=== PATIENT | male | born 1955 | race Caucasian/White ===

== ENCOUNTER 2016-12-24 06:41 | Day surgery (SDC) | payer OTHER ==
[2016-12-19 12:56] VITALS: BMI 28.0
[~2016-12-24 06:41] MED LIST: LACTATED RINGERS 1,000 ML IV SCH
[2016-12-24 07:08] VITALS: RESP 18; TEMP 98.4
[2016-12-24] MEDS ORDERED: LACTATED RINGERS 1,000 ML IV ONE (07:08)
[2016-12-24] MEDS ORDERED: LIDOCAINE 1% INJ 10MG/ML (20 ML MDV) ONE (07:40)
[2016-12-24] MEDS ORDERED: PROPOFOL 10 MG/ML 20 ML VIAL IV ONE (07:40)
--- NOTE | 2016-12-24 07:46 | P.GSHP ---
History of Present Illness H&P Date: 12/24/16 Chief Complaint: Chronic constipation This a 61-year-old male referred from Dr. Rose. Patient presents today for colonoscopy. He's had issues with constipation. - Constitutional Constitutional: Reports as per HPI Past Medical History Past Medical History: Asthma, Hyperlipidemia, Hypertension Additional Past Medical History / Comment(s): schizophrenia. constipation History of Any Multi-Drug Resistant Organisms: None Reported Past Surgical History: No Surgical Hx Reported Past Anesthesia/Blood Transfusion Reactions: No Reported Reaction Past Psychological History: Schizophrenia Smoking Status: Current every day smoker Past Alcohol Use History: None Reported Additional Past Alcohol Use History / Comment(s): smokes 10 cig/day Past Drug Use History: None Reported - Past Family History Father History Unknown: Yes Mother History Unknown: Yes Medications and Allergies Home Medications Medication Instructions Recorded Confirmed Type LORazepam [Ativan] 1 mg PO QID 05/18/14 12/24/16 History Aspirin [Aspirin EC] 81 mg PO QAM 04/12/16 12/24/16 History Levothyroxine Sodium [Synthroid] 150 mcg PO QAM 04/12/16 12/24/16 History Multivitamins, Thera [Multivitamin] 1 tab PO QAM 04/12/16 12/24/16 History Simvastatin [Zocor] 10 mg PO HS 04/12/16 12/24/16 History fluPHENAZine DECANOATE [Prolixin 50 mg IM TU 04/22/16 12/24/16 History Decanoate] Albuterol Inhaler [Ventolin Hfa 1 - 2 puff INHALATION QID 12/19/16 12/24/16 History Inhaler] Atenolol [Tenormin] 12.5 mg PO DAILY 12/19/16 12/24/16 History [place] Carbonate ER [Lithobid] 300 mg PO DAILY 12/19/16 12/24/16 History QUEtiapine XR [SEROquel XR] 2 tab PO DAILY 12/19/16 12/24/16 History Sennosides [Senna] 2 tab PO BID 12/19/16 12/24/16 History Allergies Allergy/AdvReac Type Severity Reaction Status Date / Time acetaminophen [From Tylenol] Allergy Unknown Verified 12/24/16 07:06 gabapentin [From Neurontin] Allergy Unknown Verified 12/24/16 07:06 Penicillins Allergy Unknown Verified 12/24/16 07:06 clozapine [From Clozaril] AdvReac Unknown Verified 12/24/16 07:06 divalproex sodium AdvReac Unknown Verified 12/24/16 07:06 [From Depakote] Surgical - Exam Vital Signs Temp Pulse Resp BP Pulse Ox 98.4 F 86 18 113/60 97 12/24/16 07:06 12/24/16 07:06 12/24/16 07:06 12/24/16 07:06 12/24/16 07:06 - General well developed, no distress - Eyes PERRL - ENT normal pinna - Neck no masses - Respiratory normal expansion - Cardiovascular Rhythm: regular - Abdomen Abdomen: soft, non tender Assessment and Plan Plan: Chronic constipation. We'll perform colonoscopy.
--- NOTE | 2016-12-24 08:01 | P.OP ---
Date of Procedure: 12/24/16 Preoperative Diagnosis: Constipation Postoperative Diagnosis: Hemorrhoids Normal colon Procedure(s) Performed: Colonoscopy Anesthesia: MAC Surgeon: Buck Neville Pathology: none sent Condition: stable Disposition: PACU Description of Procedure: PROCEDURE: The patient was placed on the endoscopy table in the lateral position. Digital rectal examination was performed which revealed internal hemorrhoids. The prostate was symmetrical without nodules. Flexible colonoscope was then placed in the patient's anus and passed throughout the entire colon. The ileocecal valve was visualized. The cecum, ascending, transverse, descending and sigmoid colon were normal. The rectum was normal as well. There were no masses, polyps or diverticula noted in the entire colon.
[2016-12-24 08:27] VITALS: BP 149/83; PULSE 94
== END 2016-12-24 09:06 | disposition home or self-care (01) ==
LOC: ORWHC2ENDO 06:41
PROVIDERS: ATTEND Surgery
DX: K64.8 Other hemorrhoids (principal); J45.909 Unspecified asthma, uncomplicated; E78.5 Hyperlipidemia, unspecified; I10 Essential (primary) hypertension; F20.9 Schizophrenia, unspecified; Z79.82 Long term (current) use of aspirin; Z79.899 Other long term (current) drug therapy; Z88.6 Allergy status to analgesic agent; Z88.0 Allergy status to penicillin; Z88.8 Allergy status to other drugs, medicaments and biological substances
CPT/HCPCS: 45378; J2001; J2704; 99153

== ENCOUNTER 2020-06-08 17:12 | Inpatient (IN) | payer MEDICARE, MEDICAID ==
--- NOTE | 2020-06-08 18:55 | ED ---
Psych HPI - General Chief Complaint: Psychiatric Symptoms Stated Complaint: petitioned, hallucinations Time Seen by Provider: 06/08/20 17:52 Source: patient, police Mode of arrival: ambulatory - History of Present Illness Initial Comments: 64yo male presenting today for cc of hallucinations, hearing people/things--patient has known history of schizophrenia. Patient brought in by police for psychiatric evaluation. Patient talking to himself and saying he is hearing things that no one else can hear. Denied suicidal or homicidal ideation. Patient gets agitated easily on history taking, therefore little history provided. Patient does not smell of alcohol. Denies use. Patietn does appears paranoid. - Related Data Home Medications Medication Instructions Recorded Confirmed Aspirin [Aspirin EC] 81 mg PO DAILY@79904/12/16 06/09/20 Multivitamins, Thera [Multivitamin 1 tab PO HS@209904/12/16 06/09/20 (formulary)] Simvastatin [Zocor] 10 mg PO HS@209904/12/16 06/09/20 Albuterol Inhaler [Ventolin Hfa 2 puff INHALATION RT-Q6H PRN 06/07/20 06/09/20 Inhaler] Cholecalciferol (Vitamin D3) 125 mcg PO DAILY@79906/07/20 06/09/20 [Vitamin D3] Docusate [Colace] 100 mg PO BID@08,209906/07/20 06/09/20 Fenofibrate Nanocrystallized 145 mg PO DAILY@79906/07/20 06/09/20 [Fenofibrate] Foltrate Tablet 1 tab PO DAILY@79906/07/20 06/09/20 Lactulose 10 gm PO DAILY PRN 06/07/20 06/09/20 Latanoprost/Pf [Latanoprost 0.005% 1 drop BOTH EYES HS@209906/07/20 06/09/20 Eye Drop] Levothyroxine Sodium [Synthroid] 100 mcg PO DAILY@69906/07/20 06/09/20 [place] Carbonate 600 mg PO DAILY@169906/07/20 06/09/20 Loperamide [Imodium] 2 - 4 mg PO QID PRN 06/07/20 06/09/20 Magnesium Hydroxide [Milk of 2,400 mg PO DAILY PRN 06/07/20 06/09/20 Magnesia] Metoprolol Tartrate [Lopressor] 25 mg PO BID@0800,209906/07/20 06/09/20 Oyfcauct-Usnihwetjs-Mpwx Oint 1 applic TOPICAL DIRECTED PRN 06/07/20 06/09/20 [Triple Antibiotic Ointment] Omeprazole [PriLOSEC] 20 mg PO DAILY@0806/07/20 06/09/20 Psyllium Husk (with Sugar) 14 gm PO TID PRN 06/07/20 06/09/20 [Metamucil Powder] QUEtiapine FUMARATE [SEROquel] 300 mg PO HS@209906/07/20 06/09/20 Robafen Dm Syrup 100-10/5ml 15 ml PO Q8H PRN 06/07/20 06/09/20 Robafen Syrup 100/5ml 200 - 400 mg PO Q4H PRN 06/07/20 06/09/20 clonazePAM 0.5 mg PO DAILY@79906/07/20 06/09/20 clonazePAM 1 mg PO HS@209906/07/20 06/09/20 fluPHENAZine HCl [fluPHENAZine HCL] 5 mg PO HS@209906/07/20 06/09/20 Aspirin EC [Ecotrin] 325 - 650 mg PO Q4H PRN 06/08/20 06/09/20 Azithromycin [Zithromax Z-pack] See Taper PO DAILY@1700 06/08/20 06/09/20 Bismuth Subsalicylate 524 mg PO QID PRN 06/08/20 06/09/20 [Pepto-Bismol] Docusate [Colace] 100 mg PO DAILY PRN 06/08/20 06/09/20 Ibuprofen [Motrin Ib] 200 - 400 mg PO Q6H PRN 06/08/20 06/09/20 Ibuprofen [Motrin] 400 mg PO TID PRN 06/08/20 06/09/20 Ibuprofen [Motrin] 800 mg PO Q8H PRN 06/08/20 06/09/20 Pseudoephedrine HCl [Sudogest] 60 mg PO Q4-6H PRN 06/08/20 06/09/20 diphenhydrAMINE [Benadryl] 25 - 50 mg PO Q4-6H PRN 06/08/20 06/09/20 predniSONE 50 mg PO DAILY@1700 06/08/20 06/09/20 Allergies Allergy/AdvReac Type Severity Reaction Status Date / Time acetaminophen [From Tylenol] Allergy Unknown Verified 06/09/20 02:54 gabapentin [From Neurontin] Allergy Unknown Verified 06/09/20 02:54 Penicillins Allergy Unknown Verified 06/09/20 02:54 clozapine [From Clozaril] AdvReac Unknown Verified 06/09/20 02:54 divalproex sodium AdvReac Unknown Verified 06/09/20 02:54 [From Depakote] Review of Systems ROS Statement: Those systems with pertinent positive or pertinent negative responses have been documented in the HPI. ROS Other: All systems not noted in ROS Statement are negative. Past Medical History Past Medical History: Asthma, Hyperlipidemia, Hypertension Additional Past Medical History / Comment(s): schizophrenia. constipation History of Any Multi-Drug Resistant Organisms: None Reported Past Surgical History: No Surgical Hx Reported Past Anesthesia/Blood Transfusion Reactions: No Reported Reaction Past Psychological History: Schizophrenia Smoking Status: Current every day smoker Past Alcohol Use History: None Reported Past Drug Use History: None Reported - Past Family History Father History Unknown: Yes Mother History Unknown: Yes General Exam - General Exam Comments Initial Comments: General: The patient is awake and alert, talking to himself. Eye: +3 mm pupils are equal, round and reactive to light, extra-ocular movements are intact. No nystagmus. There is normal conjunctiva bilaterally. No signs of icterus. Ears, nose, mouth and throat: There are moist mucous membranes and no oral lesions. Neck: The neck is supple, there is no tenderness or JVD. Cardiovascular: There is a regular rate and rhythm. No murmur, rub or gallop is appreciated. Respiratory: Lungs are clear to auscultation, respirations are non-labored, breath sounds are equal. No wheezes, stridor, rales, or rhonchi. Gastrointestinal: Soft, non-distended, non-tender abdomen without masses or organomegaly noted. There is no rebound or guarding present. Musculoskeletal: Normal ROM, no tenderness. Strength 5/5. Sensation intact. Radial pulses equal bilaterally 2+. Neurological: A&O x 3. CN II-XII intact grossly, There are no obvious motor or sensory deficits. Coordination appears grossly intact. Speech is pressured. Skin: Skin is warm and dry and no rashes or lesions are noted. Psychiatric: agitated if talked to Limitations: no limitations Course Vital Signs 06/08/20 06/08/20 06/08/20 17:37 17:55 19:03 Temperature 98.4 F Pulse Rate 77 Respiratory 18 18 18 Rate Blood Pressure 114/70 O2 Sat by Pulse 97 Oximetry Medical Decision Making - Medical Decision Making 64yo male presenting today for cc of hallucinations, patient saying he is hearing voices. Talking to self. Hx of schizophrenia. Patient appears paranoid/scared. Patient denies suicidal/homicidal ideation. Patient not intoxicated appearing. Patient medically cleared, denied complaints. Evaluated by psychiatry who recommended inpatient management. - Lab Data Result diagrams: 06/09/20 07:23 06/09/20 07:23 Lab Results 06/08/20 Range/Units 19:03 Urine Color Light Yellow Urine Appearance Clear (Clear) Urine pH 5.5 (5.0-8.0) Ur Specific [place] 1.006 (1.001-1.035) Urine Protein Negative (Negative) Urine Glucose (UA) Negative (Negative) Urine Ketones Negative (Negative) Urine Blood Negative (Negative) Urine Nitrite Negative (Negative) Urine Bilirubin Negative (Negative) Urine Urobilinogen <2.0 (<2.0) mg/dL Ur Leukocyte Esterase Negative (Negative) Urine Opiates Screen Not Detected (NotDetected) Ur Oxycodone Screen Not Detected (NotDetected) Urine Methadone Screen Not Detected (NotDetected) Ur Propoxyphene Screen Not Detected (NotDetected) Ur Barbiturates Screen Not Detected (NotDetected) U Tricyclic Antidepress Detected H (NotDetected) Ur Phencyclidine Scrn Not Detected (NotDetected) Ur Amphetamines Screen Not Detected (NotDetected) U Methamphetamines Scrn Not Detected (NotDetected) U Benzodiazepines Scrn Not Detected (NotDetected) Urine Cocaine Screen Not Detected (NotDetected) U Marijuana (THC) Screen Not Detected (NotDetected) Disposition Clinical Impression: Hallucinations, Hx of schizophrenia, Agitation Disposition: TRANSFER TO PSYCH HOSP/UNIT Condition: Stable Is patient prescribed a controlled substance at d/c from ED?: No Time of Disposition: 22:00 (06/08/2020) Decision to Admit Reason: Admit from EC Decision Date: 06/08/20 Decision Time: 22:00
[2020-06-08 19:16] LABS: Appearance,Urine Clear (Clear); Bilirubin,Urine Negative (Negative); Blood,Urine Negative (Negative); Color,Urine Light Yellow; Glucose,Urine (UA) Negative (Negative); Ketones,Urine Negative (Negative); Leukocyte Esterase,Urine Negative (Negative); Nitrite,Urine Negative (Negative); PH, Urine 5.5 (5.0-8.0); Protein,Urine Negative (Negative); Specific Gravity,Urine 1.006 (1.001-1.035); Urobilinogen,Urine <2.0 mg/dL (<2.0)
[2020-06-08 19:23] LABS: Amphetamine Screen,Urine Not Detected (NotDetected); Barbiturate Screen,Urine Not Detected (NotDetected); Benzodiazepines Screen,Urine Not Detected (NotDetected); Cocaine Screen,Urine Not Detected (NotDetected); Methadone Screen, Urine Not Detected (NotDetected); Opiate Screen,Urine Not Detected (NotDetected); Oxycodone Screen, Urine Not Detected (NotDetected); Phencyclidine Screen,Urine Not Detected (NotDetected); Tricyclic Antidepressant,Urine Detected (NotDetected); Urn Cannabinoid Scrn Not Detected (NotDetected)
[2020-06-08] MEDS ORDERED: diphenhydrAMINE 50 MG/ML 1 ML VIAL IM STA (23:05)
[2020-06-08] MEDS ORDERED: LORazepam 2 MG/ML INJ IM STA (23:05)
[2020-06-08] MEDS ORDERED: MAG HYDROX/AL HYDROX/SIMETH 30 ML CUP PO PRN (23:20)
[2020-06-08] MEDS ORDERED: MAGNESIUM HYDROXIDE 2,400 MG/10 ML CUP PO PRN (23:20)
[2020-06-09] MEDS: LORazepam 1 MG TAB PO PRN (00:13)
[2020-06-09] MEDS: ZIPRASIDONE 20 MG VIAL IM PRN (00:14)
[2020-06-09] MEDS ORDERED: diphenhydrAMINE 50 MG/ML 1 ML VIAL IM STA (01:57)
[2020-06-09] MEDS ORDERED: HALOPERIDOL LACTATE 5 MG/ML 1 ML VIAL IM STA (01:59)
[2020-06-09] MEDS ORDERED: LORazepam 2 MG/ML INJ IM STA (02:00)
[2020-06-09] MEDS ORDERED: NON FORMULARY DRUG (Cholecalciferol (Vitamin D3) [Vitamin D3] 125 MCG) PO SCH (08:00)
[2020-06-09 08:26] LABS: Basophils % (A) 0 %; Eosinophils # (A) 0.1 k/uL (0-0.7); Eosinophils % (A) 2 %; HCT 46.9 % (39.0-53.0); Lymphocytes # (A) 2.3 k/uL (1.0-4.8); Lymphocytes % (A) 36 %; MCH 30.7 pg (25.0-35.0); MCV 95.9 fL (80.0-100.0); Mean Platelet Volume 10.7; Monocytes # (A) 0.4 k/uL (0-1.0); Monocytes % (A) 6 %; Neutrophils # (A) 3.4 k/uL (1.3-7.7); Neutrophils % (A) 54 %; Platelet Count 113 k/uL (150-450); RBC 4.88 m/uL (4.30-5.90); RDW 12.6 % (11.5-15.5); WBC 6.3 k/uL (3.8-10.6)
[2020-06-09] MEDS: LEVOTHYROXINE 100 MCG TAB PO SCH (08:39)
[2020-06-09] MEDS: PANTOPRAZOLE 40 MG TABLET PO SCH (08:40)
[2020-06-09] MEDS: ASPIRIN 81 MG PO SCH (08:40)
[2020-06-09] MEDS: METOPROLOL TARTRATE 25 MG TAB PO SCH ×2 (08:40→21:23)
[2020-06-09] MEDS: clonazePAM 0.5 MG TAB PO SCH (08:40)
[2020-06-09] MEDS: DOCUSATE 100 MG CAP PO SCH ×2 (08:40→21:23)
[2020-06-09 09:00] LABS: ALT 24 U/L (4-49); AST 32 U/L (17-59); African American GFR (CKD) >90 (>60 ml/min/1.73 sqM); Albumin 3.3 g/dL (3.5-5.0); Alkaline Phosphatase 40 U/L (38-126); Anion Gap 4 mmol/L; Blood Urea Nitrogen 11 mg/dL (9-20); Calcium 9.7 mg/dL (8.4-10.2); Carbon Dioxide 24 mmol/L (22-30); Chloride 110 mmol/L (98-107); Glucose 88 mg/dL (74-99); Non-African American GFR(CKD) 78 (>60 ml/min/1.73 sqM); Potassium 3.9 mmol/L (3.5-5.1); Sodium 138 mmol/L (137-145); Total Bilirubin 0.4 mg/dL (0.2-1.3); Total Protein 5.4 g/dL (6.3-8.2)
[2020-06-09] MEDS: FENOFIBRATE 160 MG TAB PO SCH (09:30)
[2020-06-09] MEDS: FOLTRATE PO SCH (09:31)
--- NOTE | 2020-06-09 12:03 | P.HP ---
Psychiatric H&P - . H&P Date: 06/09/20 History & Physical: IDENTIFYING DATA: He is a 64-year-old single male who has a long history of a schizophrenia. He presented to the psychiatric unit involuntarily with increasing agitation, aggression and appropriate sexual behavior. HISTORY OF PRESENT ILLNESS: I reviewed the medical record, attempted to interview the patient and discussed the case with Dr. Capellan from [facility]. The patient was unable to provide a coherent history. His thinking was disorganized and his speech was incoherent. He expressed multiple fragmentted delusional beliefs. According to information from his [facility] home he has been more aggressive towards other residents and was masturbating in public. Dr. Capellan has been his provider at [facility] provider for the last 10 years. He stated that David is chronically psychotic and during the 10 years David has never had a period of recovery. He has prescribed most typical and atypical antipsychotics including clozapine without significant change in Seth clinical status. Dr. Capellan's primary treatment goal has been to limit his aggressive and inappropriate sexual behavior. PAST PSYCHIATRIC HISTORY: He is had multiple psychiatric admissions including 10 years at [facility]. This is his fourth admission to our psychiatric unit. His last admission was in April 2016 he was discharged with diagnosis of a schizophrenia. His discharge medications included Geodon 40 mg daily, lithium ER 450 mg twice a day, Seroquel XR 200 mg in morning and 500 mg at night. As well as Prolixin Decanoate 50 mg IM every 4 weeks. His last appointment with his psychiatrist [facility] was in March 2020 in the progress notes indicate multiple bizarre delusional statements and paranoia. Their diagnoses is a schizoaffective disorder and his medications included lithium carbonate 300 mg twice a day, Seroquel 300 mg at bedtime, Prolixin 5 mg at bedtime and clonazepam 0.5 mg in the morning and 1 mg at bedtime. PAST MEDICAL HISTORY: He has a history of essential hypertension, hyperlipidemia, hypothyroidism, glaucoma and tobacco use disorder. ALLERGIES: According to the EMR he is ALLERGIC to acetaminophen, gabapentin, penicillins, clozapine and Depakote SUBSTANCE USE HISTORY: The medical record indicates no history of substance use or substance use problems. I could not understand his response to questions. FAMILY PSYCHIATRIC/SUBSTANCE USE HISTORY: Unknown LEGAL HISTORY: He has a public guardian SOCIAL HISTORY: His parents are . He graduated from high school. He is unemployed and receiving Social Security disability. He is a public guardian due to his persistent and severe psychiatric illness. MENTAL STATUS EXAM: He presented as a casually groomed 64-year-old male who was pleasant on approach. He made eye contact and appeared to attend to the interview. He had no distinguishing features or prominent physical abnormalities. He had a distressed facial expression. He was alert and oriented to person. He showed no abnormality of psychomotor activity. He had no abnormal involuntary movements. Her speech was spontaneous with normal rate and rhythm. His affect was anxious. He did not express suicidal ideation or wishes. He denied homicidal ideation. He expressed multiple fragmented delusions and talked about wanting to return to his home (he stated that the building is currently vacant). Other times she talked about living with his parents (both are ). His thinking was grossly disorganized, incoherent and illogical. He did not appear to be responding to internal stimuli. Global impression of intellect is average. He has no awareness or understanding of his illness or need for treatment. STRENGTHS: Relatively good physical health, stable housing, stable income, engagement with community mental health services WEAKNESSES: Chronic and persistently severe mental illness IMPRESSION: He is a 64-year-old single male with long history of a schizophrenia. He is had multiple psychiatric hospitalizations and trial of multiple psychotropic medications with limited benefit on his core psychotic symptoms. He presented to the psychiatric unit involuntarily with increase of agitation, aggression and inappropriate sexual behavior. We should pursue the involuntary hospitalization and treat his psychosis with combination of psychopharmacology and multimodal therapy. PRINCIPLE DIAGNOSIS: Schizophrenia continuous unspecified, COPD, hyperlipidemia, hypertension RECOMMENDATION: Admitted to the psychiatric unit. Safety precautions. Completed basic clinical certificate and submit the supporting documents to [facility] for involuntary hospitalization. Consult medicine for initial physical Center medical history. 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 Continue Seroquel 300 mg at bedtime, lithium 300 mg twice a day and clonazepam 0.5 mg in the morning and 1 mg at at bedtime. Discontinue Prolixin 5 mg daily. Begin trazodone 40 mg daily and titrated according to clinical response and tolerance and pvortioxetine 10mg daily. Encourage participation in therapeutic groups and activities. Evaluate clinical status response to treatment daily basis. Allergies Allergy/AdvReac Type Severity Reaction Status Date / Time acetaminophen [From Tylenol] Allergy Unknown Verified 06/09/20 02:54 gabapentin [From Neurontin] Allergy Unknown Verified 06/09/20 02:54 Penicillins Allergy Unknown Verified 06/09/20 02:54 clozapine [From Clozaril] AdvReac Unknown Verified 06/09/20 02:54 divalproex sodium AdvReac Unknown Verified 06/09/20 02:54 [From Depakote] Vital Signs Temp 0 F L 06/09/20 06:35 Pulse 91 06/09/20 08:42 Resp 18 06/09/20 08:42 BP 130/76 06/09/20 08:42 Pulse Ox 100 06/08/20 23:45 Intake & Output 06/08/20 06/09/20 06/09/20 18:59 06:59 18:59 Weight 90.718 kg 86.778 kg Laboratory Last Values WBC 6.3 k/uL (3.8-10.6) 06/09/20 07:23 RBC 4.88 m/uL (4.30-5.90) 06/09/20 07:23 Hgb 15.0 gm/dL (13.0-17.5) 06/09/20 07:23 Hct 46.9 % (39.0-53.0) 06/09/20 07:23 MCV 95.9 fL (80.0-100.0) 06/09/20 07:23 MCH 30.7 pg (25.0-35.0) 06/09/20 07:23 MCHC 32.0 g/dL (31.0-37.0) 06/09/20 07:23 RDW 12.6 % (11.5-15.5) 06/09/20 07:23 Plt Count 113 k/uL (150-450) L 06/09/20 07:23 Neutrophils % 54 % 06/09/20 07:23 Lymphocytes % 36 % 06/09/20 07:23 Monocytes % 6 % 06/09/20 07:23 Eosinophils % 2 % 06/09/20 07:23 Basophils % 0 % 06/09/20 07:23 Neutrophils # 3.4 k/uL (1.3-7.7) 06/09/20 07:23 Lymphocytes # 2.3 k/uL (1.0-4.8) 06/09/20 07:23 Monocytes # 0.4 k/uL (0-1.0) 06/09/20 07:23 Eosinophils # 0.1 k/uL (0-0.7) 06/09/20 07:23 Basophils # 0.0 k/uL (0-0.2) 06/09/20 07:23 Sodium 138 mmol/L (137-145) 06/09/20 07:23 Potassium 3.9 mmol/L (3.5-5.1) 06/09/20 07:23 Chloride 110 mmol/L (98-107) H 06/09/20 07:23 Carbon Dioxide 24 mmol/L (22-30) 06/09/20 07:23 Anion Gap 4 mmol/L 06/09/20 07:23 BUN 11 mg/dL (9-20) 06/09/20 07:23 Creatinine 1.00 mg/dL (0.66-1.25) 06/09/20 07:23 Est GFR (CKD-EPI)AfAm >90 (>60 ml/min/1.73 sqM) 06/09/20 07:23 Est GFR (CKD-EPI)NonAf 78 (>60 ml/min/1.73 sqM) 06/09/20 07:23 Glucose 88 mg/dL (74-99) 06/09/20 07:23 Calcium 9.7 mg/dL (8.4-10.2) 06/09/20 07:23 Total Bilirubin 0.4 mg/dL (0.2-1.3) 06/09/20 07:23 AST 32 U/L (17-59) 06/09/20 07:23 ALT 24 U/L (4-49) 06/09/20 07:23 Alkaline Phosphatase 40 U/L (38-126) 06/09/20 07:23 Total Protein 5.4 g/dL (6.3-8.2) L 06/09/20 07:23 Albumin 3.3 g/dL (3.5-5.0) L 06/09/20 07:23 Urine Color Light Yellow 06/08/20 19:03 Urine Appearance Clear (Clear) 06/08/20 19:03 Urine pH 5.5 (5.0-8.0) 06/08/20 19:03 Ur Specific [place] 1.006 (1.001-1.035) 06/08/20 19:03 Urine Protein Negative (Negative) 06/08/20 19:03 Urine Glucose (UA) Negative (Negative) 06/08/20 19:03 Urine Ketones Negative (Negative) 06/08/20 19:03 Urine Blood Negative (Negative) 06/08/20 19:03 Urine Nitrite Negative (Negative) 06/08/20 19:03 Urine Bilirubin Negative (Negative) 06/08/20 19:03 Urine Urobilinogen <2.0 mg/dL (<2.0) 06/08/20 19:03 Ur Leukocyte Esterase Negative (Negative) 06/08/20 19:03 Urine Opiates Screen Not Detected (NotDetected) 06/08/20 19:03 Ur Oxycodone Screen Not Detected (NotDetected) 06/08/20 19:03 Urine Methadone Screen Not Detected (NotDetected) 06/08/20 19:03 Ur Propoxyphene Screen Not Detected (NotDetected) 06/08/20 19:03 Ur Barbiturates Screen Not Detected (NotDetected) 06/08/20 19:03 U Tricyclic Antidepress Detected (NotDetected) H 06/08/20 19:03 Ur Phencyclidine Scrn Not Detected (NotDetected) 06/08/20 19:03 Ur Amphetamines Screen Not Detected (NotDetected) 06/08/20 19:03 U Methamphetamines Scrn Not Detected (NotDetected) 06/08/20 19:03 U Benzodiazepines Scrn Not Detected (NotDetected) 06/08/20 19:03 Urine Cocaine Screen Not Detected (NotDetected) 06/08/20 19:03 U Marijuana (THC) Screen Not Detected (NotDetected) 06/08/20 19:03 06/09/20 11:33
--- NOTE | 2020-06-09 19:34 | P.CONS ---
History of Present Illness - Reason for Consult Consult date: 06/09/20 Medical management Requesting physician: Compa Huerta - Chief Complaint Psychosis - History of Present Illness Consultation: This is a 64-year-old patient of visiting physicians Dr. Matson. Chronic stable medical conditions include COPD, hypertension, hyperlipidemia, constipation. Patient has a public guardian. Lives in a fpc. Patient's other psychotic with toxic looking disorganize speech goes from one topic to another topic in quick secession. Difficult to get any specific history. Patient being followed by Dr. Connell from the committee to mental health. Apparently patient has been aggressive to was the other residents at the [facility] home and has been ma sturbating in public. Patient supposedly chronically psychotic never really had a period of recovery. He has been on multiple antipsychotics. Outpatient goal has been to keep his aggressive behavior to the minimal and controlled his inappropriate sexual behavior. He has a diagnoses of schizophrenia and schizoaffective disorder with multiple bizarre decisional statements and paranoia. Review of systems: GEN.: None EYES: None HEENT: None NECK: None RESPIRATORY: None CARDIOVASCULAR: None GASTROINTESTINAL: Constipation GENITOURINARY: None MUSCULOSKELETAL: None LYMPHATICS: None HEMATOLOGICAL: None PSYCHIATRY: As above NEUROLOGICAL: No trouble walking Past medical history to include: Asthma, hypertension, hyperlipidemia, schizophrenia, schizoaffective disorder, constipation Social history: Has a public guardian. Smokes up to half a pack a day. No alcohol intake. Lives at a [facility] home. Physical examination: VITAL SIGNS: 98.4, 77, 18, 114/70, 97% on room air GENERAL: BMI 28.3, sitting edge of the bed anxious appearing. EYES: Pupils equal. Conjunctiva normal. HEENT: External appearance of nose and ears normal, oral cavity grossly normal. NECK: JVD not raised; masses not palpable. HEART: First and second heart sounds are normal; no edema. LUNGS: Respiratory rate normal; decreased breath sounds. ABDOMEN: Soft, nontender, liver spleen not palpable, no masses palpable. PSYCH: Psychotic thoughtsl. NEUROLOGICAL: Cranial nerves grossly intact; no facial asymmetry, power and sensation grossly intact. LYMPHATICS: No lymph nodes palpable in the axilla and neck INVESTIGATIONS, reviewed in the clinical context: White count 6.3 hemoglobin 15 platelets 113 potassium 3.9 creatinine 1.0 UA negative Urine drug screen positive for TCA Assessment: -Hyperlipidemia -Essential hypertension -COPD Current smoker -Chronic decoded dependent cigarette smoker -Schizophrenia as per psychiatry Plan: It is difficult to hold any conversation with the patient. Home medications r esumed. The patient nicotine patch. Should follow-up with his family doctor when discharge. Thank you Dr. Chacko Past Medical History Past Medical History: Asthma, Hyperlipidemia, Hypertension Additional Past Medical History / Comment(s): schizophrenia. constipation History of Any Multi-Drug Resistant Organisms: None Reported Past Surgical History: No Surgical Hx Reported Past Anesthesia/Blood Transfusion Reactions: No Reported Reaction Past Psychological History: Schizophrenia Smoking Status: Current every day smoker Past Alcohol Use History: None Reported Past Drug Use History: None Reported - Past Family History Father History Unknown: Yes Mother History Unknown: Yes Medications and Allergies Home Medications Medication Instructions Recorded Confirmed Type Aspirin [Aspirin EC] 81 mg PO DAILY@79904/12/16 06/09/20 History Multivitamins, Thera [Multivitamin 1 tab PO HS@209904/12/16 06/09/20 History (formulary)] Simvastatin [Zocor] 10 mg PO HS@209904/12/16 06/09/20 History Albuterol Inhaler [Ventolin Hfa 2 puff INHALATION RT-Q6H PRN 06/07/20 06/09/20 History Inhaler] Cholecalciferol (Vitamin D3) 125 mcg PO DAILY@79906/07/20 06/09/20 History [Vitamin D3] Docusate [Colace] 100 mg PO BID@08,209906/07/20 06/09/20 History Fenofibrate Nanocrystallized 145 mg PO DAILY@79906/07/20 06/09/20 History [Fenofibrate] Foltrate Tablet 1 tab PO DAILY@79906/07/20 06/09/20 History Lactulose 10 gm PO DAILY PRN 06/07/20 06/09/20 History Latanoprost/Pf [Latanoprost 0.005% 1 drop BOTH EYES HS@209906/07/20 06/09/20 History Eye Drop] Levothyroxine Sodium [Synthroid] 100 mcg PO DAILY@69906/07/20 06/09/20 History [place] Carbonate 600 mg PO DAILY@169906/07/20 06/09/20 History Loperamide [Imodium] 2 - 4 mg PO QID PRN 06/07/20 06/09/20 History Magnesium Hydroxide [Milk of 2,400 mg PO DAILY PRN 06/07/20 06/09/20 History Magnesia] Metoprolol Tartrate [Lopressor] 25 mg PO BID@0800,209906/07/20 06/09/20 History Wwdqncsr-Dxfnpcrsgn-Bxeh Oint 1 applic TOPICAL DIRECTED PRN 06/07/20 06/09/20 History [Triple Antibiotic Ointment] Omeprazole [PriLOSEC] 20 mg PO DAILY@0806/07/20 06/09/20 History Psyllium Husk (with Sugar) 14 gm PO TID PRN 06/07/20 06/09/20 History [Metamucil Powder] QUEtiapine FUMARATE [SEROquel] 300 mg PO HS@209906/07/20 06/09/20 History Robafen Dm Syrup 100-10/5ml 15 ml PO Q8H PRN 06/07/20 06/09/20 History Robafen Syrup 100/5ml 200 - 400 mg PO Q4H PRN 06/07/20 06/09/20 History clonazePAM 0.5 mg PO DAILY@0806/07/20 06/09/20 History clonazePAM 1 mg PO HS@209906/07/20 06/09/20 History fluPHENAZine HCl [fluPHENAZine HCL] 5 mg PO HS@209906/07/20 06/09/20 History Aspirin EC [Ecotrin] 325 - 650 mg PO Q4H PRN 06/08/20 06/09/20 History Azithromycin [Zithromax Z-pack] See Taper PO DAILY@1700 06/08/20 06/09/20 History Bismuth Subsalicylate 524 mg PO QID PRN 06/08/20 06/09/20 History [Pepto-Bismol] Docusate [Colace] 100 mg PO DAILY PRN 06/08/20 06/09/20 History Ibuprofen [Motrin Ib] 200 - 400 mg PO Q6H PRN 06/08/20 06/09/20 History Ibuprofen [Motrin] 400 mg PO TID PRN 06/08/20 06/09/20 History Ibuprofen [Motrin] 800 mg PO Q8H PRN 06/08/20 06/09/20 History Pseudoephedrine HCl [Sudogest] 60 mg PO Q4-6H PRN 06/08/20 06/09/20 History diphenhydrAMINE [Benadryl] 25 - 50 mg PO Q4-6H PRN 06/08/20 06/09/20 History predniSONE 50 mg PO DAILY@1700 06/08/20 06/09/20 History Allergies Allergy/AdvReac Type Severity Reaction Status Date / Time acetaminophen [From Tylenol] Allergy Unknown Verified 06/09/20 02:54 gabapentin [From Neurontin] Allergy Unknown Verified 06/09/20 02:54 Penicillins Allergy Unknown Verified 06/09/20 02:54 clozapine [From Clozaril] AdvReac Unknown Verified 06/09/20 02:54 divalproex sodium AdvReac Unknown Verified 06/09/20 02:54 [From Depakote] Physical Exam Vitals: Vital Signs Temp Pulse Pulse Pulse Resp BP BP 06/09/20 08:42 91 18 06/09/20 06:35 0 F L 06/08/20 23:45 97.9 F 56 L 16 180/81 06/08/20 19:03 18 06/08/20 17:55 18 06/08/20 17:37 98.4 F 77 18 114/70 BP Pulse Ox 06/09/20 08:42 130/76 06/09/20 06:35 06/08/20 23:45 100 06/08/20 19:03 06/08/20 17:55 06/08/20 17:37 97 Intake and Output 06/08/20 06/09/20 06/09/20 22:59 06:59 14:59 Other: Weight 90.718 kg 86.778 kg Results CBC & Chem 7: 06/09/20 07:23 06/09/20 07:23 Labs: Abnormal Lab Results - Last 24 Hours (Table) 06/08/20 06/09/20 06/09/20 Range/Units 19:03 07:23 07:23 Plt Count 113 L (150-450) k/uL Chloride 110 H (98-107) mmol/L Total Protein 5.4 L (6.3-8.2) g/dL Albumin 3.3 L (3.5-5.0) g/dL U Tricyclic Antidepress Detected H (NotDetected)
[2020-06-09] MEDS: LITHIUM CARBONATE 300 MG CAP PO SCH (21:22)
[2020-06-09] MEDS: MULTIVITAMINS, THERA 1 EACH TAB PO SCH (21:22)
[2020-06-09] MEDS: ATORVASTATIN 10 MG TAB PO SCH (21:22)
[2020-06-09] MEDS: QUEtiapine 100 MG TAB PO SCH (21:23)
[2020-06-09] MEDS: clonazePAM 1 MG TAB PO SCH (21:25)
[2020-06-10] MEDS: LORazepam 1 MG TAB PO PRN (05:18)
[2020-06-10] MEDS: LEVOTHYROXINE 100 MCG TAB PO SCH (06:35)
--- NOTE | 2020-06-10 09:22 | P.PN ---
Progress Note - Text Progress Note Date: 06/10/20 Clinical Problems: Schizophrenia continuous unspecified, COPD, hyperlipidemia, hypertension Interim history: I reviewed the medical record and interviewed the patient. He was irritable and minimally cooperative. He was sitting in the patient lounge. He made unusual statements such as-his father is president. He is present for life. He is sitting in a chair across the room. His mother is sitting over there (pointing across the room). He did not sleep last night. He attended two therapeutic groups yesterday and the therapist notes that he is disheveled. His speech is garbled, pressured and tangential. His thinking is delusional and disorganized. He has been intermittently restless and receiving doses of when necessary Ativan. Mental status exam: He presented as a tall casually groomed 64-year-old male who is minimally cooperative. He made eye contact but did not appear to attend to the interview. He has an irritable facial expression. He is alert and oriented to person and place. He was restless but not agitated or aggressive. His speech was spontaneous and consistent with his mood. His affect was irritable and at times inappropriate. His he did not express suicidal ideation or wishes. He is paranoid, guarded and suspicious. His thinking was disorganized, incoherent and illogical. He described visual hallucinations. Assessment: He is seriously mentally ill and unchanged from admission. He continues to require close supervision as well as use of IM medications for increasing agitation and aggressive behavior Plan: Continue inpatient hospitalization. Probate hearing pending. Continue Klonopin 0.5 mg daily and 1 mg at bedtime, lithium carbonate 300 mg twice a day, and Seroquel 300 mg at bedtime. He is to begin Latuda 40 mg and Trintellix 10 mg this morning. Continue Ativan 1 mg by mouth 3 times a day when necessary for agitation or anxiety and Geodon 20 mg IM twice a day when necessary for agitation acute psychosis.
[2020-06-10] MEDS: ASPIRIN 81 MG PO SCH (10:00)
[2020-06-10] MEDS: DOCUSATE 100 MG CAP PO SCH ×2 (10:00→20:01)
[2020-06-10] MEDS: clonazePAM 0.5 MG TAB PO SCH (10:00)
[2020-06-10] MEDS: PANTOPRAZOLE 40 MG TABLET PO SCH (10:01)
[2020-06-10] MEDS: FENOFIBRATE 160 MG TAB PO SCH (10:01)
[2020-06-10] MEDS: FOLTRATE PO SCH (10:01)
[2020-06-10] MEDS: LURASIDONE 40 MG TAB PO SCH (10:01)
[2020-06-10] MEDS: METOPROLOL TARTRATE 25 MG TAB PO SCH ×2 (10:01→20:01)
[2020-06-10] MEDS: LITHIUM CARBONATE 300 MG CAP PO SCH ×2 (10:01→20:01)
[2020-06-10] MEDS: VORTIOXETINE HYDROBROMIDE 10 MG TABLET PO SCH (10:01)
[2020-06-10] MEDS: ATORVASTATIN 10 MG TAB PO SCH (20:01)
[2020-06-10] MEDS: clonazePAM 1 MG TAB PO SCH (20:01)
[2020-06-10] MEDS: MULTIVITAMINS, THERA 1 EACH TAB PO SCH (20:28)
[2020-06-10] MEDS: QUEtiapine 100 MG TAB PO SCH (20:28)
[2020-06-11] MEDS: ASPIRIN 81 MG PO SCH (08:08)
[2020-06-11] MEDS: DOCUSATE 100 MG CAP PO SCH ×2 (08:08→20:58)
[2020-06-11] MEDS: LEVOTHYROXINE 100 MCG TAB PO SCH (10:14)
[2020-06-11] MEDS: clonazePAM 0.5 MG TAB PO SCH (10:14)
[2020-06-11] MEDS: VORTIOXETINE HYDROBROMIDE 10 MG TABLET PO SCH (10:15)
[2020-06-11] MEDS: FENOFIBRATE 160 MG TAB PO SCH (10:15)
[2020-06-11] MEDS: LITHIUM CARBONATE 300 MG CAP PO SCH ×2 (10:15→20:58)
[2020-06-11] MEDS: PANTOPRAZOLE 40 MG TABLET PO SCH (10:15)
[2020-06-11] MEDS: LURASIDONE 40 MG TAB PO SCH (10:15)
[2020-06-11] MEDS: METOPROLOL TARTRATE 25 MG TAB PO SCH ×2 (10:16→20:58)
[2020-06-11] MEDS: FOLTRATE PO SCH (10:23)
--- NOTE | 2020-06-11 11:20 | P.PN ---
Progress Note - Text Progress Note Date: 06/11/20 Clinical Problems: Schizophrenia continuous unspecified, COPD, hyperlipidemia, hypertension Interim history: I reviewed the medical record and interviewed the patient. His speech was so disorganized that I could not understand him. I couldn't tell whether he was expressing a delusional thought or belief. He slept 2 hours last night. He attended no therapeutic groups or activities yesterday. He has been intermittently restless and receiving doses of when necessary Ativan. Mental status exam: He presented as a tall casually groomed 64-year-old male who is minimally cooperative. He made eye contact but did not appear to attend to the interview. He has an irritable facial expression. He is alert and oriented to person and place. He was restless but not agitated or aggressive. His speech is garbled, pressured and tangential. His thinking is delusional and disorganized. His affect was blunted. His he did not express suicidal ideation or wishes. He is paranoid, guarded and suspicious. His thinking was disorganized, incoherent and illogical. He described visual hallucinations. Assessment: He is seriously mentally ill and unchanged from admission. He continues to require close supervision as well as use of IM medications for increasing agitation and aggressive behavior Plan: Continue inpatient hospitalization. Probate hearing pending. Continue Klonopin 0.5 mg daily and 1 mg at bedtime, lithium carbonate 300 mg twice a day, Latuda 40 mg, Trintellix 10 mg and Seroquel 300 mg at bedtime. Continue Ativan 1 mg by mouth 3 times a day when necessary for agitation or anxiety and Geodon 20 mg IM twice a day when necessary for agitation acute psychosis.
[2020-06-11] MEDS: clonazePAM 1 MG TAB PO SCH (20:57)
[2020-06-11] MEDS: MULTIVITAMINS, THERA 1 EACH TAB PO SCH (20:57)
[2020-06-11] MEDS: QUEtiapine 100 MG TAB PO SCH (20:58)
[2020-06-11] MEDS: ATORVASTATIN 10 MG TAB PO SCH (20:58)
[2020-06-12] MEDS: LEVOTHYROXINE 100 MCG TAB PO SCH (07:14)
[2020-06-12] MEDS: clonazePAM 0.5 MG TAB PO SCH (08:13)
[2020-06-12] MEDS: METOPROLOL TARTRATE 25 MG TAB PO SCH ×2 (08:14→21:18)
[2020-06-12] MEDS: LURASIDONE 40 MG TAB PO SCH (08:14)
[2020-06-12] MEDS: LITHIUM CARBONATE 300 MG CAP PO SCH ×2 (08:14→21:18)
[2020-06-12] MEDS: VORTIOXETINE HYDROBROMIDE 10 MG TABLET PO SCH (08:14)
[2020-06-12] MEDS: FENOFIBRATE 160 MG TAB PO SCH (08:14)
[2020-06-12] MEDS: FOLTRATE PO SCH (08:14)
[2020-06-12] MEDS: PANTOPRAZOLE 40 MG TABLET PO SCH (08:14)
[2020-06-12] MEDS: DOCUSATE 100 MG CAP PO SCH ×2 (08:14→21:18)
[2020-06-12] MEDS: ASPIRIN 81 MG PO SCH (08:14)
--- NOTE | 2020-06-12 14:41 | P.PN ---
Progress Note - Text Progress Note Date: 06/12/20 I reviewed medical records ,I did interview patient and we discussed his treatment plan during team meeting TODAY VITALS:pulse:91,R:14,BP:120/77 Interval history: The patient is found in his room and he agreed to follow me to the office initially he was intrusive but easy to redirect,he stated that his name is "GIOVANI ROMERO" ,talked about identity thieft ,was starring and seems responding to internal stimuli ,very disorganized ,bizarre ,dishevelled ,agitated and asking to be discharged . According to outpatient psychiatrist and team staffs patient has chronic auditory hallucinations but not command in nature.Patient has been seen at [facility] ,his provider Nadya's who stated that the primary treatment goal has been to limit his aggressive and inappropriate sexual behavior. Patient slept just 2 hours yesterday,was wandering in [place] and starring at doors He did not attend activity group today Mental status exam: He presented as a tall 64-year-old male who is minimally cooperative. He made eye contact but did not appear to attend to the interview. He has an irritable facial expression. He is alert and oriented to person and place. He was restless but not agitated or aggressive. His speech was non spontaneous ,loose of association and disorganized. His affect was irritable and at times inappropriate. His he did not express suicidal ideation or wishes. He is paranoid, guarded and suspicious. His thinking was disorganized, incoherent and illogical. ASSESSMENT:Schizophrenia ,undifferentiated versus schizoaffective disorder Plan: Continue inpatient hospitalization. Probate hearing pending. Continue Klonopin 0.5 mg daily and 1 mg at bedtime, lithium carbonate 300 mg twice a day, and Seroquel 300 mg at bedtime. Increase Latuda to 80 mg , ,I will discontinue Trintellix ,check [place] level . Continue Ativan 1 mg by mouth 3 times a day when necessary for agitation or anxiety and Geodon 20 mg IM twice a day when necessary for agitation acute psychosis. Recent SW note (((Email sent to public guardian to inform them of pt's admission and to f/u on dc plans. Per Kendra at public guardian's office, pt will return back to [facility]. Deferral meeting held w/ environmental attorney Ernie Castorena and pt. Pt refused to sign deferral. Full hearing scheduled for 06/21/20 at 11 am. Will continue to f/u as appropriate))))
[2020-06-12] MEDS: MULTIVITAMINS, THERA 1 EACH TAB PO SCH (21:18)
[2020-06-12] MEDS: ATORVASTATIN 10 MG TAB PO SCH (21:18)
[2020-06-12] MEDS: QUEtiapine 100 MG TAB PO SCH (21:18)
[2020-06-12] MEDS: clonazePAM 1 MG TAB PO SCH (21:20)
[2020-06-13] MEDS: clonazePAM 0.5 MG TAB PO SCH (09:10)
[2020-06-13] MEDS: ASPIRIN 81 MG PO SCH (09:10)
[2020-06-13] MEDS: LEVOTHYROXINE 100 MCG TAB PO SCH (09:11)
[2020-06-13] MEDS: FENOFIBRATE 160 MG TAB PO SCH (09:12)
[2020-06-13] MEDS: DOCUSATE 100 MG CAP PO SCH ×2 (09:12→23:14)
[2020-06-13] MEDS: PANTOPRAZOLE 40 MG TABLET PO SCH (09:12)
[2020-06-13] MEDS: METOPROLOL TARTRATE 25 MG TAB PO SCH ×2 (09:12→23:14)
[2020-06-13] MEDS: FOLTRATE PO SCH (09:12)
[2020-06-13] MEDS: LURASIDONE 80 MG TAB PO SCH (09:13)
[2020-06-13] MEDS: LITHIUM CARBONATE 300 MG CAP PO SCH ×2 (09:13→21:38)
--- NOTE | 2020-06-13 13:28 | P.PN ---
Progress Note - Text Progress Note Date: 06/13/20 I reviewed medical records ,I did interview patient and we discussed his treatment plan during team meeting TODAY VITALS:pulse:67,R:16,BP:132/78 Slept 5 hours he did attend one AT group yesterday Interval history: The patient is found in his room and he agreed to follow me to the office ,he was wearing same cloth ,lot of stain on his shirt,was starring and seems responding to internal stimuli ,very disorganized ,bizarre ,dishevelled , delusional thinking ,stated that he met episcopalian arellano at [facility] ,he reports hearing and seeing "UZBEK GOD".. Patient did get agitated and left the office when I told him that he can not be discharged and has hearing on 06/21 Mental status exam: He presented as a tall 64-year-old male who is minimally cooperative. He made eye contact but did not appear to attend to the interview. He has an irritable facial expression. He is alert and oriented to person and place. He was restless and agitated His speech was non spontaneous ,loose of association and disorganized. His affect was irritable and at times inappropriate. He did not express suicidal or homicidal ideation or wishes. He is paranoid, guarded and suspicious. His thinking was disorganized, incoherent and illogical. ASSESSMENT:Schizophrenia ,undifferentiated versus schizoaffective disorder Plan: Continue inpatient hospitalization. Probate hearing on 06/21 ,I filled PC Continue Klonopin 0.5 mg daily and 1 mg at bedtime, lithium carbonate 300 mg tw ice a day, Seroquel 300 mg at bedtime. Continue Latuda to 80 mg , ,[place] level is pending. Continue Ativan 1 mg by mouth 3 times a day when necessary for agitation or anxiety and Geodon 20 mg IM twice a day when necessary for agitation acute psychosis.
[2020-06-13] MEDS: LORazepam 1 MG TAB PO PRN (20:37)
[2020-06-13] MEDS ORDERED: LORazepam 1 MG TAB PO STA (21:33)
[2020-06-13] MEDS: QUEtiapine 100 MG TAB PO SCH (21:38)
[2020-06-13] MEDS: MULTIVITAMINS, THERA 1 EACH TAB PO SCH (21:38)
[2020-06-13] MEDS: ATORVASTATIN 10 MG TAB PO SCH (21:39)
[2020-06-13] MEDS: clonazePAM 1 MG TAB PO SCH (21:41)
[2020-06-14] MEDS: ZIPRASIDONE 20 MG VIAL IM PRN (02:54)
[2020-06-14] MEDS: LEVOTHYROXINE 100 MCG TAB PO SCH (08:46)
[2020-06-14] MEDS: METOPROLOL TARTRATE 25 MG TAB PO SCH ×2 (08:46→21:32)
[2020-06-14] MEDS: FENOFIBRATE 160 MG TAB PO SCH (08:46)
[2020-06-14] MEDS: DOCUSATE 100 MG CAP PO SCH ×2 (08:46→21:32)
[2020-06-14] MEDS: ASPIRIN 81 MG PO SCH (08:46)
[2020-06-14] MEDS: LITHIUM CARBONATE 300 MG CAP PO SCH ×2 (08:47→21:32)
[2020-06-14] MEDS: PANTOPRAZOLE 40 MG TABLET PO SCH (08:47)
[2020-06-14] MEDS: FOLTRATE PO SCH (08:47)
[2020-06-14] MEDS: LURASIDONE 80 MG TAB PO SCH (08:47)
[2020-06-14] MEDS: clonazePAM 0.5 MG TAB PO SCH (08:48)
--- NOTE | 2020-06-14 10:03 | P.PN ---
Progress Note - Text Progress Note Date: 06/14/20 I reviewed medical records ,I did interview patient and we discussed his treatment plan during team meeting TODAY VITALS:Temp:97.7,Pulse:86,BP:118/70 Patient was agitated last night ,did require PRN IM Geodon Per nursing note((PRN Geodon 20mg IM given at 02:54 into left gluteal muscle. Security called for assistance. Pt. increasingly psychotic and demonstrating agitation with uncooperative behavior. Pt. waiting by unit entrance door and making statements that he is leaving tonight. Pt. was redirected with limits set at approximately 01:00 and explained by this RN he can not stand near the doorway that closely as it is blocking the entrance way. Patient walked away cooperatively but with angry mannerisms and called this RN a "stripper." He went to his room and rested at that time. At approximately 02:45, patient was observed standing near unit doorway again very closely. When appro ached and redirected by this RN, he refused to step away from the doorway and said "I am not David." Pt. was told that security would have to be called, he stated "Fine call them I don't care. Call the police so I can go." Security called for medication assistance. When they arrived, he did walk to his room but walked towards this RN in a posturing fashion with an angry stare. Security assisted patient to his room where he cooperatively lay on his bed. Will monitor for medication effectiveness. Initialized on 06/14/20 03:02 ))) Interval history: The patient is found in his room laying in bed ,I did approach him for interview ,he was angry saying "I am not David ,I am not talking to anyone"then was demanding to be discharged,very paranoia,suspicious ,refused to answer questions and covered his face with beds he Mental status exam: He presented as a tall 64-year-old male who is uncooperative , He made eye contact but did not appear to attend to the interview. He is paranoid, guarded and suspicious. He is irritable and agitated His thinking was disorganized, incoherent and illogical.He refused to answer questions demanding to be discharged ,no insight and impaired judgment ASSESSMENT:Schizophrenia ,undifferentiated versus schizoaffective disorder Plan: Continue inpatient hospitalization. Probate hearing pending. Continue Klonopin 0.5 mg daily and 1 mg at bedtime, lithium carbonate 300 mg twice a colt ncrease Seroquel 50 mg TID and 300 mg HS continue Latuda to 80 mg , ,,check [place] level . Continue Ativan 1 mg by mouth 3 times a day when necessary for agitation or anxiety and Geodon 20 mg IM twice a day when necessary for agitation acute psychosis
[2020-06-14] MEDS: ATORVASTATIN 10 MG TAB PO SCH (21:32)
[2020-06-14] MEDS: clonazePAM 1 MG TAB PO SCH (21:32)
[2020-06-14] MEDS: QUEtiapine 50 MG TAB PO SCH (21:33)
[2020-06-14] MEDS: QUEtiapine 100 MG TAB PO SCH (21:33)
[2020-06-14] MEDS: MULTIVITAMINS, THERA 1 EACH TAB PO SCH (21:33)
[2020-06-15] MEDS: LEVOTHYROXINE 100 MCG TAB PO SCH (06:19)
[2020-06-15] MEDS: LURASIDONE 80 MG TAB PO SCH (09:36)
[2020-06-15] MEDS: METOPROLOL TARTRATE 25 MG TAB PO SCH ×2 (09:36→21:07)
[2020-06-15] MEDS: clonazePAM 0.5 MG TAB PO SCH (09:36)
[2020-06-15] MEDS: QUEtiapine 50 MG TAB PO SCH ×2 (09:36→21:07)
[2020-06-15] MEDS: LITHIUM CARBONATE 300 MG CAP PO SCH ×3 (09:36→21:50)
[2020-06-15] MEDS: PANTOPRAZOLE 40 MG TABLET PO SCH (09:36)
[2020-06-15] MEDS: FENOFIBRATE 160 MG TAB PO SCH (09:36)
[2020-06-15] MEDS: DOCUSATE 100 MG CAP PO SCH ×2 (09:36→21:07)
[2020-06-15] MEDS: ASPIRIN 81 MG PO SCH (09:37)
[2020-06-15] MEDS: FOLTRATE PO SCH (09:40)
[2020-06-15 10:08] VITALS: BMI 27.9
--- NOTE | 2020-06-15 11:55 | P.PN ---
Progress Note - Text Progress Note Date: 06/15/20 I reviewed medical records ,I did interview patient and we discussed his treatment plan during team meeting TODAY VITALS:Temp:98.2,Pulse:74,R:16,BP:154/74 LITHIUM LEVEL:0.7 Patient was agitated last night ,did require PRN IM Geodon Interval history: The patient was standing in [place] and agreed to follow me for interview,he talked about cloud security architect who brought his dog to unit ,he stated that he want a dog but"I have to pay a lot", then he started talking about his father and [place] ,religiously preoccupied but easy to redirect ,he is still paranoia and suspicious,bizarre and disorganized thinking Mental status exam: He presented as a tall 64-year-old male who is uncooperative , He made eye contact but did not appear to attend to the interview. He is paranoid, guarded and suspicious. He is less irritable even was smiling when talking about dog. His thinking was disorganized, incoherent and illogical.He denies any suicidal or homicidal ideation,he seems mumbling to himself at time ,no insight and impaired judgment ASSESSMENT:Schizophrenia ,undifferentiated versus schizoaffective disorder Plan: Continue inpatient hospitalization. Probate hearing June 21 Continue Klonopin 0.5 mg daily and 1 mg at bedtime, increase [place] to 300 mg TID ,continue Seroquel 50 mg BID and 300 mg HS continue Latuda to 80 mg , , Continue Ativan 1 mg by mouth 3 times a day when necessary for agitation or anxiety and Geodon 20 mg IM twice a day when necessary for agitation or acute psychosis
[2020-06-15] MEDS: clonazePAM 1 MG TAB PO SCH (21:07)
[2020-06-15] MEDS: QUEtiapine 100 MG TAB PO SCH (21:07)
[2020-06-15] MEDS: MULTIVITAMINS, THERA 1 EACH TAB PO SCH (21:07)
[2020-06-15] MEDS: ATORVASTATIN 10 MG TAB PO SCH (21:07)
[2020-06-16] MEDS: LEVOTHYROXINE 100 MCG TAB PO SCH (07:10)
[2020-06-16] MEDS: FOLTRATE PO SCH (08:40)
[2020-06-16] MEDS: ASPIRIN 81 MG PO SCH (10:25)
[2020-06-16] MEDS: PANTOPRAZOLE 40 MG TABLET PO SCH (10:25)
[2020-06-16] MEDS: clonazePAM 0.5 MG TAB PO SCH (10:25)
[2020-06-16] MEDS: QUEtiapine 50 MG TAB PO SCH ×2 (10:25→21:51)
[2020-06-16] MEDS: LITHIUM CARBONATE 300 MG CAP PO SCH ×3 (10:25→21:51)
[2020-06-16] MEDS: LURASIDONE 80 MG TAB PO SCH (10:25)
[2020-06-16] MEDS: DOCUSATE 100 MG CAP PO SCH ×2 (10:25→21:51)
[2020-06-16] MEDS: METOPROLOL TARTRATE 25 MG TAB PO SCH ×2 (10:26→21:51)
[2020-06-16] MEDS: FENOFIBRATE 160 MG TAB PO SCH (10:26)
--- NOTE | 2020-06-16 12:12 | P.PN ---
Progress Note - Text Progress Note Date: 06/16/20 I reviewed medical records ,I did interview patient and we discussed his treatment plan during team meeting Today vitals:Temp:98.3,Pulse:73,R:16,BP:113/59 Slept 6 hours ,did not require any prn for last 24 hours Interval history: The patient was laying in in bed ,refused to follow me to the office but was able to participate in interview,he stated that "I am a ghost and you can not see me ",he is still paranoia and suspicious,bizarre and disorganized thinking, starring look ,he stated that he has been going to afternoon groups as he reports AM sedation Mental status exam: He presented as a tall 64-year-old male who is guarded and evasive He made eye contact but did not appear to attend to the interview. He is paranoid, and suspicious. He is less irritable even was smiling at time without specific reason His thinking was disorganized, incoherent and illogical.He denies any suicidal or homicidal ideation,he seems mumbling to himself at time ,no insight and impaired judgment ASSESSMENT:Schizophrenia ,undifferentiated versus schizoaffective disorder Plan: Continue inpatient hospitalization. Probate hearing June 21 Continue Klonopin 0.5 mg daily and 1 mg at bedtime,continue [place] to 300 mg TID ,will order lithium level on 06/20,continue Seroquel 50 mg BID and 300 mg HS continue Latuda to 80 mg , , Continue Ativan 1 mg by mouth 3 times a day when necessary for agitation or anxiety and Geodon 20 mg IM twice a day when necessary for agitation or acute psychosis
[2020-06-16] MEDS: MULTIVITAMINS, THERA 1 EACH TAB PO SCH (21:51)
[2020-06-16] MEDS: QUEtiapine 100 MG TAB PO SCH (21:51)
[2020-06-16] MEDS: ATORVASTATIN 10 MG TAB PO SCH (21:52)
[2020-06-16] MEDS: clonazePAM 1 MG TAB PO SCH (21:52)
[2020-06-17] MEDS: LEVOTHYROXINE 100 MCG TAB PO SCH (06:24)
[2020-06-17] MEDS: PANTOPRAZOLE 40 MG TABLET PO SCH (07:51)
[2020-06-17] MEDS: ASPIRIN 81 MG PO SCH (07:51)
[2020-06-17] MEDS: DOCUSATE 100 MG CAP PO SCH ×2 (07:51→21:43)
[2020-06-17] MEDS: QUEtiapine 50 MG TAB PO SCH ×2 (07:51→21:46)
[2020-06-17] MEDS: clonazePAM 0.5 MG TAB PO SCH (07:51)
[2020-06-17] MEDS: METOPROLOL TARTRATE 25 MG TAB PO SCH ×2 (07:51→21:41)
[2020-06-17] MEDS: LITHIUM CARBONATE 300 MG CAP PO SCH ×3 (07:51→21:41)
[2020-06-17] MEDS: LURASIDONE 80 MG TAB PO SCH (07:51)
[2020-06-17] MEDS: FENOFIBRATE 160 MG TAB PO SCH (07:51)
[2020-06-17] MEDS: FOLTRATE PO SCH (08:13)
--- NOTE | 2020-06-17 09:39 | P.PN ---
Progress Note - Text Progress Note Date: 06/17/20 Interval history: Patient was seen wandering the hallways and standing bizarrely near the nurse's desk and was directable and agreeable to speak with securities underwriter. Patient was loud and disorganized in his thought content. Patient spoke about being discharged today at 6:30 PM. He states that his family is in the hospital and wants him to be discharged. Patient states that he needs to go to [place] and listed several other places in the country he needs to go. He states that "I haven't slept a wink since of been here". He claims that he is frustrated with things on the unit. He denies going to any groups. At this time patient denies any suicidal or homicidal ideations intent or plan. Denies any Auditory or visual hallucinations. Patient denies any side effects from the medications and has been compliant with meds. Mental status exam: General Appearance: Patient appears to be stated age is alert, directable, and demanding. Behavior: No agitated behavior. Patient is directable and demanding. Patient is bizarre and intimidating at times. Speech: Patient's speech is fluent and nonpressured. Loud at times. Mood/Affect: Mood is "fine", affect is congruent and constricted. Suicidality/Homicidality: Patient denies having any suicidal or homicidal ideation intent or plan. Perceptions: Patient denies any auditory or visual hallucinations. Though content/process: Patient is delusional and bizarre. Illogical. Coin Memory and concentration: AOX3, grossly intact for the purposes of this session Judgment and insight: Poor Assessment/Plan: Continue with current diagnosis. Patient continues to meet criteria for inpatient psychiatric admission for symptom stabilization and safety.Patient will be maintained on current psychotropic medication regimen, except for increasing Seroquel to 400 mg daily at bedtime to help with insomnia and psychosis. Monitor for medication compliance and for any psychotropic medication side effects. Will continue to monitor ongoing response to treatment. Encouraged participation in milieu.
[2020-06-17] MEDS: clonazePAM 1 MG TAB PO SCH (21:42)
[2020-06-17] MEDS: ATORVASTATIN 10 MG TAB PO SCH (21:42)
[2020-06-17] MEDS: MULTIVITAMINS, THERA 1 EACH TAB PO SCH (21:43)
[2020-06-17] MEDS: QUEtiapine 400 MG TAB PO SCH (21:46)
[2020-06-18] MEDS: LEVOTHYROXINE 100 MCG TAB PO SCH (06:33)
[2020-06-18] MEDS: FENOFIBRATE 160 MG TAB PO SCH (07:57)
[2020-06-18] MEDS: LURASIDONE 80 MG TAB PO SCH (07:57)
[2020-06-18] MEDS: ASPIRIN 81 MG PO SCH (07:57)
[2020-06-18] MEDS: METOPROLOL TARTRATE 25 MG TAB PO SCH ×2 (07:57→20:05)
[2020-06-18] MEDS: QUEtiapine 50 MG TAB PO SCH ×2 (07:57→20:05)
[2020-06-18] MEDS: clonazePAM 0.5 MG TAB PO SCH (07:58)
[2020-06-18] MEDS: DOCUSATE 100 MG CAP PO SCH ×2 (07:58→20:05)
[2020-06-18] MEDS: LITHIUM CARBONATE 300 MG CAP PO SCH ×3 (07:58→20:05)
[2020-06-18] MEDS: PANTOPRAZOLE 40 MG TABLET PO SCH (07:58)
[2020-06-18] MEDS: FOLTRATE PO SCH (07:59)
--- NOTE | 2020-06-18 10:58 | P.PN ---
Progress Note - Text Progress Note Date: 06/18/20 Interval history: Patient was seen sitting in the lounge watching television this morning and was directable and agreeable to speak with commercial lines underwriter. Patient appeared to be disinterested in the conversation with the commercial lines underwriter and had poor eye contact. Patient states that he is watching the news. He continues to be disorganized in his thought content however this appears to be improving mildly. He claims that he has been taking his medications however was noted to refuse his Seroquel last night. He states that he slept well last night and denied any overnight complaints. Patient appears to be rambling less today and was more goal oriented. He claims that he is feeling sleepy this morning and will go to bed early today. He denies going to any groups. At this time patient denies any suicidal or homicidal ideations intent or plan. Denies any Auditory or visual hallucinations. Patient denies any side effects from the medications and has been compliant with meds. Mental status exam: General Appearance: Patient appears to be stated age is alert, directable, and demanding. Appears to be distracted at times Behavior: No agitated behavior. Patient is directable. Patient is bizarre Speech: Patient's speech is fluent and nonpressured. Loud at times. Mood/Affect: Mood is "ok", affect is congruent and constricted. Suicidality/Homicidality: Patient denies having any suicidal or homicidal ideation intent or plan. Perceptions: Patient denies any auditory or visual hallucinations. Though content/process: Patient is bizarre. Illogical. [place], more goal oriented today Memory and concentration: AOX3, grossly intact for the purposes of this session Judgment and insight: Poor Assessment/Plan: Continue with current diagnosis. Patient continues to meet criteria for inpatient psychiatric admission for symptom stabilization and safety.Patient will be maintained on current psychotropic medication regimen. Monitor for medication compliance and for any psychotropic medication side effects. Will continue to monitor ongoing response to treatment. Encouraged participation in milieu.
[2020-06-18] MEDS: QUEtiapine 400 MG TAB PO SCH (20:05)
[2020-06-18] MEDS: ATORVASTATIN 10 MG TAB PO SCH (20:05)
[2020-06-18] MEDS: MULTIVITAMINS, THERA 1 EACH TAB PO SCH (20:05)
[2020-06-18] MEDS: clonazePAM 1 MG TAB PO SCH (21:23)
[2020-06-19] MEDS: LEVOTHYROXINE 100 MCG TAB PO SCH (06:05)
[2020-06-19] MEDS: ASPIRIN 81 MG PO SCH ×2 (09:26→09:44)
[2020-06-19] MEDS: METOPROLOL TARTRATE 25 MG TAB PO SCH ×3 (09:27→22:25)
[2020-06-19] MEDS: FOLTRATE PO SCH (09:27)
[2020-06-19] MEDS: clonazePAM 0.5 MG TAB PO SCH ×2 (09:27→09:44)
[2020-06-19] MEDS: FENOFIBRATE 160 MG TAB PO SCH ×2 (09:27→09:44)
[2020-06-19] MEDS: DOCUSATE 100 MG CAP PO SCH ×3 (09:27→22:25)
[2020-06-19] MEDS: QUEtiapine 50 MG TAB PO SCH ×2 (09:28→09:45)
[2020-06-19] MEDS: PANTOPRAZOLE 40 MG TABLET PO SCH ×2 (09:28→09:44)
[2020-06-19] MEDS: LURASIDONE 80 MG TAB PO SCH ×2 (09:28→09:45)
[2020-06-19] MEDS: LITHIUM CARBONATE 300 MG CAP PO SCH ×3 (09:28→22:25)
--- NOTE | 2020-06-19 10:34 | P.PN ---
Progress Note - Text Progress Note Date: 06/19/20 I reviewed medical records ,I did interview patient and we discussed his treatment plan during team meeting Today vitals:Temp:97.4,pulse:72,BP:96/58 Slept 4 hours ,patient refused morning medications Interval history: The patient was laying in in bed ,refused to follow me to the office but was able to participate in interview, he was demanding to be discharged ,he stated that he has to travel to [place] ,he stated that he does not want morning medications as does made him tired ,,he is still paranoia and suspicious,bizarre and disorganized thinking, starring look ,patient refused night meds on 06/17,non consistent with medications . Mental status exam: He presented as a tall 64-year-old male who is guarded and evasive He made eye contact but did not appear to attend to the interview. He is paranoid, and suspicious. He is irritable ,demanding to be discharged His thinking was disorganized, incoherent and illogical.He denies any suicidal or homicidal ideation,he seems mumbling to himself at time ,no insight and impaired judgment ASSESSMENT:Schizophrenia ,undifferentiated versus schizoaffective disorder Plan: Continue inpatient hospitalization. Probate hearing June 21 Continue Klonopin 0.5 mg daily and 1 mg at bedtime,continue [place] to 300 mg TID ,will order lithium level on 06/20, Seroquel was increased to 400 mg on weekend ,discontinue AM Seroquel continue Latuda to 80 mg , , monitor his compliance with oral medications Continue Ativan 1 mg by mouth 3 times a day when necessary for agitation or anxiety and Geodon 20 mg IM twice a day when necessary for agitation or acute psychosis
[2020-06-19] MEDS: ATORVASTATIN 10 MG TAB PO SCH (22:25)
[2020-06-19] MEDS: clonazePAM 1 MG TAB PO SCH (22:25)
[2020-06-19] MEDS: MULTIVITAMINS, THERA 1 EACH TAB PO SCH (22:26)
[2020-06-19] MEDS: QUEtiapine 400 MG TAB PO SCH (22:26)
[2020-06-20] MEDS: LEVOTHYROXINE 100 MCG TAB PO SCH (06:37)
[2020-06-20] MEDS: LITHIUM CARBONATE 300 MG CAP PO SCH ×3 (08:56→20:26)
[2020-06-20] MEDS: DOCUSATE 100 MG CAP PO SCH ×2 (08:56→20:22)
[2020-06-20] MEDS: clonazePAM 0.5 MG TAB PO SCH (08:56)
[2020-06-20] MEDS: ASPIRIN 81 MG PO SCH (08:56)
[2020-06-20] MEDS: LURASIDONE 80 MG TAB PO SCH (08:57)
[2020-06-20] MEDS: FOLTRATE PO SCH (08:57)
[2020-06-20] MEDS: METOPROLOL TARTRATE 25 MG TAB PO SCH ×2 (08:57→20:22)
[2020-06-20] MEDS: FENOFIBRATE 160 MG TAB PO SCH (08:57)
[2020-06-20] MEDS: PANTOPRAZOLE 40 MG TABLET PO SCH (08:57)
--- NOTE | 2020-06-20 10:12 | P.PN ---
Progress Note - Text Progress Note Date: 06/20/20 I reviewed medical records ,I did interview patient and we discussed his treatment plan during team meeting Today vitals:Temp:97.4,pulse:74,R:16,BP:132/78 Slept 3.5 hours ,patient refused morning medications No peer interaction ,no participation in groups Interval history: The patient was laying in in bed ,refused to follow me to the office but was able to participate in interview, he was demanding to be discharged ,he stated that he has to travel to [place] to work with [employer] ,he stated that he does not want to take any medication because "I am not David I am Kenia Thompson ",,he is still paranoia and suspicious,bizarre and disorganized thinking, starring look ,,delusional ,non consistent with medications . Mental status exam: He presented as a tall 64-year-old male who is guarded and evasive He made eye contact but did not appear to attend to the interview. He is paranoid, and suspicious. He is irritable ,demanding to be discharged His thinking was disorganized, incoherent and illogical.He denies any suicidal or homicidal ideation,he seems mumbling to himself at time ,no insight and impaired judgment ASSESSMENT:Schizophrenia ,undifferentiated versus schizoaffective disorder Plan: Continue inpatient hospitalization. Probate hearing June 21 ,will cons ider Prolixin Decanoate after court , d/c Maxx ,increase Seroquel to 600 mg HS, , monitor his compliance with oral medications Continue Ativan 1 mg by mouth 3 times a day when necessary for agitation or anxiety and Geodon 20 mg IM twice a day when necessary for agitation or acute psychosis
[2020-06-20] MEDS: ATORVASTATIN 10 MG TAB PO SCH (20:21)
[2020-06-20] MEDS: QUEtiapine 200 MG TAB PO SCH (20:22)
[2020-06-20] MEDS: MULTIVITAMINS, THERA 1 EACH TAB PO SCH (20:22)
[2020-06-20] MEDS: clonazePAM 1 MG TAB PO SCH (20:23)
[2020-06-21] MEDS: LEVOTHYROXINE 100 MCG TAB PO SCH (07:00)
[2020-06-21] MEDS: ASPIRIN 81 MG PO SCH (09:58)
[2020-06-21] MEDS: LITHIUM CARBONATE 300 MG CAP PO SCH (09:59)
[2020-06-21] MEDS: DOCUSATE 100 MG CAP PO SCH ×2 (09:59→21:57)
[2020-06-21] MEDS: FOLTRATE PO SCH (09:59)
[2020-06-21] MEDS: METOPROLOL TARTRATE 25 MG TAB PO SCH ×2 (09:59→21:56)
[2020-06-21] MEDS: FENOFIBRATE 160 MG TAB PO SCH (09:59)
[2020-06-21] MEDS: PANTOPRAZOLE 40 MG TABLET PO SCH (09:59)
[2020-06-21] MEDS: clonazePAM 0.5 MG TAB PO SCH (10:01)
--- NOTE | 2020-06-21 13:03 | P.PN ---
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 He is paranoid, and suspicious. He is irritable ,demanding to be discharged His thinking was disorganized, incoherent and illogical.He denies any suicidal or homicidal ideation,he seems mumbling to himself at time ,no insight and impaired judgment ASSESSMENT:Schizophrenia ,undifferentiated versus schizoaffective disorder Plan: Continue inpatient hospitalization. Probate hearing June 21 at 1:30 PM ,will consider Prolixin Decanoate after court , d/c AM medications and change all meds for bed time ,[place] 900 mg HS and Seroquel 600 mg HS , , monitor his compliance with oral medications Continue Ativan 1 mg by mouth 3 times a day when necessary for agitation or anxiety and Geodon 20 mg IM twice a day when necessary for agitation or acute psychosi
[2020-06-21] MEDS: ATORVASTATIN 10 MG TAB PO SCH (21:55)
[2020-06-21] MEDS: clonazePAM 1 MG TAB PO SCH (21:56)
[2020-06-21] MEDS: QUEtiapine 200 MG TAB PO SCH (21:56)
[2020-06-21] MEDS: MULTIVITAMINS, THERA 1 EACH TAB PO SCH (21:57)
[2020-06-21] MEDS: LITHIUM CARBONATE ER 450 MG TABLET.ER PO SCH (21:57)
[2020-06-22] MEDS: LEVOTHYROXINE 100 MCG TAB PO SCH (06:44)
--- NOTE | 2020-06-22 09:44 | P.PN ---
Progress Note - Text Progress Note Date: 06/22/20 I reviewed medical records ,I did interview patient and we discussed his treatment plan during team meeting Probate court was 06/21 ,patient got upset in the middle of hearing and left hearing ,Whiteprinting Machine Operator ordered combination of inpatient and outpatient ,court [place] ordered[place]ill 12/2020 TODAY VITALS:temp:97.9,Pulse:83,Pulse:16,BP:105/67 Slept 7 hours last night ,he refused to take [place] last night ,took Seroquel and Klonopin He refused dinner No peer interaction ,no participation in groups Interval history: The patient was in lounge and agreed to follow me to the office ,he was loud ,angry about court outcome ,saying "I have warning signal in my ear ,I am not [employer] fan " .very disorganized ,bizarre delusion ,wearing same cloths ,stained on his white shirt,starring fixated look Mental status exam: He presented as a tall 64-year-old male who is guarded and evasive He made eye contact but did not appear to attend to the interview. He is paranoid, and suspicious,delusional bizarre thinking. He is irritable ,demanding to be discharged His thinking was disorganized, incoherent and illogical.He denies any suicidal or homicidal ideation,he seems mumbling to himself at time ,no insight and impaired judgment ASSESSMENT:Schizophrenia ,undifferentiated versus schizoaffective disorder Plan: Continue inpatient hospitalization. Start Prolixin 5 mg HS ,and Prolixin Decanoate 25 mgIM ,[place] 900 mg HS and Seroquel 600 mg HS , , monitor his compliance with oral medications Continue Ativan 1 mg by mouth 3 times a day when necessary for agitation or anxiety and Geodon 20 mg IM twice a day when necessary for agitation or acute psychosi
[2020-06-22] MEDS ORDERED: fluPHENAZine DECANOATE 25 MG/ML 5ML MDV IM ONE (09:46)
[2020-06-22] MEDS: METOPROLOL TARTRATE 25 MG TAB PO SCH ×2 (10:16→21:42)
[2020-06-22] MEDS: FOLTRATE PO SCH (10:16)
[2020-06-22] MEDS: DOCUSATE 100 MG CAP PO SCH ×2 (10:16→21:44)
[2020-06-22] MEDS: PANTOPRAZOLE 40 MG TABLET PO SCH (10:16)
[2020-06-22] MEDS: ASPIRIN 81 MG PO SCH (10:16)
[2020-06-22] MEDS: FENOFIBRATE 160 MG TAB PO SCH (10:17)
[2020-06-22] MEDS: clonazePAM 1 MG TAB PO SCH (21:42)
[2020-06-22] MEDS: QUEtiapine 200 MG TAB PO SCH (21:42)
[2020-06-22] MEDS: LITHIUM CARBONATE ER 450 MG TABLET.ER PO SCH (21:42)
[2020-06-22] MEDS: ATORVASTATIN 10 MG TAB PO SCH (21:42)
[2020-06-22] MEDS: MULTIVITAMINS, THERA 1 EACH TAB PO SCH (21:44)
[2020-06-23] MEDS: LEVOTHYROXINE 100 MCG TAB PO SCH (05:25)
[2020-06-23] MEDS: ASPIRIN 81 MG PO SCH (09:09)
[2020-06-23] MEDS: FENOFIBRATE 160 MG TAB PO SCH (09:10)
[2020-06-23] MEDS: DOCUSATE 100 MG CAP PO SCH ×2 (09:10→20:37)
[2020-06-23] MEDS: PANTOPRAZOLE 40 MG TABLET PO SCH (09:10)
[2020-06-23] MEDS: METOPROLOL TARTRATE 25 MG TAB PO SCH ×2 (09:10→20:37)
[2020-06-23] MEDS: FOLTRATE PO SCH (09:11)
--- NOTE | 2020-06-23 10:04 | P.PN ---
Progress Note - Text Progress Note Date: 06/23/20 I reviewed medical records ,I did interview patient and we discussed his treatment plan during team meeting TODAY VITALS:temp:98.1,pulse:113,R:14,BP:103/67 Slept 5 hours ,no behavior issue ,did participate in couple of groups He ate his dinner and half of his breakfast. He took all his medications last night Interval history: The patient was in lounge and agreed to follow me to the office ,he was more cooperative ,not agitated as yesterday , reports that he had constipation but "Prune juice helped today" ,delusional thinking that his cousin is working at [employer] .very disorganized ,bizarre delusion ,wearing same cloths ,stained on his white shirt,starring fixated look Mental status exam: He presented as a tall 64-year-old male who is less guarded He made eye contact but did not appear to attend to the interview. He is paranoid, and suspicious,delusional bizarre thinking. He is calm and easy to redirect His thinking was disorganized, incoherent and illogical.He denies any suicidal or homicidal ideation, insight is improving as yesterday he was compliant with oral medications ASSESSMENT:Schizophrenia ,undifferentiated versus schizoaffective disorder Plan: Continue inpatient hospitalization. Continue Prolixin 5 mg HS ,[place] 900 mg HS and Seroquel 600 mg HS , , monitor his compliance with oral medications Continue Ativan 1 mg by mouth 3 times a day when necessary for agitation or anxiety and Geodon 20 mg IM twice a day when necessary for agit ation or acute psychosi Encourage participation in groups
[2020-06-23] MEDS: QUEtiapine 200 MG TAB PO SCH (20:37)
[2020-06-23] MEDS: clonazePAM 1 MG TAB PO SCH (20:37)
[2020-06-23] MEDS: MULTIVITAMINS, THERA 1 EACH TAB PO SCH (20:37)
[2020-06-23] MEDS: ATORVASTATIN 10 MG TAB PO SCH (20:38)
[2020-06-23] MEDS: LITHIUM CARBONATE ER 450 MG TABLET.ER PO SCH (20:38)
[2020-06-24] MEDS: LEVOTHYROXINE 100 MCG TAB PO SCH (06:26)
[2020-06-24] MEDS: ASPIRIN 81 MG PO SCH (08:57)
[2020-06-24] MEDS: FENOFIBRATE 160 MG TAB PO SCH (08:58)
[2020-06-24] MEDS: PANTOPRAZOLE 40 MG TABLET PO SCH (08:58)
[2020-06-24] MEDS: METOPROLOL TARTRATE 25 MG TAB PO SCH ×2 (08:58→21:34)
[2020-06-24] MEDS: FOLTRATE PO SCH (09:04)
[2020-06-24] MEDS: DOCUSATE 100 MG CAP PO SCH ×2 (09:04→21:34)
--- NOTE | 2020-06-24 16:07 | PN ---
PROGRESS NOTE DATE OF SERVICE: 06/24/2020 CHIEF COMPLAINT: The patient was admitted on an involuntary basis for increasing agitation, aggression and inappropriate behaviors in his AFC. INTERVAL HISTORY: The patient has been doing fair. He continues to be quite withdrawn in his manner. He had a quiet evening last night. He did attend groups. In one group there was notation that he had difficulty participating in group discussion as his statements were tangential to things being discussed. He reports that he slept well last night. Today he has been up. He wanders about the unit. He does not seem to interact much with others. He seems to make odd and disconnected statements mostly apparently to himself. When I talked to him he was not able to give much information about his daily activities or function. He was aware that he received Prolixin Decanoate on though he could not say much more about that. He was not able to tell me what medications that he is on. He had no complaints regarding his medications. MENTAL STATUS: Patient sat with some restlessness. He gave fair eye contact. He responded to questions though much of what he said was tangential or fragmented. His affect was somewhat intense, though constricted. His mood reserved. It was difficult to assess how distressed he might feel. He appears to continue to have thought disorder with response to internal stimuli. It was difficult to assess for thoughts of harm. He was oriented to his current situation. ASSESSMENT: I will continue the current diagnosis and treatment plan. I will continue psychotropic medications the same. I had a brief discussion with the patient regarding his medications including his long-acting injectable. It was not clear if the patient was able followup much of the conversations, so I did keep things limited. I strongly encouraged the patient that if he was having any side effects or problems with the medicines to let nursing know so we could continue to monitor. We will focus on stabilization and discharge planning. MMODL / IJN: [id number] /
[2020-06-24] MEDS: ATORVASTATIN 10 MG TAB PO SCH (21:34)
[2020-06-24] MEDS: LITHIUM CARBONATE ER 450 MG TABLET.ER PO SCH (21:34)
[2020-06-24] MEDS: MULTIVITAMINS, THERA 1 EACH TAB PO SCH (21:34)
[2020-06-24] MEDS: clonazePAM 1 MG TAB PO SCH (21:34)
[2020-06-24] MEDS: QUEtiapine 200 MG TAB PO SCH (21:34)
[2020-06-25] MEDS: LEVOTHYROXINE 100 MCG TAB PO SCH (06:17)
[2020-06-25] MEDS: DOCUSATE 100 MG CAP PO SCH ×2 (09:19→21:03)
[2020-06-25] MEDS: FENOFIBRATE 160 MG TAB PO SCH (09:19)
[2020-06-25] MEDS: ASPIRIN 81 MG PO SCH (09:19)
[2020-06-25] MEDS: METOPROLOL TARTRATE 25 MG TAB PO SCH ×2 (09:19→20:57)
[2020-06-25] MEDS: PANTOPRAZOLE 40 MG TABLET PO SCH (09:19)
[2020-06-25] MEDS: FOLTRATE PO SCH (09:20)
--- NOTE | 2020-06-25 12:56 | PN ---
PROGRESS NOTE DATE OF SERVICE: 06/25/2020. CHIEF COMPLAINT: The patient was admitted on an involuntary basis for increasing agitation, aggression and inappropriate behaviors in his AFC. INTERVAL HISTORY: The patient has been doing fair. He had a quiet evening last night. He has been attending groups. It is documented in groups that the mostly he is quiet. His thinking tends to be concrete. He does not show much emotional response one way or another. He slept well last night. Today he has been up. He comes out some in the day area. Mostly he keeps to himself today. His main focus is on what is the planning for discharge and where he will be residing. He otherwise did not have any specific complaints. He has a good appetite. He seems to be a little clearer in his thinking and more focused. He tolerates his psychotropic medications. MENTAL STATUS: Patient gave fair eye contact. Psychomotor activity was restless. He answered questions with brief responses. He did not say a lot. His affect was blunted. His mood reserved. It was difficult to assess if he was distressed. It was difficult to assess for thought disorder. He voiced no thoughts of harm. ASSESSMENT: I will continue the current diagnosis and treatment plan. The patient appears to be making some progress overall. He tolerates his psychotropic medications. I will order a lithium level for the morning. His level has been around 0.6 and appears to be stable. I discussed with the patient the issues relating to discharge planning and placement. I talked to him that the Social Work would be reviewing things in the morning and also coordinating with [facility]. We will focus on stabilization and discharge planning. ANGELINE / JUSTINN: [id number] /
[2020-06-25] MEDS: ATORVASTATIN 10 MG TAB PO SCH (20:57)
[2020-06-25] MEDS: MULTIVITAMINS, THERA 1 EACH TAB PO SCH (20:57)
[2020-06-25] MEDS: LITHIUM CARBONATE ER 450 MG TABLET.ER PO SCH (20:57)
[2020-06-25] MEDS: QUEtiapine 200 MG TAB PO SCH (20:57)
[2020-06-25] MEDS: clonazePAM 1 MG TAB PO SCH (20:57)
[2020-06-26 05:47] VITALS: RESP 16; TEMP 98.3
[2020-06-26] MEDS: LEVOTHYROXINE 100 MCG TAB PO SCH (06:43)
[2020-06-26] MEDS: METOPROLOL TARTRATE 25 MG TAB PO SCH (08:29)
[2020-06-26] MEDS: DOCUSATE 100 MG CAP PO SCH (08:29)
[2020-06-26] MEDS: ASPIRIN 81 MG PO SCH (08:29)
[2020-06-26] MEDS: FENOFIBRATE 160 MG TAB PO SCH (08:29)
[2020-06-26] MEDS: FOLTRATE PO SCH (08:29)
[2020-06-26] MEDS: PANTOPRAZOLE 40 MG TABLET PO SCH (08:29)
[2020-06-26 08:31] VITALS: BP 140/78; PULSE 89
--- NOTE | 2020-06-26 16:01 | DS ---
DISCHARGE SUMMARY DATE OF ADMISSION: 06/08/2020 DATE OF DISCHARGE: 06/26/2020. CLINICAL IMPLEMENTATION SPECIALIST: Dr. Gordon for medical consult and followup. HISTORY OF PRESENT ILLNESS: The patient was initially admitted under Dr. Compa Huerta's care, and he was under his care till June 12, when I started covering this patient, as Dr. Huerta was on vacation. The patient is a 64-year-old single male with a history of schizophrenia. He was admitted to the psychiatric unit on an involuntary basis for increased agitation, aggression and inappropriate sexual behavior. According to the [facility] notes, the patient has been chronically psychotic for the last 10 years and has never had any period of recovery. For complete history and physical examination, please refer to Dr. Huerta's history and physical. HOSPITAL COURSE: The patient was admitted on an involuntary basis and Dr. Huerta did start him on Latuda 40 mg. He did continue the lithium 300 twice a day, Klonopin 0.5 in the morning and 1 mg at bedtime. In addition, he did add Trintellix 10 mg in the morning. The patient was very disorganized, severely psychotic, angry, with very minimal cooperation in the beginning. He refused to sign a deferral meeting and he insisted on going to Probate Court that was scheduled on June 21. Even during the court hearing, the patient was getting very agitated and angry, especially when I told the clerical and office support workers that the patient had been refusing to take his oral medication, including his heart medication, since June 16. The patient was not participating in any group. He was walking in the [place]ussell back and forth, mumbling to himself, so I did discontinue Trintellix and Latuda and gradually titrated the Seroquel to 600 mg at bedtime. As the patient was always refusing morning medication, I did discontinue Klonopin in the morning and change it to just 1 mg at bedtime. We did check the lithium level; it was 0.6, so the lithium was increased to 900 mg at bedtime. On June 26, his blood lithium level was 1.0. The patient was able to tolerate medication without having any side effect. After the court, I did add Prolixin 5 mg at bedtime, and he was given an injection of Prolixin 25 mg IM on June 22. For the last [address], the patient was compliant with his medication. He was participating in activity group. He did need a lot of supervision in the group, but it seems that he was very easy to redirect and not aggressive as before and not agitated. It seemed that he did reach his basic function level. He was still having issues, thinking that he had a different identity, and he thought that he was Theodore Thompson, but for the last 4 or 5 days we did not see any behavior issue or aggressive behavior or inappropriate approach to any other patient. MENTAL STATUS EXAMINATION AT THE TIME OF DISCHARGE: The patient is casually dressed. He is wearing the same clothes as the first day of admission. Poor grooming, disheveled. His voice is very loud. Cooperative. Very concrete in his thinking. He denied having any hallucinations, but definitely he has chronic delusional thinking. He denied having any suicidal or homicidal ideation. He denied any side effects from medication. His memory is grossly intact. Insight and judgment are limited. DISCHARGE DIAGNOSIS: Schizophrenia, paranoid type, versus schizoaffective disorder. DISCHARGE MEDICATIONS: 1. Lipitor 10 mg daily. 2. Synthroid 100 mcg daily. 3. Metoprolol or Lopressor 25 mg twice a day. 4. Pantoprazole 40 mg daily. 5. Seroquel 600 mg at bedtime. 6. [place] 900 mg at bedtime. Blood lithium level is 0.01. 7. Prolixin 5 mg at bedtime. 8. Prolixin Decanoate 25 mg IM every 2 weeks. His next injection is due July 06. 9. Klonopin 1 mg at bedtime. The patient was discharged to the [facility] and he will follow up at [facility]. Prognosis is guarded due to his chronic illness and his lack of insight. MMODL / IJN: [id number] / MTDDiana
[2020-07-06] MEDS ORDERED: fluPHENAZine DECANOATE 25 MG/ML 5ML MDV IM SCH (12:00)
== END 2020-06-26 13:35 | disposition home or self-care (01) | DRG 885 ==
LOC: EC 17:12 → 3MHU 23:03
PROVIDERS: ADMIT Psychiatry & Neurology Psychiatry; ATTEND Psychiatry & Neurology Psychiatry
DX: F20.0 Paranoid schizophrenia (principal); F25.9 Schizoaffective disorder, unspecified; J44.9 Chronic obstructive pulmonary disease, unspecified; I10 Essential (primary) hypertension; E78.5 Hyperlipidemia, unspecified; E03.9 Hypothyroidism, unspecified; H40.9 Unspecified glaucoma; G47.00 Insomnia, unspecified; K59.00 Constipation, unspecified; F17.210 Nicotine dependence, cigarettes, uncomplicated; Z79.82 Long term (current) use of aspirin; Z79.890 Hormone replacement therapy; Z79.899 Other long term (current) drug therapy; Z56.0 Unemployment, unspecified; Z88.6 Allergy status to analgesic agent; Z88.0 Allergy status to penicillin; Z88.8 Allergy status to other drugs, medicaments and biological substances
CPT/HCPCS: 36415; 71045; 80053; 80178; 80306; 81003; 82075; 85025; 96361; 96372; 96374; 99283; 99285

== ENCOUNTER 2021-04-12 14:26 | Inpatient (IN) | payer MEDICARE, OTHER ==
--- NOTE | 2021-04-12 15:32 | ED ---
Extremity Problem HPI - General Chief complaint: Extremity Problem,Nontraumatic Stated complaint: Lft leg blood clot Time Seen by Provider: 04/12/21 15:08 Source: patient Mode of arrival: ambulatory Limitations: no limitations - History of Present Illness Initial comments: Is a 65-year-old male with a history of schizophrenia, hyperlipidemia, hypothyroid who resides at a adult foster care facility who presents emergency department for a DVT. The patient states he's been having left lower extremity swelling for the last month and a half since getting his covert vaccine. He reportedly had a Doppler study done today as an outpatient that was positive for DVT however the report was not sent with the patient. He was told to come to the emergency department for treatment. The patient denies any pain in the extremity. No chest pain or shortness of breath. He really denies any other complaints however is a poor historian secondary to his schizophrenia. The patient reportedly does not have a history of PE or DVT. No recent trauma, surgeries, prolonged immobilization. No history of cancers. No other complaints. - Related Data Home Medications Medication Instructions Recorded Confirmed Aspirin [Aspirin EC] 81 mg PO DAILY@79904/12/16 04/12/21 Simvastatin [Zocor] 10 mg PO HS@209904/12/16 04/12/21 Albuterol Inhaler [Ventolin Hfa 2 puff INHALATION RT-Q6H PRN 06/07/20 04/12/21 Inhaler] Cholecalciferol (Vitamin D3) 125 mcg PO DAILY@79906/07/20 04/12/21 [Vitamin D3 (5000 Iu)] Docusate [Colace] 100 mg PO BID@799,209906/07/20 04/12/21 Fenofibrate Nanocrystallized 145 mg PO DAILY@79906/07/20 04/12/21 [Fenofibrate] Latanoprost/Pf [Latanoprost 0.005% 1 drop BOTH EYES HS@209906/07/20 04/12/21 Eye Drop] Levothyroxine Sodium [Synthroid] 100 mcg PO DAILY@69906/07/20 04/12/21 Metoprolol Tartrate [Lopressor] 25 mg PO BID@0800,209906/07/20 04/12/21 Inpqdufb-Ftezjevgtu-Acto Oint 1 applic TOPICAL DIRECTED PRN 06/07/20 04/12/21 [Triple Antibiotic Ointment] Omeprazole [PriLOSEC] 20 mg PO DAILY@79906/07/20 04/12/21 Psyllium Husk (with Sugar) 14 gm PO TID PRN 06/07/20 04/12/21 [Metamucil Powder] Bismuth Subsalicylate 524 mg PO QID PRN 06/08/20 04/12/21 [Pepto-Bismol] Ibuprofen [Motrin Ib] 200 - 400 mg PO Q6H PRN 06/08/20 04/12/21 Aspirin EC [Ecotrin] 325 mg PO DAILY PRN 04/12/21 04/12/21 Celecoxib [CeleBREX] 200 mg PO BID PRN 04/12/21 04/12/21 Certavite 1 tab PO HS@209904/12/21 04/12/21 Cyanocobalamin [Vitamin B-12] 500 mcg PO DAILY@79904/12/21 04/12/21 Dicyclomine [Bentyl] 20 mg PO Q8H PRN 04/12/21 04/12/21 Docusate [Colace] 100 mg PO DAILY PRN 04/12/21 04/12/21 Folic Acid 1 mg PO DAILY@79904/12/21 04/12/21 Furosemide [Lasix] 20 mg PO BID@799,199904/12/21 04/12/21 Ibuprofen [Motrin] 400 mg PO TID PRN 04/12/21 04/12/21 Linaclotide [Linzess] 145 mcg PO DAILY@69904/12/21 04/12/21 [place] Carbonate [[place] 300 mg PO HS@199904/12/21 04/12/21 Carbonate ER] Loperamide [Imodium] 2 mg PO DIRECTED PRN 04/12/21 04/12/21 Magnesium Hydroxide [Milk of 2,400 mg PO DAILY PRN 04/12/21 04/12/21 Magnesia] Potassium Chloride [Klor-Con 20] 20 meq PO DAILY@79904/12/21 04/12/21 Pseudoephedrine HCl [Sudogest] 60 mg PO DAILY PRN 04/12/21 04/12/21 QUEtiapine FUMARATE [SEROquel] 600 mg PO HS@209904/12/21 04/12/21 Stomach Relief 1 dose PO DIRECTED PRN 04/12/21 04/12/21 clonazePAM 1.5 mg PO HS@209904/12/21 04/12/21 diphenhydrAMINE [Benadryl] 25 mg PO DAILY PRN 04/12/21 04/12/21 fluPHENAZine decanoate [Prolixin 50 mg IM Q7D 04/12/21 04/12/21 Decanoate] guaiFENesin SYRUP 100MG/5ML 1 dose PO DIRECTED PRN 04/12/21 04/12/21 [Robitussin] Allergies Allergy/AdvReac Type Severity Reaction Status Date / Time acetaminophen [From Tylenol] Allergy Unknown Verified 04/12/21 16:22 gabapentin [From Neurontin] Allergy Unknown Verified 04/12/21 16:22 Penicillins Allergy Unknown Verified 04/12/21 16:22 clozapine [From Clozaril] AdvReac Unknown Verified 04/12/21 16:22 divalproex sodium AdvReac Unknown Verified 04/12/21 16:22 [From Depakote] Review of Systems ROS Statement: Those systems with pertinent positive or pertinent negative responses have been documented in the HPI. ROS Other: All systems not noted in ROS Statement are negative. Past Medical History Past Medical History: Asthma, Hyperlipidemia, Hypertension Additional Past Medical History / Comment(s): schizophrenia. constipation History of Any Multi-Drug Resistant Organisms: None Reported Past Surgical History: No Surgical Hx Reported Past Anesthesia/Blood Transfusion Reactions: No Reported Reaction Past Psychological History: Schizophrenia Smoking Status: Current every day smoker Past Alcohol Use History: None Reported Past Drug Use History: None Reported - Past Family History Father History Unknown: Yes Mother History Unknown: Yes General Exam - General Exam Comments Initial Comments: Constitutional: Awake alert Appears comfortable Head: Normocephalic atraumatic Eyes: no conjunctival injection No scleral icterus EOMI Neck: No JVD Supple Heart: Regular rate rhythm normal S1-S2 no murmurs Lungs: Clear to auscultation bilaterally No wheezing No rales Abdomen: Soft nondistended nontender Extremities: Is edema on the left lower extremity from the ankle up to the knee, no tenderness to palpation DP pulses intact Radial pulses intact Neuro: A&Ox3 No focal neurologic deficits Psych: Patient has confused speech which is reportedly baseline Limitations: no limitations Course Vital Signs 04/12/21 14:39 Temperature 98.1 F Pulse Rate 79 Respiratory 19 Rate Blood Pressure 125/71 O2 Sat by Pulse 95 Oximetry Medical Decision Making - Medical Decision Making Is a 65-year-old male who presents emergency department for left lower extremity swelling. The patient was found have an outpatient Doppler that was positive for DVT. The patient did not report the ER so was repeated. The DVT was found to be proximal in the common femoral vein extending down to the popliteal. Due to the proximity of the clot the patient will be kept in the hospital. The patient denies any chest pain or shortness of breath so CT angiography was performed. I spoke with Dr. Quinones who recommended IV heparin drip and CT of the abdomen and pelvis to evaluate for proximity of the clot extending into the abdomen. He also requested Dr. Pate on consult. - Lab Data Result diagrams: 04/12/21 15:41 04/12/21 15:41 Lab Results 04/12/21 04/12/21 04/12/21 Range/Units 15:41 15:41 15:41 WBC 3.8 (3.8-10.6) k/uL RBC 5.40 (4.30-5.90) m/uL Hgb 16.1 (13.0-17.5) gm/dL Hct 50.2 (39.0-53.0) % MCV 93.1 (80.0-100.0) fL MCH 29.8 (25.0-35.0) pg MCHC 32.0 (31.0-37.0) g/dL RDW 13.8 (11.5-15.5) % Plt Count 155 (150-450) k/uL MPV 8.8 Neutrophils % 44 % Lymphocytes % 38 % Monocytes % 10 % Eosinophils % 4 % Basophils % 1 % Neutrophils # 1.7 (1.3-7.7) k/uL Lymphocytes # 1.4 (1.0-4.8) k/uL Monocytes # 0.4 (0-1.0) k/uL Eosinophils # 0.2 (0-0.7) k/uL Basophils # 0.0 (0-0.2) k/uL PT 10.7 (9.0-12.0) sec INR 1.0 (<1.2) APTT 22.3 (22.0-30.0) sec Sodium 140 (137-145) mmol/L Potassium 4.9 (3.5-5.1) mmol/L Chloride 103 (98-107) mmol/L Carbon Dioxide 30 (22-30) mmol/L Anion Gap 7 mmol/L BUN 20 (9-20) mg/dL Creatinine 1.39 H (0.66-1.25) mg/dL Est GFR (CKD-EPI)AfAm 60 (>60 ml/min/1.73 sqM) Est GFR (CKD-EPI)NonAf 52 (>60 ml/min/1.73 sqM) Glucose 93 (74-99) mg/dL Calcium 10.8 H (8.4-10.2) mg/dL Total Bilirubin 0.4 (0.2-1.3) mg/dL AST 39 (17-59) U/L ALT 32 (4-49) U/L Alkaline Phosphatase 43 (38-126) U/L Total Protein 7.6 (6.3-8.2) g/dL Albumin 5.0 (3.5-5.0) g/dL Disposition Clinical Impression: DVT (deep venous thrombosis) Disposition: ADMITTED IP TO THIS [facility] Condition: Stable Referrals: Conrad Matson MD [Primary Care Provider] - 1-2 days
[2021-04-12 15:53] LABS: Basophils % (A) 1 %; Eosinophils # (A) 0.2 k/uL (0-0.7); Eosinophils % (A) 4 %; HCT 50.2 % (39.0-53.0); HGB 16.1 gm/dL (13.0-17.5); Lymphocytes # (A) 1.4 k/uL (1.0-4.8); Lymphocytes % (A) 38 %; MCH 29.8 pg (25.0-35.0); MCV 93.1 fL (80.0-100.0); Mean Platelet Volume 8.8; Monocytes # (A) 0.4 k/uL (0-1.0); Monocytes % (A) 10 %; Neutrophils # (A) 1.7 k/uL (1.3-7.7); Neutrophils % (A) 44 %; Platelet Count 155 k/uL (150-450); RDW 13.8 % (11.5-15.5); WBC 3.8 k/uL (3.8-10.6)
[2021-04-12 16:04] LABS: Calcium 10.8 mg/dL (8.4-10.2); Potassium 4.9 mmol/L (3.5-5.1); Total Bilirubin 0.4 mg/dL (0.2-1.3); Total Protein 7.6 g/dL (6.3-8.2)
[2021-04-12 16:09] LABS: Partial Thromboplastin Time 22.3 sec (22.0-30.0); Prothrombin Time 10.7 sec (9.0-12.0)
--- NOTE | 2021-04-12 17:54 | US ---
EXAMINATION TYPE: US venous doppler duplex LE LT DATE OF EXAM: 04/12/2021 5:45 PM COMPARISON: NONE CLINICAL HISTORY: LE swelling. Lower extremity swelling. No hx of DVT. Patient takes aspirin. SIDE PERFORMED: Left TECHNIQUE: The lower extremity deep venous system is examined utilizing real time linear array sonog yvonne with graded compression, doppler sonography and color-flow sonography. VESSELS IMAGED: Common Femoral Vein Deep Femoral Vein Greater Saphenous Vein * Femoral Vein Popliteal Vein Small Saphenous Vein * Proximal Calf Veins (* superficial vessels) Left Leg: Internal echoes seen within the CFV extending down through the prox calf veins. Compressio ns not performed due to internal echoes seen. IMPRESSION: Findings compatible with deep venous thrombosis involving the common femoral vein, super ficial femoral vein, portions of the central deep femoral vein extending peripherally into the poplit eal vein
[2021-04-12] MEDS ORDERED: ENOXAPARIN 100 MG/ML SYRINGE SQ STA (18:19)
[2021-04-12] MEDS ORDERED: HEPARIN SODIUM 1,000 UN/ML (10ML VL) IV ONE (18:25)
[2021-04-12] MEDS ORDERED: HEPARIN SODIUM 1,000 UN/ML (10ML VL) IV PRN (18:25)
[2021-04-12] MEDS ORDERED: NALOXONE 0.4 MG/ML 1 ML VIAL IV PRN (18:27)
[2021-04-12] MEDS ORDERED: HEPARIN SOD,PORK IN 0.45% NACL 25,000 UNIT in 0.45% NACL 1 250ML.BAG IV SCH (18:30)
--- NOTE | 2021-04-12 20:21 | CT ---
EXAMINATION TYPE: CT abdomen pelvis w con DATE OF EXAM: 04/12/2021 COMPARISON: HISTORY: Eval for pelvic DVT. CT DLP: 1683 mGycm Automated exposure control for dose reduction was used. TECHNIQUE: Helical acquisition of images from the lung bases through the pelvis have been completed. CONTRAST: Performed without Oral Contrast and with IV Contrast, patient injected with 80 mL of Isovue 300. FINDINGS: LUNG BASES: No significant abnormality is appreciated. AORTA: No significant abnormality is appreciated. LIVER/GB: Gallstones are present. Liver shows low attenuation which could be due to underlying hepati c steatosis, liver is enlarged. PANCREAS: No significant abnormality is seen. SPLEEN: No significant abnormality is seen. ADRENALS: No significant abnormality is seen. KIDNEYS: Right kidney is malrotated. REPRODUCTIVE ORGANS: Prostate is enlarged. BOWEL: There is some thickening of the small bowel loops. FREE AIR: No Free Air visible. ASCITES: None visible. PELVIC ADENOPATHY: None visualized. RETROPERITONEAL ADENOPATHY: No Retroperitoneal Adenopathy visible. URINARY BLADDER: No significant abnormality is seen. OSSEOUS STRUCTURES: Degenerative disc changes, facet arthropathy noted in the lower lumbar spine. IMPRESSION: HEPATIC STEATOSIS. CHOLELITHIASIS. HEPATOMEGALY. EXAM IS LIMITED FOR EVALUATION OF DEEP VENOUS THROMB OSIS.
[2021-04-12] MEDS ORDERED: clonazePAM 0.5 MG TAB PO SCH (21:00)
[2021-04-12] MEDS ORDERED: NEOMYCIN-BACITRACIN-POLY OINT 14 GM TUBE TOPICAL PRN (22:16)
[2021-04-12] MEDS ORDERED: PSYLLIUM HUSK 100% 6 GM PACKET PO PRN (22:16)
[2021-04-12] MEDS ORDERED: LITHIUM CARBONATE 300 MG CAP PO SCH (22:16)
[2021-04-12] MEDS ORDERED: DICYCLOMINE 20 MG TAB PO PRN (22:16)
[2021-04-12] MEDS ORDERED: FLUPHENAZINE DECANOATE 25 MG/ML IM SCH (22:30)
--- NOTE | 2021-04-12 22:31 | P.HPIM ---
History of Present Illness H&P Date: 04/12/21 Chief Complaint: Swelling of the left leg History of presenting complaint: This is a 65-year-old patient of visiting physicians Dr. Matson. Chronic stable medical conditions include COPD, hypertension, hyperlipidemia, constipation. Patient has a public guardian. Lives [facility]. Difficult to get any specific history. Patient being followed by Dr. Capellan from the committee to mental health. He has a diagnoses of schizophrenia and schizoaffective disorder with multiple bizarre decisional statements and paranoia. Patient is accompanied by one of the caregivers at the [facility]. Patient has noticed swelling in the left lower extremity for about 2 weeks. Denies any pain. Patient at baseline has some shortness of breath occasionally wheezing. Appetite is fair. Sometimes constipated. Doppler ultrasound did confirm a DVT. Admitted for the same Review of systems: GEN.: Tired EYES: None HEENT: None NECK: None RESPIRATORY: Some wheezing and shortness of breath CARDIOVASCULAR: None GASTROINTESTINAL: Constipation GENITOURINARY: None MUSCULOSKELETAL: None LYMPHATICS: None HEMATOLOGICAL: None PSYCHIATRY: As above NEUROLOGICAL: None Past medical history to include: Asthma, hypertension, hyperlipidemia, schizophrenia, schizoaffective disorder, constipation Social history: Has a public guardian. Smokes up to half a pack a day. No alcohol intake. Lives at a progressive [facility] home. Physical examination: VITAL SIGNS: 0352 GENERAL: BMI 28.3, sitting edge of the bed anxious appearing. EYES: Pupils equal. Conjunctiva normal. HEENT: External appearance of nose and ears normal, oral cavity grossly normal. NECK: JVD not raised; masses not palpable. HEART: First and second heart sounds are normal; no edema. LUNGS: Respiratory rate increased; decreased breath sounds, some wheezing. ABDOMEN: Soft, nontender, liver spleen not palpable, no masses palpable. PSYCH: Racing thoughts. NEUROLOGICAL: Cranial nerves grossly intact; no facial asymmetry, power and sensation grossly intact. EXTREMITY: Left leg swelling compared to the right LYMPHATICS: No lymph nodes palpable in the axilla and neck INVESTIGATIONS, reviewed in the clinical context: WBC 3.8 hemoglobin 16.1 platelets 155 potassium 4.9 creatinine 1.39 Coronavirus [PCF] not detected Doppler ultrasound: DVT involving the common femoral vein superficial femoral vein portions of the central deep femoral vein extending pedophilia into the popliteal vein Computed tomography scan of the abdomen and pelvis: Hepatic steatosis. Cholelithiasis. Exam limited for evaluation of DVT Assessment and plan: -Acute DVT in the left leg, with 2 weeks duration Started IV heparin. Computed tomography scan of the abdomen was inconclusive for more proximal DVT. Vascular surgery consulted. -IV heparin monitoring Follow PTT -Hyperlipidemia Continue Zocor -Essential hypertension Continue with Lopressor -COPD, exacerbation and a current smoker DuoNeb, and inhaled steroids -Chronic nicotine dependent cigarette smoker Nicotine patch -Schizophrenia Continue antipsychotics -Chronic constipation Continue with Metamucil -Patient has a public guardian Care was discussed with the caregiver at the bedside. IV heparin. Vascular surgery consulted. Computed tomography scan did not able to determine any proximal extension. May need a repeat computed tomography scan in 24 hours. Given the complexity and severity of patient's condition expect the patient to be in the hospital at least for 2 overnights Past Medical History Past Medical History: Asthma, Hyperlipidemia, Hypertension Additional Past Medical History / Comment(s): schizophrenia. constipation History of Any Multi-Drug Resistant Organisms: None Reported Past Surgical History: No Surgical Hx Reported Past Anesthesia/Blood Transfusion Reactions: No Reported Reaction Past Psychological History: Schizophrenia Smoking Status: Current every day smoker Past Alcohol Use History: None Reported Past Drug Use History: None Reported - Past Family History Father History Unknown: Yes Mother History Unknown: Yes Medications and Allergies Home Medications Medication Instructions Recorded Confirmed Type Aspirin [Aspirin EC] 81 mg PO DAILY@79904/12/16 04/12/21 History Simvastatin [Zocor] 10 mg PO HS@209904/12/16 04/12/21 History Albuterol Inhaler [Ventolin Hfa 2 puff INHALATION RT-Q6H PRN 06/07/20 04/12/21 History Inhaler] Cholecalciferol (Vitamin D3) 125 mcg PO DAILY@79906/07/20 04/12/21 History [Vitamin D3 (5000 Iu)] Docusate [Colace] 100 mg PO BID@799,209906/07/20 04/12/21 History Fenofibrate Nanocrystallized 145 mg PO DAILY@79906/07/20 04/12/21 History [Fenofibrate] Latanoprost/Pf [Latanoprost 0.005% 1 drop BOTH EYES HS@209906/07/20 04/12/21 History Eye Drop] Levothyroxine Sodium [Synthroid] 100 mcg PO DAILY@06/07/20 04/12/21 History Metoprolol Tartrate [Lopressor] 25 mg PO BID@0800,209906/07/20 04/12/21 History Hrlusrxv-Kobxdygkxe-Pdhx Oint 1 applic TOPICAL DIRECTED PRN 06/07/20 04/12/21 History [Triple Antibiotic Ointment] Omeprazole [PriLOSEC] 20 mg PO DAILY@0806/07/20 04/12/21 History Psyllium Husk (with Sugar) 14 gm PO TID PRN 06/07/20 04/12/21 History [Metamucil Powder] Bismuth Subsalicylate 524 mg PO QID PRN 06/08/20 04/12/21 History [Pepto-Bismol] Ibuprofen [Motrin Ib] 200 - 400 mg PO Q6H PRN 06/08/20 04/12/21 History Aspirin EC [Ecotrin] 325 mg PO DAILY PRN 04/12/21 04/12/21 History Celecoxib [CeleBREX] 200 mg PO BID PRN 04/12/21 04/12/21 History Certavite 1 tab PO HS@209904/12/21 04/12/21 History Cyanocobalamin [Vitamin B-12] 500 mcg PO DAILY@79904/12/21 04/12/21 History Dicyclomine [Bentyl] 20 mg PO Q8H PRN 04/12/21 04/12/21 History Docusate [Colace] 100 mg PO DAILY PRN 04/12/21 04/12/21 History Folic Acid 1 mg PO DAILY@79904/12/21 04/12/21 History Furosemide [Lasix] 20 mg PO BID@799,199904/12/21 04/12/21 History Ibuprofen [Motrin] 400 mg PO TID PRN 04/12/21 04/12/21 History Linaclotide [Linzess] 145 mcg PO DAILY@69904/12/21 04/12/21 History [place] Carbonate [[place] 300 mg PO HS@199904/12/21 04/12/21 History Carbonate ER] Loperamide [Imodium] 2 mg PO DIRECTED PRN 04/12/21 04/12/21 History Magnesium Hydroxide [Milk of 2,400 mg PO DAILY PRN 04/12/21 04/12/21 History Magnesia] Potassium Chloride [Klor-Con 20] 20 meq PO DAILY@0800 04/12/21 04/12/21 History Pseudoephedrine HCl [Sudogest] 60 mg PO DAILY PRN 04/12/21 04/12/21 History QUEtiapine FUMARATE [SEROquel] 600 mg PO HS@209904/12/21 04/12/21 History Stomach Relief 1 dose PO DIRECTED PRN 04/12/21 04/12/21 History clonazePAM 1.5 mg PO HS@209904/12/21 04/12/21 History diphenhydrAMINE [Benadryl] 25 mg PO DAILY PRN 04/12/21 04/12/21 History fluPHENAZine decanoate [Prolixin 50 mg IM Q7D 04/12/21 04/12/21 History Decanoate] guaiFENesin SYRUP 100MG/5ML 1 dose PO DIRECTED PRN 04/12/21 04/12/21 History [Robitussin] Allergies Allergy/AdvReac Type Severity Reaction Status Date / Time acetaminophen [From Tylenol] Allergy Unknown Verified 04/12/21 16:22 gabapentin [From Neurontin] Allergy Unknown Verified 04/12/21 16:22 Penicillins Allergy Unknown Verified 04/12/21 16:22 clozapine [From Clozaril] AdvReac Unknown Verified 04/12/21 16:22 divalproex sodium AdvReac Unknown Verified 04/12/21 16:22 [From Depakote] Physical Exam Vitals: Vital Signs Temp Pulse Resp BP Pulse Ox 04/12/21 19:45 97.9 F 90 16 170/73 97 04/12/21 14:39 98.1 F 79 19 125/71 95 Intake and Output 04/12/21 04/12/21 04/12/21 06:59 14:59 22:59 Other: Weight 101.151 kg Results CBC & Chem 7: 04/12/21 15:41 04/12/21 15:41 Labs: Abnormal Lab Results - Last 24 Hours (Table) 04/12/21 Range/Units 15:41 Creatinine 1.39 H (0.66-1.25) mg/dL Calcium 10.8 H (8.4-10.2) mg/dL
[2021-04-13] MEDS: METOPROLOL TARTRATE 25 MG TAB PO SCH ×2 (01:39→08:00)
[2021-04-13] MEDS ORDERED: LEVOTHYROXINE 100 MCG TAB PO SCH (06:30)
[2021-04-13] MEDS ORDERED: NON FORMULARY DRUG (Linaclotide [Linzess] 145 MCG Capsule) PO SCH (07:00)
[2021-04-13] MEDS: IPRATROPIUM-ALBUTEROL 3 ML NEB INHALATION SCH ×2 (07:10→11:31)
[2021-04-13] MEDS ORDERED: PANTOPRAZOLE 40 MG TABLET PO SCH (07:30)
[2021-04-13] MEDS ORDERED: FENOFIBRATE 160 MG TAB PO SCH (08:00)
[2021-04-13] MEDS ORDERED: ASPIRIN 81 MG PO SCH (08:00)
[2021-04-13] MEDS ORDERED: CHOLECALCIFEROL 25 MCG (1000 IU) TABLET PO SCH (08:00)
[2021-04-13] MEDS ORDERED: FOLIC ACID 1 MG TAB PO SCH (08:00)
[2021-04-13] MEDS ORDERED: CYANOCOBALAMIN 500 MCG TAB PO SCH (08:00)
[2021-04-13] MEDS ORDERED: BUDESONIDE 1 MG/2 ML NEBU INHALATION SCH (08:00)
[2021-04-13 08:10] VITALS: RESP 18
[2021-04-13 10:28] LABS: Basophils % (A) 0.5 %; Eosinophils % (A) 3.8 %; HGB 14.5 g/dL (13.0-17.0); Lymphocytes # (A) 1.22 X 10*3/uL (0.90-5.00); Lymphocytes % (A) 30.8 %; MCH 30.9 pg (27.0-32.0); MCHC 32.2 g/dL (32.0-37.0); MCV 95.9 fL (80.0-97.0); Mean Platelet Volume 11.9 fL (9.5-12.2); Monocytes % (A) 13.9 %; Neutrophils # (A) 2.01 X 10*3/uL (1.80-7.70); Neutrophils % (A) 50.7 %; Platelet Count 159 X 10*3/uL (140-440); RBC 4.69 X 10*6/uL (4.40-5.60); RDW 13.6 % (11.5-14.5); WBC 3.96 X 10*3/uL (4.50-10.00)
[2021-04-13 10:29] LABS: Basophils # (A) 0.02 X 10*3/uL (0.00-0.10); Eosinophils # (A) 0.15 X 10*3/uL (0.04-0.35); Monocytes # (A) 0.55 X 10*3/uL (0.20-1.00)
--- NOTE | 2021-04-13 11:55 | P.GSCN ---
History of Present Illness History of present illness: 65-year-old gentleman patient came to the emergency room with history of swelling of the left leg 2 weeks duration. Patient has history of COPD, hypertension, patient came to visit his psychiatrist and got swelling and got admitted to the hospital. No history of trauma patient has some shortness of breath. Patient had a venous ultrasound shows DVT of the left lower extremity. Patient is CT of the abdomen which was negative for DVT in the pelvic vein patient has been on heparin Medical history history of hypertension COPD chronic constipation Neck examination neck is supple no bruit appreciated Chest clear first and second sound normal Abdomen soft nontender Vascular examination femoral dorsal pedis pulses are palpable patient has some swelling of the left lower extremity there is no vascular compromise Impression is DVT of the left leg plan is patient heparin follow with you Past Medical History Past Medical History: Asthma, Hyperlipidemia, Hypertension Additional Past Medical History / Comment(s): schizophrenia. constipation History of Any Multi-Drug Resistant Organisms: None Reported Past Surgical History: No Surgical Hx Reported Past Anesthesia/Blood Transfusion Reactions: No Reported Reaction Past Psychological History: Schizophrenia Smoking Status: Current every day smoker Past Alcohol Use History: None Reported Past Drug Use History: None Reported - Past Family History Father History Unknown: Yes Mother History Unknown: Yes Medications and Allergies Home Medications Medication Instructions Recorded Confirmed Type Aspirin [Aspirin EC] 81 mg PO DAILY@79904/12/16 04/12/21 History Simvastatin [Zocor] 10 mg PO HS@209904/12/16 04/12/21 History Albuterol Inhaler [Ventolin Hfa 2 puff INHALATION RT-Q6H PRN 06/07/20 04/12/21 History Inhaler] Cholecalciferol (Vitamin D3) 125 mcg PO DAILY@79906/07/20 04/12/21 History [Vitamin D3 (5000 Iu)] Docusate [Colace] 100 mg PO BID@799,209906/07/20 04/12/21 History Fenofibrate Nanocrystallized 145 mg PO DAILY@79906/07/20 04/12/21 History [Fenofibrate] Latanoprost/Pf [Latanoprost 0.005% 1 drop BOTH EYES HS@209906/07/20 04/12/21 History Eye Drop] Levothyroxine Sodium [Synthroid] 100 mcg PO DAILY@69906/07/20 04/12/21 History Metoprolol Tartrate [Lopressor] 25 mg PO BID@0800,209906/07/20 04/12/21 History Ndgiaftw-Bgyomwfqob-Bidh Oint 1 applic TOPICAL DIRECTED PRN 06/07/20 04/12/21 History [Triple Antibiotic Ointment] Omeprazole [PriLOSEC] 20 mg PO DAILY@0800 06/07/20 04/12/21 History Psyllium Husk (with Sugar) 14 gm PO TID PRN 06/07/20 04/12/21 History [Metamucil Powder] Bismuth Subsalicylate 524 mg PO QID PRN 06/08/20 04/12/21 History [Pepto-Bismol] Ibuprofen [Motrin Ib] 200 - 400 mg PO Q6H PRN 06/08/20 04/12/21 History Aspirin EC [Ecotrin] 325 mg PO DAILY PRN 04/12/21 04/12/21 History Celecoxib [CeleBREX] 200 mg PO BID PRN 04/12/21 04/12/21 History Certavite 1 tab PO HS@209904/12/21 04/12/21 History Cyanocobalamin [Vitamin B-12] 500 mcg PO DAILY@79904/12/21 04/12/21 History Dicyclomine [Bentyl] 20 mg PO Q8H PRN 04/12/21 04/12/21 History Docusate [Colace] 100 mg PO DAILY PRN 04/12/21 04/12/21 History Folic Acid 1 mg PO DAILY@79904/12/21 04/12/21 History Furosemide [Lasix] 20 mg PO BID@0800,199904/12/21 04/12/21 History Ibuprofen [Motrin] 400 mg PO TID PRN 04/12/21 04/12/21 History Linaclotide [Linzess] 145 mcg PO DAILY@69904/12/21 04/12/21 History [place] Carbonate [[place] 300 mg PO HS@199904/12/21 04/12/21 History Carbonate ER] Loperamide [Imodium] 2 mg PO DIRECTED PRN 04/12/21 04/12/21 History Magnesium Hydroxide [Milk of 2,400 mg PO DAILY PRN 04/12/21 04/12/21 History Magnesia] Potassium Chloride [Klor-Con 20] 20 meq PO DAILY@0800 04/12/21 04/12/21 History Pseudoephedrine HCl [Sudogest] 60 mg PO DAILY PRN 04/12/21 04/12/21 History QUEtiapine FUMARATE [SEROquel] 600 mg PO HS@209904/12/21 04/12/21 History Stomach Relief 1 dose PO DIRECTED PRN 04/12/21 04/12/21 History clonazePAM 1.5 mg PO HS@209904/12/21 04/12/21 History diphenhydrAMINE [Benadryl] 25 mg PO DAILY PRN 04/12/21 04/12/21 History fluPHENAZine decanoate [Prolixin 50 mg IM Q7D 04/12/21 04/12/21 History Decanoate] guaiFENesin SYRUP 100MG/5ML 1 dose PO DIRECTED PRN 04/12/21 04/12/21 History [Robitussin] Allergies Allergy/AdvReac Type Severity Reaction Status Date / Time acetaminophen [From Tylenol] Allergy Unknown Verified 04/12/21 16:22 gabapentin [From Neurontin] Allergy Unknown Verified 04/12/21 16:22 Penicillins Allergy Unknown Verified 04/12/21 16:22 clozapine [From Clozaril] AdvReac Unknown Verified 04/12/21 16:22 divalproex sodium AdvReac Unknown Verified 04/12/21 16:22 [From Depakote] Surgical - Exam Vital Signs Temp Pulse Resp BP Pulse Ox 98.1 F 79 19 125/71 95 04/12/21 14:39 04/12/21 14:39 04/12/21 14:39 04/12/21 14:39 04/12/21 14:39 Results - Labs 04/13/21 05:49 04/12/21 15:41 Abnormal Lab Results - Last 24 Hours (Table) 04/12/21 04/13/21 04/13/21 Range/Units 15:41 00:38 05:49 WBC 3.96 L (4.50-10.00) X 10*3/uL APTT 78.1 H (22.0-30.0) sec Creatinine 1.39 H (0.66-1.25) mg/dL Calcium 10.8 H (8.4-10.2) mg/dL Diabetes panel 04/12/21 Range/Units 15:41 Sodium 140 (137-145) mmol/L Potassium 4.9 (3.5-5.1) mmol/L Chloride 103 (98-107) mmol/L Carbon Dioxide 30 (22-30) mmol/L BUN 20 (9-20) mg/dL Creatinine 1.39 H (0.66-1.25) mg/dL Glucose 93 (74-99) mg/dL Calcium 10.8 H (8.4-10.2) mg/dL AST 39 (17-59) U/L ALT 32 (4-49) U/L Alkaline Phosphatase 43 (38-126) U/L Total Protein 7.6 (6.3-8.2) g/dL Albumin 5.0 (3.5-5.0) g/dL Calcium panel 04/12/21 Range/Units 15:41 Calcium 10.8 H (8.4-10.2) mg/dL Albumin 5.0 (3.5-5.0) g/dL Pituitary panel 04/12/21 Range/Units 15:41 Sodium 140 (137-145) mmol/L Potassium 4.9 (3.5-5.1) mmol/L Chloride 103 (98-107) mmol/L Carbon Dioxide 30 (22-30) mmol/L BUN 20 (9-20) mg/dL Creatinine 1.39 H (0.66-1.25) mg/dL Glucose 93 (74-99) mg/dL Calcium 10.8 H (8.4-10.2) mg/dL Adrenal panel 04/12/21 Range/Units 15:41 Sodium 140 (137-145) mmol/L Potassium 4.9 (3.5-5.1) mmol/L Chloride 103 (98-107) mmol/L Carbon Dioxide 30 (22-30) mmol/L BUN 20 (9-20) mg/dL Creatinine 1.39 H (0.66-1.25) mg/dL Glucose 93 (74-99) mg/dL Calcium 10.8 H (8.4-10.2) mg/dL Total Bilirubin 0.4 (0.2-1.3) mg/dL AST 39 (17-59) U/L ALT 32 (4-49) U/L Alkaline Phosphatase 43 (38-126) U/L Total Protein 7.6 (6.3-8.2) g/dL Albumin 5.0 (3.5-5.0) g/dL
[2021-04-13] MEDS ORDERED: ENOXAPARIN 100 MG/ML SYRINGE SQ STA (12:43)
[2021-04-13 14:18] VITALS: BP 147/83; PULSE 64; TEMP 98.5
--- NOTE | 2021-04-13 18:25 | P.DS ---
Providers Date of admission: 04/12/21 18:29 Expected date of discharge: 04/13/21 Attending physician: Coleman Gordon Consults: 04/12/21 18:27 Consult Physician Routine Consulting Provider: Lebron Pate Consult Reason/Comments: DVT Do you want consulting provider notified?: Yes Primary care physician: Conrad Matson MD Hospital Course: Chief Complaint: Swelling of the left leg History of presenting complaint: This is a 65-year-old patient of visiting physicians Dr. Matson. Chronic stable medical conditions include COPD, hypertension, hyperlipidemia, constipation. Patient has a public guardian. Lives [facility] Difficult to get any specific history. Patient being followed by Dr. Capellan from the committee to mental health. He has a diagnoses of schizophrenia and schizoaffective disorder with multiple bizarre decisional statements and paranoia. Patient is accompanied by one of the caregivers at the [facility]. Patient has noticed swelling in the left lower extremity for about 2 weeks. Denies any pain. Patient at baseline has some shortness of breath occasionally wheezing. Appetite is fair. Sometimes constipated. Doppler ultrasound did confirm a DVT. Admitted for the same Computed tomography scan of the abdomen pelvis was done. Reviewed by Dr. Gates from vascular. Not any further intervention. Patient was started on IV heparin. Also treated for COPD exacerbation. Today: No new symptoms. Breathing better. Caregiver at the bedside. LOGAN stockings were ordered. Discharge planning was discussed including the use of eliquis. Patient follow-up with Dr. Gates. Discussion and discharge planning more than 35 minutes Consultation: Dr. Gates from vascular Past medical history to include: Asthma, hypertension, hyperlipidemia, schizophrenia, schizoaffective disorder, constipation Social history: Has a public guardian. Smokes up to half a pack a day. No alcohol intake. [facility]. Physical examination: VITAL SIGNS: 98.8, 71, 18, 141/80, 94% room air GENERAL: Sitting at the edge of bed, comfortable EYES: Pupils equal. Conjunctiva normal. NECK: JVD not raised; masses not palpable. HEART: First and second heart sounds are normal; no edema. LUNGS: Respiratory rate increased; decreased breath sounds, ABDOMEN: Soft, nontender, liver spleen not palpable, no masses palpable. PSYCH: Answering questions. A bit anxious EXTREMITY: Left leg swelling compared to the right INVESTIGATIONS, reviewed in the clinical context: April 13: Platelets 159 WBC 3.8 hemoglobin 16.1 platelets 155 potassium 4.9 creatinine 1.39 Coronavirus [PCF] not detected Doppler ultrasound: DVT involving the common femoral vein superficial femoral vein portions of the central deep femoral vein extending pedophilia into the popliteal vein Computed tomography scan of the abdomen and pelvis: Hepatic steatosis. Cholelithiasis. Exam limited for evaluation of DVT Assessment and plan: -Acute DVT in the left leg, with 2 weeks duration Started IV heparin. Computed tomography scan of the abdomen did not show any obvious pelvic extension. Patient seen by Dr. Gates from vascular. Changed over to eliquis... -IV heparin monitoring Follow PTT -Hyperlipidemia Continue Zocor -Essential hypertension Continue with Lopressor -COPD, exacerbation and a current smoker DuoNeb, and inhaled steroids -Chronic nicotine dependent cigarette smoker Nicotine patch -Schizophrenia Continue antipsychotics -Chronic constipation Continue with Metamucil -Patient has a public guardian Disposition: [facility] Smoke cessation counseling: This was done with the patient and caregiver. Nicotine patch is being given. More than 3 minutes was spent for this Patient Condition at Discharge: Stable Plan - Discharge Summary New Discharge Prescriptions: New Apixaban [Eliquis Starter Pack (for VTE)] 0 mg PO DIRECTED 30 Days #1 pack Continue Simvastatin [Zocor] 10 mg PO HS@2100 Omeprazole [PriLOSEC] 20 mg PO DAILY@0800 Metoprolol Tartrate [Lopressor] 25 mg PO BID@0800,2100 Levothyroxine Sodium [Synthroid] 100 mcg PO DAILY@0700 Latanoprost/Pf [Latanoprost 0.005% Eye Drop] 1 drop BOTH EYES HS@2100 Fenofibrate Nanocrystallized [Fenofibrate] 145 mg PO DAILY@0800 Docusate [Colace] 100 mg PO BID@0800,2100 Cholecalciferol (Vitamin D3) [Vitamin D3 (5000 Iu)] 125 mcg PO DAILY@0800 Fbmvwdpp-Vjcuahlkxa-Gfft Oint [Triple Antibiotic Ointment] 1 applic TOPICAL DIRECTED PRN PRN Reason: Minor Abrasions/Cuts/[place] Psyllium Husk (with Sugar) [Metamucil Powder] 14 gm PO TID PRN PRN Reason: Constipation Albuterol Inhaler [Ventolin Hfa Inhaler] 2 puff INHALATION RT-Q6H PRN PRN Reason: Shortness Of Breath Bismuth Subsalicylate [Pepto-Bismol] 524 mg PO QID PRN PRN Reason: Diarrhea Certavite 1 tab PO HS@2100 Stomach Relief 1 dose PO DIRECTED PRN PRN Reason: Loose Stool clonazePAM 1.5 mg PO HS@2100 Dicyclomine [Bentyl] 20 mg PO Q8H PRN PRN Reason: Pain diphenhydrAMINE [Benadryl] 25 mg PO DAILY PRN PRN Reason: Allergy Symptoms guaiFENesin SYRUP 100MG/5ML [Robitussin] 1 dose PO DIRECTED PRN PRN Reason: Cold Symptoms Linaclotide [Linzess] 145 mcg PO DAILY@0700 Pseudoephedrine HCl [Sudogest] 60 mg PO DAILY PRN PRN Reason: Cold Symptoms QUEtiapine FUMARATE [SEROquel] 600 mg PO HS@2100 Cyanocobalamin [Vitamin B-12] 500 mcg PO DAILY@0800 fluPHENAZine decanoate [Prolixin Decanoate] 50 mg IM Q7D Folic Acid 1 mg PO DAILY@0800 [place] Carbonate [[place] Carbonate ER] 300 mg PO HS@1999 Loperamide [Imodium] 2 mg PO DIRECTED PRN PRN Reason: Loose Stool Magnesium Hydroxide [Milk of Magnesia] 2,400 mg PO DAILY PRN PRN Reason: Constipation Discontinued Ibuprofen [Motrin Ib] 200 - 400 mg PO Q6H PRN PRN Reason: Fever/Pain/Headache Celecoxib [CeleBREX] 200 mg PO BID PRN PRN Reason: Pain Docusate [Colace] 100 mg PO DAILY PRN PRN Reason: Constipation Furosemide [Lasix] 20 mg PO BID@0800,1999 Ibuprofen [Motrin] 400 mg PO TID PRN PRN Reason: Pain Aspirin EC [Ecotrin] 325 mg PO DAILY PRN PRN Reason: Pain Or Fever > 100.5 Potassium Chloride [Klor-Con 20] 20 meq PO DAILY@0800 No Action Aspirin [Aspirin EC] 81 mg PO DAILY@0800 Discharge Medication List Aspirin [Aspirin EC] 81 mg PO DAILY@0800 04/12/16 [History] Simvastatin [Zocor] 10 mg PO HS@2100 04/12/16 [History] Albuterol Inhaler [Ventolin Hfa Inhaler] 2 puff INHALATION RT-Q6H PRN 06/07/20 [History] Cholecalciferol (Vitamin D3) [Vitamin D3 (5000 Iu)] 125 mcg PO DAILY@79906/07/20 [History] Docusate [Colace] 100 mg PO BID@799,209906/07/20 [History] Fenofibrate Nanocrystallized [Fenofibrate] 145 mg PO DAILY@79906/07/20 [History] Latanoprost/Pf [Latanoprost 0.005% Eye Drop] 1 drop BOTH EYES HS@209906/07/20 [History] Levothyroxine Sodium [Synthroid] 100 mcg PO DAILY@69906/07/20 [History] Metoprolol Tartrate [Lopressor] 25 mg PO BID@799,209906/07/20 [History] Ycpyiawr-Codtskwqzq-Eako Oint [Triple Antibiotic Ointment] 1 applic TOPICAL DIRECTED PRN 06/07/20 [History] Omeprazole [PriLOSEC] 20 mg PO DAILY@79906/07/20 [History] Psyllium Husk (with Sugar) [Metamucil Powder] 14 gm PO TID PRN 06/07/20 [History] Bismuth Subsalicylate [Pepto-Bismol] 524 mg PO QID PRN 06/08/20 [History] Certavite 1 tab PO HS@209904/12/21 [History] Cyanocobalamin [Vitamin B-12] 500 mcg PO DAILY@79904/12/21 [History] Dicyclomine [Bentyl] 20 mg PO Q8H PRN 04/12/21 [History] Folic Acid 1 mg PO DAILY@79904/12/21 [History] Linaclotide [Linzess] 145 mcg PO DAILY@69904/12/21 [History] [place] Carbonate [[place] Carbonate ER] 300 mg PO HS@199904/12/21 [History] Loperamide [Imodium] 2 mg PO DIRECTED PRN 04/12/21 [History] Magnesium Hydroxide [Milk of Magnesia] 2,400 mg PO DAILY PRN 04/12/21 [History] Pseudoephedrine HCl [Sudogest] 60 mg PO DAILY PRN 04/12/21 [History] QUEtiapine FUMARATE [SEROquel] 600 mg PO HS@209904/12/21 [History] Stomach Relief 1 dose PO DIRECTED PRN 04/12/21 [History] clonazePAM 1.5 mg PO HS@209904/12/21 [History] diphenhydrAMINE [Benadryl] 25 mg PO DAILY PRN 04/12/21 [History] fluPHENAZine decanoate [Prolixin Decanoate] 50 mg IM Q7D 04/12/21 [History] guaiFENesin SYRUP 100MG/5ML [Robitussin] 1 dose PO DIRECTED PRN 04/12/21 [History] Apixaban [Eliquis Starter Pack (for VTE)] 0 mg PO DIRECTED 30 Days #1 pack 04/13/21 [Rx] Follow up Appointment(s)/Referral(s): Conrad Matson MD [Primary Care Provider] - 1-2 days Lebron Pate MD [STAFF PHYSICIAN] - 4 Weeks Activity/Diet/Wound Care/Special Instructions: Eliquis at [facility] and copay is $4. above knee LOGAN stockings Discharge Disposition: HOME SELF-CARE
[2021-04-13] MEDS ORDERED: ATORVASTATIN 10 MG TAB PO SCH (21:00)
[2021-04-13] MEDS ORDERED: LATANOPROST 0.005% OPHTH DROPS 2.5 ML BTL BOTH EYES SCH (21:00)
[2021-04-13] MEDS ORDERED: MULTIVITAMINS, THERA 1 EACH TAB PO SCH (21:00)
[2021-04-13] MEDS ORDERED: QUEtiapine 200 MG TAB PO SCH (21:00)
== END 2021-04-13 14:10 | disposition home or self-care (01) | DRG 300 ==
LOC: EC 14:26 → 4SSUR 18:29 → 1SOBS 20:33 → 4SSUR 20:51
PROVIDERS: ADMIT Hospitalist; ATTEND Hospitalist
DX: I82.412 Acute embolism and thrombosis of left femoral vein (principal); J44.1 Chronic obstructive pulmonary disease with (acute) exacerbation; I82.432 Acute embolism and thrombosis of left popliteal vein; F25.9 Schizoaffective disorder, unspecified; F17.210 Nicotine dependence, cigarettes, uncomplicated; I10 Essential (primary) hypertension; E03.9 Hypothyroidism, unspecified; E78.5 Hyperlipidemia, unspecified; K59.09 Other constipation; Z79.1 Long term (current) use of non-steroidal anti-inflammatories (NSAID); Z79.82 Long term (current) use of aspirin; Z79.890 Hormone replacement therapy; Z79.899 Other long term (current) drug therapy; Z88.6 Allergy status to analgesic agent; Z88.0 Allergy status to penicillin; Z88.8 Allergy status to other drugs, medicaments and biological substances; Z20.822 Contact with and (suspected) exposure to COVID-19
CPT/HCPCS: 36415; 74177; 80053; 85025; 85610; 85730; 87635; 94640; 99285

== ENCOUNTER 2021-07-12 13:27 | Inpatient (IN) | payer MEDICARE, MEDICAID ==
--- NOTE | 2021-07-12 14:58 | ED ---
General Adult HPI - General Chief complaint: Psychiatric Symptoms Stated complaint: High blood pressure Time Seen by Provider: 07/12/21 14:28 Source: patient Mode of arrival: ambulatory Limitations: no limitations - History of Present Illness Initial comments: Dictation was produced using [facility] dictation software. please excuse any grammatical, word or spelling errors. Chief Complaint: 66-year-old male sent in from visiting physicians for concerns of PE and suicidal ideation History of Present Illness: This 58-year-old male presents to the emergency department for concerns of pulmonary embolism and suicidal ideation. Patient has a history of schizophrenia. He has spotty compliance with his medications. He has history of DVT. He is prescribed eliquis but does not take it every day. He takes whenever he feels like he wants to. Patient has been making suicidal expressions. Patient is uncooperative with expressing to me what he is currently feeling. Denies any leg pain. The ROS documented in this emergency department record has been reviewed and confirmed by me. Those systems with pertinent positive or negative responses have been documented in the HPI. All other systems are other negative and/or noncontributory. PHYSICAL EXAM: General Impression: Alert and oriented x3, not in acute distress HEENT: Normocephalic atraumatic, extra-ocular movements intact, pupils equal and reactive to light bilaterally, mucous membranes moist. Cardiovascular: Heart regular rate and rhythm Chest: Able to complete full sentences, no retractions, no tachypnea Abdomen: abdomen soft, non-tender, non-distended, no organomegaly Musculoskeletal: Pulses present and equal in all extremities, no peripheral edema Motor: no focal deficits noted Neurological: CN II-XII grossly intact, no focal motor or sensory deficits noted Skin: Intact with no visualized rashes Psych: Flat affect ED course: 66-year-old male presents to the emergency department for concerns of PE and psychiatric evaluation or suicidal statements. Vital signs upon arrival shows 92% on room air, rest of vital signs within acceptable limits. Patient's well-appearing at bedside. He has no physical exam findings to suggest DVT. Laboratory evaluation obtained CBC, coag panel is unremarkable. Metabolic panel is negative. Serum alcohol is negative. D-dimer is negative. Chest x-ray is nonacute. Patient reevaluated at bedside at 4 PM found to be stable medical condition. Patient medically cleared for EPS evaluation. Patient's chart was reviewed a later date. He was admitted to inpatient psychiatry. - Related Data Home Medications Medication Instructions Recorded Confirmed Albuterol Inhaler [Ventolin Hfa 2 puff INHALATION RT-Q6H PRN 06/07/20 07/12/21 Inhaler] Cholecalciferol (Vitamin D3) 125 mcg PO DAILY@79906/07/20 07/12/21 [Vitamin D3 (5000 Iu)] Fenofibrate Nanocrystallized 145 mg PO DAILY@79906/07/20 07/12/21 [Fenofibrate] Latanoprost/Pf [Latanoprost 0.005% 1 drop BOTH EYES HS@209906/07/20 07/12/21 Eye Drop] Qistqruy-Ejipikzsfm-Prnr Oint 1 applic TOPICAL DIRECTED PRN 06/07/20 07/12/21 [Triple Antibiotic Ointment] Omeprazole [PriLOSEC] 20 mg PO DAILY@79906/07/20 07/12/21 Psyllium Husk (with Sugar) 1 dose PO DIRECTED PRN 06/07/20 07/12/21 [Metamucil Powder] Certavite 1 tab PO HS@209904/12/21 07/12/21 Cyanocobalamin [Vitamin B-12] 500 mcg PO DAILY@79904/12/21 07/12/21 Dicyclomine [Bentyl] 20 mg PO Q8H PRN 04/12/21 07/12/21 Folic Acid 1 mg PO DAILY@79904/12/21 07/12/21 Linaclotide [Linzess] 145 mcg PO DAILY@69904/12/21 07/12/21 Magnesium Hydroxide [Milk of 2,400 mg PO DAILY PRN 04/12/21 07/12/21 Magnesia] Stomach Relief 1 dose PO DIRECTED PRN 04/12/21 07/12/21 Apixaban [Eliquis] 5 mg PO BID@0800,209907/12/21 07/12/21 Celecoxib [CeleBREX] 200 mg PO BID PRN 07/12/21 07/12/21 Docusate [Colace] 100 mg PO BID@0800,209907/12/21 07/12/21 Ibuprofen [Motrin Ib] 200 mg PO DIRECTED PRN 07/12/21 07/12/21 Ibuprofen [Motrin] 400 mg PO Q8HR PRN 07/12/21 07/12/21 Shen-Tin Liq 1 dose PO DIRECTED PRN 07/12/21 07/12/21 Previous Rx's Medication Instructions Recorded Furosemide [Lasix] 40 mg PO DAILY 30 Days tab 07/24/21 Levothyroxine Sodium [Synthroid] 75 mcg PO DAILY@0630 30 Days tab 07/24/21 Melatonin 5 mg PO HS 30 Days tablet 07/24/21 Metoprolol Tartrate [Lopressor] 50 mg PO BID@0800,2100 30 Days tab 07/24/21 Sertraline [Zoloft] 50 mg PO DAILY 30 Days tab 07/24/21 Simvastatin [Zocor] 10 mg PO HS@2100 30 Days tab 07/24/21 fluPHENAZine decanoate [Prolixin 50 mg IM Q7D #1 ml 07/24/21 Decanoate] lamoTRIgine [LaMICtal] 100 mg PO HS 30 Days tab 07/24/21 Allergies Allergy/AdvReac Type Severity Reaction Status Date / Time acetaminophen [From Tylenol] Allergy Unknown Verified 07/12/21 14:53 gabapentin [From Neurontin] Allergy Unknown Verified 07/12/21 14:53 Penicillins Allergy Unknown Verified 07/12/21 14:53 clozapine [From Clozaril] AdvReac Unknown Verified 07/12/21 14:53 divalproex sodium AdvReac Unknown Verified 07/12/21 14:53 [From Depakote] Review of Systems ROS Statement: Those systems with pertinent positive or pertinent negative responses have been documented in the HPI. ROS Other: All systems not noted in ROS Statement are negative. Past Medical History Past Medical History: Asthma, Hyperlipidemia, Hypertension Additional Past Medical History / Comment(s): schizophrenia. constipation History of Any Multi-Drug Resistant Organisms: None Reported Past Surgical History: No Surgical Hx Reported Past Anesthesia/Blood Transfusion Reactions: No Reported Reaction Past Psychological History: Schizophrenia Smoking Status: Current every day smoker Past Alcohol Use History: None Reported Past Drug Use History: None Reported - Past Family History Father History Unknown: Yes Mother History Unknown: Yes General Exam Limitations: no limitations Course Vital Signs 07/12/21 07/12/21 07/12/21 14:02 15:39 22:40 Temperature 98.6 F 98.9 F Pulse Rate 96 74 92 Respiratory 17 16 18 Rate Blood Pressure 147/81 139/84 159/88 O2 Sat by Pulse 93 L 96 95 Oximetry Medical Decision Making - Lab Data Result diagrams: 07/13/21 07:21 07/13/21 07:21 Lab Results 07/12/21 07/12/21 07/12/21 Range/Units 14:58 14:58 14:58 WBC 4.5 (3.8-10.6) k/uL RBC 5.13 (4.30-5.90) m/uL Hgb 16.6 (13.0-17.5) gm/dL Hct 48.1 (39.0-53.0) % MCV 93.8 (80.0-100.0) fL MCH 32.5 (25.0-35.0) pg MCHC 34.6 (31.0-37.0) g/dL RDW 12.7 (11.5-15.5) % Plt Count 181 (150-450) k/uL MPV 9.0 Neutrophils % 56 % Lymphocytes % 33 % Monocytes % 7 % Eosinophils % 1 % Basophils % 0 % Neutrophils # 2.5 (1.3-7.7) k/uL Lymphocytes # 1.5 (1.0-4.8) k/uL Monocytes # 0.3 (0-1.0) k/uL Eosinophils # 0.0 (0-0.7) k/uL Basophils # 0.0 (0-0.2) k/uL PT 10.8 (9.0-12.0) sec INR 1.0 (<1.2) APTT 23.0 (22.0-30.0) sec D-Dimer <0.17 (<0.60) mg/L FEU Sodium 138 (137-145) mmol/L Potassium 4.4 (3.5-5.1) mmol/L Chloride 107 (98-107) mmol/L Carbon Dioxide 23 (22-30) mmol/L Anion Gap 8 mmol/L BUN 15 (9-20) mg/dL Creatinine 1.15 (0.66-1.25) mg/dL Est GFR (CKD-EPI)AfAm 76 (>60 ml/min/1.73 sqM) Est GFR (CKD-EPI)NonAf 66 (>60 ml/min/1.73 sqM) Glucose 116 H (74-99) mg/dL Calcium 11.2 H (8.4-10.2) mg/dL Magnesium 2.1 (1.6-2.3) mg/dL Total Bilirubin 0.9 (0.2-1.3) mg/dL AST 30 (17-59) U/L ALT 22 (4-49) U/L Alkaline Phosphatase 54 (38-126) U/L Total Protein 7.3 (6.3-8.2) g/dL Albumin 4.7 (3.5-5.0) g/dL Urine Opiates Screen (NotDetected) Ur Oxycodone Screen (NotDetected) Urine Methadone Screen (NotDetected) Ur Propoxyphene Screen (NotDetected) Ur Barbiturates Screen (NotDetected) U Tricyclic Antidepress (NotDetected) Ur Phencyclidine Scrn (NotDetected) Ur Amphetamines Screen (NotDetected) U Methamphetamines Scrn (NotDetected) U Benzodiazepines Scrn (NotDetected) Urine Cocaine Screen (NotDetected) U Marijuana (THC) Screen (NotDetected) Serum Alcohol <10 mg/dL Coronavirus (PCR) (Not Detectd) 07/12/21 07/12/21 Range/Units 14:58 22:06 WBC (3.8-10.6) k/uL RBC (4.30-5.90) m/uL Hgb (13.0-17.5) gm/dL Hct (39.0-53.0) % MCV (80.0-100.0) fL MCH (25.0-35.0) pg MCHC (31.0-37.0) g/dL RDW (11.5-15.5) % Plt Count (150-450) k/uL MPV Neutrophils % % Lymphocytes % % Monocytes % % Eosinophils % % Basophils % % Neutrophils # (1.3-7.7) k/uL Lymphocytes # (1.0-4.8) k/uL Monocytes # (0-1.0) k/uL Eosinophils # (0-0.7) k/uL Basophils # (0-0.2) k/uL PT (9.0-12.0) sec INR (<1.2) APTT (22.0-30.0) sec D-Dimer (<0.60) mg/L FEU Sodium (137-145) mmol/L Potassium (3.5-5.1) mmol/L Chloride (98-107) mmol/L Carbon Dioxide (22-30) mmol/L Anion Gap mmol/L BUN (9-20) mg/dL Creatinine (0.66-1.25) mg/dL Est GFR (CKD-EPI)AfAm (>60 ml/min/1.73 sqM) Est GFR (CKD-EPI)NonAf (>60 ml/min/1.73 sqM) Glucose (74-99) mg/dL Calcium (8.4-10.2) mg/dL Magnesium (1.6-2.3) mg/dL Total Bilirubin (0.2-1.3) mg/dL AST (17-59) U/L ALT (4-49) U/L Alkaline Phosphatase (38-126) U/L Total Protein (6.3-8.2) g/dL Albumin (3.5-5.0) g/dL Urine Opiates Screen Not Detected (NotDetected) Ur Oxycodone Screen Not Detected (NotDetected) Urine Methadone Screen Not Detected (NotDetected) Ur Propoxyphene Screen Not Detected (NotDetected) Ur Barbiturates Screen Not Detected (NotDetected) U Tricyclic Antidepress Not Detected (NotDetected) Ur Phencyclidine Scrn Not Detected (NotDetected) Ur Amphetamines Screen Not Detected (NotDetected) U Methamphetamines Scrn Not Detected (NotDetected) U Benzodiazepines Scrn Not Detected (NotDetected) Urine Cocaine Screen Not Detected (NotDetected) U Marijuana (THC) Screen Not Detected (NotDetected) Serum Alcohol mg/dL Coronavirus (PCR) Not Detected (Not Detectd) Disposition Clinical Impression: Psychosis Disposition: ADMITTED IP TO THIS HOSP Condition: Fair
[2021-07-12 15:17] LABS: Basophils % (A) 0 %; Eosinophils % (A) 1 %; HCT 48.1 % (39.0-53.0); HGB 16.6 gm/dL (13.0-17.5); Lymphocytes # (A) 1.5 k/uL (1.0-4.8); Lymphocytes % (A) 33 %; MCH 32.5 pg (25.0-35.0); MCHC 34.6 g/dL (31.0-37.0); MCV 93.8 fL (80.0-100.0); Monocytes # (A) 0.3 k/uL (0-1.0); Monocytes % (A) 7 %; Neutrophils # (A) 2.5 k/uL (1.3-7.7); Neutrophils % (A) 56 %; Platelet Count 181 k/uL (150-450); RBC 5.13 m/uL (4.30-5.90); RDW 12.7 % (11.5-15.5); WBC 4.5 k/uL (3.8-10.6)
[2021-07-12 15:29] LABS: ALT 22 U/L (4-49); AST 30 U/L (17-59); African American GFR (CKD) 76 (>60 ml/min/1.73 sqM); Albumin 4.7 g/dL (3.5-5.0); Alcohol <10 mg/dL; Alkaline Phosphatase 54 U/L (38-126); Anion Gap 8 mmol/L; Blood Urea Nitrogen 15 mg/dL (9-20); Calcium 11.2 mg/dL (8.4-10.2); Carbon Dioxide 23 mmol/L (22-30); Chloride 107 mmol/L (98-107); Glucose 116 mg/dL (74-99); Magnesium 2.1 mg/dL (1.6-2.3); Non-African American GFR(CKD) 66 (>60 ml/min/1.73 sqM); Potassium 4.4 mmol/L (3.5-5.1); Sodium 138 mmol/L (137-145); Total Bilirubin 0.9 mg/dL (0.2-1.3); Total Protein 7.3 g/dL (6.3-8.2)
[2021-07-12 15:30] LABS: Prothrombin Time 10.8 sec (9.0-12.0)
--- NOTE | 2021-07-12 15:38 | XR ---
EXAMINATION TYPE: XR chest 1V portable DATE OF EXAM: 07/12/2021 COMPARISON: Chest x-ray 06/07/2020 HISTORY: Dyspnea, difficulty breathing TECHNIQUE: frontal view of the chest is obtained on 2 images. FINDINGS: There is no focal air space opacity, pleural effusion, or pneumothorax seen. The cardiac silhouette size is within normal limits. Dominant lung volumes may be indicative of underlying COPD. There are overlying artifacts. Patient is rotated. The osseous structures are intact. IMPRESSION: No acute process.
[2021-07-12 18:08] LABS: Amphetamine Screen,Urine Not Detected (NotDetected); Barbiturate Screen,Urine Not Detected (NotDetected); Benzodiazepines Screen,Urine Not Detected (NotDetected); Cocaine Screen,Urine Not Detected (NotDetected); Methadone Screen, Urine Not Detected (NotDetected); Opiate Screen,Urine Not Detected (NotDetected); Oxycodone Screen, Urine Not Detected (NotDetected); Phencyclidine Screen,Urine Not Detected (NotDetected); Tricyclic Antidepressant,Urine Not Detected (NotDetected); Urn Cannabinoid Scrn Not Detected (NotDetected)
[2021-07-12] MEDS ORDERED: MAG HYDROX/AL HYDROX/SIMETH 30 ML CUP PO PRN (22:18)
[2021-07-12] MEDS ORDERED: ACETAMINOPHEN TAB 325 MG TAB PO PRN (22:18)
[2021-07-12] MEDS ORDERED: MAGNESIUM HYDROXIDE 2,400 MG/10 ML CUP PO PRN (22:18)
[2021-07-12] MEDS ORDERED: LORazepam 2 MG/ML INJ IM PRN (22:25)
[2021-07-12] MEDS ORDERED: HALOPERIDOL LACTATE 5 MG/ML 1 ML VIAL IM PRN (22:26)
[2021-07-12] MEDS ORDERED: PALIPERIDONE 3 MG TAB.ER.24 PO STA (22:34)
[2021-07-13] MEDS: NICOTINE 14MG/24HR PATCH TRANSDERM SCH (07:58)
[2021-07-13 08:12] LABS: Albumin 4.2 g/dL (3.5-5.0); Basophils % (A) 0 %; Calcium 10.9 mg/dL (8.4-10.2); Eosinophils # (A) 0.1 k/uL (0-0.7); Eosinophils % (A) 1 %; HGB 15.6 gm/dL (13.0-17.5); Lymphocytes # (A) 1.3 k/uL (1.0-4.8); Lymphocytes % (A) 33 %; MCHC 33.9 g/dL (31.0-37.0); MCV 94.4 fL (80.0-100.0); Mean Platelet Volume 9.2; Monocytes # (A) 0.3 k/uL (0-1.0); Monocytes % (A) 8 %; Neutrophils # (A) 2.2 k/uL (1.3-7.7); Neutrophils % (A) 54 %; Platelet Count 176 k/uL (150-450); Potassium 4.4 mmol/L (3.5-5.1); RBC 4.87 m/uL (4.30-5.90); RDW 12.8 % (11.5-15.5); Total Bilirubin 0.8 mg/dL (0.2-1.3); Total Protein 6.6 g/dL (6.3-8.2)
[2021-07-13] MEDS ORDERED: PALIPERIDONE 3 MG TAB.ER.24 PO SCH (09:00)
[2021-07-13] MEDS ORDERED: NEOMYCIN-BACITRACIN-POLY OINT 14 GM TUBE TOPICAL PRN (11:03)
[2021-07-13] MEDS ORDERED: IBUPROFEN 200 MG TAB PO PRN (11:03)
[2021-07-13] MEDS ORDERED: IBUPROFEN 400 MG TAB PO PRN (11:03)
[2021-07-13] MEDS ORDERED: DICYCLOMINE 20 MG TAB PO PRN (11:03)
[2021-07-13] MEDS ORDERED: ALBUTEROL INHALER 60 PUFF/8 GM INHALER (MHU) INHALATION PRN (11:03)
[2021-07-13] MEDS: METOPROLOL TARTRATE 50 MG TAB PO SCH ×2 (11:25→21:04)
--- NOTE | 2021-07-13 11:40 | P.HP ---
Psychiatric H&P - . H&P Date: 07/13/21 History & Physical: Allergies Allergy/AdvReac Type Severity Reaction Status Date / Time acetaminophen [From Tylenol] Allergy Unknown Verified 07/12/21 14:53 gabapentin [From Neurontin] Allergy Unknown Verified 07/12/21 14:53 Penicillins Allergy Unknown Verified 07/12/21 14:53 clozapine [From Clozaril] AdvReac Unknown Verified 07/12/21 14:53 divalproex sodium AdvReac Unknown Verified 07/12/21 14:53 [From Depakote] Vital Signs Temp 99.2 F 07/13/21 00:06 Pulse 102 H 07/13/21 11:20 Resp 18 07/13/21 00:06 BP 153/74 07/13/21 11:20 Pulse Ox 94 L 07/13/21 00:06 Intake & Output 07/12/21 07/13/21 07/13/21 18:59 06:59 18:59 Weight 92.079 kg 88.8 kg Laboratory Last Values WBC 4.0 k/uL (3.8-10.6) 07/13/21 07:21 RBC 4.87 m/uL (4.30-5.90) 07/13/21 07:21 Hgb 15.6 gm/dL (13.0-17.5) 07/13/21 07:21 Hct 46.0 % (39.0-53.0) 07/13/21 07:21 MCV 94.4 fL (80.0-100.0) 07/13/21 07:21 MCH 32.0 pg (25.0-35.0) 07/13/21 07:21 MCHC 33.9 g/dL (31.0-37.0) 07/13/21 07:21 RDW 12.8 % (11.5-15.5) 07/13/21 07:21 Plt Count 176 k/uL (150-450) 07/13/21 07:21 MPV 9.2 07/13/21 07:21 Neutrophils % 54 % 07/13/21 07:21 Lymphocytes % 33 % 07/13/21 07:21 Monocytes % 8 % 07/13/21 07:21 Eosinophils % 1 % 07/13/21 07:21 Basophils % 0 % 09/03/21 07:21 Neutrophils # 2.2 k/uL (1.3-7.7) 07/13/21 07:21 Lymphocytes # 1.3 k/uL (1.0-4.8) 07/13/21 07:21 Monocytes # 0.3 k/uL (0-1.0) 07/13/21 07:21 Eosinophils # 0.1 k/uL (0-0.7) 07/13/21 07:21 Basophils # 0.0 k/uL (0-0.2) 07/13/21 07:21 PT 10.8 sec (9.0-12.0) 07/12/21 14:58 INR 1.0 (<1.2) 07/12/21 14:58 APTT 23.0 sec (22.0-30.0) 07/12/21 14:58 D-Dimer <0.17 mg/L FEU (<0.60) 07/12/21 14:58 Sodium 137 mmol/L (137-145) 07/13/21 07:21 Potassium 4.4 mmol/L (3.5-5.1) 07/13/21 07:21 Chloride 105 mmol/L (98-107) 07/13/21 07:21 Carbon Dioxide 26 mmol/L (22-30) 07/13/21 07:21 Anion Gap 6 mmol/L 07/13/21 07:21 BUN 14 mg/dL (9-20) 07/13/21 07:21 Creatinine 1.23 mg/dL (0.66-1.25) 07/13/21 07:21 Est GFR (CKD-EPI)AfAm 70 (>60 ml/min/1.73 sqM) 07/13/21 07:21 Est GFR (CKD-EPI)NonAf 60 (>60 ml/min/1.73 sqM) 07/13/21 07:21 Glucose 106 mg/dL (74-99) H 07/13/21 07:21 Calcium 10.9 mg/dL (8.4-10.2) H 07/13/21 07:21 Magnesium 2.1 mg/dL (1.6-2.3) 07/12/21 14:58 Total Bilirubin 0.8 mg/dL (0.2-1.3) 07/13/21 07:21 AST 28 U/L (17-59) 07/13/21 07:21 ALT 21 U/L (4-49) 07/13/21 07:21 Alkaline Phosphatase 48 U/L (38-126) 07/13/21 07:21 Total Protein 6.6 g/dL (6.3-8.2) 07/13/21 07:21 Albumin 4.2 g/dL (3.5-5.0) 07/13/21 07: TSH 0.024 mIU/L (0.465-4.680) L 07/13/21 07:21 Urine Opiates Screen Not Detected (NotDetected) 07/12/21 14:58 Ur Oxycodone Screen Not Detected (NotDetected) 07/12/21 14:58 Urine Methadone Screen Not Detected (NotDetected) 07/12/21 14:58 Ur Propoxyphene Screen Not Detected (NotDetected) 07/12/21 14:58 Ur Barbiturates Screen Not Detected (NotDetected) 07/12/21 14:58 U Tricyclic Antidepress Not Detected (NotDetected) 07/12/21 14:58 Ur Phencyclidine Scrn Not Detected (NotDetected) 07/12/21 14:58 Ur Amphetamines Screen Not Detected (NotDetected) 07/12/21 14:58 U Methamphetamines Scrn Not Detected (NotDetected) 07/12/21 14:58 U Benzodiazepines Scrn Not Detected (NotDetected) 07/12/21 14:58 Urine Cocaine Screen Not Detected (NotDetected) 07/12/21 14:58 U Marijuana (THC) Screen Not Detected (NotDetected) 07/12/21 14:58 Serum Alcohol <10 mg/dL 07/12/21 14:58 Coronavirus (PCR) Not Detected (Not Detectd) 07/12/21 22:06 07/13/21 11:40 IDENTIFYING DATA: Patient is a single, unemployed, 66-year-old male who has a legal public guardian, and is a resident of of an [facility] home, who presented to the emergency department with change and disposition and suicidal thoughts. HPI: Patient presented to the hospital on 07/12/21, brought into the emergency department by prison staff. The patient initially presented as confused and believed that he was coming to the hospital for chest x-ray. However, the patient was brought in because of increased suicidal thoughts and generalized dysphoria. Aspirin APS report, the patient endorsed that he wants to by not taking any of his medications. He has been refusing his medical medications as well as his psychotropic medications while at the prison. Currently, the patient is a very poor historian due to his significant history of major neurocognitive disorder. He is currently not alert and oriented to place or recent events. The patient is alert and oriented to person and year but not to date. When interviewed, the patient does endorse suicidal ideation but makes no mention of any plan or intention at this time. The patient appears to be primarily concerned with his inability to pass stool. The patient states that he feels like "everything is backed up my stomach." He is currently not reporting any homicidal ideation, intention, and/or plan. He makes no mention of any overt auditory or visual hallucinations. He is denying any significant paranoia or other delusions. Despite his current presentation, the patient noted otherwise with his outpatient psychiatric provider. As per medication review from [facility] on 07/09/21, the patient endorsed bizarre delusions and auditory hallucinations. He described to his outpatient provider that his father lives downstairs and talks to him. He also reported that his father would tell him what to do and when he should go out. The patient also reported that people the television often speak to him telling him that he is at fault. The patient's home medication regimen was changed during that appointment on 07/09/21 with the discontinuation of his lithium. His Seroquel was continued at 600 mg at bedtime and Klonopin 2 mg at bedtime. He has also been receiving Prolixin Decanoate 50 mg IM every week the next dose due on 07/17/21. Also as per review of the patient's outpatient note, they also note that the patient's [facility] staff has been noting significant mood changes and David. They report that he has been loudly and talking to himself, agitated, and very demanding of staff. He is also been noted to be masturbating in the community. .PAST PSYCHIATRIC HISTORY: Much of the psychiatric history at to be obtained through review of the patient's chart. The patient has previous diagnoses of major neurocognitive disorder and schizoaffective disorder. The patient has had multiple inpatient psychiatric admissions including 2 prior inpatient admissions on this unit, one in 2019 and the other in 2016. As per chart review, the patient has also reported 10 years of a state hospitalization at [place]. Previous psychiatric medication regimens include lithium, Seroquel, Klonopin, Prolixin, clozapine, Depakote, and Geodon] he is currently open with [facility]. Unable to determine past suicide history. PMH: Past Medical History: Asthma, Hyperlipidemia, Hypertension Additional Past Medical History / Comment(s): schizophrenia. constipation History of Any Multi-Drug Resistant Organisms: None Reported Past Surgical History: No Surgical Hx Reported Past Anesthesia/Blood Transfusion Reactions: No Reported Reaction Past Psychological History: Schizophrenia Smoking Status: Current every day smoker Past Alcohol Use History: None Reported Past Drug Use History: None Reported ALLERGIES: Acetaminophen, gabapentin, penicillin, clozapine, Depakote CHEMICAL DEPENDENCY HISTORY: The patient smokes 10 cigarettes a day. He otherwise denies any significant substance abuse. Reports no alcohol, cannabis, or illicit drug use. FAMILY PSYCHIATRIC/SUBSTANCE USE HISTORY: Unable to obtain SOCIAL HISTORY: The patient's parents are . He graduated high school. He is unemployed and receives Social Security disability income. He has a public guardian due to his persistent and severe psychiatric illness. He is currently a resident at an [facility] home. MENTAL STATUS EXAM: General Appearance: Patient appears to be stated age is alert, directable, and attempts to cooperate. Patient appears to have good hygiene and grooming. Behavior: Patient is seated without any agitated behavior. Psychomotor activity is elevated. Eye contact is appropriate. Speech: Patient's speech is spontaneous, monotone, and viscous. Mood/Affect: Patient reports their mood is depressed, affect is flat. Suicidality/Homicidality: Patient denies having any homicidal ideation intent or plan. Patient endorses suicidal ideation but no plan is mentioned. Perceptions: Patient denies any visual hallucinations and denies any auditory hallucinations Though content/process: There is no evidence of any delusional thought content and thought process is linear and goal-directed. Memory and concentration: Patient is alert and oriented to person and year only. Concentration appears to be grossly intact. Judgment and insight: Very poor STRENGTHS/WEAKNESSES: Strength is that the patient has stable housing and a source of income. Weakness includes the patient's severe and persistent mental illness. INTELLECT: Below average to average IMPRESSIONS: Schizoaffective disorder, depressed type (as per [facility]) vs Schizophrenia Major neurocognitive disorder Nicotine dependence PLAN: -Patient is admitted under voluntary status to [facility] for stabilization of psychiatric symptoms and safety. Patient signed adult voluntary form and medication consent and is placed in patient's chart. -Medications : Will start patient on Zoloft 25 mg daily for depression/anxiety Melatonin 5 mg daily at bedtime for insomnia Continue the patient's Prolixin Decanoate 50 mg IM every week May consider addition of a second antipsychotic to control psychotic symptoms. -Ativan and Haldol PRN for agitation/aggression -Patient was informed of the risks, benefits and side effects of the medication and patient verbally consented to taking the medications. Patient signed med consent form and was placed in chart. -Internal Medicine consult to perform medical evaluation and physical. -NRT - nicotine patch -SW on board for discharge planning. Encourage patient to participate in groups to work on coping skills. 07/13/21 11:40
[2021-07-13 16:55] LABS: Hemoglobin A1C 5.2 % (4.0-6.0)
--- NOTE | 2021-07-13 17:44 | P.CONS ---
History of Present Illness - Reason for Consult Consult date: 07/13/21 Medical management Requesting physician: Doyle Edge - Chief Complaint Suicidal - History of Present Illness History of presenting complaint: This is a 66-year-old patient of visiting physicians Dr. Matson. Chronic stable medical conditions include COPD, hypertension, hyperlipidemia, constipation. Patient has a public guardian. [facility] Difficult to get any specific history. being followed by Dr. Capellan from the [facility]. diagnoses of schizophrenia and schizoaffective disorder with multiple bizarre decisional statements and paranoia. Patient on April of this year was diagnosed with DVT of the left lower extremity. Patient now presents with suicidal ideations. Has continued to smoke. Apparently has been inconsistent taking his eliquis. Does not complain of any new leg swelling. No shortness of bed. Now has intermittent cough. Appetite is good. No fever no chills. Has been admitted to psychiatry unit. Review of systems: GEN.: Tired EYES: None HEENT: None NECK: None RESPIRATORY: Cough. Occasional wheezing CARDIOVASCULAR: None GASTROINTESTINAL: None GENITOURINARY: None MUSCULOSKELETAL: None LYMPHATICS: None HEMATOLOGICAL: None PSYCHIATRY: As above NEUROLOGICAL: None Past medical history to include: Asthma, hypertension, hyperlipidemia, schizophrenia, schizoaffective disorder, constipation. Left leg DVT in April 2021 Social history: Has a public guardian. Smokes up to half a pack a day. No alcohol intake. Lives [facility] a [facility] home. Previously used street drugs Physical examination: VITAL SIGNS: 99.2, 94, 18, 140/80, 94% room air GENERAL: BMI 28.1, laying in bed, awake, anxious EYES: Pupils equal. Conjunctiva normal. HEENT: External appearance of nose and ears normal, oral cavity grossly normal. NECK: JVD not raised; masses not palpable. HEART: First and second heart sounds are normal; no edema. LUNGS: Respiratory rate increased; decreased breath sounds, ABDOMEN: Soft, nontender, liver spleen not palpable, no masses palpable. PSYCH: Able to answer questions. Anxious. NEUROLOGICAL: Cranial nerves grossly intact; no facial asymmetry, power and sensation grossly intact. EXTREMITY: Left leg swelling compared to the right LYMPHATICS: No lymph nodes palpable in the axilla and neck INVESTIGATIONS, reviewed in the clinical context: White count 4 hemoglobin 15.6 platelets 176 potassium 4.4 creatinine 1.23. TSH 0.024 Urine drug screen negative Coronavirus [PCR]: Not detected Chest x-ray: No obvious infiltrate Assessment and plan: -Chronic DVT in the left leg, diagnosed in April 2021 no new left lower extremity symptoms or pulmonary symptoms. Continue e liquis... -Hyperlipidemia Continue Zocor -Essential hypertension Continue with Lopressor -COPD, in a current smoker DuoNeb, and inhaled steroids -Hypothyroid Patient's TSH is rather low. Cut back the dose to 75 g -Chronic nicotine dependent cigarette smoker Nicotine patch -Schizophrenia Follow with psychiatry -Chronic constipation Continue with Metamucil -Patient has a public guardian Resume all medications. Nicotine patch. Continue eliquis. Cut back Synthroid to [address] Edge Past Medical History Past Medical History: Asthma, Hyperlipidemia, Hypertension Additional Past Medical History / Comment(s): schizophrenia. constipation History of Any Multi-Drug Resistant Organisms: None Reported Past Surgical History: No Surgical Hx Reported Past Anesthesia/Blood Transfusion Reactions: No Reported Reaction Past Psychological History: Schizophrenia Smoking Status: Never smoker Past Alcohol Use History: None Reported Additional Past Alcohol Use History / Comment(s): smokes 10 cig/day Past Drug Use History: None Reported - Past Family History Father History Unknown: Yes Mother History Unknown: Yes Medications and Allergies Home Medications Medication Instructions Recorded Confirmed Type Simvastatin [Zocor] 10 mg PO HS@209904/12/16 07/12/21 History Albuterol Inhaler [Ventolin Hfa 2 puff INHALATION RT-Q6H PRN 06/07/20 07/12/21 History Inhaler] Cholecalciferol (Vitamin D3) 125 mcg PO DAILY@79906/07/20 07/12/21 History [Vitamin D3 (5000 Iu)] Docusate [Colace] 100 mg PO DIRECTED PRN 06/07/20 07/12/21 History Fenofibrate Nanocrystallized 145 mg PO DAILY@79906/07/20 07/12/21 History [Fenofibrate] Latanoprost/Pf [Latanoprost 0.005% 1 drop BOTH EYES HS@209906/07/20 07/12/21 History Eye Drop] Levothyroxine Sodium [Synthroid] 100 mcg PO DAILY@69906/07/20 07/12/21 History Upqvmkqk-Ztszhglpyn-Aupw Oint 1 applic TOPICAL DIRECTED PRN 06/07/20 07/12/21 History [Triple Antibiotic Ointment] Omeprazole [PriLOSEC] 20 mg PO DAILY@0806/07/20 07/12/21 History Psyllium Husk (with Sugar) 1 dose PO DIRECTED PRN 06/07/20 07/12/21 History [Metamucil Powder] Certavite 1 tab PO HS@209904/12/21 07/12/21 History Cyanocobalamin [Vitamin B-12] 500 mcg PO DAILY@79904/12/21 07/12/21 History Dicyclomine [Bentyl] 20 mg PO Q8H PRN 04/12/21 07/12/21 History Folic Acid 1 mg PO DAILY@79904/12/21 07/12/21 History Linaclotide [Linzess] 145 mcg PO DAILY@69904/12/21 07/12/21 History Loperamide [Imodium] 2 mg PO DIRECTED PRN 04/12/21 07/12/21 History Magnesium Hydroxide [Milk of 2,400 mg PO DAILY PRN 04/12/21 07/12/21 History Magnesia] Pseudoephedrine HCl [Sudogest] 60 mg PO DAILY PRN 04/12/21 07/12/21 History QUEtiapine FUMARATE [SEROquel] 600 mg PO HS@209904/12/21 07/12/21 History Stomach Relief 1 dose PO DIRECTED PRN 04/12/21 07/12/21 History diphenhydrAMINE [Benadryl] 25 mg PO DAILY PRN 04/12/21 07/12/21 History fluPHENAZine decanoate [Prolixin 50 mg IM Q7D 04/12/21 07/12/21 History Decanoate] guaiFENesin SYRUP 100MG/5ML 1 dose PO DIRECTED PRN 04/12/21 07/12/21 History [Robitussin] Apixaban [Eliquis] 5 mg PO BID@0800,209907/12/21 07/12/21 History Celecoxib [CeleBREX] 200 mg PO BID PRN 07/12/21 07/12/21 History Docusate [Colace] 100 mg PO BID@0800,209907/12/21 07/12/21 History Furosemide [Lasix] 40 mg PO BID@0800,209907/12/21 07/12/21 History Ibuprofen [Motrin Ib] 200 mg PO DIRECTED PRN 07/12/21 07/12/21 History Ibuprofen [Motrin] 400 mg PO Q8HR PRN 07/12/21 07/12/21 History Shen-Tin Liq 1 dose PO DIRECTED PRN 07/12/21 07/12/21 History Metoprolol Tartrate [Lopressor] 50 mg PO BID@0800,209907/12/21 07/12/21 History Potassium Chloride [Klor-Con 20] 20 meq PO DAILY@0800 07/12/21 07/12/21 History clonazePAM [KlonoPIN] 1 mg PO HS@209907/12/21 07/12/21 History Allergies Allergy/AdvReac Type Severity Reaction Status Date / Time acetaminophen [From Tylenol] Allergy Unknown Verified 07/12/21 14:53 gabapentin [From Neurontin] Allergy Unknown Verified 07/12/21 14:53 Penicillins Allergy Unknown Verified 07/12/21 14:53 clozapine [From Clozaril] AdvReac Unknown Verified 07/12/21 14:53 divalproex sodium AdvReac Unknown Verified 07/12/21 14:53 [From Depakote] Physical Exam Vitals: Vital Signs Temp Pulse Pulse Resp BP BP Pulse Ox 07/13/21 00:06 99.2 F 94 18 148/80 94 L 07/12/21 22:40 98.9 F 92 18 159/88 95 07/12/21 15:39 74 16 139/84 96 07/12/21 14:02 98.6 F 96 17 147/81 93 L Intake and Output 07/12/21 07/13/21 07/13/21 22:59 06:59 14:59 Other: Weight 88.8 kg Results CBC & Chem 7: 07/13/21 07:21 07/13/21 07:21 Labs: Abnormal Lab Results - Last 24 Hours (Table) 07/12/21 07/13/21 Range/Units 14:58 07:21 Glucose 116 H 106 H (74-99) mg/dL Calcium 11.2 H 10.9 H (8.4-10.2) mg/dL TSH 0.024 L (0.465-4.680) mIU/L
[2021-07-13] MEDS: LATANOPROST 0.005% OPHTH DROPS 2.5 ML BTL BOTH EYES SCH (21:05)
[2021-07-13] MEDS: ATORVASTATIN 10 MG TAB PO SCH (21:05)
[2021-07-13] MEDS: MELATONIN 5 MG TABLET PO SCH (21:05)
[2021-07-13] MEDS: APIXABAN 5 MG TAB PO SCH (21:05)
[2021-07-13] MEDS: FUROSEMIDE 40 MG TAB PO SCH (21:05)
[2021-07-13] MEDS: DOCUSATE 100 MG CAP PO SCH (21:05)
[2021-07-14] MEDS: LORazepam 1 MG TAB PO PRN ×2 (01:38→13:17)
[2021-07-14] MEDS: haloperidoL 5 MG TAB PO PRN (04:02)
[2021-07-14] MEDS: LEVOTHYROXINE 75 MCG TAB PO SCH (06:07)
[2021-07-14] MEDS: NON FORMULARY DRUG (Linaclotide [Linzess] 145 MCG Capsule) PO SCH (08:12)
[2021-07-14] MEDS: PANTOPRAZOLE 40 MG TABLET PO SCH (08:17)
[2021-07-14] MEDS: FOLIC ACID 1 MG TAB PO SCH (08:17)
[2021-07-14] MEDS: METOPROLOL TARTRATE 50 MG TAB PO SCH ×2 (08:17→21:11)
[2021-07-14] MEDS: CHOLECALCIFEROL 25 MCG (1000 IU) TABLET PO SCH (08:17)
[2021-07-14] MEDS: APIXABAN 5 MG TAB PO SCH ×2 (08:17→21:10)
[2021-07-14] MEDS: DOCUSATE 100 MG CAP PO SCH ×2 (08:17→21:10)
[2021-07-14] MEDS: SERTRALINE 25 MG TAB PO SCH (08:17)
[2021-07-14] MEDS: FENOFIBRATE 160 MG TAB PO SCH (08:17)
[2021-07-14] MEDS: FUROSEMIDE 40 MG TAB PO SCH ×2 (08:17→21:11)
[2021-07-14] MEDS: CYANOCOBALAMIN 500 MCG TAB PO SCH (08:18)
[2021-07-14] MEDS: NICOTINE 14MG/24HR PATCH TRANSDERM SCH (08:18)
--- NOTE | 2021-07-14 12:12 | P.PN ---
Progress Note - Text Progress Note Date: 07/14/21 Clinical Problems: Schizoaffective disorder bipolar type, rule out schizophrenia, major neurocognitive disorder unspecified, tobacco use Interim history: I reviewed the medical record and attempted to interview the patient. He would not get out of bed for the interview. He is irritable and uncooperative. His speech was garbled and difficult to understand but he did not appear to be expressing any particular concern. He received 1 mg of Ativan and 5 mg of Haldol early this morning for agitation. He's been compliant with prescribed medication although his next Prolixin Decanoate injection is not to until tonight. He attended one therapeutic groups yesterday and the therapist that he was disheveled and concrete. Mental status exam: He presented as disheveled appearing elderly male who is laying in bed. He did not make eye contact and would not go to bed for the interview. He no prominent physical abnormalities. Angry facial expression. He showed psychomotor retardation but no abnormal involuntary movements. His speech was spontaneous and difficult to understand. His affect was irritable. He did not express clear suicidal ideation, wishes or homicidal ideation. He did not express ideas reference or paranoid ideation during this interview. His thinking was concrete and disorganized and he showed poverty of content. He did not appear to responding to internal stimuli. Assessment: He continues to be irritable and agitated to where he requires when necessary medications. However, he is he has shown no behavioral dyscontrol necessary during IM medications, seclusion or restraint. Plan: He didn't inpatient treatment. Since precautions. Continue Zoloft 25 mg daily and Prolixin Decanoate 50 mg IM weekly. Continue Haldol and/or Ativan when necessary for agitation, aggressive acute psychosis. Continue medications for treatment of his multiple alcohol problems as recommended by the jewelry consultant. Encourage participation in therapeutic groups and C's. Evaluate clinical status response to treatment daily basis.
[2021-07-14 16:29] LABS: Chol/HDL Ratio 3.84
[2021-07-14] MEDS: ATORVASTATIN 10 MG TAB PO SCH (21:10)
[2021-07-14] MEDS: MELATONIN 5 MG TABLET PO SCH (21:11)
[2021-07-14] MEDS: LATANOPROST 0.005% OPHTH DROPS 2.5 ML BTL BOTH EYES SCH (21:12)
[2021-07-15] MEDS: NON FORMULARY DRUG (Linaclotide [Linzess] 145 MCG Capsule) PO SCH (08:07)
[2021-07-15] MEDS: LEVOTHYROXINE 75 MCG TAB PO SCH (08:35)
[2021-07-15] MEDS: CYANOCOBALAMIN 500 MCG TAB PO SCH (08:35)
[2021-07-15] MEDS: PANTOPRAZOLE 40 MG TABLET PO SCH (08:35)
[2021-07-15] MEDS: FOLIC ACID 1 MG TAB PO SCH (08:35)
[2021-07-15] MEDS: DOCUSATE 100 MG CAP PO SCH ×2 (08:35→21:10)
[2021-07-15] MEDS: APIXABAN 5 MG TAB PO SCH ×2 (08:35→21:10)
[2021-07-15] MEDS: SERTRALINE 25 MG TAB PO SCH (08:36)
[2021-07-15] MEDS: CHOLECALCIFEROL 25 MCG (1000 IU) TABLET PO SCH (08:36)
[2021-07-15] MEDS: FUROSEMIDE 40 MG TAB PO SCH (08:36)
[2021-07-15] MEDS: METOPROLOL TARTRATE 50 MG TAB PO SCH ×2 (08:36→21:10)
[2021-07-15] MEDS: FENOFIBRATE 160 MG TAB PO SCH (08:36)
[2021-07-15] MEDS: NICOTINE 14MG/24HR PATCH TRANSDERM SCH (08:36)
--- NOTE | 2021-07-15 12:15 | P.PN ---
Progress Note - Text Progress Note Date: 07/15/21 Clinical Problems: Schizoaffective disorder bipolar type, rule out schizophrenia, major neurocognitive disorder unspecified, tobacco use Interim history: I reviewed the medical record and attempted to interview the patient. He would not get out of bed for the interview. He complained of "hearing voices" he also expressed feelings of hopelessness and helplessness. At one point during the exam he asked for morphine. I was unable to understand his explanation of this request. He spends his time in bed, and for meals. He does not socialize with staff or peers. He did not attend therapeutic groups yesterday. He slept 7 hours. Mental status exam: He presented as disheveled appearing elderly male who is laying in bed. He made intermittent eye contact and appeared to attend to the exam. He no prominent physical abnormalities. He had a flat facial expression. He showed psychomotor retardation but no abnormal involuntary movements. His speech was not spontaneous and difficult to understand. His affect was flat. He did not express suicidal ideation, wishes or homicidal ideation. He did not express ideas reference or paranoid ideation during this interview. His thinking was concrete and disorganized. He showed prominent poverty of content. He complained of "voices" did not appear to responding to internal stimuli. Assessment: He is less irritable and angry but his prominent negative symptoms. Plan: Continue inpatient treatment. Safety precautions. Continue Zoloft 25 mg daily and Prolixin Decanoate 50 mg IM weekly. Continue Haldol and/or Ativan when necessary for agitation, aggressive acute psychosis. Continue medications for treatment of his multiple medical problems - chronic DVT, hyperlipidemia, essential hypertension, COPD, hypothyroid, and chronic constipation. Encourage participation in therapeutic groups and activities. Evaluate clinical status response to treatment daily basis.
[2021-07-15] MEDS: ATORVASTATIN 10 MG TAB PO SCH (21:10)
[2021-07-15] MEDS: MELATONIN 5 MG TABLET PO SCH (21:10)
[2021-07-15] MEDS: LATANOPROST 0.005% OPHTH DROPS 2.5 ML BTL BOTH EYES SCH (21:11)
[2021-07-16] MEDS: LEVOTHYROXINE 75 MCG TAB PO SCH (05:40)
[2021-07-16] MEDS: SERTRALINE 25 MG TAB PO SCH (08:44)
[2021-07-16] MEDS: CYANOCOBALAMIN 500 MCG TAB PO SCH (08:44)
[2021-07-16] MEDS: APIXABAN 5 MG TAB PO SCH ×2 (08:44→20:06)
[2021-07-16] MEDS: FENOFIBRATE 160 MG TAB PO SCH (08:44)
[2021-07-16] MEDS: CHOLECALCIFEROL 25 MCG (1000 IU) TABLET PO SCH (08:44)
[2021-07-16] MEDS: DOCUSATE 100 MG CAP PO SCH ×2 (08:45→20:06)
[2021-07-16] MEDS: METOPROLOL TARTRATE 50 MG TAB PO SCH ×2 (08:45→20:06)
[2021-07-16] MEDS: NON FORMULARY DRUG (Linaclotide [Linzess] 145 MCG Capsule) PO SCH (08:45)
[2021-07-16] MEDS: FOLIC ACID 1 MG TAB PO SCH (08:45)
[2021-07-16] MEDS: PANTOPRAZOLE 40 MG TABLET PO SCH (08:45)
[2021-07-16] MEDS: NICOTINE 14MG/24HR PATCH TRANSDERM SCH (08:45)
[2021-07-16] MEDS: FUROSEMIDE 40 MG TAB PO SCH (08:45)
--- NOTE | 2021-07-16 11:17 | P.PN ---
Progress Note - Text Progress Note Date: 07/16/21 Interval History: Patient was seen resting in bed and was directable and agreeable to speak with play writer in his room. The patient used to report that he feels "terrible." He denies any suicidal ideation but states this provider that he needs to " because I'm experiencing hearing and seeing things." The patient does endorse that he has been expressing auditory and visual hallucinations. He continues to endorse feelings of hopelessness and helplessness. Currently, the patient is expressing that he has been having a very difficult time sleeping. Furthermore, the patient endorses constipation. When asked when was his last bowel movement, the patient stated that it was this morning. When asked if the bowel movement was painful, the patient denies this. Patient is denying any homicidal ideation, intention, and/or plan. He has been compliant with his medications and is not endorsing any significant side effects at this time. Mental Status Exam: General Appearance: Patient appears to be stated age is alert, directable, and cooperative. Behavior: Patient is calmly seated without any agitated behavior. Psychomotor slowing is evident. Eye contact is appropriate. Speech: Patient's speech is fluent and nonpressured. Monotone, and nonspontaneous, but with improved rate. Mood/Affect: Mood is depressed. Affect is dysphoric. Flat. Suicidality/Homicidality: Patient denies any homicidal ideation. He does report that he "needs to " but denies any suicidal ideation. Perceptions: Patient endorses both auditory and visual hallucinations. Though content/process: There is no evidence of any delusional thought content and thought process is linear and goal-directed. Memory and concentration: AOX3, grossly intact for the purposes of this session Judgment and insight: Poor Vital Signs Temp 98.6 F 07/16/21 05:49 Pulse 94 07/16/21 08:48 Resp 18 07/16/21 05:49 BP 154/78 07/16/21 08:48 Pulse Ox 98 07/16/21 05:49 Assessment Schizoaffective disorder, depressed type (as per [facility]) vs Schizophrenia Major neurocognitive disorder Nicotine dependence Plan: -Patient continues to meet criteria for inpatient psychiatric admission for symptom stabilization and safety. Patient has signed adult voluntary form and medication consent and was placed in patient's chart. -Medications: Continue the patient's Prolixin Decanoate 50 mg IM every weekly. Next dose due on 07/19/2021. Increase Zoloft to 50 mg by mouth daily for depression/anxiety Consider augmentation with Depakote or lithium. -When necessary Ativan and Haldol for agitation/aggression. -NRT - nicotine patch -SW on board for discharge planning. Encouraged the patient to participate in milieu.
[2021-07-16] MEDS: LATANOPROST 0.005% OPHTH DROPS 2.5 ML BTL BOTH EYES SCH (20:05)
[2021-07-16] MEDS: ATORVASTATIN 10 MG TAB PO SCH (20:06)
[2021-07-16] MEDS: MELATONIN 5 MG TABLET PO SCH (20:06)
[2021-07-17] MEDS: LORazepam 1 MG TAB PO PRN (00:46)
[2021-07-17] MEDS: haloperidoL 5 MG TAB PO PRN (00:46)
[2021-07-17] MEDS: LEVOTHYROXINE 75 MCG TAB PO SCH (06:58)
[2021-07-17] MEDS ORDERED: fluPHENAZine DECANOATE 25 MG/ML 5ML MDV IM ONE (09:00)
[2021-07-17] MEDS: CHOLECALCIFEROL 25 MCG (1000 IU) TABLET PO SCH (09:47)
[2021-07-17] MEDS: NON FORMULARY DRUG (Linaclotide [Linzess] 145 MCG Capsule) PO SCH (09:47)
[2021-07-17] MEDS: FOLIC ACID 1 MG TAB PO SCH (09:48)
[2021-07-17] MEDS: CYANOCOBALAMIN 500 MCG TAB PO SCH (09:48)
[2021-07-17] MEDS: PANTOPRAZOLE 40 MG TABLET PO SCH (09:48)
[2021-07-17] MEDS: FENOFIBRATE 160 MG TAB PO SCH (09:48)
[2021-07-17] MEDS: FUROSEMIDE 40 MG TAB PO SCH (09:48)
[2021-07-17] MEDS: DOCUSATE 100 MG CAP PO SCH ×2 (09:48→21:32)
[2021-07-17] MEDS: METOPROLOL TARTRATE 50 MG TAB PO SCH ×2 (09:48→21:31)
[2021-07-17] MEDS: SERTRALINE 50 MG TAB PO SCH (09:48)
[2021-07-17] MEDS: APIXABAN 5 MG TAB PO SCH ×2 (09:49→21:32)
[2021-07-17] MEDS: NICOTINE 14MG/24HR PATCH TRANSDERM SCH (09:50)
--- NOTE | 2021-07-17 11:07 | P.PN ---
Progress Note - Text Progress Note Date: 07/17/21 Interval History: Patient was seen resting in bed and was directable and agreeable to speak with ad copy writer in his room. The patient continues to report that he feels "terrible." He expresses that his psychotic symptoms are severe and causing him distress. He continues to report that they contribute to him wanting to kill himself. He states that he sees "ghosts all over my room." He describes them as looking like "humans but not there." He states they disappeared as the interview continued. He also endorses paranoia today. He bizarrely states "The GABE put me to sleep last night." When asked to explain, the patient states the GABE came into his room and gave him something to sleep. He was noted by staff to require a PRN medication for insomnia and anxiety. The patient continues to endorse suicidal ideation. He denies any homicidal ideation, intention, and/or plan. He is scheduled to receive Prolixin Decanoate this morning. He reports no side effects of his medication. He states he has "constipation" and states his last bowel movement was "4 days ago" despite him reporting a bowel movement yesterday. Mental Status Exam: General Appearance: Patient appears to be stated age is alert, directable, and cooperative. Behavior: Patient is calmly seated without any agitated behavior. Psychomotor slowing is evident. Eye contact is poor. Speech: Patient's speech is fluent and nonpressured. Monotone, and nonspontaneous. Mood/Affect: Mood is depressed. Affect is dysphoric. Flat. Suicidality/Homicidality: Patient denies any homicidal ideation. He does report suicidal idaetion. Perceptions: Patient endorses both auditory and visual hallucinations. Though content/process: Bizarre delusional thoughts are evident. Thought process is linear but illogical. Memory and concentration: AOX3, grossly intact for the purposes of this session Judgment and insight: Poor Vital Signs Temp 97.0 F L 07/17/21 06:14 Pulse 88 07/17/21 06:14 Resp 18 07/16/21 05:49 BP 138/69 07/17/21 06:14 Pulse Ox 98 07/16/21 05:49 Assessment Schizoaffective disorder, depressed type (as per [facility]) vs Schizophrenia Major neurocognitive disorder Nicotine dependence Plan: -Patient continues to meet criteria for inpatient psychiatric admission for symptom stabilization and safety. Patient has signed adult voluntary form and medication consent and was placed in patient's chart. -Medications: Continue the patient's Prolixin Decanoate 50 mg IM every weekly. Next dose due on 07/19/2021. Continue Zoloft 50 mg by mouth daily for depression/anxiety Will augment patient's treatment with lamictal 25 mg at bedtime. -When necessary Ativan and Haldol for agitation/aggression. -NRT - nicotine patch -SW on board for discharge planning. Encouraged the patient to participate in milieu.
[2021-07-17] MEDS ORDERED: lamoTRIgine 25 MG TAB PO SCH (21:00)
[2021-07-17] MEDS: MELATONIN 5 MG TABLET PO SCH (21:31)
[2021-07-17] MEDS: ATORVASTATIN 10 MG TAB PO SCH (21:31)
[2021-07-17] MEDS: LATANOPROST 0.005% OPHTH DROPS 2.5 ML BTL BOTH EYES SCH (21:33)
[2021-07-18] MEDS: LEVOTHYROXINE 75 MCG TAB PO SCH (06:30)
[2021-07-18] MEDS: NON FORMULARY DRUG (Linaclotide [Linzess] 145 MCG Capsule) PO SCH (07:53)
[2021-07-18] MEDS: APIXABAN 5 MG TAB PO SCH ×2 (07:54→21:42)
[2021-07-18] MEDS: METOPROLOL TARTRATE 50 MG TAB PO SCH ×2 (07:54→21:42)
[2021-07-18] MEDS: PANTOPRAZOLE 40 MG TABLET PO SCH (07:54)
[2021-07-18] MEDS: NICOTINE 14MG/24HR PATCH TRANSDERM SCH (07:54)
[2021-07-18] MEDS: FOLIC ACID 1 MG TAB PO SCH (07:54)
[2021-07-18] MEDS: SERTRALINE 50 MG TAB PO SCH (07:54)
[2021-07-18] MEDS: FUROSEMIDE 40 MG TAB PO SCH (07:54)
[2021-07-18] MEDS: DOCUSATE 100 MG CAP PO SCH ×2 (07:54→21:43)
[2021-07-18] MEDS: FENOFIBRATE 160 MG TAB PO SCH (07:54)
[2021-07-18] MEDS: CHOLECALCIFEROL 25 MCG (1000 IU) TABLET PO SCH (07:54)
[2021-07-18] MEDS: CYANOCOBALAMIN 500 MCG TAB PO SCH (07:54)
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
[2021-07-18] MEDS: ATORVASTATIN 10 MG TAB PO SCH (21:42)
[2021-07-18] MEDS: lamoTRIgine 25 MG TAB PO SCH (21:42)
[2021-07-18] MEDS: LATANOPROST 0.005% OPHTH DROPS 2.5 ML BTL BOTH EYES SCH (21:43)
[2021-07-18] MEDS: MELATONIN 5 MG TABLET PO SCH (21:43)
[2021-07-19] MEDS: LEVOTHYROXINE 75 MCG TAB PO SCH (06:20)
[2021-07-19] MEDS: NON FORMULARY DRUG (Linaclotide [Linzess] 145 MCG Capsule) PO SCH (08:09)
[2021-07-19] MEDS: CHOLECALCIFEROL 25 MCG (1000 IU) TABLET PO SCH (08:09)
[2021-07-19] MEDS: CYANOCOBALAMIN 500 MCG TAB PO SCH (08:10)
[2021-07-19] MEDS: FOLIC ACID 1 MG TAB PO SCH (08:10)
[2021-07-19] MEDS: METOPROLOL TARTRATE 50 MG TAB PO SCH ×2 (08:10→21:49)
[2021-07-19] MEDS: PANTOPRAZOLE 40 MG TABLET PO SCH (08:10)
[2021-07-19] MEDS: FUROSEMIDE 40 MG TAB PO SCH (08:10)
[2021-07-19] MEDS: SERTRALINE 50 MG TAB PO SCH (08:10)
[2021-07-19] MEDS: DOCUSATE 100 MG CAP PO SCH ×2 (08:10→21:50)
[2021-07-19] MEDS: APIXABAN 5 MG TAB PO SCH ×2 (08:10→21:49)
[2021-07-19] MEDS: FENOFIBRATE 160 MG TAB PO SCH (08:10)
[2021-07-19] MEDS: LORazepam 1 MG TAB PO PRN (08:11)
[2021-07-19] MEDS ORDERED: fluPHENAZine DECANOATE 25 MG/ML 5ML MDV IM ONE (09:00)
--- NOTE | 2021-07-19 11:33 | P.PN ---
Progress Note - Text Progress Note Date: 07/19/21 Interval History: Patient was seen resting in bed and was directable and agreeable to speak with check writer salesperson in his room. The patient maintains that he needs to be killed. He states he needs to be given the "suicide pill." He reports he needs to be killed because "I have no way home. I don't have a car." He was informed this is no reason to kill anyone. He states he needs to because he is hearing voices and seeing things. He reports he sees ghosts. In regards to voices, he reports they "tell me things and to do things." He does not elaborate further often jumping to another topic. He continues to report constipation. He has been noted by staff to be irritable. Mental Status Exam: General Appearance: Patient appears to be stated age is alert, directable, and cooperative. Behavior: Patient is calmly lying in bed without any agitated behavior. Psychomotor slowing is evident. Eye contact is fair. Speech: Patient's speech is fluent and nonpressured. Monotone, and nonspontaneous. Mood/Affect: Mood is "You guys need to kill me" Affect is dysphoric. Flat. Suicidality/Homicidality: Patient denies any homicidal ideation. He does report suicidal ideation. Perceptions: Patient endorses both auditory and visual hallucinations. Though content/process: Bizarre delusional thoughts are evident. Flight of ideas and loose associations. Memory and concentration: AOX3, grossly intact for the purposes of this session Judgment and insight: Poor Vital Signs Temp 97.0 F L 07/17/21 06:14 Pulse 84 07/19/21 08:14 Resp 16 07/18/21 21:40 BP 132/77 07/19/21 08:14 Pulse Ox 95 07/18/21 21:40 Assessment Schizoaffective disorder, depressed type (as per [facility]) vs Schizophrenia Major neurocognitive disorder Nicotine dependence Plan: -Patient continues to meet criteria for inpatient psychiatric admission for symptom stabilization and safety. Patient has signed adult voluntary form and medication consent and was placed in patient's chart. -Labs ordered: B12, folate, Vit D to check for deficiencies that may contribute to patient's mood. -Medications: Continue the patient's Prolixin Decanoate 50 mg IM every weekly. Last dose given on 07/17/2021. Next dose due on 07/24/2021. Continue Zoloft 50 mg by mouth daily for depression/anxiety. Consider increase to address possible anxiety and depression. Increase lamictal to 50 mg at bedtime for augmentation of his antipsychotic. We will gradually titrate this medication over the weekend. -When necessary Ativan and Haldol for agitation/aggression. -NRT - nicotine patch -SW on board for discharge planning. Encouraged the patient to participate in milieu.
[2021-07-19] MEDS: ATORVASTATIN 10 MG TAB PO SCH (21:50)
[2021-07-19] MEDS: lamoTRIgine 25 MG TAB PO SCH (21:50)
[2021-07-19] MEDS: MELATONIN 5 MG TABLET PO SCH (21:50)
[2021-07-19] MEDS: LATANOPROST 0.005% OPHTH DROPS 2.5 ML BTL BOTH EYES SCH (21:55)
[2021-07-20 04:39] LABS: Folate, Serum >24.0 ng/mL
[2021-07-20] MEDS: LEVOTHYROXINE 75 MCG TAB PO SCH (06:11)
[2021-07-20] MEDS: NON FORMULARY DRUG (Linaclotide [Linzess] 145 MCG Capsule) PO SCH (08:56)
[2021-07-20] MEDS: SERTRALINE 50 MG TAB PO SCH (09:24)
[2021-07-20] MEDS: CHOLECALCIFEROL 25 MCG (1000 IU) TABLET PO SCH (09:24)
[2021-07-20] MEDS: PANTOPRAZOLE 40 MG TABLET PO SCH (09:25)
[2021-07-20] MEDS: APIXABAN 5 MG TAB PO SCH ×2 (09:25→20:27)
[2021-07-20] MEDS: FUROSEMIDE 40 MG TAB PO SCH (09:25)
[2021-07-20] MEDS: FENOFIBRATE 160 MG TAB PO SCH (09:25)
[2021-07-20] MEDS: FOLIC ACID 1 MG TAB PO SCH (09:25)
[2021-07-20] MEDS: DOCUSATE 100 MG CAP PO SCH ×2 (09:25→20:26)
[2021-07-20] MEDS: METOPROLOL TARTRATE 50 MG TAB PO SCH ×2 (09:25→20:26)
[2021-07-20] MEDS: CYANOCOBALAMIN 500 MCG TAB PO SCH (09:25)
[2021-07-20] MEDS: LORazepam 1 MG TAB PO PRN (09:26)
--- NOTE | 2021-07-20 12:39 | PN ---
PROGRESS NOTE DATE OF SERVICE: 07/20/2021. CHIEF COMPLAINT: The patient was confused. He had increased suicide thoughts and was depressed. INTERVAL HISTORY: The patient continues to have difficulties in his mood and outlook as noted by Dr. Edge yesterday. He was talking about believing he should because of difficulties he has in his life. He continued to show a considerable amount of disorganized thinking. Staff noted that he did attend two groups yesterday, which was a positive for him. He has been cooperative with care. He slept fairly well last night. Today he has been up. Mostly he has been in his room in the morning time. He does not come out much or interact with others. He had no specific complaints or concerns when I talked to him today. He did make a few comments, though what he said was rather vague and it was hard to comprehend what he was trying to communicate. He appears to tolerate his psychotropic medications. MENTAL STATUS: Patient initially was in his room and then he came down the russell a little later. He gave fair eye contact at best. Psychomotor activity was slowed. Speech was monotone. He did not answer many questions directly. He would make some vague comments. His affect was blunted. He had a quiet reserved manner. He did not appear to be significantly distressed. He did not voice any thoughts of harm. It was difficult to assess for a question of thought disorder. On cognitive exam, he did not make an effort to answer formal cognitive questions. He asked what day of the week it was. ASSESSMENT: I will continue the current diagnosis and treatment plan. I will continue psychotropic medications the same. It does appear that a primary medication for the patient is Prolixin Decanoate. He receives 50 mg weekly, with his last dose on 07/17/2021. [facility] is coordinating in regard to follow-up care. We will focus on stabilization and discharge planning. MMODL / IJN: [id number] / MTDD
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
[2021-07-20] MEDS: MELATONIN 5 MG TABLET PO SCH (20:26)
[2021-07-20] MEDS: LATANOPROST 0.005% OPHTH DROPS 2.5 ML BTL BOTH EYES SCH (20:27)
[2021-07-20] MEDS: ATORVASTATIN 10 MG TAB PO SCH (20:27)
[2021-07-20] MEDS: lamoTRIgine 25 MG TAB PO SCH (20:27)
[2021-07-21] MEDS: LORazepam 1 MG TAB PO PRN (01:54)
[2021-07-21] MEDS: LEVOTHYROXINE 75 MCG TAB PO SCH (06:23)
[2021-07-21] MEDS: NON FORMULARY DRUG (Linaclotide [Linzess] 145 MCG Capsule) PO SCH (07:42)
[2021-07-21] MEDS: FENOFIBRATE 160 MG TAB PO SCH (09:33)
[2021-07-21] MEDS: FUROSEMIDE 40 MG TAB PO SCH (09:33)
[2021-07-21] MEDS: SERTRALINE 50 MG TAB PO SCH (09:34)
[2021-07-21] MEDS: APIXABAN 5 MG TAB PO SCH ×2 (09:34→20:44)
[2021-07-21] MEDS: PANTOPRAZOLE 40 MG TABLET PO SCH (09:34)
[2021-07-21] MEDS: METOPROLOL TARTRATE 50 MG TAB PO SCH ×2 (09:34→20:45)
[2021-07-21] MEDS: FOLIC ACID 1 MG TAB PO SCH (09:36)
[2021-07-21] MEDS: CYANOCOBALAMIN 500 MCG TAB PO SCH (09:36)
[2021-07-21] MEDS: DOCUSATE 100 MG CAP PO SCH ×2 (09:36→20:44)
[2021-07-21] MEDS: CHOLECALCIFEROL 25 MCG (1000 IU) TABLET PO SCH (09:36)
--- NOTE | 2021-07-21 19:43 | PN ---
PROGRESS NOTE DATE OF SERVICE: 07/21/2021. CHIEF COMPLAINT: The patient was confused. He had increased suicide thoughts and was depressed. INTERVAL HISTORY: Patient has been doing fair. He has continued in his usual manner. He spends a fair amount of time in his room. He will come out and wander some in the day area. He does not pay too much attention to self-care, though does seem to be doing a little bit better in that regard. He was seen today by Dr. Gordon for medical followup, which is appreciated. The patient is not reporting any problems or concerns today. He continues to have some disorganization of thoughts. His communication is limited. He denies problems with his psychotropic medications. MENTAL STATUS: Patient gave fairly good eye contact. At times he had a staring gaze. He responded to questions with brief responses, though much of the time what he said was not easily deciphered. He tended to make disjointed comments. He had a blunted affect. His mood was reserved. He did not appear to be significantly distressed. He continues to show some indications of thought disorder. There were no thoughts of harm. He was oriented to his circumstances and surroundings. ASSESSMENT: I will continue the current diagnosis and treatment plan. I will continue psychotropic medications the same. We will continue to focus on stabilization and discharge planning. MMODL / IJN: [id number] /
[2021-07-21] MEDS: LATANOPROST 0.005% OPHTH DROPS 2.5 ML BTL BOTH EYES SCH (20:44)
[2021-07-21] MEDS: ATORVASTATIN 10 MG TAB PO SCH (20:44)
[2021-07-21] MEDS: lamoTRIgine 25 MG TAB PO SCH (20:45)
[2021-07-21] MEDS: MELATONIN 5 MG TABLET PO SCH (21:33)
[2021-07-22] MEDS: LEVOTHYROXINE 75 MCG TAB PO SCH (06:23)
[2021-07-22] MEDS: FUROSEMIDE 40 MG TAB PO SCH (08:46)
[2021-07-22] MEDS: METOPROLOL TARTRATE 50 MG TAB PO SCH ×2 (08:46→20:53)
[2021-07-22] MEDS: APIXABAN 5 MG TAB PO SCH ×2 (08:46→20:52)
[2021-07-22] MEDS: SERTRALINE 50 MG TAB PO SCH (08:46)
[2021-07-22] MEDS: FENOFIBRATE 160 MG TAB PO SCH (08:46)
[2021-07-22] MEDS: NON FORMULARY DRUG (Linaclotide [Linzess] 145 MCG Capsule) PO SCH (08:50)
[2021-07-22] MEDS: DOCUSATE 100 MG CAP PO SCH ×2 (08:50→20:55)
[2021-07-22] MEDS: FOLIC ACID 1 MG TAB PO SCH (08:50)
[2021-07-22] MEDS: CHOLECALCIFEROL 25 MCG (1000 IU) TABLET PO SCH (08:50)
[2021-07-22] MEDS: CYANOCOBALAMIN 500 MCG TAB PO SCH (08:50)
[2021-07-22] MEDS: PANTOPRAZOLE 40 MG TABLET PO SCH (08:50)
--- NOTE | 2021-07-22 12:19 | PN ---
PROGRESS NOTE DATE OF SERVICE: 07/22/2021. CHIEF COMPLAINT: The patient was confused. He had increased suicide thoughts and was depressed. INTERVAL HISTORY: Patient has been doing fair. Overall he seems to be a little bit better. He had a quiet day yesterday. He has been spending more time out on the unit, which has been a positive for him. He will wander about. He seems generally comfortable in the milieu, though he does not really interact too much with others. He does seem to pay some attention to things going on around him. He did not attend groups yesterday. He reports that he slept fairly well last night. Today he has been up and doing about the same. He has been out on the unit. It is noted that he did seem to pay a little more attention to self-care. When I talked to him, he was able to respond to some humor with smile. Also, he later on made a few offhand comments that were in a humorous vein. In addition, when I was in my office and made a comment using his name, he was walking by in the russell and stopped and stated, "My name is David Flores," indicating he was paying attention to his environment. He is somewhat constricted in his affect. His mood is reserved though not clearly down or depressed. He is showing improvement in his mood. He did not show outward indications of thought disorder. There was no note of thoughts of harm. He was oriented to his circumstances and surroundings. ASSESSMENT: I will continue the current diagnosis and treatment plan and will continue psychotropic medications the same. Patient does appear to be showing some progress overall in his general function. He tolerates his psychotropics well. We will coordinate with outpatient resources and focus on stabilization and discharge planning. MMODL / IJN: [id number] /
[2021-07-22] MEDS: MELATONIN 5 MG TABLET PO SCH (20:53)
[2021-07-22] MEDS: lamoTRIgine 25 MG TAB PO SCH (20:53)
[2021-07-22] MEDS: ATORVASTATIN 10 MG TAB PO SCH (20:53)
[2021-07-22] MEDS: LATANOPROST 0.005% OPHTH DROPS 2.5 ML BTL BOTH EYES SCH (20:55)
[2021-07-22] MEDS ORDERED: lamoTRIgine 100 MG TAB PO SCH (21:00)
[2021-07-23] MEDS: LEVOTHYROXINE 75 MCG TAB PO SCH (05:54)
[2021-07-23] MEDS: APIXABAN 5 MG TAB PO SCH ×2 (08:55→20:21)
[2021-07-23] MEDS: FENOFIBRATE 160 MG TAB PO SCH (08:55)
[2021-07-23] MEDS: METOPROLOL TARTRATE 50 MG TAB PO SCH ×2 (08:55→20:22)
[2021-07-23] MEDS: DOCUSATE 100 MG CAP PO SCH ×2 (08:55→20:22)
[2021-07-23] MEDS: FUROSEMIDE 40 MG TAB PO SCH (08:55)
[2021-07-23] MEDS: SERTRALINE 50 MG TAB PO SCH (08:55)
[2021-07-23] MEDS: NON FORMULARY DRUG (Linaclotide [Linzess] 145 MCG Capsule) PO SCH (08:55)
[2021-07-23] MEDS: PANTOPRAZOLE 40 MG TABLET PO SCH (08:55)
[2021-07-23] MEDS: CHOLECALCIFEROL 25 MCG (1000 IU) TABLET PO SCH (08:58)
[2021-07-23] MEDS: CYANOCOBALAMIN 500 MCG TAB PO SCH (08:59)
[2021-07-23] MEDS: FOLIC ACID 1 MG TAB PO SCH (08:59)
--- NOTE | 2021-07-23 10:23 | P.PN ---
Progress Note - Text Progress Note Date: 07/23/21 Interval History: Patient was seen resting in bed and was directable and agreeable to speak with typewriter tester in his room. The patient reports that he is not feeling good. Despite this, the patient is not endorsing suicidal ideation, intention, and/or plan today. He is not reporting any homicidal ideation, intention, and/or plan. He continues to endorse auditory hallucinations but refuses to elaborate on the content of what is said to him. He is denying any visual hallucinations at this time. He reports that he has been having difficulty with sleep. He states that he only sleeps for 5 minutes at night. Initially his appetite. The patient becomes irritable as more questions are asked and his symptoms are further explored. Patient then terminated the interview. Mental Status Exam: General Appearance: Patient appears to be stated age is alert, directable, and cooperative. Behavior: Patient is calmly lying in bed without any agitated behavior. Psychomotor activity is improving. Eye contact is fair. Speech: Patient's speech is fluent and nonpressured. Monotone, and an slightly more spontaneous. Mood/Affect: Mood is "not good." Affect is flat. Suicidality/Homicidality: The patient is not endorsing any suicidal or homicidal ideation, intention, and/or plan. Perceptions: Patient denies any visual hallucinations but continues to endorse auditory hallucinations. Though content/process: No bizarre delusional thoughts are expressed at this time. Thought process appears to be linear. Memory and concentration: AOX3, grossly intact for the purposes of this session Judgment and insight: Poor Vital Signs Temp 97.3 F L 07/23/21 06:04 Pulse 104 H 07/23/21 08:59 Resp 14 07/23/21 06:04 BP 144/86 07/23/21 08:59 Pulse Ox 94 L 07/20/21 09:22 Assessment Schizoaffective disorder, depressed type (as per [facility]) vs Schizophrenia Major neurocognitive disorder Nicotine dependence Plan: -Patient continues to meet criteria for inpatient psychiatric admission for symptom stabilization and safety. Patient has signed adult voluntary form and medication consent and was placed in patient's chart. -Medications: Continue the patient's Prolixin Decanoate 50 mg IM every weekly. Last dose given on 07/17/2021. Next dose due on 07/24/2021. Continue Zoloft 50 mg by mouth daily for depression/anxiety. Consider increase to address possible anxiety and depression. Increase lamictal to 100 mg at bedtime for augmentation of his antipsychotic. -When necessary Ativan and Haldol for agitation/aggression. -NRT - nicotine patch -SW on board for discharge planning. Encouraged the patient to participate in milieu.
--- NOTE | 2021-07-23 14:13 | P.PN ---
Progress Note - Text Progress Note Date: 07/23/21 - Chief Complaint Suicidal History of presenting complaint: This is a 66-year-old patient of visiting physicians Dr. Matson. Chronic stable medical conditions include COPD, hypertension, hyperlipidemia, constipation. Patient has a public guardian. [facility]. Difficult to get any specific history. being followed by Dr. Capellan from the [facility]. diagnoses of schizophrenia and schizoaffective disorder with multiple bizarre decisional statements and paranoia. Patient on April of this year was diagnosed with DVT of the left lower extremity. Patient now presents with suicidal ideations. Has continued to smoke. Apparently has been inconsistent taking his eliquis. Does not complain of any new leg swelling. No shortness of bed. Now has intermittent cough. Appetite is good. No fever no chills. Has been admitted to psychiatry unit. July 20: Patient doesn't speak much. Has been withdrawn. Did not eat his breakfast today. Ate some lunch. When I asked him how much she ate he felt a bit irritated. " He wants to take the elevator and go to the basement". Denies any pain. Breathing stable. July 21: Still somewhat withdrawn. With communicating hour. Did walk to the lunchroom and had his lunch. Some frustration about being here. Sleeping better. Review of systems: Was done for constitutional, cardiovascular, GI, pulmonary. relevant finding as above Active Medications Al Hydroxide/Mg Hydroxide (Mag Hydrox/Al Hydrox/Simeth 30 Ml Cup) 30 ml PO Q4HR PRN PRN Reason: GI Upset Albuterol Sulfate (Albuterol Inhaler 60 Puff/8 Gm Inhaler (Mhu)) 2 puff INHALATION RT-Q6H PRN PRN Reason: Shortness Of Breath Apixaban (Apixaban 5 Mg Tab) 5 mg PO BID@0800,2100 [facility]; Protocol Last Admin: 07/23/21 08:55 Dose: 5 mg Documented by: Atorvastatin Calcium (Atorvastatin 10 Mg Tab) 10 mg PO HS@2100 [facility] Last Admin: 07/22/21 20:53 Dose: 10 mg Documented by: Cholecalciferol (Cholecalciferol 25 Mcg (1000 Iu) Tablet) 125 mcg PO DAILY@0800 [facility] Last Admin: 07/23/21 08:58 Dose: Not Given Documented by: Cyanocobalamin (Cyanocobalamin 500 Mcg Tab) 500 mcg PO DAILY@0800 [facility] Last Admin: 07/23/21 08:59 Dose: Not Given Documented by: Dicyclomine HCl (Dicyclomine 20 Mg Tab) 20 mg PO Q8H PRN PRN Reason: Pain Docusate Sodium (Docusate 100 Mg Cap) 100 mg PO BID@0800,2100 [facility] Last Admin: 07/23/21 08:55 Dose: 100 mg Documented by: Fenofibrate (Fenofibrate 160 Mg Tab) 160 mg PO DAILY@0800 [facility] Last Admin: 07/23/21 08:55 Dose: 160 mg Documented by: Folic Acid (Folic Acid 1 Mg Tab) 1 mg PO DAILY@0800 [facility] Last Admin: 07/23/21 08:59 Dose: Not Given Documented by: Furosemide (Furosemide 40 Mg Tab) 40 mg PO DAILY [facility] Last Admin: 07/23/21 08:55 Dose: 40 mg Documented by: Haloperidol (Haloperidol 5 Mg Tab) 5 mg PO QID PRN PRN Reason: Agitation or Acute Psychosis Last Admin: 07/17/21 00:46 Dose: 5 mg Documented by: Haloperidol Lactate (Haloperidol Lactate 5 Mg/Ml 1 Ml Vial) 5 mg IM Q6HR PRN PRN Reason: Agitation or Acute Psychosis Ibuprofen (Ibuprofen 400 Mg Tab) 400 mg PO Q8HR PRN PRN Reason: Pain Ibuprofen (Ibuprofen 200 Mg Tab) 200 mg PO DAILY PRN PRN Reason: headache, pain, fever over 101 Lamotrigine (Lamotrigine 100 Mg Tab) 100 mg PO HS [facility] Latanoprost (Latanoprost 0.005% Ophth Drops 2.5 Ml Btl) 1 drops BOTH EYES HS@2100 [facility] Last Admin: 07/22/21 20:55 Dose: 1 drops Documented by: Levothyroxine Sodium (Levothyroxine 75 Mcg Tab) 75 mcg PO DAILY@0630 [facility] Last Admin: 07/23/21 05:54 Dose: 75 mcg Documented by: Lorazepam (Lorazepam 1 Mg Tab) 1 mg PO TID PRN PRN Reason: Anxiety, Agitation Last Admin: 07/21/21 01:54 Dose: 1 mg Documented by: Lorazepam (Lorazepam 2 Mg/Ml Inj) 1 mg IM Q6HR PRN PRN Reason: Agitation or Acute Anxiety Magnesium Hydroxide (Magnesium Hydroxide 2,400 Mg/10 Ml Cup) 2,400 mg PO DAILY PRN PRN Reason: Constipation Last Admin: 07/14/21 16:58 Dose: 2,400 mg Documented by: Melatonin (Melatonin 5 Mg Tablet) 5 mg PO HS [facility] Last Admin: 07/22/21 20:53 Dose: 5 mg Documented by: Metoprolol Tartrate (Metoprolol Tartrate 50 Mg Tab) 50 mg PO BID@0800,2100 [facility] Last Admin: 07/23/21 08:55 Dose: 50 mg Documented by: Neomycin/Polymyxin/Bacitracin (Jwbbkykp-Nyyhcruxuf-Gnmb Oint 14 Gm Tube) 1 applic TOPICAL DIRECTED PRN; Protocol PRN Reason: Minor Abrasions/Cuts/Villalba Non-Formulary Medication (Linaclotide [Linzess]) 145 mcg PO DAILY@0700 [facility] Last Admin: 07/23/21 08:55 Dose: Not Given Documented by: Pantoprazole Sodium (Pantoprazole 40 Mg Tablet) 40 mg PO DAILY@0800 [facility] Last Admin: 07/23/21 08:55 Dose: 40 mg Documented by: Sertraline HCl (Sertraline 50 Mg Tab) 50 mg PO DAILY [facility] Last Admin: 07/23/21 08:55 Dose: 50 mg Documented by: Past medical history to include: Asthma, hypertension, hyperlipidemia, schizophrenia, schizoaffective disorder, constipation. Left leg DVT in April 2021 Social history: Has a public guardian. Smokes up to half a pack a day. No alcohol intake. Lives at a [facility] home. Previously used street drugs Physical examination: VITAL SIGNS: 87.3, 92, 14, 107/65, GENERAL: Sitting on the edge of the bed, anxious EYES: Pupils equal. Conjunctiva normal. NECK: JVD not raised; masses not palpable. HEART: First and second heart sounds are normal; no edema. LUNGS: Respiratory rate increased; decreased breath sounds, ABDOMEN: Soft, nontender, liver spleen not palpable, no masses palpable. PSYCH: Able to answer questions. Anxious. EXTREMITY: Left leg swelling compared to the right INVESTIGATIONS, reviewed in the clinical context: White count 4 hemoglobin 15.6 platelets 176 potassium 4.4 creatinine 1.23. TSH 0.024 Urine drug screen negative Coronavirus [PCR]: Not detected Chest x-ray: No obvious infiltrate Assessment and plan: -Chronic DVT in the left leg, diagnosed in April 2021 no new left lower extremity symptoms or pulmonary symptoms. Continue eliquis... -Hyperlipidemia Continue Zocor -Essential hypertension Continue with Lopressor -COPD, in a current smoker DuoNeb, and inhaled steroids -Hypothyroid Patient's TSH is rather low. Cut back the dose to 75 g -Chronic nicotine dependent cigarette smoker Nicotine patch -Schizophrenia Follow with psychiatry -Chronic constipation Continue with Metamucil -Patient has a public guardian Continue current medications. Discussed with patient. Thank you Dr. Edge
[2021-07-23] MEDS: ATORVASTATIN 10 MG TAB PO SCH (20:22)
[2021-07-23] MEDS: LATANOPROST 0.005% OPHTH DROPS 2.5 ML BTL BOTH EYES SCH (20:22)
[2021-07-23] MEDS: MELATONIN 5 MG TABLET PO SCH (20:23)
[2021-07-23 20:25] VITALS: RESP 18
[2021-07-23] MEDS ORDERED: lamoTRIgine 100 MG TAB PO SCH (21:00)
[2021-07-24] MEDS: LORazepam 1 MG TAB PO PRN (03:09)
[2021-07-24 03:13] VITALS: BP 125/65; PULSE 89; TEMP 98.7
[2021-07-24] MEDS: LEVOTHYROXINE 75 MCG TAB PO SCH (06:34)
[2021-07-24] MEDS: NON FORMULARY DRUG (Linaclotide [Linzess] 145 MCG Capsule) PO SCH (07:28)
[2021-07-24] MEDS: PANTOPRAZOLE 40 MG TABLET PO SCH (08:14)
[2021-07-24] MEDS: METOPROLOL TARTRATE 50 MG TAB PO SCH (08:14)
[2021-07-24] MEDS: SERTRALINE 50 MG TAB PO SCH (08:14)
[2021-07-24] MEDS: FUROSEMIDE 40 MG TAB PO SCH (08:14)
[2021-07-24] MEDS: APIXABAN 5 MG TAB PO SCH (08:15)
[2021-07-24] MEDS: DOCUSATE 100 MG CAP PO SCH (08:16)
[2021-07-24] MEDS: CYANOCOBALAMIN 500 MCG TAB PO SCH (08:16)
[2021-07-24] MEDS: CHOLECALCIFEROL 25 MCG (1000 IU) TABLET PO SCH (08:16)
[2021-07-24] MEDS: FOLIC ACID 1 MG TAB PO SCH (08:17)
[2021-07-24] MEDS: FENOFIBRATE 160 MG TAB PO SCH (08:17)
[2021-07-24] MEDS ORDERED: fluPHENAZine DECANOATE 25 MG/ML 5ML MDV IM ONE (10:00)
--- NOTE | 2021-07-24 11:28 | P.DS ---
Providers Date of admission: 07/12/21 22:07 Expected date of discharge: 07/24/21 Attending physician: Doyle Edge MD Consults: 07/12/21 22:18 Consult Physician Routine Consulting Provider: Coleman Gordon Consult Reason/Comments: H and P Do you want consulting provider notified?: Yes, Notify in am Primary care physician: Conrad Matson MD - Discharge Diagnosis(es) (1) Schizoaffective disorder, depressive type Current Visit: Yes Status: Acute Priority: High (2) Major neurocognitive disorder Current Visit: Yes Status: Chronic Priority: Medium (3) Nicotine dependence Current Visit: Yes Status: Chronic Priority: Medium Hospital Course: Admission HPI: Patient is a single, unemployed, 66-year-old male who has a legal public guardian, and is a resident of of an [facility], who presented to the emergency department with change and disposition and suicidal thoughts. Patient presented to the hospital on 07/12/21, brought into the emergency department by skilled nursing staff. The patient initially presented as confused and believed that he was coming to the hospital for chest x-ray. However, the patient was brought in because of increased suicidal thoughts and generalized dysphoria. Aspirin APS report, the patient endorsed that he wants to by not taking any of his medications. He has been refusing his medical medications as well as his psychotropic medications while at the skilled nursing. Currently, the patient is a very poor historian due to his significant history of major neurocognitive disorder. He is currently not alert and oriented to place or recent events. The patient is alert and oriented to person and year but not to date. When interviewed, the patient does endorse suicidal ideation but makes no mention of any plan or intention at this time. The patient appears to be primarily concerned with his inability to pass stool. The patient states that he feels like "everything is backed up my stomach." He is currently not reporting any homicidal ideation, intention, and/or plan. He makes no mention of any overt auditory or visual hallucinations. He is denying any significant paranoia or other delusions. Despite his current presentation, the patient noted otherwise with his outpatient psychiatric provider. As per medication review from [facility] on 07/09/21, the patient endorsed bizarre delusions and auditory hallucinations. He described to his outpatient provider that his father lives downstairs and talks to him. He also reported that his father would tell him what to do and when he should go out. The patient also reported that people the television often speak to him telling him that he is at fault. The patient's home medication regimen was changed during that appointment on 07/09/21 with the discontinuation of his lithium. His Seroquel was continued at 600 mg at bedtime and Klonopin 2 mg at bedtime. He has also been receiving Prolixin Decanoate 50 mg IM every week the next dose due on 07/17/21. Also as per review of the patient's outpatient note, they also note that the patient's AF staff has been noting significant mood changes and David. They report that he has been loudly and talking to himself, agitated, and very demanding of staff. He is also been noted to be masturbating in the community. Much of the psychiatric history at to be obtained through review of the patient's chart. The patient has previous diagnoses of major neurocognitive disorder and schizoaffective disorder. The patient has had multiple inpatient psychiatric admissions including 2 prior inpatient admissions on this unit, one in 2019 and the other in 2015. As per chart review, the patient has also reported 10 years of a state hospitalization at [place]. Previous psychiatric medication regimens include lithium, Seroquel, Klonopin, Prolixin, clozapine, Depakote, and Geodon] he is currently open with [facility]. Unable to determine past suicide history. Hospital course: Upon admission to the unit patient was initially irritable, difficult to approach, and endorsing significant psychotic symptoms as well as intense suicidal thoughts. Although he was not agreeable to commence treatment and refused participating in the psychiatric interview, the patient was adherent on his prescribed medications. The patient was started on Zoloft for depression and anxiety and melatonin for insomnia. His Prolixin Decanoate 50 mg IM was continued. The patient continued to display significant psychotic and bizarre symptoms throughout the hospitalization. Lamictal was added to augment his antipsychotic medication. Seroquel was previously used but there is concern for the use of this many antipsychotic medications in the elderly and that the Seroquel is providing little to no benefit in the first place. Eventually Lamictal was gradually titrated to final dose of 100 mg at bedtime. Over the course of hospitalization, the patient did display gradual improvement in regards to his mood. He became more cooperative and polite and began addressing his hygiene and grooming. Furthermore, the patient no longer endorsed any suicidal thoughts over the last 48 hours. On the day of discharge, the patient is not endorsing any suicidal or homicidal ideation, intention, and/or plan. He is not reporting any visual hallucinations but continues to report that he has auditory hallucinations. He does not elaborate on the content of the auditory hallucinations but he states that the voice is that of a mercado he used to enjoy. The patient continues endorse multiple somatic symptoms, and particular the patient is stating that he has acute macular degeneration but made no indication that his vision has been poor. He denies any eye pain. The patient was counseled on adherent with his medications. He was also counseled on avoiding all substances including alcohol and marijuana. Prior to discharge, family meeting will be arranged with social work and questions and ensure safety. Mental Status Exam: General Appearance: Patient appears to be stated age is alert, pleasant, and cooperative. Patient is in no acute distress and has fair hygiene and grooming Behavior: Patient is calmly seated without any agitated behavior. Eye contact is appropriate. Psychomotor activity is normal. Speech: Patient's speech is fluent and nonpressured. Mood/Affect: Patient reports their mood is "I have acute macular degeneration. I'm okay." Affect is blunted at baseline. Suicidality/Homicidality: Patient denies having any suicidal or homicidal ideation intent or plan. Perceptions: Patient endorses auditory hallucinations and denies any visual hallucinations. Though content/process: There is no evidence of any delusional thought content and thought process is linear and goal-directed. Memory and concentration: AOX3, grossly intact for the purposes of this session. Can spell "WORLD" backwards correctly. Judgment and insight: Improved with guarded prognosis Vital Signs Temp 98.7 F 07/24/21 03:11 Pulse 89 07/24/21 03:11 Resp 18 07/24/21 03:11 BP 125/65 07/24/21 03:11 Pulse Ox 94 L 07/20/21 09:22 Impression: Schizoaffective disorder, depressed type (as per [facility]) vs Schizophrenia Major neurocognitive disorder Nicotine dependence Plan: -Continue with discharge today as patient has improved and stabilized psychiatrically and is not currently an imminent threat to himself and/or others. Patient will remain at chronically elevated risk for harm to self and/or others due to the severity of his mental illness. -Continue medications: Zoloft 50 mg by mouth daily for depression/anxiety Lamictal 100 mg by mouth at bedtime to augment his antipsychotic Prolixin decanoate 50 mg IM every 7 days for psychosis The patient's Synthroid was decreased to 75 mcg during this hospitalization. -Patient was counseled on the need for medication compliance and appropriate follow-up at mental health and also primary care for medical issues. Patient verbalized understanding and agreed. -Social work to arrange for and conduct family meeting to ensure safety upon discharge and answer any questions/concerns. Social work also to arrange for patients follow up appointments with [facility] for psychiatric care along with follow up with primary care provider. -Patient counseled on abstaining from recreational drugs and marijuana and alcohol. Was informed/educated on the adverse effects on their physical and mental health. Patient verbally agreed and understood. -Patient was instructed to return to the hospital or seek immediate medical care if their psychiatric or medical symptoms do worsen or reoccur. -Psychoeducation and supportive therapy provided to patient. Risks and benefits of pharmacological treatment versus the risks and benefits of nontreatment weight and discussed. Informed consent discussion held. Common side effects of psychotropics discussed such as, but not limited to headache, GI disturbance, sexual dysfunction, movement disorders, sedation, and orthostatic hypotension. Life threatening and blackbox warnings of prescribed medications also discussed. Potential risks of operating a vehicle or heavy machinery discussed with patient at length. Advised on importance of compliance and a reliable and r esponsible manner. Patient advised to review FDA consumer labeling of all medications prior to taking. Patient verbalized understanding of potential risks, and agrees with current treatment plan. Patient advised to medically contact physician/emergency personnel if any acute changes in condition occur. Allergies Allergy/AdvReac Type Severity Reaction Status Date / Time acetaminophen [From Tylenol] Allergy Unknown Verified 07/12/21 14:53 gabapentin [From Neurontin] Allergy Unknown Verified 07/12/21 14:53 Penicillins Allergy Unknown Verified 07/12/21 14:53 clozapine [From Clozaril] AdvReac Unknown Verified 07/12/21 14:53 divalproex sodium AdvReac Unknown Verified 07/12/21 14:53 [From Depakote] Laboratory Results WBC 4.0 k/uL (3.8-10.6) 07/13/21 07:21 RBC 4.87 m/uL (4.30-5.90) 07/13/21 07:21 Hgb 15.6 gm/dL (13.0-17.5) 07/13/21 07:21 Hct 46.0 % (39.0-53.0) 07/13/21 07:21 MCV 94.4 fL (80.0-100.0) 07/13/21 07:21 MCH 32.0 pg (25.0-35.0) 07/13/21 07:21 MCHC 33.9 g/dL (31.0-37.0) 07/13/21 07:21 RDW 12.8 % (11.5-15.5) 07/13/21 07:21 Plt Count 176 k/uL (150-450) 07/13/21 07:21 MPV 9.2 07/13/21 07:21 Neutrophils % 54 % 07/13/21 07:21 Lymphocytes % 33 % 07/13/21 07:21 Monocytes % 8 % 07/13/21 07:21 Eosinophils % 1 % 07/13/21 07: Basophils % 0 % 07/13/21 07:21 Neutrophils # 2.2 k/uL (1.3-7.7) 07/13/21 07:21 Lymphocytes # 1.3 k/uL (1.0-4.8) 07/13/21 07:21 Monocytes # 0.3 k/uL (0-1.0) 07/13/21 07:21 Eosinophils # 0.1 k/uL (0-0.7) 07/13/21 07:21 Basophils # 0.0 k/uL (0-0.2) 07/13/21 07:21 PT 10.8 sec (9.0-12.0) 07/12/21 14:58 INR 1.0 (<1.2) 07/12/21 14:58 APTT 23.0 sec (22.0-30.0) 07/12/21 14:58 D-Dimer <0.17 mg/L FEU (<0.60) 07/12/21 14:58 Sodium 137 mmol/L (137-145) 09/03/21 07:21 Potassium 4.4 mmol/L (3.5-5.1) 07/13/21 07:21 Chloride 105 mmol/L (98-107) 07/13/21 07:21 Carbon Dioxide 26 mmol/L (22-30) 07/13/21 07:21 Anion Gap 6 mmol/L 07/13/21 07:21 BUN 14 mg/dL (9-20) 07/13/21 07:21 Creatinine 1.23 mg/dL (0.66-1.25) 07/13/21 07:21 Est GFR (CKD-EPI)AfAm 70 (>60 ml/min/1.73 sqM) 07/13/21 07:21 Est GFR (CKD-EPI)NonAf 60 (>60 ml/min/1.73 sqM) 07/13/21 07:21 Glucose 106 mg/dL (74-99) H 07/13/21 07:[address] Glu mg/dL 103 07/13/21 07:21 Hemoglobin A1c 5.2 % (4.0-6.0) 07/13/21 07:21 Calcium 10.9 mg/dL (8.4-10.2) H 07/13/21 07:21 Magnesium 2.1 mg/dL (1.6-2.3) 07/12/21 14:58 Total Bilirubin 0.8 mg/dL (0.2-1.3) 07/13/21 07:21 AST 28 U/L (17-59) 07/13/21 07:21 ALT 21 U/L (4-49) 07/13/21 07:21 Alkaline Phosphatase 48 U/L (38-126) 07/13/21 07:21 Total Protein 6.6 g/dL (6.3-8.2) 07/13/21 07:21 Albumin 4.2 g/dL (3.5-5.0) 07/13/21 07:21 Triglycerides 105.0 mg/dL (0.0-149.0) 07/13/21 07:21 Cholesterol 192 mg/dL (0-200) 07/13/21 07:21 LDL Cholesterol, Calc 121.0 mg/dL (0.0-131.0) 07/13/21 07:21 VLDL Cholesterol, Calc 21.00 mg/dL (5.00-40.00) 07/13/21 07: HDL Cholesterol 50.0 mg/dL (40.0-60.0) 07/13/21 07: Cholesterol/HDL Ratio 3.84 07/13/21 07:21 Vitamin B12 1857.0 pg/mL (200.0-944.0) H 07/19/21 12:20 Vitamin D 25-Hydroxy 54.0 ng/mL (30.0-100.0) 07/19/21 12:20 Folate >24.0 ng/mL 07/19/21 12:20 TSH 0.024 mIU/L (0.465-4.680) L 07/13/21 07:21 Urine Opiates Screen Not Detected (NotDetected) 07/12/21 14:58 Ur Oxycodone Screen Not Detected (NotDetected) 07/12/21 14:58 Urine Methadone Screen Not Detected (NotDetected) 07/12/21 14:58 Ur Propoxyphene Screen Not Detected (NotDetected) 07/12/21 14:58 Ur Barbiturates Screen Not Detected (NotDetected) 07/12/21 14:58 U Tricyclic Antidepress Not Detected (NotDetected) 07/12/21 14:58 Ur Phencyclidine Scrn Not Detected (NotDetected) 07/12/21 14:58 Ur Amphetamines Screen Not Detected (NotDetected) 07/12/21 14:58 U Methamphetamines Scrn Not Detected (NotDetected) 07/12/21 14:58 U Benzodiazepines Scrn Not Detected (NotDetected) 07/12/21 14:58 Urine Cocaine Screen Not Detected (NotDetected) 07/12/21 14:58 U Marijuana (THC) Screen Not Detected (NotDetected) 07/12/21 14:58 Serum Alcohol <10 mg/dL 07/12/21 14:58 Coronavirus (PCR) Not Detected (Not Detectd) 07/12/21 22:06 Plan - Discharge Summary Discharge Rx Participant: No New Discharge Prescriptions: New Melatonin 5 mg PO HS 30 Days tablet Levothyroxine Sodium [Synthroid] 75 mcg PO DAILY@0630 30 Days tab Sertraline [Zoloft] 50 mg PO DAILY 30 Days tab lamoTRIgine [LaMICtal] 100 mg PO HS 30 Days tab Furosemide [Lasix] 40 mg PO DAILY 30 Days tab Continue Omeprazole [PriLOSEC] 20 mg PO DAILY@0800 Latanoprost/Pf [Latanoprost 0.005% Eye Drop] 1 drop BOTH EYES HS@2100 Fenofibrate Nanocrystallized [Fenofibrate] 145 mg PO DAILY@0800 Cholecalciferol (Vitamin D3) [Vitamin D3 (5000 Iu)] 125 mcg PO DAILY@0800 Ntvcmcat-Oqhpgogocv-Witv Oint [Triple Antibiotic Ointment] 1 applic TOPICAL DIRECTED PRN PRN Reason: Minor Abrasions/Cuts/[place] Psyllium Husk (with Sugar) [Metamucil Powder] 1 dose PO DIRECTED PRN PRN Reason: Constipation Albuterol Inhaler [Ventolin Hfa Inhaler] 2 puff INHALATION RT-Q6H PRN PRN Reason: Shortness Of Breath Certavite 1 tab PO HS@2100 Stomach Relief 1 dose PO DIRECTED PRN PRN Reason: Loose Stool Dicyclomine [Bentyl] 20 mg PO Q8H PRN PRN Reason: Pain Linaclotide [Linzess] 145 mcg PO DAILY@0700 Apixaban [Eliquis] 5 mg PO BID@0800,2100 Celecoxib [CeleBREX] 200 mg PO BID PRN PRN Reason: Pain Docusate [Colace] 100 mg PO BID@0800,2100 fluPHENAZine decanoate [Prolixin Decanoate] 50 mg IM Q7D #1 ml Simvastatin [Zocor] 10 mg PO HS@2100 30 Days tab Cyanocobalamin [Vitamin B-12] 500 mcg PO DAILY@0800 Folic Acid 1 mg PO DAILY@0800 Magnesium Hydroxide [Milk of Magnesia] 2,400 mg PO DAILY PRN PRN Reason: Constipation Shen-Tin Liq 1 dose PO DIRECTED PRN PRN Reason: Diarrhea Ibuprofen [Motrin Ib] 200 mg PO DIRECTED PRN PRN Reason: headache, pain, fever over 101 Ibuprofen [Motrin] 400 mg PO Q8HR PRN PRN Reason: Pain Metoprolol Tartrate [Lopressor] 50 mg PO BID@0800,2100 30 Days tab Discontinued Levothyroxine Sodium [Synthroid] 100 mcg PO DAILY@0700 Docusate [Colace] 100 mg PO DIRECTED PRN PRN Reason: Constipation diphenhydrAMINE [Benadryl] 25 mg PO DAILY PRN PRN Reason: Allergy Symptoms guaiFENesin SYRUP 100MG/5ML [Robitussin] 1 dose PO DIRECTED PRN PRN Reason: Cold Symptoms Pseudoephedrine HCl [Sudogest] 60 mg PO DAILY PRN PRN Reason: Cold Symptoms QUEtiapine FUMARATE [SEROquel] 600 mg PO HS@2100 clonazePAM [KlonoPIN] 1 mg PO HS@2100 Furosemide [Lasix] 40 mg PO BID@0800,2099 Potassium Chloride [Klor-Con 20] 20 meq PO DAILY@0800 Loperamide [Imodium] 2 mg PO DIRECTED PRN PRN Reason: Loose Stool Discharge Medication List Albuterol Inhaler [Ventolin Hfa Inhaler] 2 puff INHALATION RT-Q6H PRN 06/07/20 [History] Cholecalciferol (Vitamin D3) [Vitamin D3 (5000 Iu)] 125 mcg PO DAILY@79906/07/20 [History] Fenofibrate Nanocrystallized [Fenofibrate] 145 mg PO DAILY@79906/07/20 [History] Latanoprost/Pf [Latanoprost 0.005% Eye Drop] 1 drop BOTH EYES HS@209906/07/20 [History] Snnimmdh-Edhnrsjhbm-Pdga Oint [Triple Antibiotic Ointment] 1 applic TOPICAL DIRECTED PRN 06/07/20 [History] Omeprazole [PriLOSEC] 20 mg PO DAILY@79906/07/20 [History] Psyllium Husk (with Sugar) [Metamucil Powder] 1 dose PO DIRECTED PRN 06/07/20 [History] Certavite 1 tab PO HS@209904/12/21 [History] Cyanocobalamin [Vitamin B-12] 500 mcg PO DAILY@79904/12/21 [History] Dicyclomine [Bentyl] 20 mg PO Q8H PRN 04/12/21 [History] Folic Acid 1 mg PO DAILY@79904/12/21 [History] Linaclotide [Linzess] 145 mcg PO DAILY@69904/12/21 [History] Magnesium Hydroxide [Milk of Magnesia] 2,400 mg PO DAILY PRN 04/12/21 [History] Stomach Relief 1 dose PO DIRECTED PRN 04/12/21 [History] Apixaban [Eliquis] 5 mg PO BID@0800,209907/12/21 [History] Celecoxib [CeleBREX] 200 mg PO BID PRN 07/12/21 [History] Docusate [Colace] 100 mg PO BID@0800,2100 07/12/21 [History] Ibuprofen [Motrin Ib] 200 mg PO DIRECTED PRN 07/12/21 [History] Ibuprofen [Motrin] 400 mg PO Q8HR PRN 07/12/21 [History] Shen-Tin Liq 1 dose PO DIRECTED PRN 07/12/21 [History] Furosemide [Lasix] 40 mg PO DAILY 30 Days tab 07/24/21 [Rx] Levothyroxine Sodium [Synthroid] 75 mcg PO DAILY@30 30 Days tab 07/24/21 [Rx] Melatonin 5 mg PO HS 30 Days tablet 07/24/21 [Rx] Metoprolol Tartrate [Lopressor] 50 mg PO BID@0800,2099 30 Days tab 07/24/21 [Rx] Sertraline [Zoloft] 50 mg PO DAILY 30 Days tab 07/24/21 [Rx] Simvastatin [Zocor] 10 mg PO HS@2099 30 Days tab 07/24/21 [Rx] fluPHENAZine decanoate [Prolixin Decanoate] 50 mg IM Q7D #1 ml 07/24/21 [Rx] lamoTRIgine [LaMICtal] 100 mg PO HS 30 Days tab 07/24/21 [Rx] Follow up Appointment(s)/Referral(s): [facility] [Outside] - 07/24/21 2:00 pm (07-24-21 @ 2:00 with uJliet Alvarez at skilled nursing 08-01-21 @ 8:[address] Capellan at [facility] office) oCnrad Matson MD [Primary Care Provider] - 1-2 days Patient Instructions/Handouts: Schizoaffective Disorder (DC) Activity/Diet/Wound Care/Special Instructions: Activity and diet as tolerated. Avoid the use of street drugs and alcohol. Take all medications as prescribed. When you are in need of refills on your medications please contact your medical provider and/or outpatient psychiatrist to have this done. Please go to scheduled outpatient appointment for aftercare treatment. If symptoms return or become worse, call the crisis line at and/or go to the nearest emergency room for evaluation. Discharge Disposition: HOME SELF-CARE
[2021-07-24 12:12] VITALS: BMI 28.0
== END 2021-07-24 13:45 | disposition home or self-care (01) | DRG 885 ==
LOC: EC 13:27 → 3MHU 22:07
PROVIDERS: ADMIT Psychiatry & Neurology Psychiatry; ATTEND Psychiatry & Neurology Psychiatry
DX: F25.1 Schizoaffective disorder, depressive type (principal); R45.851 Suicidal ideations; I82.502 Chronic embolism and thrombosis of unspecified deep veins of left lower extremity; F03.90 Unspecified dementia, unspecified severity, without behavioral disturbance, psychotic disturbance, mood disturbance, and anxiety; J44.9 Chronic obstructive pulmonary disease, unspecified; Z20.822 Contact with and (suspected) exposure to COVID-19; Y90.0 Blood alcohol level of less than 20 mg/100 ml; I10 Essential (primary) hypertension; E78.5 Hyperlipidemia, unspecified; K59.09 Other constipation; F41.9 Anxiety disorder, unspecified; G47.00 Insomnia, unspecified; E03.9 Hypothyroidism, unspecified; H35.30 Unspecified macular degeneration; F10.11 Alcohol abuse, in remission; F17.210 Nicotine dependence, cigarettes, uncomplicated; Z79.01 Long term (current) use of anticoagulants; Z79.1 Long term (current) use of non-steroidal anti-inflammatories (NSAID); Z79.890 Hormone replacement therapy; Z79.899 Other long term (current) drug therapy; Z56.0 Unemployment, unspecified; Z71.6 Tobacco abuse counseling; Z71.41 Alcohol abuse counseling and surveillance of alcoholic; Z71.51 Drug abuse counseling and surveillance of drug abuser; Z88.6 Allergy status to analgesic agent; Z88.0 Allergy status to penicillin; Z88.8 Allergy status to other drugs, medicaments and biological substances
CPT/HCPCS: 36415; 71045; 80053; 80061; 80306; 80320; 82075; 82306; 82607; 82746; 83036; 83735; 84443; 85025; 85379; 85610; 85730; 87635; 93005; 99285

== ENCOUNTER 2021-11-03 14:25 | Emergency (ER) | payer MEDICARE, MEDICAID ==
[2021-11-03 14:42] VITALS: RESP 18; TEMP 98.1
--- NOTE | 2021-11-03 14:55 | ED ---
General Adult HPI - General Source: patient, EMS Mode of arrival: EMS Limitations: altered mental status <Tana Aden - Last Filed: 11/03/21 16:27> <Angelo Kwon - Last Filed: 11/03/21 19:35> - General Chief complaint: Psychiatric Symptoms Stated complaint: Suicidal idealation Time Seen by Provider: 11/03/21 14:45 - History of Present Illness Initial comments: 66 year-old male patient presents to the emergency department for evaluation of hopelessness. States he feels like he wants to . States that he needs to be "anesthetized". He wants someone to kill him. Asking for morphine. When asked why he wants to he does not give a clear answer. States that he is "getting too much publicity on the television". He states he has been admitted to the mental health unit in the past. He denies alcohol, drugs, or tobacco. Patient denies any recent rash, fever, chills, cough, shortness of breath, chest pain, abdominal pain, nausea, vomiting, diarrhea, constipation, back pain, numbness, tingling, dizziness, weakness, hematuria, dysuria, urinary urgency, urinary frequency, headache, visual changes, or any other complaints. (Tana Aden) - Related Data Home Medications Medication Instructions Recorded Confirmed Albuterol Inhaler [Ventolin Hfa 2 puff INHALATION RT-Q6H PRN 06/07/20 11/03/21 Inhaler] Cholecalciferol (Vitamin D3) 125 mcg PO DAILY@79906/07/20 11/03/21 [Vitamin D3 (5000 Iu)] Fenofibrate Nanocrystallized 145 mg PO DAILY@79906/07/20 11/03/21 [Fenofibrate] Latanoprost/Pf [Latanoprost 0.005% 1 drop BOTH EYES HS@2100 06/07/20 11/03/21 Eye Drop] Vwpllivx-Brmvuigatd-Jnjp Oint 1 applic TOPICAL DIRECTED PRN 06/07/20 11/03/21 [Triple Antibiotic Ointment] Omeprazole [PriLOSEC] 20 mg PO DAILY@79906/07/20 11/03/21 Psyllium Husk (with Sugar) 1 dose PO DIRECTED PRN 06/07/20 11/03/21 [Metamucil Powder] Certavite 1 tab PO HS@209904/12/21 11/03/21 Cyanocobalamin [Vitamin B-12] 500 mcg PO DAILY@0804/12/21 11/03/21 Dicyclomine [Bentyl] 20 mg PO Q8H PRN 04/12/21 11/03/21 Folic Acid 1 mg PO DAILY@0804/12/21 11/03/21 Linaclotide [Linzess] 145 mcg PO DAILY@69904/12/21 11/03/21 Magnesium Hydroxide [Milk of 2,400 mg PO DAILY PRN 04/12/21 11/03/21 Magnesia] Stomach Relief 1 dose PO DIRECTED PRN 04/12/21 11/03/21 Apixaban [Eliquis] 5 mg PO BID@0800,209907/12/21 11/03/21 Celecoxib [CeleBREX] 200 mg PO BID PRN 07/12/21 11/03/21 Docusate [Colace] 100 mg PO BID@08,209907/12/21 11/03/21 Ibuprofen [Motrin Ib] 200 mg PO DIRECTED PRN 07/12/21 11/03/21 Ibuprofen [Motrin] 400 mg PO TID PRN 07/12/21 11/03/21 Shen-Tin Liq 1 dose PO DIRECTED PRN 07/12/21 11/03/21 Clotrimazole/Betamethasone Dip 1 applic TOPICAL BID 11/03/21 11/03/21 [Lotrisone Cream] Docusate [Colace] 100 mg PO DAILY PRN 11/03/21 11/03/21 Furosemide [Lasix] 40 mg PO DAILY@0811/03/21 11/03/21 LORazepam [Ativan] 1 mg PO QID 11/03/21 11/03/21 Lactose-Reduced Food [Boost] 1 can PO DAILY 11/03/21 11/03/21 Levothyroxine Sodium [Synthroid] 75 mcg PO DAILY@0711/03/21 11/03/21 Melatonin 5 mg PO HS@209911/03/21 11/03/21 OLANZapine [ZyPREXA] 10 mg PO HS@209911/03/21 11/03/21 Vit C/E/Zn/Coppr/Lutein/Zeaxan 1 cap PO BID@0800,2100 11/03/21 11/03/21 [Preservision Areds 2 Softgel] lamoTRIgine [LaMICtal] 100 mg PO HS@2100 11/03/21 11/03/21 Previous Rx's Medication Instructions Recorded Metoprolol Tartrate [Lopressor] 50 mg PO BID@0800,2100 30 Days tab 07/24/21 Simvastatin [Zocor] 10 mg PO HS@2100 30 Days tab 07/24/21 fluPHENAZine decanoate [Prolixin 50 mg IM Q7D #1 ml 07/24/21 Decanoate] Allergies Allergy/AdvReac Type Severity Reaction Status Date / Time acetaminophen [From Tylenol] Allergy Unknown Verified 11/03/21 17:44 gabapentin [From Neurontin] Allergy Unknown Verified 11/03/21 17:44 Penicillins Allergy Unknown Verified 11/03/21 17:44 clozapine [From Clozaril] AdvReac Unknown Verified 11/03/21 17:44 divalproex sodium AdvReac Unknown Verified 11/03/21 17:44 [From Depakote] Review of Systems ROS Other: All systems not noted in ROS Statement are negative. <Tana Aden - Last Filed: 11/03/21 16:27> ROS Other: All systems not noted in ROS Statement are negative. <Angelo Kwon - Last Filed: 11/03/21 19:35> ROS Statement: Those systems with pertinent positive or pertinent negative responses have been documented in the HPI. Past Medical History Past Medical History: Asthma, Hyperlipidemia, Hypertension Additional Past Medical History / Comment(s): schizophrenia. constipation History of Any Multi-Drug Resistant Organisms: None Reported Past Surgical History: No Surgical Hx Reported Past Anesthesia/Blood Transfusion Reactions: No Reported Reaction Past Psychological History: Schizophrenia Smoking Status: Current every day smoker Past Alcohol Use History: None Reported Past Drug Use History: None Reported - Past Family History Father History Unknown: Yes Mother History Unknown: Yes <Tana Aden - Last Filed: 11/03/21 16:27> General Exam Limitations: altered mental status General appearance: alert, in no apparent distress, other (This is a well- developed, well-nourished adult male in no acute distress.) Eye exam: Present: normal appearance, PERRL, EOMI. Absent: scleral icterus, conjunctival injection, periorbital swelling ENT exam: Present: normal exam, normal oropharynx, mucous membranes moist Respiratory exam: Present: normal lung sounds bilaterally. Absent: respiratory distress, wheezes, rales, rhonchi, stridor Cardiovascular Exam: Present: regular rate, normal rhythm, normal heart sounds. Absent: systolic murmur, diastolic murmur, rubs, gallop, clicks GI/Abdominal exam: Present: soft, normal bowel sounds. Absent: distended, tenderness, guarding, rebound, rigid Neurological exam: Present: alert, oriented X3, CN II-XII intact Psychiatric exam: Present: normal affect, normal mood Skin exam: Present: warm, dry, intact, normal color. Absent: rash <Tana Aden - Last Filed: 11/03/21 16:27> Course <Angelo Kwon - Last Filed: 11/03/21 19:35> Vital Signs 11/03/21 11/03/21 14:25 17:28 Temperature 98.1 F Pulse Rate 85 82 Respiratory 18 18 Rate Blood Pressure 174/79 160/80 O2 Sat by Pulse 98 98 Oximetry - Reevaluation(s) Reevaluation #1: 11/03/21 19:33 Patient was endorsed me at our shift change pending psychiatric evaluation. The patient is depressed is wanting to he does demonstrate evidence of some psychotic behavior clinically he does demonstrate some dehydration. The patient does require formal psychiatric evaluation however there is no psychiatric beds available at this time. I did discuss the case with Dr. Guaman who is agreed to accept the patient on his medical service with psychiatric evaluation and hydration. (Angelo Kwon) Medical Decision Making <Tana Aden - Last Filed: 11/03/21 16:27> - Lab Data Result diagrams: 11/03/21 17:28 11/03/21 17:28 <Angelo Kwon - Last Filed: 11/03/21 19:35> - Medical Decision Making 66-year-old male patient presented to the emergency department today for suicidal ideation. Physical examination is unremarkable. Labs are pending. Case is hand over to my attending Dr. Kwon at 1630. (Tana Aden) - Lab Data Lab Results 11/03/21 11/03/21 11/03/21 Range/Units 17:13 17:28 17:28 WBC 4.8 (3.8-10.6) k/uL RBC 5.70 (4.30-5.90) m/uL Hgb 17.7 H (13.0-17.5) gm/dL Hct 54.0 H (39.0-53.0) % MCV 94.7 (80.0-100.0) fL MCH 31.1 (25.0-35.0) pg MCHC 32.8 (31.0-37.0) g/dL RDW 12.5 (11.5-15.5) % Plt Count 158 (150-450) k/uL MPV 10.4 Neutrophils % 56 % Lymphocytes % 33 % Monocytes % 6 % Eosinophils % 1 % Basophils % 1 % Neutrophils # 2.7 (1.3-7.7) k/uL Lymphocytes # 1.6 (1.0-4.8) k/uL Monocytes # 0.3 (0-1.0) k/uL Eosinophils # 0.1 (0-0.7) k/uL Basophils # 0.0 (0-0.2) k/uL Sodium (137-145) mmol/L Potassium (3.5-5.1) mmol/L Chloride (98-107) mmol/L Carbon Dioxide (22-30) mmol/L Anion Gap mmol/L BUN (9-20) mg/dL Creatinine (0.66-1.25) mg/dL Est GFR (CKD-EPI)AfAm (>60 ml/min/1.73 sqM) Est GFR (CKD-EPI)NonAf (>60 ml/min/1.73 sqM) Glucose (74-99) mg/dL Calcium (8.4-10.2) mg/dL Total Bilirubin (0.2-1.3) mg/dL AST (17-59) U/L ALT (4-49) U/L Alkaline Phosphatase (38-126) U/L Total Protein (6.3-8.2) g/dL Albumin (3.5-5.0) g/dL Urine Color Light Yellow Urine Appearance Clear (Clear) Urine pH 7.0 (5.0-8.0) Ur Specific [place] 1.007 (1.001-1.035) Urine Protein Negative (Negative) Urine Glucose (UA) Negative (Negative) Urine Ketones Negative (Negative) Urine Blood Negative (Negative) Urine Nitrite Negative (Negative) Urine Bilirubin Negative (Negative) Urine Urobilinogen <2.0 (<2.0) mg/dL Ur Leukocyte Esterase Negative (Negative) Urine Opiates Screen Not Detected (NotDetected) Ur Oxycodone Screen Not Detected (NotDetected) Urine Methadone Screen Not Detected (NotDetected) Ur Propoxyphene Screen Not Detected (NotDetected) Ur Barbiturates Screen Not Detected (NotDetected) U Tricyclic Antidepress Not Detected (NotDetected) Ur Phencyclidine Scrn Not Detected (NotDetected) Ur Amphetamines Screen Not Detected (NotDetected) U Methamphetamines Scrn Not Detected (NotDetected) U Benzodiazepines Scrn Detected H (NotDetected) Urine Cocaine Screen Not Detected (NotDetected) U Marijuana (THC) Screen Not Detected (NotDetected) Coronavirus (PCR) Not Detected (Not Detectd) 11/03/21 Range/Units 17:28 WBC (3.8-10.6) k/uL RBC (4.30-5.90) m/uL Hgb (13.0-17.5) gm/dL Hct (39.0-53.0) % MCV (80.0-100.0) fL MCH (25.0-35.0) pg MCHC (31.0-37.0) g/dL RDW (11.5-15.5) % Plt Count (150-450) k/uL MPV Neutrophils % % Lymphocytes % % Monocytes % % Eosinophils % % Basophils % % Neutrophils # (1.3-7.7) k/uL Lymphocytes # (1.0-4.8) k/uL Monocytes # (0-1.0) k/uL Eosinophils # (0-0.7) k/uL Basophils # (0-0.2) k/uL Sodium 145 (137-145) mmol/L Potassium 4.3 (3.5-5.1) mmol/L Chloride 106 (98-107) mmol/L Carbon Dioxide 25 (22-30) mmol/L Anion Gap 14 mmol/L BUN 15 (9-20) mg/dL Creatinine 1.26 H (0.66-1.25) mg/dL Est GFR (CKD-EPI)AfAm 67 (>60 ml/min/1.73 sqM) Est GFR (CKD-EPI)NonAf 58 (>60 ml/min/1.73 sqM) Glucose 94 (74-99) mg/dL Calcium 11.7 H (8.4-10.2) mg/dL Total Bilirubin 0.6 (0.2-1.3) mg/dL AST 32 (17-59) U/L ALT 20 (4-49) U/L Alkaline Phosphatase 61 (38-126) U/L Total Protein 8.6 H (6.3-8.2) g/dL Albumin 5.3 H (3.5-5.0) g/dL Urine Color Urine Appearance (Clear) Urine pH (5.0-8.0) Ur Specific [place] (1.001-1.035) Urine Protein (Negative) Urine Glucose (UA) (Negative) Urine Ketones (Negative) Urine Blood (Negative) Urine Nitrite (Negative) Urine Bilirubin (Negative) Urine Urobilinogen (<2.0) mg/dL Ur Leukocyte Esterase (Negative) Urine Opiates Screen (NotDetected) Ur Oxycodone Screen (NotDetected) Urine Methadone Screen (NotDetected) Ur Propoxyphene Screen (NotDetected) Ur Barbiturates Screen (NotDetected) U Tricyclic Antidepress (NotDetected) Ur Phencyclidine Scrn (NotDetected) Ur Amphetamines Screen (NotDetected) U Methamphetamines Scrn (NotDetected) U Benzodiazepines Scrn (NotDetected) Urine Cocaine Screen (NotDetected) U Marijuana (THC) Screen (NotDetected) Coronavirus (PCR) (Not Detectd) Disposition <Tana Aden - Last Filed: 11/03/21 16:27> <Angelo Kwon - Last Filed: 11/03/21 19:35> Clinical Impression: Schizoaffective disorder, depressive type, Acute psychosis, Dehydration Disposition: ADMITTED IP TO THIS [facility] Condition: Fair Referrals: None,Stated [Primary Care Provider] - 1-2 days
[2021-11-03 17:30] VITALS: BP 160/80; PULSE 82
[2021-11-03 17:41] LABS: Appearance,Urine Clear (Clear); Bilirubin,Urine Negative (Negative); Blood,Urine Negative (Negative); Color,Urine Light Yellow; Glucose,Urine (UA) Negative (Negative); Ketones,Urine Negative (Negative); Leukocyte Esterase,Urine Negative (Negative); Nitrite,Urine Negative (Negative); Protein,Urine Negative (Negative); Specific Gravity,Urine 1.007 (1.001-1.035); Urobilinogen,Urine <2.0 mg/dL (<2.0)
[2021-11-03 17:46] LABS: Amphetamine Screen,Urine Not Detected (NotDetected); Barbiturate Screen,Urine Not Detected (NotDetected); Benzodiazepines Screen,Urine Detected (NotDetected); Cocaine Screen,Urine Not Detected (NotDetected); Methadone Screen, Urine Not Detected (NotDetected); Opiate Screen,Urine Not Detected (NotDetected); Oxycodone Screen, Urine Not Detected (NotDetected); Phencyclidine Screen,Urine Not Detected (NotDetected); Tricyclic Antidepressant,Urine Not Detected (NotDetected); Urn Cannabinoid Scrn Not Detected (NotDetected)
[2021-11-03 17:57] LABS: Basophils % (A) 1 %; Eosinophils # (A) 0.1 k/uL (0-0.7); Eosinophils % (A) 1 %; HGB 17.7 gm/dL (13.0-17.5); Lymphocytes # (A) 1.6 k/uL (1.0-4.8); Lymphocytes % (A) 33 %; MCH 31.1 pg (25.0-35.0); MCHC 32.8 g/dL (31.0-37.0); MCV 94.7 fL (80.0-100.0); Mean Platelet Volume 10.4; Monocytes # (A) 0.3 k/uL (0-1.0); Monocytes % (A) 6 %; Neutrophils # (A) 2.7 k/uL (1.3-7.7); Neutrophils % (A) 56 %; Platelet Count 158 k/uL (150-450); RDW 12.5 % (11.5-15.5); WBC 4.8 k/uL (3.8-10.6)
[2021-11-03 18:16] LABS: Albumin 5.3 g/dL (3.5-5.0); Calcium 11.7 mg/dL (8.4-10.2); Potassium 4.3 mmol/L (3.5-5.1); Total Bilirubin 0.6 mg/dL (0.2-1.3); Total Protein 8.6 g/dL (6.3-8.2)
--- NOTE | 2021-11-03 18:31 | XR ---
EXAMINATION TYPE: XR chest 2V DATE OF EXAM: 11/03/2021 COMPARISON: July 12, 2021 HISTORY: Altered mental status TECHNIQUE: 2 views FINDINGS: There is no heart failure nor confluent pneumonic infiltrate. Heart size is normal. There i s slight elevated right diaphragm. There are no hilar masses. Bony thorax is intact. IMPRESSION: Slight chronic elevation of the right diaphragm. No acute lung disease. No change.
[2021-11-03] MEDS ORDERED: NALOXONE 0.4 MG/ML 1 ML VIAL IV PRN (19:36)
[2021-11-03] MEDS ORDERED: PSYLLIUM HUSK 575 GM PO PRN (19:38)
[2021-11-03] MEDS ORDERED: DOCUSATE 100 MG CAP PO PRN (19:38)
[2021-11-03] MEDS ORDERED: [UNRECOGNIZED DRUG - OTHER] PO PRN (19:38)
[2021-11-03] MEDS ORDERED: IBUPROFEN 400 MG TAB PO PRN (19:38)
[2021-11-03] MEDS ORDERED: ALBUTEROL HFA INHALER INHALATION PRN (19:38)
[2021-11-03] MEDS ORDERED: fluPHENAZine DECANOATE 25 MG/ML 5ML MDV IM SCH (19:45)
[2021-11-03] MEDS ORDERED: SODIUM CHLORIDE 0.9% 1,000 ML IV SCH (19:45)
[2021-11-03] MEDS ORDERED: PALIPERIDONE 3 MG TAB.ER.24 PO STA (20:11)
--- NOTE | 2021-11-03 20:16 | ED ---
Medical Decision Making - Medical Decision Making The patient's guardian does not want the patient admitted to the hospital at this time he is clinically stable for discharge with outpatient oral fluids Imvega 3 mg twice a day for 1 week after phone consultation with Dr. Jarvis. Patient will not be admitted Dr. Guaman was notified - Lab Data Result diagrams: 11/03/21 17:28 11/03/21 17:28 Lab Results 11/03/21 11/03/21 11/03/21 Range/Units 17:13 17:28 17:28 WBC 4.8 (3.8-10.6) k/uL RBC 5.70 (4.30-5.90) m/uL Hgb 17.7 H (13.0-17.5) gm/dL Hct 54.0 H (39.0-53.0) % MCV 94.7 (80.0-100.0) fL MCH 31.1 (25.0-35.0) pg MCHC 32.8 (31.0-37.0) g/dL RDW 12.5 (11.5-15.5) % Plt Count 158 (150-450) k/uL MPV 10.4 Neutrophils % 56 % Lymphocytes % 33 % Monocytes % 6 % Eosinophils % 1 % Basophils % 1 % Neutrophils # 2.7 (1.3-7.7) k/uL Lymphocytes # 1.6 (1.0-4.8) k/uL Monocytes # 0.3 (0-1.0) k/uL Eosinophils # 0.1 (0-0.7) k/uL Basophils # 0.0 (0-0.2) k/uL Sodium (137-145) mmol/L Potassium (3.5-5.1) mmol/L Chloride (98-107) mmol/L Carbon Dioxide (22-30) mmol/L Anion Gap mmol/L BUN (9-20) mg/dL Creatinine (0.66-1.25) mg/dL Est GFR (CKD-EPI)AfAm (>60 ml/min/1.73 sqM) Est GFR (CKD-EPI)NonAf (>60 ml/min/1.73 sqM) Glucose (74-99) mg/dL Calcium (8.4-10.2) mg/dL Total Bilirubin (0.2-1.3) mg/dL AST (17-59) U/L ALT (4-49) U/L Alkaline Phosphatase (38-126) U/L Total Protein (6.3-8.2) g/dL Albumin (3.5-5.0) g/dL Urine Color Light Yellow Urine Appearance Clear (Clear) Urine pH 7.0 (5.0-8.0) Ur Specific [place] 1.007 (1.001-1.035) Urine Protein Negative (Negative) Urine Glucose (UA) Negative (Negative) Urine Ketones Negative (Negative) Urine Blood Negative (Negative) Urine Nitrite Negative (Negative) Urine Bilirubin Negative (Negative) Urine Urobilinogen <2.0 (<2.0) mg/dL Ur Leukocyte Esterase Negative (Negative) Urine Opiates Screen Not Detected (NotDetected) Ur Oxycodone Screen Not Detected (NotDetected) Urine Methadone Screen Not Detected (NotDetected) Ur Propoxyphene Screen Not Detected (NotDetected) Ur Barbiturates Screen Not Detected (NotDetected) U Tricyclic Antidepress Not Detected (NotDetected) Ur Phencyclidine Scrn Not Detected (NotDetected) Ur Amphetamines Screen Not Detected (NotDetected) U Methamphetamines Scrn Not Detected (NotDetected) U Benzodiazepines Scrn Detected H (NotDetected) Urine Cocaine Screen Not Detected (NotDetected) U Marijuana (THC) Screen Not Detected (NotDetected) Coronavirus (PCR) Not Detected (Not Detectd) 11/03/21 Range/Units 17:28 WBC (3.8-10.6) k/uL RBC (4.30-5.90) m/uL Hgb (13.0-17.5) gm/dL Hct (39.0-53.0) % MCV (80.0-100.0) fL MCH (25.0-35.0) pg MCHC (31.0-37.0) g/dL RDW (11.5-15.5) % Plt Count (150-450) k/uL MPV Neutrophils % % Lymphocytes % % Monocytes % % Eosinophils % % Basophils % % Neutrophils # (1.3-7.7) k/uL Lymphocytes # (1.0-4.8) k/uL Monocytes # (0-1.0) k/uL Eosinophils # (0-0.7) k/uL Basophils # (0-0.2) k/uL Sodium 145 (137-145) mmol/L Potassium 4.3 (3.5-5.1) mmol/L Chloride 106 (98-107) mmol/L Carbon Dioxide 25 (22-30) mmol/L Anion Gap 14 mmol/L BUN 15 (9-20) mg/dL Creatinine 1.26 H (0.66-1.25) mg/dL Est GFR (CKD-EPI)AfAm 67 (>60 ml/min/1.73 sqM) Est GFR (CKD-EPI)NonAf 58 (>60 ml/min/1.73 sqM) Glucose 94 (74-99) mg/dL Calcium 11.7 H (8.4-10.2) mg/dL Total Bilirubin 0.6 (0.2-1.3) mg/dL AST 32 (17-59) U/L ALT 20 (4-49) U/L Alkaline Phosphatase 61 (38-126) U/L Total Protein 8.6 H (6.3-8.2) g/dL Albumin 5.3 H (3.5-5.0) g/dL Urine Color Urine Appearance (Clear) Urine pH (5.0-8.0) Ur Specific [place] (1.001-1.035) Urine Protein (Negative) Urine Glucose (UA) (Negative) Urine Ketones (Negative) Urine Blood (Negative) Urine Nitrite (Negative) Urine Bilirubin (Negative) Urine Urobilinogen (<2.0) mg/dL Ur Leukocyte Esterase (Negative) Urine Opiates Screen (NotDetected) Ur Oxycodone Screen (NotDetected) Urine Methadone Screen (NotDetected) Ur Propoxyphene Screen (NotDetected) Ur Barbiturates Screen (NotDetected) U Tricyclic Antidepress (NotDetected) Ur Phencyclidine Scrn (NotDetected) Ur Amphetamines Screen (NotDetected) U Methamphetamines Scrn (NotDetected) U Benzodiazepines Scrn (NotDetected) Urine Cocaine Screen (NotDetected) U Marijuana (THC) Screen (NotDetected) Coronavirus (PCR) (Not Detectd) Disposition Clinical Impression: Schizoaffective disorder, depressive type, Dehydration Disposition: HOME SELF-CARE Condition: Stable Is patient prescribed a controlled substance at d/c from ED?: No
[2021-11-03] MEDS ORDERED: NON FORMULARY DRUG (Latanoprost/Pf [Latanoprost 0.005% Eye Drop] 7.5 ML Drops) BOTH EYES SCH (21:00)
[2021-11-03] MEDS ORDERED: APIXABAN 5 MG TAB PO SCH (21:00)
[2021-11-03] MEDS ORDERED: METOPROLOL TARTRATE 50 MG TAB PO SCH (21:00)
[2021-11-03] MEDS ORDERED: OLANZapine 10 MG TAB PO SCH (21:00)
[2021-11-03] MEDS ORDERED: MELATONIN 5 MG TABLET PO SCH (21:00)
[2021-11-03] MEDS ORDERED: NON FORMULARY DRUG (Simvastatin 10 MG Tab) PO SCH (21:00)
[2021-11-03] MEDS ORDERED: lamoTRIgine 100 MG TAB PO SCH (21:00)
[2021-11-03] MEDS ORDERED: LORazepam 1 MG TAB PO SCH (22:00)
[2021-11-04] MEDS ORDERED: LEVOTHYROXINE 75 MCG TAB PO SCH (07:00)
[2021-11-04] MEDS ORDERED: NON FORMULARY DRUG (Linaclotide [Linzess] 145 MCG Capsule) PO SCH (07:00)
[2021-11-04] MEDS ORDERED: NON FORMULARY DRUG (Cholecalciferol (Vitamin D3) [Vitamin D3 (5000 Iu)] 125 MCG Capsule) PO SCH (08:00)
[2021-11-04] MEDS ORDERED: CYANOCOBALAMIN 500 MCG TAB PO SCH (08:00)
[2021-11-04] MEDS ORDERED: FUROSEMIDE 40 MG TAB PO SCH (08:00)
[2021-11-04] MEDS ORDERED: NON FORMULARY DRUG (Omeprazole 20 MG Capsule.Dr) PO SCH (08:00)
[2021-11-04] MEDS ORDERED: FOLIC ACID 1 MG TAB PO SCH (08:00)
[2021-11-04] MEDS ORDERED: NON FORMULARY DRUG (Fenofibrate Nanocrystallized [Fenofibrate] 145 MG Tablet) PO SCH (08:00)
[2021-11-04] MEDS ORDERED: NON FORMULARY DRUG (Lactose-Reduced Food [Boost] 237 ML Ml) PO SCH (09:00)
[2021-11-04] MEDS ORDERED: MAGNESIUM HYDROXIDE 2,400 MG/10 ML CUP PO PRN (09:00)
== END 2021-11-03 21:00 | disposition home or self-care (01) ==
LOC: EC 14:25 → UNDOADMOB 19:36 → 6NMEDSUR 19:36 → EC 21:00
DX: F25.1 Schizoaffective disorder, depressive type (principal); F23 Brief psychotic disorder; E86.0 Dehydration; R45.851 Suicidal ideations; J45.909 Unspecified asthma, uncomplicated; I10 Essential (primary) hypertension; F17.200 Nicotine dependence, unspecified, uncomplicated; E78.5 Hyperlipidemia, unspecified; Z79.899 Other long term (current) drug therapy; Z20.822 Contact with and (suspected) exposure to COVID-19; Z88.6 Allergy status to analgesic agent; Z88.8 Allergy status to other drugs, medicaments and biological substances; Z88.0 Allergy status to penicillin
CPT/HCPCS: 36415; 71046; 80053; 80306; 81003; 82075; 85025; 87635; 99285

== ENCOUNTER → 2022-01-15 | Outpatient (CLI) | payer MEDICARE, OTHER ==
--- NOTE | 2022-01-15 16:25 | US ---
EXAMINATION TYPE: US kidneys/renal and bladder DATE OF EXAM: 01/15/2022 COMPARISON: Correlation CT 04/12/2021 CLINICAL HISTORY: 66-year-old male E83.52 HYPERCALCEMIA. TECHNIQUE: Multiple sonographic images of the kidneys and bladder are obtained. FINDINGS: EXAM MEASUREMENTS: Right Kidney: 11.4 x 5.9 x 4.9 cm Left Kidney: 12.1 x 5.1 x 5.9 cm Right Kidney: Malrotated with an extrarenal pelvis as seen on CT. No hydronephrosis. Left Kidney: No hydronephrosis or masses seen. Bladder: Appears anechoic. Bilateral Jets seen: Yes IMPRESSION: 1. 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 2. No hydronephrosis on either side.
== END | disposition home or self-care (01) ==
LOC: RADUSWWP 14:57
PROVIDERS: ATTEND Internal Medicine Nephrology
DX: E83.52 Hypercalcemia (principal)
CPT/HCPCS: 76770

== ENCOUNTER 2022-09-24 22:22 | Emergency (ER) | payer MEDICARE, OTHER ==
[2022-09-24 22:36] VITALS: RESP 18; TEMP 98.1
--- NOTE | 2022-09-24 23:03 | ED ---
Fall HPI - General Chief Complaint: Fall Stated Complaint: Fall Time Seen by Provider: 09/24/22 22:26 Source: EMS, RN notes reviewed, old records reviewed Mode of arrival: EMS Limitations: no limitations - History of Present Illness Initial Comments: This is a 67-year-old male to the emergency department for evaluation she presents today after fall history obtained by EMS and patient's prior charting. Patient has no trying to deliver this time patient is confused at baseline. 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 Fall Witnessed: yes, by living facility staff Place Fall Occurred: prison[facility] Loss of Consciousness: none Prolonged Down Time?: no Symptoms Prior to Fall: none Location: head Severity: mild Severity scale (1-10): 4 Context: tripped/slipped Associated Symptoms: denies - Related Data Home Medications Medication Instructions Recorded Confirmed Albuterol Inhaler [Ventolin Hfa 2 puff INHALATION RT-Q6H PRN 06/07/20 12/02/21 Inhaler] Cholecalciferol (Vitamin D3) 125 mcg PO DAILY@79906/07/20 12/02/21 [Vitamin D3 (5000 Iu)] Fenofibrate Nanocrystallized 145 mg PO DAILY@79906/07/20 12/02/21 [Fenofibrate] Latanoprost/Pf [Latanoprost 0.005% 1 drop BOTH EYES HS@209906/07/20 12/02/21 Eye Drop] Feboetmh-Vvdmjwkslm-Ozwh Oint 1 applic TOPICAL DIRECTED PRN 06/07/20 12/02/21 [Triple Antibiotic Ointment] Omeprazole [PriLOSEC] 20 mg PO DAILY@79906/07/20 12/02/21 Psyllium Husk (with Sugar) 1 dose PO DIRECTED PRN 06/07/20 12/02/21 [Metamucil Powder] Certavite 1 tab PO HS@209904/12/21 12/02/21 Cyanocobalamin [Vitamin B-12] 500 mcg PO DAILY@79904/12/21 12/02/21 Dicyclomine [Bentyl] 20 mg PO Q8H PRN 04/12/21 12/02/21 Folic Acid 1 mg PO DAILY@0800 04/12/21 12/02/21 Linaclotide [Linzess] 145 mcg PO DAILY@0700 04/12/21 12/02/21 Magnesium Hydroxide [Milk of 2,400 mg PO DAILY PRN 04/12/21 12/02/21 Magnesia] Stomach Relief 1 dose PO DIRECTED PRN 04/12/21 12/02/21 Apixaban [Eliquis] 5 mg PO BID@0800,209907/12/21 12/02/21 Celecoxib [CeleBREX] 200 mg PO BID PRN 07/12/21 12/02/21 Docusate [Colace] 100 mg PO DAILY PRN 07/12/21 12/02/21 Ibuprofen [Motrin Ib] 200 mg PO DIRECTED PRN 07/12/21 12/02/21 Ibuprofen [Motrin] 400 mg PO TID PRN 07/12/21 12/02/21 Shen-Tin Liq 1 dose PO DIRECTED PRN 07/12/21 12/02/21 Clotrimazole/Betamethasone Dip 1 applic TOPICAL BID@0800,209911/03/21 12/02/21 [Lotrisone Cream] Docusate [Colace] 100 mg PO BID@0800,209911/03/21 12/02/21 Furosemide [Lasix] 40 mg PO Q48H 11/03/21 12/02/21 Lactose-Reduced Food [Boost] 1 can PO DAILY 11/03/21 12/02/21 Vit C/E/Zn/Coppr/Lutein/Zeaxan 1 cap PO BID@0800,209911/03/21 12/02/21 [Preservision Areds 2 Softgel] Ascorbic Acid [Vitamin C] 1,000 mg PO DAILY@0812/02/21 12/02/21 Zinc Sulfate [Orazinc] 220 mg PO DAILY@0812/02/21 12/02/21 Previous Rx's Medication Instructions Recorded Metoprolol Tartrate [Lopressor] 50 mg PO BID@0800,2100 30 Days tab 07/24/21 Simvastatin [Zocor] 10 mg PO HS@2099 30 Days tab 07/24/21 Levothyroxine Sodium [Synthroid] 75 mcg PO DAILY@0700 30 Days tab 12/06/21 Melatonin 10 mg PO HS@2100 30 Days tablet 12/06/21 OLANZapine [ZyPREXA] 5 mg PO HS 30 Days tab 12/06/21 fluPHENAZine decanoate [Prolixin 50 mg IM Q7D #1 ml 12/06/21 Decanoate] lamoTRIgine [LaMICtal] 100 mg PO HS 30 Days tab 12/06/21 Allergies Allergy/AdvReac Type Severity Reaction Status Date / Time acetaminophen [From Tylenol] Allergy Unknown Verified 12/02/21 19:39 gabapentin [From Neurontin] Allergy Unknown Verified 12/02/21 19:39 Penicillins Allergy Unknown Verified 12/02/21 19:39 clozapine [From Clozaril] AdvReac Unknown Verified 12/02/21 19:39 divalproex sodium AdvReac Unknown Verified 12/02/21 19:39 [From Depakote] Review of Systems ROS Statement: Those systems with pertinent positive or pertinent negative responses have been documented in the HPI. ROS Other: All systems not noted in ROS Statement are negative. Past Medical History Past Medical History: Asthma, Hyperlipidemia, Hypertension Additional Past Medical History / Comment(s): schizophrenia. constipation History of Any Multi-Drug Resistant Organisms: None Reported Past Surgical History: No Surgical Hx Reported Past Anesthesia/Blood Transfusion Reactions: No Reported Reaction Past Psychological History: Schizophrenia Smoking Status: Current every day smoker Past Alcohol Use History: None Reported Past Drug Use History: None Reported - Past Family History Father History Unknown: Yes Mother History Unknown: Yes General Exam Limitations: altered mental status General appearance: alert, in no apparent distress Head exam: Present: atraumatic, normocephalic, normal inspection Eye exam: Present: normal appearance, PERRL, EOMI. Absent: scleral icterus, conjunctival injection, periorbital swelling ENT exam: Present: normal exam, mucous membranes moist Neck exam: Present: normal inspection. Absent: tenderness, meningismus, lymphadenopathy Respiratory exam: Present: normal lung sounds bilaterally. Absent: respiratory distress, wheezes, rales, rhonchi, stridor Cardiovascular Exam: Present: regular rate, normal rhythm, normal heart sounds. Absent: systolic murmur, diastolic murmur, rubs, gallop, clicks GI/Abdominal exam: Present: soft, normal bowel sounds. Absent: distended, tenderness, guarding, rebound, rigid Extremities exam: Present: normal inspection, full ROM, normal capillary refill. Absent: tenderness, pedal edema, joint swelling, calf tenderness Back exam: Present: normal inspection Neurological exam: Present: alert, oriented X3, CN II-XII intact Psychiatric exam: Present: normal affect, normal mood Skin exam: Present: warm, dry, intact, normal color. Absent: rash Course Vital Signs 09/24/22 09/25/22 22:24 00:01 Temperature 98.1 F 98.1 F Pulse Rate 92 88 Respiratory 18 18 Rate Blood Pressure 156/89 148/90 O2 Sat by Pulse 98 98 Oximetry - Reevaluation(s) Reevaluation #1: 09/24/22 Medical record is reviewed Patient informed of results and questions have been answered Patient is no significant acute complaints Medical Decision Making - Medical Decision Making 67 male DF status post fall trip and fall no acute injuries noted. Patient is imaging done here in the ER which is negative and be discharged home - Radiology Data Radiology results: report reviewed (CT brain C-spine chest and pelvis x-ray are negative for traumatic injury), image reviewed Disposition Clinical Impression: Fall Disposition: HOME SELF-CARE Condition: Fair Instructions (If sedation given, give patient instructions): Fall Prevention for Older Adults (ED) Is patient prescribed a controlled substance at d/c from ED?: No Referrals: Conrad Matson MD [Primary Care Provider] - 1-2 days Time of Disposition: 23:50
--- NOTE | 2022-09-24 23:24 | XR ---
EXAMINATION TYPE: XR pelvis AP view DATE OF EXAM: 09/24/2022 COMPARISON: NONE HISTORY: Fall. Pain TECHNIQUE: Single view FINDINGS: Pelvic ring is intact. The proximal femurs and hip joints are intact. Sacroiliac joints are intact. IMPRESSION: Negative pelvis x-ray exam. No fracture.
--- NOTE | 2022-09-24 23:28 | XR ---
EXAMINATION TYPE: XR chest 1V portable DATE OF EXAM: 09/24/2022 COMPARISON: 11/03/2021 HISTORY: Fall. Pain TECHNIQUE: Single view of FINDINGS: There is some linear density in the lower lung bourgeois consistent with subsegmental atelecta sis. There is mild elevation of the right diaphragm. Heart size is normal. No heart failure. Bony tho rax is intact. IMPRESSION: There is some atelectasis at the lung bases which is mostly new compared to old exam. Nor mal heart.
--- NOTE | 2022-09-24 23:32 | CT ---
EXAMINATION TYPE: CT brain paula wo con DATE OF EXAM: 09/24/2022 COMPARISON: None HISTORY: Fall Pain CT DLP: 1475 mGycm Automated exposure control for dose reduction was used. Images obtained of the brain and cervical spine with no contrast. There is cerebral cortical atrophy. There is no mass effect or midline shift. No sign of intracranial hemorrhage. The calvarium is intact. Skull base is intact. There is normal aeration of the mastoid s inuses. The cervical vertebra have normal alignment. There is anterior spurring in the mid and lower cervical spine. No significant disc space narrowing. No compression fracture. Facet joints are intact. IMPRESSION: Hypertrophic mild degenerative disc changes in the cervical spine. No fracture seen. Cerebral atrophy. No acute intracranial abnormality.
[2022-09-25 00:03] VITALS: BP 148/90; PULSE 88
== END 2022-09-25 00:08 | disposition home or self-care (01) ==
LOC: EC 22:22
DX: S09.90XA Unspecified injury of head, initial encounter (principal); J45.909 Unspecified asthma, uncomplicated; E78.5 Hyperlipidemia, unspecified; I10 Essential (primary) hypertension; F17.200 Nicotine dependence, unspecified, uncomplicated; Z79.51 Long term (current) use of inhaled steroids; Z79.84 Long term (current) use of oral hypoglycemic drugs; Z88.6 Allergy status to analgesic agent; Z88.9 Allergy status to unspecified drugs, medicaments and biological substances; Z88.0 Allergy status to penicillin; Z88.8 Allergy status to other drugs, medicaments and biological substances; Z79.899 Other long term (current) drug therapy; W01.0XXA Fall on same level from slipping, tripping and stumbling without subsequent striking against object, initial encounter; Y92.129 Unspecified place in nursing home as the place of occurrence of the external cause
CPT/HCPCS: 70450; 71045; 72125; 72170; 99285

== ENCOUNTER 2022-10-19 03:00 | Emergency (ER) | payer MEDICARE, OTHER ==
[2022-10-19 03:24] VITALS: RESP 15; TEMP 98.2
[2022-10-19] MEDS ORDERED: IPRATROPIUM-ALBUTEROL 3 ML NEB INHALATION STA (03:40)
[2022-10-19 04:49] LABS: Basophils % (A) 0 %; Eosinophils # (A) 0.1 k/uL (0-0.7); Eosinophils % (A) 1 %; HCT 38.6 % (39.0-53.0); HGB 13.4 gm/dL (13.0-17.5); Lymphocytes # (A) 1.6 k/uL (1.0-4.8); Lymphocytes % (A) 31 %; MCH 31.2 pg (25.0-35.0); MCHC 34.7 g/dL (31.0-37.0); MCV 89.9 fL (80.0-100.0); Mean Platelet Volume 10.1; Monocytes # (A) 0.4 k/uL (0-1.0); Monocytes % (A) 8 %; Neutrophils # (A) 2.9 k/uL (1.3-7.7); Neutrophils % (A) 56 %; Platelet Count 154 k/uL (150-450); RDW 12.9 % (11.5-15.5); WBC 5.1 k/uL (3.8-10.6)
[2022-10-19] MEDS ORDERED: LORazepam 2 MG/ML INJ IV STA (04:49)
[2022-10-19 05:00] LABS: Albumin 4.2 g/dL (3.5-5.0); Calcium 10.2 mg/dL (8.4-10.2); Potassium 3.9 mmol/L (3.5-5.1); Total Bilirubin 0.7 mg/dL (0.2-1.3); Total Protein 6.6 g/dL (6.3-8.2)
--- NOTE | 2022-10-19 05:01 | XR ---
EXAMINATION TYPE: XR chest 2V DATE OF EXAM: 10/19/2022 COMPARISON: 09/24/2022 HISTORY: Short of breath TECHNIQUE: Single view FINDINGS: There is no heart failure nor confluent pneumonic infiltrate. Costophrenic angles are clear . There are no hilar masses. Bony thorax is intact. IMPRESSION: No active cardiopulmonary disease. No change.
[2022-10-19 05:06] LABS: INR 1.1 (<1.2); Prothrombin Time 11.1 sec (9.0-12.0)
--- NOTE | 2022-10-19 05:44 | ED ---
SOB HPI - General Chief Complaint: Shortness of Breath Stated Complaint: took wrong medication Time Seen by Provider: 10/19/22 03:30 Source: EMS Mode of arrival: EMS Limitations: no limitations - History of Present Illness Initial Comments: 67-year-old male presents with a history of schizophrenia, COPD, hypertension, hyperlipidemia presents to the emergency room from an [facility] home. He has only been residing in the facility for a couple of days. He woke up in the middle night was complaining that he couldn't breathe. He does have a history of COPD and has an inhaler. Group facility could not provide much history on the patient because of his recent transfer to their facility. Patient arrives and repetitively states "I can't breathe". He is speaking in full sentences with normal vital signs and no signs of increased work of breathing. - Related Data Home Medications Medication Instructions Recorded Confirmed Cholecalciferol (Vitamin D3) 125 mcg PO DAILY@0800 06/07/20 10/30/22 [Vitamin D3 (5000 Iu)] Fenofibrate Nanocrystallized 145 mg PO DAILY@0800 06/07/20 10/30/22 [Fenofibrate] Latanoprost/Pf [Latanoprost 0.005% 1 drop BOTH EYES HS@209906/07/20 10/30/22 Eye Drop] Omeprazole [PriLOSEC] 20 mg PO DAILY@0800 06/07/20 10/30/22 Certavite 1 tab PO HS@209904/12/21 10/30/22 Cyanocobalamin [Vitamin B-12] 500 mcg PO DAILY@0800 04/12/21 10/30/22 Dicyclomine [Bentyl] 20 mg PO Q8H PRN 04/12/21 10/30/22 Apixaban [Eliquis] 5 mg PO BID@0800,209907/12/21 10/30/22 Furosemide [Lasix] 40 mg PO Q48H 11/03/21 10/30/22 Lactose-Reduced Food [Boost] 1 can PO DAILY@0800 11/03/21 10/30/22 Vit C/E/Zn/Coppr/Lutein/Zeaxan 1 cap PO BID@0800,2100 11/03/21 10/30/22 [Preservision Areds 2 Softgel] LORazepam [Ativan] 1 mg PO BID@1700,209910/30/22 10/30/22 Lactose-Reduced Food [Boost] 1 can PO DAILY PRN 10/30/22 10/30/22 Levofloxacin [Levaquin] 500 mg PO DAILY@1700 10/30/22 10/30/22 Megestrol Acetate 40 mg PO DAILY@0800 10/30/22 10/30/22 Melatonin 10 mg PO HS@209910/30/22 10/30/22 Metoprolol Tartrate [Lopressor] 25 mg PO BID@0800,209910/30/22 10/30/22 Mupirocin 2% Oint [Bactroban 2% 1 applic TOPICAL BID@0800,209910/30/22 10/30/22 Oint] OLANZapine [ZyPREXA] 10 mg PO HS@209910/30/22 10/30/22 OLANZapine [ZyPREXA] 20 mg PO HS@2100 10/30/22 10/30/22 Potassium Chloride ER [K-Dur 20] 20 meq PO DAILY@0800 10/30/22 10/30/22 Simvastatin [Zocor] 20 mg PO HS@2100 10/30/22 10/30/22 lamoTRIgine [LaMICtal] 200 mg PO HS@209910/30/22 10/30/22 Previous Rx's Medication Instructions Recorded fluPHENAZine decanoate [Prolixin 50 mg IM Q7D #1 ml 12/06/21 Decanoate] Allergies Allergy/AdvReac Type Severity Reaction Status Date / Time acetaminophen [From Tylenol] Allergy Unknown Verified 10/19/22 03:21 gabapentin [From Neurontin] Allergy Unknown Verified 10/19/22 03:21 Penicillins Allergy Unknown Verified 10/19/22 03:21 clozapine [From Clozaril] AdvReac Unknown Verified 10/19/22 03:21 divalproex sodium AdvReac Unknown Verified 10/19/22 03:21 [From Depakote] Review of Systems ROS Statement: Those systems with pertinent positive or pertinent negative responses have been documented in the HPI. ROS Other: All systems not noted in ROS Statement are negative. Past Medical History Past Medical History: Asthma, Hyperlipidemia, Hypertension Additional Past Medical History / Comment(s): schizophrenia. constipation History of Any Multi-Drug Resistant Organisms: None Reported Past Surgical History: No Surgical Hx Reported Past Anesthesia/Blood Transfusion Reactions: No Reported Reaction Past Psychological History: Schizophrenia Smoking Status: Current every day smoker Past Alcohol Use History: None Reported Past Drug Use History: None Reported - Past Family History Father History Unknown: Yes Mother History Unknown: Yes General Exam Limitations: altered mental status General appearance: alert, in no apparent distress, anxious Eye exam: Present: normal appearance, PERRL, EOMI. Absent: scleral icterus, conjunctival injection, periorbital swelling ENT exam: Present: normal exam, mucous membranes moist Respiratory exam: Present: normal lung sounds bilaterally. Absent: respiratory distress, wheezes, rales, rhonchi, stridor Cardiovascular Exam: Present: regular rate, normal rhythm, normal heart sounds. Absent: systolic murmur, diastolic murmur, rubs, gallop, clicks Neurological exam: Present: alert Psychiatric exam: Present: anxious Skin exam: Present: warm, dry, intact, normal color. Absent: rash Course Vital Signs 10/19/22 10/19/22 10/19/22 03:21 04:25 04:36 Temperature 98.2 F Pulse Rate 88 88 88 Respiratory 15 Rate Blood Pressure 147/64 O2 Sat by Pulse 100 Oximetry 10/19/22 06:29 Temperature Pulse Rate 74 Respiratory 15 Rate Blood Pressure 139/68 O2 Sat by Pulse 100 Oximetry Medical Decision Making - Medical Decision Making Upon arrival patient is placed into room 23. A thorough history and physical exam was performed. IV access was established laboratory says her conducted. Troponin negative. BNP 53. Chest x-ray demonstrates no acute process. Patient is observed for several hours. He has no work of breathing. Patient stable for discharge back to his facility at this time. Instructed to see his doctor in 2- 4 days or return for any new or worsening symptoms - Lab Data Result diagrams: 10/19/22 04:40 10/19/22 04:40 Lab Results 10/19/22 10/19/22 10/19/22 Range/Units 04:40 04:40 04:40 WBC 5.1 (3.8-10.6) k/uL RBC 4.30 (4.30-5.90) m/uL Hgb 13.4 (13.0-17.5) gm/dL Hct 38.6 L (39.0-53.0) % MCV 89.9 (80.0-100.0) fL MCH 31.2 (25.0-35.0) pg MCHC 34.7 (31.0-37.0) g/dL RDW 12.9 (11.5-15.5) % Plt Count 154 (150-450) k/uL MPV 10.1 Neutrophils % 56 % Lymphocytes % 31 % Monocytes % 8 % Eosinophils % 1 % Basophils % 0 % Neutrophils # 2.9 (1.3-7.7) k/uL Lymphocytes # 1.6 (1.0-4.8) k/uL Monocytes # 0.4 (0-1.0) k/uL Eosinophils # 0.1 (0-0.7) k/uL Basophils # 0.0 (0-0.2) k/uL PT 11.1 (9.0-12.0) sec INR 1.1 (<1.2) APTT 17.0 L (22.0-30.0) sec Sodium 139 (137-145) mmol/L Potassium 3.9 (3.5-5.1) mmol/L Chloride 109 H (98-107) mmol/L Carbon Dioxide 21 L (22-30) mmol/L Anion Gap 9 mmol/L BUN 20 (9-20) mg/dL Creatinine 1.11 (0.66-1.25) mg/dL Est GFR (CKD-EPI)AfAm 78 (>60 ml/min/1.73 sqM) Est GFR (CKD-EPI)NonAf 68 (>60 ml/min/1.73 sqM) Glucose 106 H (74-99) mg/dL Calcium 10.2 (8.4-10.2) mg/dL Total Bilirubin 0.7 (0.2-1.3) mg/dL AST 33 (17-59) U/L ALT 24 (4-49) U/L Alkaline Phosphatase 43 (38-126) U/L Troponin I (0.000-0.034) ng/mL NT-Pro-B Natriuret Pep pg/mL Total Protein 6.6 (6.3-8.2) g/dL Albumin 4.2 (3.5-5.0) g/dL 10/19/22 10/19/22 Range/Units 04:40 04:40 WBC (3.8-10.6) k/uL RBC (4.30-5.90) m/uL Hgb (13.0-17.5) gm/dL Hct (39.0-53.0) % MCV (80.0-100.0) fL MCH (25.0-35.0) pg MCHC (31.0-37.0) g/dL RDW (11.5-15.5) % Plt Count (150-450) k/uL MPV Neutrophils % % Lymphocytes % % Monocytes % % Eosinophils % % Basophils % % Neutrophils # (1.3-7.7) k/uL Lymphocytes # (1.0-4.8) k/uL Monocytes # (0-1.0) k/uL Eosinophils # (0-0.7) k/uL Basophils # (0-0.2) k/uL PT (9.0-12.0) sec INR (<1.2) APTT (22.0-30.0) sec Sodium (137-145) mmol/L Potassium (3.5-5.1) mmol/L Chloride (98-107) mmol/L Carbon Dioxide (22-30) mmol/L Anion Gap mmol/L BUN (9-20) mg/dL Creatinine (0.66-1.25) mg/dL Est GFR (CKD-EPI)AfAm (>60 ml/min/1.73 sqM) Est GFR (CKD-EPI)NonAf (>60 ml/min/1.73 sqM) Glucose (74-99) mg/dL Calcium (8.4-10.2) mg/dL Total Bilirubin (0.2-1.3) mg/dL AST (17-59) U/L ALT (4-49) U/L Alkaline Phosphatase (38-126) U/L Troponin I <0.012 (0.000-0.034) ng/mL NT-Pro-B Natriuret Pep 53 pg/mL Total Protein (6.3-8.2) g/dL Albumin (3.5-5.0) g/dL Disposition Clinical Impression: Major neurocognitive disorder, Acute respiratory insufficiency Disposition: HOME SELF-CARE Condition: Stable Instructions (If sedation given, give patient instructions): Normal Exam (ED) Additional Instructions: Your workup was completely negative Is patient prescribed a controlled substance at d/c from ED?: No Referrals: Conrad Matson MD [Primary Care Provider] - 1-2 days Time of Disposition: 05:44
[2022-10-19 06:30] VITALS: BP 139/68; PULSE 74
== END 2022-10-19 06:30 | disposition home or self-care (01) ==
LOC: EC 03:00
DX: F03.90 Unspecified dementia, unspecified severity, without behavioral disturbance, psychotic disturbance, mood disturbance, and anxiety (principal); R06.89 Other abnormalities of breathing; I10 Essential (primary) hypertension; J44.9 Chronic obstructive pulmonary disease, unspecified; E78.5 Hyperlipidemia, unspecified; F17.200 Nicotine dependence, unspecified, uncomplicated; Z88.0 Allergy status to penicillin; Z88.6 Allergy status to analgesic agent; Z88.8 Allergy status to other drugs, medicaments and biological substances; Z79.01 Long term (current) use of anticoagulants; Z79.899 Other long term (current) drug therapy
CPT/HCPCS: 36415; 94640; 83880; 80053; 84484; 85025; 85610; 85730; 71046; 99285; 96374; J2060

== ENCOUNTER 2022-10-30 14:19 | Observation (INO) | payer MEDICARE, OTHER ==
--- NOTE | 2022-10-30 14:42 | ED ---
General Adult HPI - General Chief complaint: Arrhythmia/Palpitations Stated complaint: Tachycardic Time Seen by Provider: 10/30/22 14:28 Source: patient, EMS, RN notes reviewed Mode of arrival: EMS Limitations: no limitations - History of Present Illness Initial comments: Patient is a pleasant 67-year-old male presenting to the emergency department from [facility] secondary to concerns for tachycardia. Patient has reported history of atrial fibrillation and heart rate was 160. EMS had heart rate of 110. Patient states he is having some difficulty with breathing. Patient is overall a poor historian. Patient is on Dilacor secondary to history of atrial fibrillation - Related Data Home Medications Medication Instructions Recorded Confirmed Cholecalciferol (Vitamin D3) 125 mcg PO DAILY@0800 06/07/20 10/30/22 [Vitamin D3 (5000 Iu)] Fenofibrate Nanocrystallized 145 mg PO DAILY@0800 06/07/20 10/30/22 [Fenofibrate] Latanoprost/Pf [Latanoprost 0.005% 1 drop BOTH EYES HS@209906/07/20 10/30/22 Eye Drop] Omeprazole [PriLOSEC] 20 mg PO DAILY@0800 06/07/20 10/30/22 Certavite 1 tab PO HS@209904/12/21 10/30/22 Cyanocobalamin [Vitamin B-12] 500 mcg PO DAILY@0800 04/12/21 10/30/22 Dicyclomine [Bentyl] 20 mg PO Q8H PRN 04/12/21 10/30/22 Apixaban [Eliquis] 5 mg PO BID@0800,209907/12/21 10/30/22 Furosemide [Lasix] 40 mg PO Q48H 11/03/21 10/30/22 Lactose-Reduced Food [Boost] 1 can PO DAILY@0800 11/03/21 10/30/22 Vit C/E/Zn/Coppr/Lutein/Zeaxan 1 cap PO BID@0800,209911/03/21 10/30/22 [Preservision Areds 2 Softgel] LORazepam [Ativan] 1 mg PO BID@1700,209910/30/22 10/30/22 Lactose-Reduced Food [Boost] 1 can PO DAILY PRN 10/30/22 10/30/22 Levofloxacin [Levaquin] 500 mg PO DAILY@1700 10/30/22 10/30/22 Megestrol Acetate 40 mg PO DAILY@0800 10/30/22 10/30/22 Melatonin 10 mg PO HS@2100 10/30/22 10/30/22 Metoprolol Tartrate [Lopressor] 25 mg PO BID@0800,2100 10/30/22 10/30/22 Mupirocin 2% Oint [Bactroban 2% 1 applic TOPICAL BID@0800,209910/30/22 10/30/22 Oint] OLANZapine [ZyPREXA] 10 mg PO HS@2100 10/30/22 10/30/22 OLANZapine [ZyPREXA] 20 mg PO HS@2100 10/30/22 10/30/22 Potassium Chloride ER [K-Dur 20] 20 meq PO DAILY@0800 10/30/22 10/30/22 Simvastatin [Zocor] 20 mg PO HS@2100 10/30/22 10/30/22 lamoTRIgine [LaMICtal] 200 mg PO HS@209910/30/22 10/30/22 Previous Rx's Medication Instructions Recorded fluPHENAZine decanoate [Prolixin 50 mg IM Q7D #1 ml 12/06/21 Decanoate] Allergies Allergy/AdvReac Type Severity Reaction Status Date / Time acetaminophen [From Tylenol] Allergy Unknown Verified 10/19/22 03:21 gabapentin [From Neurontin] Allergy Unknown Verified 10/19/22 03:21 Penicillins Allergy Unknown Verified 10/19/22 03:21 clozapine [From Clozaril] AdvReac Unknown Verified 10/19/22 03:21 divalproex sodium AdvReac Unknown Verified 10/19/22 03:21 [From Depakote] Review of Systems ROS Statement: Those systems with pertinent positive or pertinent negative responses have been documented in the HPI. ROS Other: All systems not noted in ROS Statement are negative. Constitutional: Denies: fever Eyes: Denies: eye pain ENT: Denies: ear pain Respiratory: Reports: dyspnea. Denies: cough Cardiovascular: Denies: chest pain Endocrine: Denies: fatigue Gastrointestinal: Denies: abdominal pain Genitourinary: Denies: dysuria Musculoskeletal: Denies: back pain Skin: Denies: rash Neurological: Denies: weakness Past Medical History Past Medical History: Asthma, Hyperlipidemia, Hypertension Additional Past Medical History / Comment(s): schizophrenia. constipation History of Any Multi-Drug Resistant Organisms: None Reported Past Surgical History: No Surgical Hx Reported Past Anesthesia/Blood Transfusion Reactions: No Reported Reaction Past Psychological History: Schizophrenia Smoking Status: Current every day smoker Past Alcohol Use History: None Reported Past Drug Use History: None Reported - Past Family History Father History Unknown: Yes Mother History Unknown: Yes General Exam Limitations: no limitations General appearance: alert, in no apparent distress Head exam: Present: normocephalic Eye exam: Present: normal appearance Neck exam: Present: normal inspection Respiratory exam: Present: normal lung sounds bilaterally Cardiovascular Exam: Present: regular rate, normal rhythm, systolic murmur GI/Abdominal exam: Present: soft. Absent: tenderness Extremities exam: Present: normal inspection. Absent: pedal edema, calf tenderness Neurological exam: Present: alert Psychiatric exam: Present: flat affect Skin exam: Present: normal color Course Vital Signs 10/30/22 10/30/22 14:27 14:32 Temperature 97.4 F L Pulse Rate 103 H 101 H Respiratory 16 16 Rate Blood Pressure 119/74 O2 Sat by Pulse 99 97 Oximetry EKG Findings - EKG Results: EKG: interpreted by ERMD (Left axis. Right bundle branch block. No acute ST change.), sinus rhythm Medical Decision Making - Medical Decision Making Patient reevaluated and states he is feeling better. No completed dyspnea at this time. Case was discussed with Dr. Patterson, who will admit For Dr. Gordon, who admits for Dr. Canales. Patient has borderline troponin and this will need to be rechecked. - Lab Data Result diagrams: 10/30/22 15:29 10/30/22 15:29 Lab Results 10/30/22 10/30/22 10/30/22 Range/Units 15:29 15:29 15:29 WBC 6.4 (3.8-10.6) k/uL RBC 4.42 (4.30-5.90) m/uL Hgb 13.5 (13.0-17.5) gm/dL Hct 40.5 (39.0-53.0) % MCV 91.7 (80.0-100.0) fL MCH 30.5 (25.0-35.0) pg MCHC 33.2 (31.0-37.0) g/dL RDW 12.9 (11.5-15.5) % Plt Count 169 (150-450) k/uL MPV 9.0 Neutrophils % 76 % Lymphocytes % 15 % Monocytes % 6 % Eosinophils % 1 % Basophils % 0 % Neutrophils # 4.9 (1.3-7.7) k/uL Lymphocytes # 0.9 L (1.0-4.8) k/uL Monocytes # 0.4 (0-1.0) k/uL Eosinophils # 0.0 (0-0.7) k/uL Basophils # 0.0 (0-0.2) k/uL PT 12.4 H (9.0-12.0) sec INR 1.2 H (<1.2) APTT 25.5 (22.0-30.0) sec Sodium 141 (137-145) mmol/L Potassium 4.2 (3.5-5.1) mmol/L Chloride 109 H (98-107) mmol/L Carbon Dioxide 22 (22-30) mmol/L Anion Gap 10 mmol/L BUN 23 H (9-20) mg/dL Creatinine 1.50 H (0.66-1.25) mg/dL Est GFR (CKD-EPI)AfAm 54 (>60 ml/min/1.73 sqM) Est GFR (CKD-EPI)NonAf 47 (>60 ml/min/1.73 sqM) Glucose 92 (74-99) mg/dL Calcium 10.3 H (8.4-10.2) mg/dL Magnesium 2.2 (1.6-2.3) mg/dL Total Bilirubin 0.6 (0.2-1.3) mg/dL AST 388 H (17-59) U/L ALT 118 H (4-49) U/L Alkaline Phosphatase 53 (38-126) U/L Troponin I (0.000-0.034) ng/mL NT-Pro-B Natriuret Pep pg/mL Total Protein 6.6 (6.3-8.2) g/dL Albumin 4.1 (3.5-5.0) g/dL TSH 0.609 (0.465-4.680) mIU/L Free T4 1.58 (0.78-2.19) ng/dL Free T3 pg/mL 3.0 (2.8-5.3) pg/ml Influenza Type A (PCR) (Not Detectd) Influenza Type B (PCR) (Not Detectd) RSV (PCR) (Not Detectd) SARS-CoV-2 (PCR) (Not Detectd) 10/30/22 10/30/22 10/30/22 Range/Units 15:29 15:29 15:29 WBC (3.8-10.6) k/uL RBC (4.30-5.90) m/uL Hgb (13.0-17.5) gm/dL Hct (39.0-53.0) % MCV (80.0-100.0) fL MCH (25.0-35.0) pg MCHC (31.0-37.0) g/dL RDW (11.5-15.5) % Plt Count (150-450) k/uL MPV Neutrophils % % Lymphocytes % % Monocytes % % Eosinophils % % Basophils % % Neutrophils # (1.3-7.7) k/uL Lymphocytes # (1.0-4.8) k/uL Monocytes # (0-1.0) k/uL Eosinophils # (0-0.7) k/uL Basophils # (0-0.2) k/uL PT (9.0-12.0) sec INR (<1.2) APTT (22.0-30.0) sec Sodium (137-145) mmol/L Potassium (3.5-5.1) mmol/L Chloride (98-107) mmol/L Carbon Dioxide (22-30) mmol/L Anion Gap mmol/L BUN (9-20) mg/dL Creatinine (0.66-1.25) mg/dL Est GFR (CKD-EPI)AfAm (>60 ml/min/1.73 sqM) Est GFR (CKD-EPI)NonAf (>60 ml/min/1.73 sqM) Glucose (74-99) mg/dL Calcium (8.4-10.2) mg/dL Magnesium (1.6-2.3) mg/dL Total Bilirubin (0.2-1.3) mg/dL AST (17-59) U/L ALT (4-49) U/L Alkaline Phosphatase (38-126) U/L Troponin I 0.050 H* (0.000-0.034) ng/mL NT-Pro-B Natriuret Pep 416 pg/mL Total Protein (6.3-8.2) g/dL Albumin (3.5-5.0) g/dL TSH (0.465-4.680) mIU/L Free T4 (0.78-2.19) ng/dL Free T3 pg/mL (2.8-5.3) pg/ml Influenza Type A (PCR) Not Detected (Not Detectd) Influenza Type B (PCR) Not Detected (Not Detectd) RSV (PCR) Not Detected (Not Detectd) SARS-CoV-2 (PCR) Not Detected (Not Detectd) - Radiology Data Interpreted by me: Chest x-ray reveals no acute process. Disposition Clinical Impression: Dyspnea Disposition: ADMITTED IP TO THIS HOSP Is patient prescribed a controlled substance at d/c from ED?: No Referrals: Conrad Matson MD [Primary Care Provider] - 1-2 days Time of Disposition: 17:17
[2022-10-30 15:39] LABS: Basophils % (A) 0 %; Eosinophils % (A) 1 %; HCT 40.5 % (39.0-53.0); HGB 13.5 gm/dL (13.0-17.5); Lymphocytes # (A) 0.9 k/uL (1.0-4.8); Lymphocytes % (A) 15 %; MCH 30.5 pg (25.0-35.0); MCHC 33.2 g/dL (31.0-37.0); MCV 91.7 fL (80.0-100.0); Monocytes # (A) 0.4 k/uL (0-1.0); Monocytes % (A) 6 %; Neutrophils # (A) 4.9 k/uL (1.3-7.7); Neutrophils % (A) 76 %; Platelet Count 169 k/uL (150-450); RBC 4.42 m/uL (4.30-5.90); RDW 12.9 % (11.5-15.5); WBC 6.4 k/uL (3.8-10.6)
[2022-10-30 15:52] LABS: Albumin 4.1 g/dL (3.5-5.0); Calcium 10.3 mg/dL (8.4-10.2); Magnesium 2.2 mg/dL (1.6-2.3); Potassium 4.2 mmol/L (3.5-5.1); Total Bilirubin 0.6 mg/dL (0.2-1.3); Total Protein 6.6 g/dL (6.3-8.2)
[2022-10-30 16:09] LABS: T4, Free (Free Thyroxine) 1.58 ng/dL (0.78-2.19)
--- NOTE | 2022-10-30 16:19 | XR ---
EXAMINATION TYPE: XR chest 2V DATE OF EXAM: 10/30/2022 COMPARISON: 10/19/2022 HISTORY: Shortness of breath TECHNIQUE: Frontal and lateral views of the chest are obtained. FINDINGS: Scattered senescent parenchymal changes noted. Hyperinflation compatible with COPD. No evidence for infiltrate. No evidence for atelectasis. Heart size is stable. Mediastinal structures are stable and grossly unremarkable. No evidence for hilar prominence. Degenerative changes dorsal spine. IMPRESSION: 1. No evidence for acute pulmonary disease.
[2022-10-30 16:49] LABS: INR 1.2 (<1.2); Partial Thromboplastin Time 25.5 sec (22.0-30.0); Prothrombin Time 12.4 sec (9.0-12.0)
[2022-10-30] MEDS ORDERED: NALOXONE 0.4 MG/ML 1 ML VIAL IV PRN (17:17)
[2022-10-30] MEDS: SODIUM CHLORIDE 0.9% 1,000 ML IV SCH (17:26)
--- NOTE | 2022-10-30 18:53 | P.HPIM ---
History of Present Illness H&P Date: 10/30/22 Patient is a 67-year-old male who resides in a care home with a past medical history of mental delays with neurocognitive disorder, schizoaffective disorder, hypertension, hyperlipidemia, paroxysmal atrial fibrillation on anticoagulation with Eliquis, IBS with chronic constipation, GERD presents to the ED from [facility] for concerns of tachycardia with HR in the 150-160s. EMS had HR of 110. Patient is a very poor historian and states he wants to go home. Patient is unwilling to answer any further questions. In the ED, his heart rate was in the low 100s. Vital signs were otherwise stable. CBC was unremarkable. INR was 1.2. CMP shows chloride of 109, BUN 23, Cr of 1.50, Ca 10.3, AST of 388, ALT 118. Troponin was 0.50, EKG showing sinus tachycardia with heart rate of 100. BNP was 416. TSH and FT4 was within normal limits. Influenza, RSV and COVID 19 negative. Chest x-ray was negative. Patient is admitted for atrial fibrillation with RVR, troponin elevation with cardiology consultation. Unable to obtain review of systems. General: non toxic, no distress, appears at stated age Derm: warm, dry Head: atraumatic, normocephalic, symmetric Eyes: EOMI, no lid lag, anicteric sclera Cardiovascular: Patient refusing Lungs: no accessory muscle use Abdominal: Patient refusing Ext: no gross muscle atrophy, no edema, no contractures Neuro: Patient refusing Psych: Flat affect #Atrial fibrillation with RVR #Troponin elevation #Transaminitis #Acute kidney injury Chronic conditions: Schizoaffective disorder, hypertension, dyslipidemia, GERD Patient presents with atrial fibrillation with RVR with reported heart rate in the 160s. In the ED, he is maintained his heart rate in the low 100s. He'll be restarted on metoprolol. Eliquis will be restarted for anticoagulation. He'll be placed on telemetry monitoring. History troponin elevation is likely related to demand ischemia. Troponin will be trended and ACS will be ruled out. Echocardiogram will be ordered. Cardiology will be consulted for further management of this patient. His transaminitis is of unknown significance. We will obtain liver ultrasound. Patient will be hydrated with normal saline at 75 mL per hour. CMP will be repeated tomorrow morning. Restart Lamictal, Ativan and Zyprexa for history of schizoaffective disorder. Restart metoprolol for history of hypertension, monitor vitals, adjust medication if necessary. Restart Lipitor for history of dyslipidemia. Restart Protonix for history of GERD. Patient is on Eliquis for DVT prophylaxis. Patient will be FULL CODE. Past Medical History Past Medical History: Asthma, Hyperlipidemia, Hypertension Additional Past Medical History / Comment(s): schizophrenia. constipation History of Any Multi-Drug Resistant Organisms: None Reported Past Surgical History: No Surgical Hx Reported Past Anesthesia/Blood Transfusion Reactions: No Reported Reaction Past Psychological History: Schizophrenia Smoking Status: Current every day smoker Past Alcohol Use History: None Reported Past Drug Use History: None Reported - Past Family History Father History Unknown: Yes Mother History Unknown: Yes Medications and Allergies Home Medications Medication Instructions Recorded Confirmed Type Cholecalciferol (Vitamin D3) 125 mcg PO DAILY@0800 06/07/20 10/30/22 History [Vitamin D3 (5000 Iu)] Fenofibrate Nanocrystallized 145 mg PO DAILY@79906/07/20 10/30/22 History [Fenofibrate] Latanoprost/Pf [Latanoprost 0.005% 1 drop BOTH EYES HS@209906/07/20 10/30/22 History Eye Drop] Omeprazole [PriLOSEC] 20 mg PO DAILY@79906/07/20 10/30/22 History Certavite 1 tab PO HS@209904/12/21 10/30/22 History Cyanocobalamin [Vitamin B-12] 500 mcg PO DAILY@0800 04/12/21 10/30/22 History Dicyclomine [Bentyl] 20 mg PO Q8H PRN 04/12/21 10/30/22 History Apixaban [Eliquis] 5 mg PO BID@0800,209907/12/21 10/30/22 History Furosemide [Lasix] 40 mg PO Q48H 11/03/21 10/30/22 History Lactose-Reduced Food [Boost] 1 can PO DAILY@0800 11/03/21 10/30/22 History Vit C/E/Zn/Coppr/Lutein/Zeaxan 1 cap PO BID@0800,209911/03/21 10/30/22 History [Preservision Areds 2 Softgel] fluPHENAZine decanoate [Prolixin 50 mg IM Q7D #1 ml 12/06/21 10/30/22 Rx Decanoate] LORazepam [Ativan] 1 mg PO BID@1700,209910/30/22 10/30/22 History Lactose-Reduced Food [Boost] 1 can PO DAILY PRN 10/30/22 10/30/22 History Levofloxacin [Levaquin] 500 mg PO DAILY@1700 10/30/22 10/30/22 History Megestrol Acetate 40 mg PO DAILY@0800 10/30/22 10/30/22 History Melatonin 10 mg PO HS@2100 10/30/22 10/30/22 History Metoprolol Tartrate [Lopressor] 25 mg PO BID@0800,209910/30/22 10/30/22 History Mupirocin 2% Oint [Bactroban 2% 1 applic TOPICAL BID@0800,2100 10/30/22 10/30/22 History Oint] OLANZapine [ZyPREXA] 10 mg PO HS@209910/30/22 10/30/22 History OLANZapine [ZyPREXA] 20 mg PO HS@2100 10/30/22 10/30/22 History Potassium Chloride ER [K-Dur 20] 20 meq PO DAILY@0800 10/30/22 10/30/22 History Simvastatin [Zocor] 20 mg PO HS@2100 10/30/22 10/30/22 History lamoTRIgine [LaMICtal] 200 mg PO HS@2100 10/30/22 10/30/22 History Allergies Allergy/AdvReac Type Severity Reaction Status Date / Time acetaminophen [From Tylenol] Allergy Unknown Verified 10/19/22 03:21 gabapentin [From Neurontin] Allergy Unknown Verified 10/19/22 03:21 Penicillins Allergy Unknown Verified 10/19/22 03:21 clozapine [From Clozaril] AdvReac Unknown Verified 10/19/22 03:21 divalproex sodium AdvReac Unknown Verified 10/19/22 03:21 [From Depakote] Physical Exam Vitals: Vital Signs Temp Pulse Resp BP Pulse Ox 10/30/22 18:01 87 18 137/71 97 10/30/22 14:32 101 H 16 97 10/30/22 14:27 97.4 F L 103 H 16 119/74 99 Intake and Output 10/30/22 10/30/22 10/30/22 06:59 14:59 22:59 Other: Weight 86.183 kg Results CBC & Chem 7: 10/30/22 15:29 10/30/22 15:29 Labs: Abnormal Lab Results - Last 24 Hours (Table) 10/30/22 10/30/22 10/30/22 Range/Units 15:29 15:29 15:29 Lymphocytes # 0.9 L (1.0-4.8) k/uL PT 12.4 H (9.0-12.0) sec INR 1.2 H (<1.2) Chloride 109 H (98-107) mmol/L BUN 23 H (9-20) mg/dL Creatinine 1.50 H (0.66-1.25) mg/dL Calcium 10.3 H (8.4-10.2) mg/dL AST 388 H (17-59) U/L ALT 118 H (4-49) U/L Troponin I (0.000-0.034) ng/mL 10/30/22 10/30/22 Range/Units 15:29 17:45 Lymphocytes # (1.0-4.8) k/uL PT (9.0-12.0) sec INR (<1.2) Chloride (98-107) mmol/L BUN (9-20) mg/dL Creatinine (0.66-1.25) mg/dL Calcium (8.4-10.2) mg/dL AST (17-59) U/L ALT (4-49) U/L Troponin I 0.050 H* 0.060 H* (0.000-0.034) ng/mL
[2022-10-30] MEDS: LORazepam 1 MG TAB PO SCH (19:31)
[2022-10-30] MEDS ORDERED: LORazepam 2 MG/ML INJ IV PRN (19:55)
--- NOTE | 2022-10-30 20:02 | US ---
EXAMINATION TYPE: US liver DATE OF EXAM: 10/30/2022 COMPARISON: NONE CLINICAL HISTORY: Transaminitis. Transaminitis. TECHNIQUE: Multiple sonographic images of the right upper quadrant are obtained. Pt would not stop yelling "I can't breathe" during exam. Nurse informed me he can breathe and he st ill will not stop yelling. Exam is limited. FINDINGS: EXAM MEASUREMENTS: Liver Length: 12.9 cm Gallbladder Wall: 0.27 cm CBD: Not well vis. Right Kidney: 10.9 x 4.6 x 5.0 cm ENERGY SPECIALIST NOTES: Pancreas: Obscured by bowel gas Liver: Nodular appearance. Left lobe not visualized due to bowel gas Gallbladder: Gallstone near neck of GB Evidence for sonographic Johnson's sign: No CBD: Not well visualized Right Kidney: Right kidney is not well visualized. Appears heterogeneous IMPRESSION: 1. Nodular contour to liver correlate for cirrhosis. 2. Medical renal disease. 3. Cholelithiasis.
[2022-10-30] MEDS ORDERED: OLANZAPINE 20 MG PO SCH (21:00)
[2022-10-30] MEDS ORDERED: OLANZapine 10 MG TAB PO SCH (21:00)
[2022-10-30] MEDS ORDERED: LATANOPROST 0.005% OPHTH DROPS 2.5 ML BTL BOTH EYES SCH (21:00)
[2022-10-30] MEDS ORDERED: ATORVASTATIN 10 MG TAB PO SCH (21:00)
[2022-10-30] MEDS ORDERED: lamoTRIgine 100 MG TAB PO SCH (21:00)
[2022-10-30] MEDS: APIXABAN 5 MG TAB PO SCH (21:07)
[2022-10-30] MEDS: METOPROLOL TARTRATE 25 MG TAB PO SCH (21:07)
[2022-10-31] MEDS ORDERED: MELATONIN 5 MG TABLET PO ONE (03:00)
[2022-10-31] MEDS: SODIUM CHLORIDE 0.9% 1,000 ML IV SCH ×2 (06:52→08:32)
[2022-10-31] MEDS ORDERED: FENOFIBRATE 160 MG TAB PO SCH (08:00)
[2022-10-31] MEDS ORDERED: PANTOPRAZOLE 40 MG TABLET PO SCH (08:00)
[2022-10-31] MEDS: APIXABAN 5 MG TAB PO SCH (08:08)
[2022-10-31] MEDS: METOPROLOL TARTRATE 25 MG TAB PO SCH (08:08)
--- NOTE | 2022-10-31 12:16 | CA ---
Transthoracic Echo Report Name: David Flores Age: 67 Gender: M : 1955 Exam Date: 10/31/2022 08:50 Exam Location: [place] Echo Ht (in): 62 Wt (lb): 190 Ordering Physician: Eliel Villa DO Attending/Referring Phys: Box Office Clerk Louisa Son RDCS Procedure CPT: Indications: tachycardia Cardiac Hx: Technical Quality: Contrast 1: Total Dose (mL): Contrast 2: Total Dose (mL): MEASUREMENTS (Male / Female) Normal Values 2D ECHO LV Diastolic Diameter PLAX 4.7 cm 4.2 - 5.9 / 3.9 - 5.3 cm LV Systolic Diameter PLAX 3.0 cm IVS Diastolic Thickness 0.9 cm 0.6 - 1.0 / 0.6 - 0.9 cm LVPW Diastolic Thickness 1.2 cm 0.6 - 1.0 / 0.6 - 0.9 cm LV Relative Wall Thickness 0.4 RV Internal Dim ED PLAX 2.4 cm M-MODE Aortic Root Diameter MM 3.3 cm LA Systolic Diameter MM 3.0 cm LA Ao Ratio MM 0.9 MV E Point Septal Separation 0.2 cm AV Cusp Separation MM 2.6 cm DOPPLER MV Area PHT 3.3 cm??? Mitral E Point Velocity 45.5 cm/s Mitral A Point Velocity 78.2 cm/s Mitral E to A Ratio 0.6 MV Deceleration Time 227.5 ms MV E' Velocity 8.5 cm/s Mitral E to MV E' Ratio 5.3 TR Peak Velocity 260.8 cm/s TR Peak Gradient 27.2 mmHg Right Ventricular Systolic Press 31.5 mmHg FINDINGS Left Ventricle Normal left ventricular size, wall thickness, systolic function with no obvious regional wall motion abnormalities. Left ventricular ejection fraction is estimated at 55 %. Right Ventricle The right ventricle is normal in size and function. Right Atrium The right atrium is normal in size. Left Atrium The left atrium is normal in size. Mitral Valve Structurally normal mitral valve without significant stenosis or prolapse. There is mild mitral regurgitation. Aortic Valve Structurally normal aortic valve without significant sclerosis or stenosis. There is no aortic regurgitation. Tricuspid Valve Structurally normal tricuspid valve without significant stenosis. Pulmonary artery systolic pressure is normal. Pulmonic Valve Structurally normal pulmonic valve without significant stenosis. There is no pulmonic regurgitation. Pericardium Normal pericardium without effusion. Aorta Normal aortic root dimension. CONCLUSIONS Normal left ventricular dimension and systolic function Previewed by: Dr. Teo Lubin MD (Electronically Signed) Final Date: 31 October 2022 12:15
[2022-10-31 12:50] LABS: Albumin 3.7 g/dL (3.5-5.0); Calcium 9.8 mg/dL (8.4-10.2); Potassium 4.1 mmol/L (3.5-5.1); Total Bilirubin 0.7 mg/dL (0.2-1.3)
--- NOTE | 2022-10-31 14:36 | P.DS ---
Providers Date of admission: 10/30/22 17:18 Expected date of discharge: 10/31/22 Attending physician: Clayton Jimenez MD Consults: 10/30/22 17:17 Consult Physician Routine Consulting Provider: Teo Lubin Consult Reason/Comments: tachycardia, resolved and borderline trop Do you want consulting provider notified?: Yes Primary care physician: Conrad Matson MD Hospital Course: Patient is a 67-year-old male who resides in a usp with a past medical history of mental delays with neurocognitive disorder, schizoaffective disorder, hypertension, hyperlipidemia, paroxysmal atrial fibrillation on anticoagulation with Eliquis, IBS with chronic constipation, GERD presents to the ED from [facility] for concerns of tachycardia with HR in the 150-160s. EMS had HR of 110. Patient is a very poor historian and states he wants to go home. Patient is unwilling to answer any further questions. In the ED, his heart rate was in the low 100s. Vital signs were otherwise stable. CBC was unremarkable. INR was 1.2. CMP shows chloride of 109, BUN 23, Cr of 1.50, Ca 10.3, AST of 388, ALT 118. Troponin was 0.50, EKG showing sinus tachycardia with heart rate of 100. BNP was 416. TSH and FT4 was within normal limits. Influenza, RSV and COVID 19 negative. Chest x-ray was negative. Patient is admitted for atrial fibrillation with RVR, troponin elevation with cardiology consultation. Troponins were trended at 0.05, 0.06, 0.056. Cardiology was consulted and echocardiogram was ordered. Patient's heart rate was well-controlled during his hospitalization. Echocardiogram showed normal LV systolic function. Cardiology recommended no further intervention and cleared the patient for discharge as per RN. Liver ultrasound was obtained due to transaminitis. Liver ultrasound showed findings of cirrhosis. This is probably an old finding given that patient is already on lactulose. Patient was seen and examined this morning. He reports no complaints. He is requesting water. Pertinent studies include chest x-ray, echocardiogram General: non toxic, no distress, appears at stated age Derm: warm, dry Head: atraumatic, normocephalic, symmetric Eyes: EOMI, no lid lag, anicteric sclera Cardiovascular: Patient refusing Lungs: no accessory muscle use Abdominal: Patient refusing Ext: no gross muscle atrophy, no edema, no contractures Neuro: Patient refusing Psych: Flat affect Discharge diagnoses: #Atrial fibrillation with RVR #Troponin elevation #Cirrhosis #Acute kidney injury Chronic conditions: Schizoaffective disorder, hypertension, dyslipidemia, GERD Patient will be discharged back to his usp with the following instructions: Diet: Cardiac FU with your PCP within 1-2 days of DC. FU with Cardiology within 1 week of discharge. FU with GI within 1 week of discharge. Take all medications as advised. Come back to the ED for chest pain, SOB, palpitations or lightheadedness. Patient Condition at Discharge: Stable Plan - Discharge Summary Discharge Rx Participant: No New Discharge Prescriptions: Continue Omeprazole [PriLOSEC] 20 mg PO DAILY@0800 Latanoprost/Pf [Latanoprost 0.005% Eye Drop] 1 drop BOTH EYES HS@2100 Fenofibrate Nanocrystallized [Fenofibrate] 145 mg PO DAILY@0800 Cholecalciferol (Vitamin D3) [Vitamin D3 (5000 Iu)] 125 mcg PO DAILY@0800 Certavite 1 tab PO HS@2100 Dicyclomine [Bentyl] 20 mg PO Q8H PRN PRN Reason: Pain Apixaban [Eliquis] 5 mg PO BID@0800,2100 Vit C/E/Zn/Coppr/Lutein/Zeaxan [Preservision Areds 2 Softgel] 1 cap PO BID@0800,2100 Furosemide [Lasix] 40 mg PO Q48H Simvastatin [Zocor] 20 mg PO HS@2100 lamoTRIgine [LaMICtal] 200 mg PO HS@2100 OLANZapine [ZyPREXA] 20 mg PO HS@2100 LORazepam [Ativan] 1 mg PO BID@1700,2100 Mupirocin 2% Oint [Bactroban 2% Oint] 1 applic TOPICAL BID@0800,2100 Cyanocobalamin [Vitamin B-12] 500 mcg PO DAILY@0800 Lactose-Reduced Food [Boost] 1 can PO DAILY@0800 fluPHENAZine decanoate [Prolixin Decanoate] 50 mg IM Q7D #1 ml Lactose-Reduced Food [Boost] 1 can PO DAILY PRN PRN Reason: MEAL SUBSTITUTION OLANZapine [ZyPREXA] 10 mg PO HS@2100 Levofloxacin [Levaquin] 500 mg PO DAILY@1700 Melatonin 10 mg PO HS@2100 Potassium Chloride ER [K-Dur 20] 20 meq PO DAILY@0800 Metoprolol Tartrate [Lopressor] 25 mg PO BID@08,2099 Megestrol Acetate 40 mg PO DAILY@0800 Discharge Medication List Cholecalciferol (Vitamin D3) [Vitamin D3 (5000 Iu)] 125 mcg PO DAILY@0806/07/20 [History] Fenofibrate Nanocrystallized [Fenofibrate] 145 mg PO DAILY@79906/07/20 [History] Latanoprost/Pf [Latanoprost 0.005% Eye Drop] 1 drop BOTH EYES HS@209906/07/20 [History] Omeprazole [PriLOSEC] 20 mg PO DAILY@79906/07/20 [History] Certavite 1 tab PO HS@209904/12/21 [History] Cyanocobalamin [Vitamin B-12] 500 mcg PO DAILY@0804/12/21 [History] Dicyclomine [Bentyl] 20 mg PO Q8H PRN 04/12/21 [History] Apixaban [Eliquis] 5 mg PO BID@0800,209907/12/21 [History] Furosemide [Lasix] 40 mg PO Q48H 11/03/21 [History] Lactose-Reduced Food [Boost] 1 can PO DAILY@0800 11/03/21 [History] Vit C/E/Zn/Coppr/Lutein/Zeaxan [Preservision Areds 2 Softgel] 1 cap PO BID@0800,209911/03/21 [History] fluPHENAZine decanoate [Prolixin Decanoate] 50 mg IM Q7D #1 ml 12/06/21 [Rx] LORazepam [Ativan] 1 mg PO BID@1700,209910/30/22 [History] Lactose-Reduced Food [Boost] 1 can PO DAILY PRN 10/30/22 [History] Levofloxacin [Levaquin] 500 mg PO DAILY@1700 10/30/22 [History] Megestrol Acetate 40 mg PO DAILY@0800 10/30/22 [History] Melatonin 10 mg PO HS@209910/30/22 [History] Metoprolol Tartrate [Lopressor] 25 mg PO BID@0800,209910/30/22 [History] Mupirocin 2% Oint [Bactroban 2% Oint] 1 applic TOPICAL BID@0800,209910/30/22 [H istory] OLANZapine [ZyPREXA] 10 mg PO HS@209910/30/22 [History] OLANZapine [ZyPREXA] 20 mg PO HS@209910/30/22 [History] Potassium Chloride ER [K-Dur 20] 20 meq PO DAILY@0800 10/30/22 [History] Simvastatin [Zocor] 20 mg PO HS@209910/30/22 [History] lamoTRIgine [LaMICtal] 200 mg PO HS@209910/30/22 [History] Follow up Appointment(s)/Referral(s): Conrad Matson MD [Primary Care Provider] - 11/05/22 Tae Davidson DO [STAFF PHYSICIAN] - 1 Week (office will call with an appointment) Palak Benavides MD [STAFF PHYSICIAN] - 1 Week Patient Instructions/Handouts: Dyspnea (DC), Tachycardia (GEN) Activity/Diet/Wound Care/Special Instructions: Diet: Cardiac FU with your PCP within 1-2 days of DC. FU with Cardiology within 1 week of discharge. FU with GI within 1 week of discharge. Take all medications as advised. Come back to the ED for chest pain, SOB, palpitations or lightheadedness. Discharge Disposition: HOME SELF-CARE
[2022-10-31 16:02] VITALS: BP 115/71; PULSE 81; RESP 18; TEMP 98.1
[2022-10-31] MEDS: LORazepam 1 MG TAB PO SCH (17:18)
--- NOTE | 2022-10-31 21:16 | P.CRDCN ---
History of Present Illness History of present illness: HISTORY OF PRESENTING ILLNESS With history of asthma, HTN, HLD, schizophrenia living in a halfway. Patient presented from [facility] secondary to reported tachycardia. Kyara ent only able to state "I can't breath" despite being on room air without any respiratory distress and normal oxygen saturations. Denies any chest pain however unable to answer more questions appropriately. There is a history of Afib and patient takes Eliquis at home. EKG on presentation shows sinus rhythm HR 100 and RBBB. Hgb 13.5, Cr 1.5, AST 388, ALT 118, Trop 0.05, 0.06. 0.056. TSH 1.5. CXray NAP. REVIEW OF SYSTEMS At the time of my exam: CONSTITUTIONAL: Denies fever or chills. CARDIOVASCULAR: No chest pain, +shortness of breath, no orthopnea, PND or palpitations. RESPIRATORY: Denies cough. GASTROINTESTINAL: Denies abdominal pain, diarrhea, constipation, nausea or vomiting. MUSCULOSKELETAL: Denies myalgias. NEUROLOGIC: Denies numbness, tingling or weakness. ENDOCRINE: Denies fatigue, weight change, polydipsia or polyurina. GENITOURINARY: Denies burning, hematuria or urgency with micturation. HEMATOLOGIC: Denies history of anemia or bleeding. PHYSICAL EXAMINATION Vital signs reviewed. CONSTITUTIONAL: No apparent distress, alert however poor eye contact and not answering questions HEENT: Head is normocephalic. Pupils are equal, round. Sclerae anicteric. Mucous membranes of the mouth are moist. No JVD. No carotid bruit. CHEST EXAMINATION: Lungs are clear to auscultation. No chest wall tenderness is noted on palpation or with deep breathing. HEART EXAMINATION: Regular rate and rhythm. S1, S2 heard. No murmurs, gallops or rub. ABDOMEN: Soft, nontender. Positive bowel sounds. EXTREMITIES: 2+ peripheral pulses, no lower extremity edema and no calf tenderness. NEUROLOGIC EXAMINATION: Patient is awake, alert and oriented x3. ASSESSMENT 1. Tachycardia, sinus tachycardia per EKG and monitor 2. Reported history of Paroxysmal Afib 3. Complaint of SOB "I can't breath" however appears in no respiratory distress 4. Mildly elevated, may be related to tachycardia vs other. Not indicative of ACS 5. JORI 6. Elevated liver enzymes 7. Schizophrenia PLAN Patient with unreliable history however some concern of tachycardia. Patient in sinus rhythm on presentation. Continue Metoprolol for tachycardia. Continue Eliquis for history of Afib. Echo showing preserved EF and mildly elevated troponin not indicative of ACS. Patient appears stable for DC home and may followup in office for possible stress testing. Past Medical History Past Medical History: Asthma, Hyperlipidemia, Hypertension Additional Past Medical History / Comment(s): schizophrenia. constipation History of Any Multi-Drug Resistant Organisms: None Reported Past Surgical History: No Surgical Hx Reported Past Anesthesia/Blood Transfusion Reactions: No Reported Reaction Past Psychological History: Schizophrenia Smoking Status: Current every day smoker Past Alcohol Use History: None Reported Additional Past Alcohol Use History / Comment(s): smokes 10 cig/day Past Drug Use History: None Reported - Past Family History Father History Unknown: Yes Mother History Unknown: Yes Medications and Allergies Home Medications Medication Instructions Recorded Confirmed Type Cholecalciferol (Vitamin D3) 125 mcg PO DAILY@0800 06/07/20 10/30/22 History [Vitamin D3 (5000 Iu)] Fenofibrate Nanocrystallized 145 mg PO DAILY@0800 06/07/20 10/30/22 History [Fenofibrate] Latanoprost/Pf [Latanoprost 0.005% 1 drop BOTH EYES HS@209906/07/20 10/30/22 History Eye Drop] Omeprazole [PriLOSEC] 20 mg PO DAILY@0800 06/07/20 10/30/22 History Certavite 1 tab PO HS@209904/12/21 10/30/22 History Cyanocobalamin [Vitamin B-12] 500 mcg PO DAILY@0800 04/12/21 10/30/22 History Dicyclomine [Bentyl] 20 mg PO Q8H PRN 04/12/21 10/30/22 History Apixaban [Eliquis] 5 mg PO BID@0800,209907/12/21 10/30/22 History Furosemide [Lasix] 40 mg PO Q48H 11/03/21 10/30/22 History Lactose-Reduced Food [Boost] 1 can PO DAILY@0800 11/03/21 10/30/22 History Vit C/E/Zn/Coppr/Lutein/Zeaxan 1 cap PO BID@0800,209911/03/21 10/30/22 History [Preservision Areds 2 Softgel] fluPHENAZine decanoate [Prolixin 50 mg IM Q7D #1 ml 12/06/21 10/30/22 Rx Decanoate] LORazepam [Ativan] 1 mg PO BID@1700,209910/30/22 10/30/22 History Lactose-Reduced Food [Boost] 1 can PO DAILY PRN 10/30/22 10/30/22 History Levofloxacin [Levaquin] 500 mg PO DAILY@1700 10/30/22 10/30/22 History Megestrol Acetate 40 mg PO DAILY@0800 10/30/22 10/30/22 History Melatonin 10 mg PO HS@2100 10/30/22 10/30/22 History Metoprolol Tartrate [Lopressor] 25 mg PO BID@0800,209910/30/22 10/30/22 History Mupirocin 2% Oint [Bactroban 2% 1 applic TOPICAL BID@0800,2100 10/30/22 10/30/22 History Oint] OLANZapine [ZyPREXA] 10 mg PO HS@209910/30/22 10/30/22 History OLANZapine [ZyPREXA] 20 mg PO HS@2100 10/30/22 10/30/22 History Potassium Chloride ER [K-Dur 20] 20 meq PO DAILY@0800 10/30/22 10/30/22 History Simvastatin [Zocor] 20 mg PO HS@2100 10/30/22 10/30/22 History lamoTRIgine [LaMICtal] 200 mg PO HS@2100 10/30/22 10/30/22 History Allergies Allergy/AdvReac Type Severity Reaction Status Date / Time acetaminophen [From Tylenol] Allergy Unknown Verified 10/19/22 03:21 gabapentin [From Neurontin] Allergy Unknown Verified 10/19/22 03:21 Penicillins Allergy Unknown Verified 10/19/22 03:21 clozapine [From Clozaril] AdvReac Unknown Verified 10/19/22 03:21 divalproex sodium AdvReac Unknown Verified 10/19/22 03:21 [From Depakote] Physical Exam Vitals: Vital Signs Temp Pulse Pulse Resp BP BP Pulse Ox 10/31/22 16:01 98.1 F 81 18 115/71 95 10/31/22 11:28 97.9 F 85 19 116/75 97 10/31/22 08:00 97.7 F 94 18 110/68 96 10/31/22 03:34 98.3 F 86 20 102/62 98 10/31/22 02:31 20 10/31/22 02:07 98.3 F 91 20 115/60 98 10/30/22 21:09 102 H 18 129/84 96 Intake and Output 10/31/22 10/31/22 10/31/22 06:59 14:59 22:59 Intake Total 240 730 Output Total 450 950 625 Balance -210 625 Intake: Oral 240 180 Tube Feeding 550 Output: Urine 450 950 625 Other: Weight 86.183 kg Results 10/30/22 15:29 10/31/22 11:54 Cardiac Enzymes 10/30/22 10/31/22 Range/Units 21:38 11:54 AST 312 H (17-59) U/L Troponin I 0.056 H* (0.000-0.034) ng/mL Comprehensive Metabolic Panel 10/31/22 Range/Units 11:54 Sodium 140 (137-145) mmol/L Potassium 4.1 (3.5-5.1) mmol/L Chloride 107 (98-107) mmol/L Carbon Dioxide 27 (22-30) mmol/L BUN 15 (9-20) mg/dL Creatinine 1.10 (0.66-1.25) mg/dL Glucose 111 H (74-99) mg/dL Calcium 9.8 (8.4-10.2) mg/dL AST 312 H (17-59) U/L ALT 124 H (4-49) U/L Alkaline Phosphatase 47 (38-126) U/L Total Protein 6.0 L (6.3-8.2) g/dL Albumin 3.7 (3.5-5.0) g/dL Intake and Output 10/31/22 10/31/22 10/31/22 06:59 14:59 22:59 Intake Total 240 730 Output Total 450 950 625 Balance -210 -625 Intake: Oral 240 180 Tube Feeding 550 Output: Urine 450 950 625 Other: Weight 86.183 kg 10/30/22 15:29 10/31/22 11:54
[2022-11-01] MEDS ORDERED: FUROSEMIDE 40 MG TAB PO SCH (08:00)
== END 2022-10-31 18:18 | disposition home or self-care (01) ==
LOC: EC 14:19 → 3SCARD 17:18
PROVIDERS: ADMIT Family Medicine; ATTEND Family Medicine
DX: R00.0 Tachycardia, unspecified (principal); N17.9 Acute kidney failure, unspecified; I48.0 Paroxysmal atrial fibrillation; R77.8 Other specified abnormalities of plasma proteins; I10 Essential (primary) hypertension; E78.5 Hyperlipidemia, unspecified; F17.210 Nicotine dependence, cigarettes, uncomplicated; I45.10 Unspecified right bundle-branch block; K21.9 Gastro-esophageal reflux disease without esophagitis; K74.60 Unspecified cirrhosis of liver; K80.20 Calculus of gallbladder without cholecystitis without obstruction; K58.1 Irritable bowel syndrome with constipation; I34.0 Nonrheumatic mitral (valve) insufficiency; F25.9 Schizoaffective disorder, unspecified; J44.9 Chronic obstructive pulmonary disease, unspecified; Z79.899 Other long term (current) drug therapy; Z80.0 Family history of malignant neoplasm of digestive organs; Z88.8 Allergy status to other drugs, medicaments and biological substances; Z20.822 Contact with and (suspected) exposure to COVID-19; Z79.01 Long term (current) use of anticoagulants
CPT/HCPCS: 96361 ×3; 96374; 99285; 36415; 93005; 93306; 84439; 84481; 83880; 80053 ×2; 83735; 84443; 84484; 85025; 85610; 85730; 87636; 71046; 76705; G0378 ×2; J2060

== ENCOUNTER 2023-01-21 08:11 | Inpatient (IN) | payer MEDICARE, OTHER ==
[2023-01-21] MEDS ORDERED: ASPIRIN 81 MG PO STA (08:17)
[2023-01-21] MEDS ORDERED: SODIUM CHLORIDE 0.9% 1,000 ML IV STA ×3 (08:17→11:00)
[2023-01-21] MEDS ORDERED: METOPROLOL TARTRATE 5 MG/5 ML VIAL IVP STA ×4 (08:28→09:41)
[2023-01-21 08:33] LABS: Basophils % (A) 0 %; Eosinophils % (A) 1 %; HCT 41.8 % (39.0-53.0); Lymphocytes # (A) 1.4 k/uL (1.0-4.8); Lymphocytes % (A) 32 %; MCH 30.5 pg (25.0-35.0); MCHC 33.4 g/dL (31.0-37.0); MCV 91.6 fL (80.0-100.0); Mean Platelet Volume 9.5; Monocytes # (A) 0.4 k/uL (0-1.0); Monocytes % (A) 8 %; Neutrophils # (A) 2.4 k/uL (1.3-7.7); Neutrophils % (A) 55 %; Platelet Count 139 k/uL (150-450); RBC 4.57 m/uL (4.30-5.90); WBC 4.3 k/uL (3.8-10.6)
[2023-01-21 08:40] LABS: INR 1.1 (<1.2); Partial Thromboplastin Time 22.7 sec (22.0-30.0); Prothrombin Time 11.4 sec (9.0-12.0)
[2023-01-21 09:18] LABS: Albumin 3.5 g/dL (3.5-5.0); Magnesium 1.8 mg/dL (1.6-2.3); Potassium 3.6 mmol/L (3.5-5.1); Total Bilirubin 0.5 mg/dL (0.2-1.3); Total Protein 5.5 g/dL (6.3-8.2)
--- NOTE | 2023-01-21 09:23 | ED ---
General Adult HPI - General Chief complaint: Arrhythmia/Palpitations Stated complaint: increase heart rate Time Seen by Provider: 01/21/23 08:13 Source: patient, EMS, RN notes reviewed, old records reviewed Mode of arrival: EMS Limitations: altered mental status - History of Present Illness Initial comments: Patient is a 67-year-old male who presents emergency Department with no acute complaints but was incidentally found to be having a tachycardia that his AFC home. Does have a history of atrial fibrillation on blood thinners. Denies any falls, chest pain, shortness breath, abdominal pain, nausea, vomiting. He has no other acute complaints at this time. Has been admitted in the past for tachycardia. Presents for further evaluation at this time. Did not receive any morning medications due to his symptoms. He is normally on metoprolol at home. Does have a history of schizophrenia and some mental delay. Is currently at his baseline mental status. - Related Data Home Medications Medication Instructions Recorded Confirmed Cholecalciferol (Vitamin D3) 125 mcg PO DIRECTED 06/07/20 01/21/23 [Vitamin D3 (5000 Iu)] Fenofibrate Nanocrystallized 145 mg PO DAILY@0800 06/07/20 01/21/23 [Fenofibrate] Latanoprost/Pf [Latanoprost 0.005% 1 drop BOTH EYES HS@209906/07/20 01/21/23 Eye Drop] Omeprazole [PriLOSEC] 20 mg PO DAILY@0800 06/07/20 01/21/23 Certavite 1 tab PO HS@209904/12/21 01/21/23 Cyanocobalamin [Vitamin B-12] 500 mcg PO DAILY@0800 04/12/21 01/21/23 Dicyclomine [Bentyl] 20 mg PO Q8H PRN 04/12/21 01/21/23 Apixaban [Eliquis] 5 mg PO BID@0800,209907/12/21 01/21/23 Lactose-Reduced Food [Boost] 1 can PO DAILY@0800 11/03/21 01/21/23 Vit C/E/Zn/Coppr/Lutein/Zeaxan 1 cap PO BID@0800,2100 11/03/21 01/21/23 [Preservision Areds 2 Softgel] LORazepam [Ativan] 1 mg PO BID@1700,209910/30/22 01/21/23 Lactose-Reduced Food [Boost] 1 can PO DAILY PRN 10/30/22 01/21/23 Megestrol Acetate 40 mg PO DAILY@0800 10/30/22 01/21/23 Melatonin 10 mg PO HS@209910/30/22 01/21/23 Metoprolol Tartrate [Lopressor] 25 mg PO BID@0800,209910/30/22 01/21/23 Potassium Chloride ER [K-Dur 20] 20 meq PO DAILY@0800 10/30/22 01/21/23 Simvastatin [Zocor] 20 mg PO HS@209910/30/22 01/21/23 ARIPiprazole [Abilify] 15 mg PO HS 01/21/23 01/21/23 Levothyroxine Sodium [Synthroid] 25 mcg PO DIRECTED 01/21/23 01/21/23 Linaclotide [Linzess] 145 mcg PO DAILY@0700 01/21/23 01/21/23 lamoTRIgine [LaMICtal] 200 mg PO HS 01/21/23 01/21/23 traZODone HCL [Desyrel] 50 mg PO HS 01/21/23 01/21/23 Allergies Allergy/AdvReac Type Severity Reaction Status Date / Time acetaminophen [From Tylenol] Allergy Unknown Verified 01/21/23 09:41 gabapentin [From Neurontin] Allergy Unknown Verified 01/21/23 09:41 Penicillins Allergy Unknown Verified 01/21/23 09:41 clozapine [From Clozaril] AdvReac Unknown Verified 01/21/23 09:41 divalproex sodium AdvReac Unknown Verified 01/21/23 09:41 [From Depakote] Review of Systems ROS Statement: Those systems with pertinent positive or pertinent negative responses have been documented in the HPI. Review of Systems: CONST: Denies fever EYES: Denies blurry vision ENT: Denies nasal congestion C/V: Denies Chest pain RESP: Denies shortness of breath GI: Denies abdominal pain : Denies dysuria SKIN: Denies rash. MSK: Denies joint pain. NEURO: Denies headache ROS Other: All systems not noted in ROS Statement are negative. Past Medical History Past Medical History: Asthma, Hyperlipidemia, Hypertension Additional Past Medical History / Comment(s): schizophrenia. constipation History of Any Multi-Drug Resistant Organisms: None Reported Past Surgical History: No Surgical Hx Reported Past Anesthesia/Blood Transfusion Reactions: No Reported Reaction Past Psychological History: Schizophrenia Smoking Status: Light tobacco smoker Past Alcohol Use History: None Reported Past Drug Use History: None Reported - Past Family History Father History Unknown: Yes Mother History Unknown: Yes General Exam - General Exam Comments Initial Comments: General: Appears in no acute distress. HEAD: Normal with no signs of head trauma. EYES: PERRLA, EOMI, conjunctiva normal, no discharge. ENT: Hearing grossly intact, normal oropharynx. RESPIRATORY: Clear breath sounds bilaterally. No wheezes, rales, or rhonchi. C/V: Tachycardia. Somewhat irregular on palpation. S1 and S2 auscultated, no edema, peripheral pulses 2+ and intact throughout ABD: Abd is soft, nontender, nondistended EXT: Normal range of motion, no obvious deformity SKIN: No rashes or lesions observed on exposed skin. NEURO: Alert and oriented 4. No focal deficits. Limitations: altered mental status Course Vital Signs 01/21/23 01/21/23 01/21/23 08:21 08:30 08:40 Temperature 98.2 F Pulse Rate 163 H 163 H 144 H Respiratory 22 24 21 Rate Blood Pressure 104/71 109/75 100/78 O2 Sat by Pulse 97 97 95 Oximetry 01/21/23 01/21/23 01/21/23 08:50 09:00 09:10 Temperature Pulse Rate 151 H 137 H 136 H Respiratory 23 19 18 Rate Blood Pressure 125/84 113/80 111/84 O2 Sat by Pulse 97 97 96 Oximetry 01/21/23 01/21/23 01/21/23 09:20 09:30 09:40 Temperature Pulse Rate 135 H 135 H 138 H Respiratory 18 17 15 Rate Blood Pressure 120/84 115/89 120/86 O2 Sat by Pulse 98 97 99 Oximetry 01/21/23 01/21/23 01/21/23 10:00 10:10 10:30 Temperature Pulse Rate 137 H 140 H 144 H Respiratory 20 29 H 22 Rate Blood Pressure 120/90 112/83 116/83 O2 Sat by Pulse 97 97 97 Oximetry 01/21/23 01/21/23 01/21/23 10:40 11:00 11:10 Temperature Pulse Rate 147 H 151 H 151 H Respiratory 22 15 22 Rate Blood Pressure 110/87 111/81 118/82 O2 Sat by Pulse 95 95 96 Oximetry Medical Decision Making - Medical Decision Making Was pt. sent in by a medical professional or institution (REGINA Correia, CHIEF CLIENT OFFICER, urgent care, hospital, or longterm...) When possible be specific @ -Sent in by his AF home for tachycardia. Did you speak to anyone other than the patient for history (EMS, parent, family, police, friend...)? What history was obtained from this source @ -No Did you review nursing and triage notes (agree or disagree)? Why? @ -I reviewed and agree with nursing and triage notes Were old charts reviewed (outside hosp., previous admission, EMS record, old EKG, old radiological studies, urgent care reports/EKG's, longterm records)? Report findings @ -Old charts reviewed from October 2022 including EKG Differential Diagnosis (chest pain, altered mental status, abdominal pain women, abdominal pain men, vaginal bleeding, weakness, fever, dyspnea, syncope, headache, dizziness, GI bleed, back pain, seizure, CVA, palpatations, mental health, musculoskeletal)? @ -Atrial fibrillation, SVT, sinus tachycardia, atrial tachycardia, dehydration, ACS. This list is not all inclusive. EKG interpreted by me (3pts min.). @ -As above X-rays interpreted by me (1pt min.). @ -Chest x-ray reveals no acute cardio pulmonary process that is obvious. CT interpreted by me (1pt min.). @ -None done U/S interpreted by me (1pt. min.). @ -None done What testing was considered but not performed or refused? (CT, X-rays, U/S, lab s)? Why? @ -None What meds were considered but not given or refused? Why? @ -None Did you discuss the management of the patient with other professionals (professionals i.e. REGINA Correia, CHIEF CLIENT OFFICER, lab, RT, psych nurse, clinical social worker, associate director of biostatistics, teacher, fundraising officer, family independence case manager)? Give summary @ -No Was smoking cessation discussed for >3mins.? @ -No Was critical care preformed (if so, how long)? @ -Yes, 35 minutes. Were there social determinants of health that impacted care today? How? (Homelessness, low income, unemployed, alcoholism, drug addiction, transportation, low edu. Level, literacy, decrease access to med. care, assisted, rehab)? @ -No Was there de-escalation of care discussed even if they declined (Discuss DNR or withdrawal of care, Hospice)? DNR status @ -No What co-morbidities impacted this encounter? (DM, HTN, Smoking, COPD, CAD, Cancer, CVA, ARF, Chemo, Hep., AIDS, mental health diagnosis, sleep apnea, morbid obesity)? @ -History of atrial fibrillation Was patient admitted / discharged? Hospital course, mention meds given and route, prescriptions, significant lab abnormalities, going to OR and other pertinent info. @ -Based on the patient's presentation and physical exam, I'm concerned for acute tachycardia for the patient. Appears to be more of an atrial fibrillation with RVR as he does have a history of A. fib. Patient is on metoprolol at home but did not receive his morning oral dose. I will provide him with IV metoprolol pushes to attempt to obtain rate control for the patient. We'll obtain cardiopulmonary labs. Endorses no acute complaints at this time. He was in agreement this plan. Vital signs are within acceptable limits other than the tachycardia. Patient will be given 324 mg of aspirin as well as 2 L of fluid bolus. Initial EKG does show what appears to be atrial fibrillation with RVR versus atrial flutter with RVR.However patient's EKG could also represent an SVT. I did discuss with the patient a trial of adenosine and after explaining what it does and how it makes him feel when we administer it, he requests other treat ments first. As he is on metoprolol at baseline we will attempt IV metoprolol initially to see if we can obtain rate control in order to decipher if this is SVT versus A. fib. He was in agreement this plan. He is hemodynamically stable. Will be given IV fluids as well. Patient's EKG shows what appears to be more rate controlled SVT between 130 and 150. At this time, I did recommend that we attempt adenosine to see if that brings his rate under control as I do believe he has an SVT. Initially was in agreement with the plan, however ended up refusing again after we discussed how we'll make him feel and how it works. He refuses adenosine multiple times after discussion with him.We did attempt vagal maneuvers which were unsuccessful on the patient as well. Therefore patient will be placed on a Cardizem drip for persistent SVT and we will have cardiology evaluate the patient. He remains hemodynamically stable at this time. He was in agreement this plan. We'll continue home medications other than the metoprolol. Cardiology is consulted. Patient's chest x-ray shows no acute cardio pulmonary process. Patient's laboratory studies are remarkable for an undetectable troponin. I discussed with [facility] home service consultant who came with the patient who was also in agreement the plan. Patient will therefore be admitted to cardiac stepdown in serious condition. I spoke with the admitting physician, Dr. Gordon who accepted the patient. Undiagnosed new problem with uncertain prognosis? @ -No Drug Therapy requiring intensive monitoring for toxicity (Heparin, Nitro, Insulin, Cardizem)? @ -No Were any procedures done? @ -No Diagnosis/symptom? @ -Tachyarrhythmia, SVT versus A. fib Acute, or Chronic, or Acute on Chronic? @ -Acute Uncomplicated (without systemic symptoms) or Complicated (systemic symptoms)? @ -Complicated Side effects of treatment? @ -none Exacerbation, Progression, or Severe Exacerbation] @ -no Poses a threat to life or bodily function? @ -Yes, if untreated can result in significant morbidity and mortality. Diagnosis/symptom? @ -History of atrial fibrillation Acute, or Chronic, or Acute on Chronic? @ -chronic Uncomplicated (without systemic symptoms) or Complicated (systemic symptoms)? @ -uncomplicated Side effects of treatment? @ -none Exacerbation, Progression, or Severe Exacerbation] @ -no Poses a threat to life or bodily function? @ -no Diagnosis/symptom? @ -Schizophrenia Acute, or Chronic, or Acute on Chronic? @ -Chronic Uncomplicated (without systemic symptoms) or Complicated (systemic symptoms)? @ -Uncomplicated Side effects of treatment? @ -none Exacerbation, Progression, or Severe Exacerbation] @ -no Poses a threat to life or bodily function? @ -no - Lab Data Result diagrams: 01/21/23 08:22 01/21/23 09:00 Lab Results 01/21/23 01/21/23 01/21/23 Range/Units 08:22 08:22 08:22 WBC 4.3 (3.8-10.6) k/uL RBC 4.57 (4.30-5.90) m/uL Hgb 14.0 (13.0-17.5) gm/dL Hct 41.8 (39.0-53.0) % MCV 91.6 (80.0-100.0) fL MCH 30.5 (25.0-35.0) pg MCHC 33.4 (31.0-37.0) g/dL RDW 13.0 (11.5-15.5) % Plt Count 139 L (150-450) k/uL MPV 9.5 Neutrophils % 55 % Lymphocytes % 32 % Monocytes % 8 % Eosinophils % 1 % Basophils % 0 % Neutrophils # 2.4 (1.3-7.7) k/uL Lymphocytes # 1.4 (1.0-4.8) k/uL Monocytes # 0.4 (0-1.0) k/uL Eosinophils # 0.0 (0-0.7) k/uL Basophils # 0.0 (0-0.2) k/uL PT 11.4 (9.0-12.0) sec INR 1.1 (<1.2) APTT 22.7 (22.0-30.0) sec Sodium (137-145) mmol/L Potassium (3.5-5.1) mmol/L Chloride (98-107) mmol/L Carbon Dioxide (22-30) mmol/L Anion Gap mmol/L BUN (9-20) mg/dL Creatinine (0.66-1.25) mg/dL Est GFR (CKD-EPI)AfAm (>60 ml/min/1.73 sqM) Est GFR (CKD-EPI)NonAf (>60 ml/min/1.73 sqM) Glucose (74-99) mg/dL Calcium (8.4-10.2) mg/dL Magnesium (1.6-2.3) mg/dL Total Bilirubin (0.2-1.3) mg/dL AST (17-59) U/L ALT (4-49) U/L Alkaline Phosphatase (38-126) U/L Troponin I (0.000-0.034) ng/mL Total Protein (6.3-8.2) g/dL Albumin (3.5-5.0) g/dL Urine Color Light Yellow Urine Appearance Clear (Clear) Urine pH 6.0 (5.0-8.0) Ur Specific [place] 1.004 (1.001-1.035) Urine Protein Negative (Negative) Urine Glucose (UA) Negative (Negative) Urine Ketones Negative (Negative) Urine Blood Negative (Negative) Urine Nitrite Negative (Negative) Urine Bilirubin Negative (Negative) Urine Urobilinogen <2.0 (<2.0) mg/dL Ur Leukocyte Esterase Negative (Negative) Influenza Type A (PCR) (Not Detectd) Influenza Type B (PCR) (Not Detectd) RSV (PCR) (Not Detectd) SARS-CoV-2 (PCR) (Not Detectd) 01/21/23 01/21/23 01/21/23 Range/Units 08:22 09:00 09:00 WBC (3.8-10.6) k/uL RBC (4.30-5.90) m/uL Hgb (13.0-17.5) gm/dL Hct (39.0-53.0) % MCV (80.0-100.0) fL MCH (25.0-35.0) pg MCHC (31.0-37.0) g/dL RDW (11.5-15.5) % Plt Count (150-450) k/uL MPV Neutrophils % % Lymphocytes % % Monocytes % % Eosinophils % % Basophils % % Neutrophils # (1.3-7.7) k/uL Lymphocytes # (1.0-4.8) k/uL Monocytes # (0-1.0) k/uL Eosinophils # (0-0.7) k/uL Basophils # (0-0.2) k/uL PT (9.0-12.0) sec INR (<1.2) APTT (22.0-30.0) sec Sodium 140 (137-145) mmol/L Potassium 3.6 (3.5-5.1) mmol/L Chloride 110 H (98-107) mmol/L Carbon Dioxide 23 (22-30) mmol/L Anion Gap 7 mmol/L BUN 13 (9-20) mg/dL Creatinine 1.01 (0.66-1.25) mg/dL Est GFR (CKD-EPI)AfAm 88 (>60 ml/min/1.73 sqM) Est GFR (CKD-EPI)NonAf 76 (>60 ml/min/1.73 sqM) Glucose 100 H (74-99) mg/dL Calcium 9.0 (8.4-10.2) mg/dL Magnesium 1.8 (1.6-2.3) mg/dL Total Bilirubin 0.5 (0.2-1.3) mg/dL AST 24 (17-59) U/L ALT 21 (4-49) U/L Alkaline Phosphatase 40 (38-126) U/L Troponin I <0.012 (0.000-0.034) ng/mL Total Protein 5.5 L (6.3-8.2) g/dL Albumin 3.5 (3.5-5.0) g/dL Urine Color Urine Appearance (Clear) Urine pH (5.0-8.0) Ur Specific [place] (1.001-1.035) Urine Protein (Negative) Urine Glucose (UA) (Negative) Urine Ketones (Negative) Urine Blood (Negative) Urine Nitrite (Negative) Urine Bilirubin (Negative) Urine Urobilinogen (<2.0) mg/dL Ur Leukocyte Esterase (Negative) Influenza Type A (PCR) Not Detected (Not Detectd) Influenza Type B (PCR) Not Detected (Not Detectd) RSV (PCR) Not Detected (Not Detectd) SARS-CoV-2 (PCR) Not Detected (Not Detectd) - EKG Data -: EKG Interpreted by Me EKG Comments: 12-lead Electrocardiogram Interpretation Note EKG was reviewed and interpreted by myself. 12-lead ECG performed at 1817 is interpreted by me as revealing atrial tachycardia, suspect atrial fibrillation with RVR at a rate of 164 beats per minute. Left axis deviation. QRS duration is 118 ms, QTc is 366 ms.. Bundle-branch block morphology. Patient has T-wave inversions in V2, V3 which do appear acute.. R wave progression across the precordium was satisfactory. When compared with EKG from October 2022, patient now appears to be in A. fib with RVR with some T-wave inversions in V2 and V3. Has a history of a right bundle branch block. 12-lead Electrocardiogram Interpretation Note EKG was reviewed and interpreted by myself. 12-lead ECG performed at 0957 is interpreted by me as revealing SVT with a right bundle-branch block at a rate of 136 beats per minute. Left axis deviation. QRS duration is 120 ms, QTc is 369 ms.. There were no ST or T wave abnormalities to suggest myocardial ischemia or injury. R wave progression across the precordium was satisfactory. By my interpr etation this EKG is non-diagnostic for acute ischemia. This EKG appears to be more SVT versus the prior EKG which resembled atrial fibrillation versus SVT. Critical Care Time Critical Care Time: Yes Total Critical Care Time: 35 Critical Care Time: Upon my evaluation, this patient had a high probability of imminent or life- threatening deterioration due to tachyarrhythmia, A. fib versus SVT, which required my direct attention, intervention, and personal management. I have personally provided 35 minutes of critical care time exclusive of time spent on separately billable procedures. Time includes review of laboratory data, radiology results, discussion with consultants, and monitoring for potential decompensation. Interventions were performed as documented in my note. Disposition Clinical Impression: SVT (supraventricular tachycardia), History of atrial fibrillation, History of schizophrenia Disposition: ADMITTED IP TO THIS HOSP Condition: Serious Is patient prescribed a controlled substance at d/c from ED?: No Time of Disposition: 11:00
--- NOTE | 2023-01-21 09:58 | XR ---
EXAMINATION TYPE: XR chest 1V portable DATE OF EXAM: 01/21/2023 COMPARISON: 10/30/2022 HISTORY: Tachycardia TECHNIQUE: Single frontal view of the chest is obtained. FINDINGS: There is no focal air space opacity, pleural effusion, or pneumothorax seen. The cardiac silhouette size is within normal limits. The osseous structures are intact. Elevated right hemidiap hragm. Hyperinflation suggests COPD. Atherosclerotic change aorta. IMPRESSION: No acute process. Correlate for COPD and phrenic nerve paresis can be associated with el evated hemidiaphragm.
[2023-01-21] MEDS ORDERED: ADENOSINE 3 MG/ML 2 ML VIAL IVP STA (10:20)
[2023-01-21] MEDS ORDERED: NALOXONE 0.4 MG/ML 1 ML VIAL IV PRN (11:01)
[2023-01-21] MEDS ORDERED: DICYCLOMINE 20 MG TAB PO PRN (11:03)
[2023-01-21] MEDS ORDERED: LEVOTHYROXINE 25 MCG TAB PO SCH (11:15)
[2023-01-21] MEDS ORDERED: DILTIAZEM DRIP BOLUS FROM BAG 1 MG SOLN IV ONE (11:40)
[2023-01-21] MEDS: DILTIAZEM 125 MG in SODIUM CHLORIDE 0.9% 100 ML IV SCH (11:42)
[2023-01-21] MEDS ORDERED: NON FORMULARY DRUG (Lactose-Reduced Food [Boost] 237 ML Ml) PO PRN (14:02)
--- NOTE | 2023-01-21 14:06 | P.HPIM ---
History of Present Illness H&P Date: 01/21/23 Chief Complaint: Increased heart rate This is a 67-year-old patient of visiting physicians Dr. Matson. Chronic stable medical conditions include COPD, hypertension, hyperlipidemia, constipation, cyanosis. Paroxysmal atrial fibrillation. I basis chronic constipation. GERD. Patient has a public guardian. [facility] diagnoses of schizophrenia and schizoaffective disorder [facility] was found to be tachycardic. In the ER patient was reluctant about taking and now seen. Concerned about the medications. Initially put on Cardizem drip by the ER. Denies any chest pain and palpitations. No dizziness no lightheadedness. Difficult to get a history from the patient as his thought processes and jumping from here to there. He wants to be discharged as he he says he has house in [place] and he was to move there with his buddies. No shortness of breath. No edema. Review of systems: GEN.: Tired EYES: None HEENT: None NECK: None RESPIRATORY: Cough. Occasional wheezing CARDIOVASCULAR: None GASTROINTESTINAL: None GENITOURINARY: None MUSCULOSKELETAL: None LYMPHATICS: None HEMATOLOGICAL: None PSYCHIATRY: As above, anxious NEUROLOGICAL: None Past medical history to include: Asthma, hypertension, hyperlipidemia, schizophrenia, schizoaffective disorder, constipation. Left leg DVT in April 2021, cirrhosis, atrial fibrillation Social history: Has a public guardian. Smokes variable amount. No alcohol intake. Lives at a [facility]. Previously used street drugs Physical examination: VITAL SIGNS: 98.2, 160, 22, 104/71, 97% room air GENERAL: BMI 28.1, laying in bed, awake, anxious EYES: Pupils equal. Conjunctiva normal. HEENT: External appearance of nose and ears normal, oral cavity grossly normal. NECK: JVD not raised; masses not palpable. HEART: First and second heart sounds are normal; no edema. LUNGS: Respiratory rate increased; decreased breath sounds, ABDOMEN: Soft, nontender, liver spleen not palpable, no masses palpable. PSYCH: Able to answer questions. Anxious. Gives erratic taken answers. NEUROLOGICAL: Cranial nerves grossly intact; no facial asymmetry, power and sensation grossly intact. LYMPHATICS: No lymph nodes palpable in the axilla and nec INVESTIGATIONS, reviewed in the clinical context: EKG tracing personally reviewed by me-. Weight 164. Atrial flutte r/tachycardia. Right bundle branch block pattern. Chest x-ray film personally reviewed by me-some elevation of right hemidiaphragm. Hyperinflation. White count 4.3 hemoglobin 14 platelets 139 potassium 3.6 BUN 13 creatinine 1.01 Troponin I less than 0.012, 0.029 Influenza type A, diabetes, RSV, COVID-19: Not detected Assessment and plan: -Atrial flutter/atrial tachycardia with a rate around 140-60. Received Lopressor 2.5 mg IV 1 followed by 5 mg and then 2.5 mg in the ER. IV adenosine 6 mg IVP 1. Then placed on Cardizem drip 5 mg an hour. Telemetry. Cardiology consulted. -Hyperlipidemia Zocor -Essential hypertension Lopressor -COPD, in a current smoker Albuterol when necessary -Hypothyroid Synthroid 25 g. Check TSH -Chronic nicotine dependent cigarette smoker Nicotine patch -Schizophrenia Consult psychiatry -Chronic constipation Continue with Metamucil -Full code -Patient has a public guardian Past Medical History Past Medical History: Asthma, Hyperlipidemia, Hypertension Additional Past Medical History / Comment(s): schizophrenia. constipation History of Any Multi-Drug Resistant Organisms: None Reported Past Surgical History: No Surgical Hx Reported Past Anesthesia/Blood Transfusion Reactions: No Reported Reaction Past Psychological History: Schizophrenia Smoking Status: Light tobacco smoker Past Alcohol Use History: None Reported Past Drug Use History: None Reported - Past Family History Father History Unknown: Yes Mother History Unknown: Yes Medications and Allergies Home Medications Medication Instructions Recorded Confirmed Type Cholecalciferol (Vitamin D3) 125 mcg PO DIRECTED 06/07/20 01/21/23 History [Vitamin D3 (5000 Iu)] Fenofibrate Nanocrystallized 145 mg PO DAILY@79906/07/20 01/21/23 History [Fenofibrate] Latanoprost/Pf [Latanoprost 0.005% 1 drop BOTH EYES HS@209906/07/20 01/21/23 History Eye Drop] Omeprazole [PriLOSEC] 20 mg PO DAILY@79906/07/20 01/21/23 History Certavite 1 tab PO HS@209904/12/21 01/21/23 History Cyanocobalamin [Vitamin B-12] 500 mcg PO DAILY@79904/12/21 01/21/23 History Dicyclomine [Bentyl] 20 mg PO Q8H PRN 04/12/21 01/21/23 History Apixaban [Eliquis] 5 mg PO BID@0800,2100 07/12/21 01/21/23 History Lactose-Reduced Food [Boost] 1 can PO DAILY@0800 11/03/21 01/21/23 History Vit C/E/Zn/Coppr/Lutein/Zeaxan 1 cap PO BID@0800,2100 11/03/21 01/21/23 History [Preservision Areds 2 Softgel] LORazepam [Ativan] 1 mg PO BID@1700,2100 10/30/22 01/21/23 History Lactose-Reduced Food [Boost] 1 can PO DAILY PRN 10/30/22 01/21/23 History Megestrol Acetate 40 mg PO DAILY@0800 10/30/22 01/21/23 History Melatonin 10 mg PO HS@209910/30/22 01/21/23 History Metoprolol Tartrate [Lopressor] 25 mg PO BID@0800,209910/30/22 01/21/23 History Potassium Chloride ER [K-Dur 20] 20 meq PO DAILY@0800 10/30/22 01/21/23 History Simvastatin [Zocor] 20 mg PO HS@2100 10/30/22 01/21/23 History ARIPiprazole [Abilify] 15 mg PO HS 01/21/23 01/21/23 History Levothyroxine Sodium [Synthroid] 25 mcg PO DIRECTED 01/21/23 01/21/23 History Linaclotide [Linzess] 145 mcg PO DAILY@0700 01/21/23 01/21/23 History lamoTRIgine [LaMICtal] 200 mg PO HS 01/21/23 01/21/23 History traZODone HCL [Desyrel] 50 mg PO HS 01/21/23 01/21/23 History Allergies Allergy/AdvReac Type Severity Reaction Status Date / Time acetaminophen [From Tylenol] Allergy Unknown Verified 01/21/23 09:41 gabapentin [From Neurontin] Allergy Unknown Verified 01/21/23 09:41 Penicillins Allergy Unknown Verified 01/21/23 09:41 clozapine [From Clozaril] AdvReac Unknown Verified 01/21/23 09:41 divalproex sodium AdvReac Unknown Verified 01/21/23 09:41 [From [facility]] Physical Exam Vitals: Vital Signs Temp Pulse Resp BP Pulse Ox 01/21/23 11:10 151 H 22 118/82 96 01/21/23 11:00 151 H 15 111/81 95 01/21/23 10:40 147 H 22 110/87 95 01/21/23 10:30 144 H 22 116/83 97 01/21/23 10:10 140 H 29 H 112/83 97 01/21/23 10:00 137 H 20 120/90 97 01/21/23 09:40 138 H 15 120/86 99 01/21/23 09:30 135 H 17 115/89 97 01/21/23 09:20 135 H 18 120/84 98 01/21/23 09:10 136 H 18 111/84 96 01/21/23 09:00 137 H 19 113/80 97 01/21/23 08:50 151 H 23 125/84 97 01/21/23 08:40 144 H 21 100/78 95 01/21/23 08:30 163 H 24 109/75 97 01/21/23 08:21 98.2 F 163 H 22 104/71 97 Intake and Output 01/20/23 01/21/23 01/21/23 22:59 06:59 14:59 Other: Weight 80.739 kg Results CBC & Chem 7: 01/21/23 08:22 01/21/23 09:00 Labs: Abnormal Lab Results - Last 24 Hours (Table) 01/21/23 01/21/23 Range/Units 08:22 09:00 Plt Count 139 L (150-450) k/uL Chloride 110 H (98-107) mmol/L Glucose 100 H (74-99) mg/dL Total Protein 5.5 L (6.3-8.2) g/dL
[2023-01-21 14:11] LABS: Appearance,Urine Clear (Clear); Bilirubin,Urine Negative (Negative); Blood,Urine Negative (Negative); Color,Urine Light Yellow; Glucose,Urine (UA) Negative (Negative); Ketones,Urine Negative (Negative); Leukocyte Esterase,Urine Negative (Negative); Nitrite,Urine Negative (Negative); Protein,Urine Negative (Negative); Specific Gravity,Urine 1.004 (1.001-1.035); Urobilinogen,Urine <2.0 mg/dL (<2.0)
--- NOTE | 2023-01-21 16:19 | P.CRDCN ---
History of Present Illness History of present illness: HISTORY OF PRESENTING ILLNESS This is a pleasant 67-year-old male past medical history significant for paroxysmal atrial fibrillation, hypertension, dyslipidemia, asthma and schizophrenia. He follows in the office with Dr. Benavides. We have been asked to see in consultation for fibrillation. He lives in a [facility] and was brought in secondary to tachycardia. He does not give any meaningful information. Everything is obtained from the medical record. According to him he has no symptoms of chest pain, shortness of breath, dizziness or palpitations. EKG on arrival revealed atrial tachycardia heart rate was around 165. He was given IV adenosine in the emergency room. Currently he is going back and forth between sinus rhythm in atrial fibrillation with rates in the 80s to 100s. He's on IV Cardizem. He is on aliquots and has been compliant. Chest x-ray is negative for an acute cardiopulmonary process. Laboratory data reviewed, WBC 4.3, hemoglobin 14, platelets 139, sodium 140, potassium 3.6, creatinine 1.01, troponin negative 2 and magnesium 1.8. Crit daily cardiac medications include aliquots 5 mg twice a day, fenofibrate 145 mg daily, metoprolol 25 mg twice a day, simvastatin 20 mg daily at bedtime. Most recent echocardiogram obtained October 2022 revealed preserved LV systolic function with ejection fraction 55%. REVIEW OF SYSTEMS At the time of my exam: Patient gives no meaningful information, he denies all symptoms. Information is obtained from the medical record and nursing staff. CONSTITUTIONAL: Denies fever or chills. CARDIOVASCULAR: Denies chest pain, shortness of breath, orthopnea, PND or palpitations. RESPIRATORY: Denies cough. GASTROINTESTINAL: Denies abdominal pain, diarrhea, constipation, nausea or vomiting. MUSCULOSKELETAL: Denies myalgias. NEUROLOGIC: Denies numbness, tingling, headache or weakness. ENDOCRINE: Denies fatigue, weight change, polydipsia or polyurina. GENITOURINARY: Denies burning, hematuria or urgency with micturation. HEMATOLOGIC: Denies history of anemia or bleeding. PHYSICAL EXAMINATION Blood pressure 143/75 heart rate 95 afebrile and maintaining oxygen saturation on room air. CONSTITUTIONAL: No apparent distress. HEENT: Head is normocephalic. Pupils are equal, round. Sclerae anicteric. Mucous membranes of the mouth are moist. No JVD. No carotid bruit. CHEST EXAMINATION: Lungs are clear to auscultation. No chest wall tenderness is noted on palpation or with deep breathing. HEART EXAMINATION: Irregular rate and rhythm. S1, S2 heard. No murmurs, gallops or rub. ABDOMEN: Soft, nontender. EXTREMITIES: 2+ peripheral pulses, no lower extremity edema and no calf tenderness. NEUROLOGIC EXAMINATION: Patient is awake, alert and oriented x3. ASSESSMENT Paroxysmal atrial fibrillation with rapid ventricular rate Hypertension Dyslipidemia Schizophrenia PLAN Add amiodarone 200 mg twice a day. Increase Cardizem to 7.5 mg. Continue beta blockers. Obtain an EKG if he converts to sinus rhythm. Continue on Eliquis for thromboembolic protection. Further recommendations to follow based upon clinical course. Thank you kindly for this consultation. Nurse Practitioner note has been reviewed, I agree with a documented findings and plan of care. Patient was seen and examined. Past Medical History Past Medical History: Asthma, Hyperlipidemia, Hypertension Additional Past Medical History / Comment(s): schizophrenia. constipation History of Any Multi-Drug Resistant Organisms: None Reported Past Surgical History: No Surgical Hx Reported Past Anesthesia/Blood Transfusion Reactions: No Reported Reaction Past Psychological History: Schizophrenia Smoking Status: Light tobacco smoker Past Alcohol Use History: None Reported Past Drug Use History: None Reported - Past Family History Father History Unknown: Yes Mother History Unknown: Yes Medications and Allergies Home Medications Medication Instructions Recorded Confirmed Type Cholecalciferol (Vitamin D3) 125 mcg PO DIRECTED 06/07/20 01/21/23 History [Vitamin D3 (5000 Iu)] Fenofibrate Nanocrystallized 145 mg PO DAILY@0800 06/07/20 01/21/23 History [Fenofibrate] Latanoprost/Pf [Latanoprost 0.005% 1 drop BOTH EYES HS@209906/07/20 01/21/23 History Eye Drop] Omeprazole [PriLOSEC] 20 mg PO DAILY@79906/07/20 01/21/23 History Certavite 1 tab PO HS@209904/12/21 01/21/23 History Cyanocobalamin [Vitamin B-12] 500 mcg PO DAILY@0800 04/12/21 01/21/23 History Dicyclomine [Bentyl] 20 mg PO Q8H PRN 04/12/21 01/21/23 History Apixaban [Eliquis] 5 mg PO BID@0800,209907/12/21 01/21/23 History Lactose-Reduced Food [Boost] 1 can PO DAILY@0800 11/03/21 01/21/23 History Vit C/E/Zn/Coppr/Lutein/Zeaxan 1 cap PO BID@0800,209911/03/21 01/21/23 History [Preservision Areds 2 Softgel] LORazepam [Ativan] 1 mg PO BID@1700,209910/30/22 01/21/23 History Lactose-Reduced Food [Boost] 1 can PO DAILY PRN 10/30/22 01/21/23 History Megestrol Acetate 40 mg PO DAILY@0800 10/30/22 01/21/23 History Melatonin 10 mg PO HS@209910/30/22 01/21/23 History Metoprolol Tartrate [Lopressor] 25 mg PO BID@0800,209910/30/22 01/21/23 History Potassium Chloride ER [K-Dur 20] 20 meq PO DAILY@0800 10/30/22 01/21/23 History Simvastatin [Zocor] 20 mg PO HS@209910/30/22 01/21/23 History ARIPiprazole [Abilify] 15 mg PO HS 01/21/23 01/21/23 History Levothyroxine Sodium [Synthroid] 25 mcg PO DIRECTED 01/21/23 01/21/23 History Linaclotide [Linzess] 145 mcg PO DAILY@0700 01/21/23 01/21/23 History lamoTRIgine [LaMICtal] 200 mg PO HS 01/21/23 01/21/23 History traZODone HCL [Desyrel] 50 mg PO HS 01/21/23 01/21/23 History Allergies Allergy/AdvReac Type Severity Reaction Status Date / Time acetaminophen [From Tylenol] Allergy Unknown Verified 01/21/23 09:41 gabapentin [From Neurontin] Allergy Unknown Verified 01/21/23 09:41 Penicillins Allergy Unknown Verified 01/21/23 09:41 clozapine [From Clozaril] AdvReac Unknown Verified 01/21/23 09:41 divalproex sodium AdvReac Unknown Verified 01/21/23 09:41 [From Depakote] Physical Exam Vitals: Vital Signs Temp Pulse Resp BP Pulse Ox 01/21/23 15:30 95 22 143/75 95 01/21/23 15:00 88 18 135/71 95 01/21/23 14:30 92 20 116/64 95 01/21/23 14:00 107 H 18 114/80 95 01/21/23 13:30 85 18 96/65 95 01/21/23 13:00 147 H 22 103/72 95 01/21/23 12:49 149 H 20 103/72 96 01/21/23 12:00 147 H 22 110/73 95 01/21/23 11:30 152 H 22 112/81 95 01/21/23 11:10 151 H 22 118/82 96 01/21/23 11:00 151 H 15 111/81 95 01/21/23 10:40 147 H 22 110/87 95 01/21/23 10:30 144 H 22 116/83 97 01/21/23 10:10 140 H 29 H 112/83 97 01/21/23 10:00 137 H 20 120/90 97 01/21/23 09:40 138 H 15 120/86 99 01/21/23 09:30 135 H 17 115/89 97 01/21/23 09:20 135 H 18 120/84 98 01/21/23 09:10 136 H 18 111/84 96 01/21/23 09:00 137 H 19 113/80 97 01/21/23 08:50 151 H 23 125/84 97 01/21/23 08:40 144 H 21 100/78 95 01/21/23 08:30 163 H 24 109/75 97 01/21/23 08:21 98.2 F 163 H 22 104/71 97 Intake and Output 01/21/23 01/21/23 01/21/23 06:59 14:59 22:59 Other: Weight 80.739 kg Results 01/21/23 08:22 01/21/23 09:00 Cardiac Enzymes 01/21/23 01/21/23 01/21/23 Range/Units 09:00 09:00 11:53 AST 24 (17-59) U/L Troponin I <0.012 0.029 (0.000-0.034) ng/mL Coagulation 01/21/23 Range/Units 08:22 PT 11.4 (9.0-12.0) sec APTT 22.7 (22.0-30.0) sec CBC 01/21/23 Range/Units 08:22 WBC 4.3 (3.8-10.6) k/uL RBC 4.57 (4.30-5.90) m/uL Hgb 14.0 (13.0-17.5) gm/dL Hct 41.8 (39.0-53.0) % Plt Count 139 L (150-450) k/uL Comprehensive Metabolic Panel 01/21/23 Range/Units 09:00 Sodium 140 (137-145) mmol/L Potassium 3.6 (3.5-5.1) mmol/L Chloride 110 H (98-107) mmol/L Carbon Dioxide 23 (22-30) mmol/L BUN 13 (9-20) mg/dL Creatinine 1.01 (0.66-1.25) mg/dL Glucose 100 H (74-99) mg/dL Calcium 9.0 (8.4-10.2) mg/dL AST 24 (17-59) U/L ALT 21 (4-49) U/L Alkaline Phosphatase 40 (38-126) U/L Total Protein 5.5 L (6.3-8.2) g/dL Albumin 3.5 (3.5-5.0) g/dL Current Medications Generic Name Dose Route Start Last Admin Trade Name Freq PRN Reason Stop Dose Admin Amiodarone HCl 200 mg 01/21/23 16:02 Amiodarone 200 Mg Tab PO BID WILY Apixaban 5 mg 01/21/23 21:00 Apixaban 5 Mg Tab PO BID@0800,2100 [facility] Protocol Aripiprazole 15 mg 01/21/23 21:00 Aripiprazole 15 Mg Tab PO HS [facility] Atorvastatin Calcium 10 mg 01/21/23 21:00 Atorvastatin 10 Mg Tab PO HS@2100 [facility] Cyanocobalamin 500 mcg 01/22/23 08:00 Cyanocobalamin 500 Mcg Tab PO DAILY@0800 [facility] Dicyclomine HCl 20 mg 01/21/23 11:03 Dicyclomine 20 Mg Tab PO Q8H PRN Pain Fenofibrate 160 mg 01/22/23 08:00 Fenofibrate 160 Mg Tab PO DAILY@0800 [facility] Sodium Chloride 1,000 mls @ 130 mls/hr 01/21/23 11:00 01/21/23 11:00 Saline 0.9% IV 01/21/23 18:41 130 mls/hr .Q7H42M STA Administration Diltiazem HCl 125 mg/ Sodium 125 mls @ 0 mls/hr 01/21/23 11:10 01/21/23 11:42 Chloride IV 5 mls/hr .Q0M WILY 5 mls/hr Administration Protocol Per Protocol Lamotrigine 200 mg 01/21/23 21:00 Lamotrigine 100 Mg Tab PO HS [facility] Latanoprost 1 drops 01/21/23 21:00 Latanoprost 0.005% Ophth Drops 2.5 Ml Btl BOTH EYES HS@2100 WILY Lorazepam 1 mg 01/21/23 17:00 Lorazepam 1 Mg Tab PO BID@1700,2100 [facility] Megestrol Acetate 40 mg 01/22/23 08:00 Megestrol 40 Mg Tab PO DAILY@0800 [facility] Melatonin 10 mg 01/21/23 21:00 Melatonin 5 Mg Tablet PO HS@2100 [facility] Metoprolol Tartrate 25 mg 01/21/23 21:00 Metoprolol Tartrate 25 Mg Tab PO BID@0800,2100 [facility] Multivitamins 1 each 01/21/23 21:00 Multivitamins, Thera 1 Each Tab PO HS@2100 [facility] Naloxone HCl 0.2 mg 01/21/23 11:01 Naloxone 0.4 Mg/Ml 1 Ml Vial IV Q2M PRN Opioid Reversal Non-Formulary Medication 145 mcg 01/22/23 07:00 Linaclotide [Linzess] PO DAILY@0700 [facility] Pantoprazole Sodium 40 mg 01/22/23 08:00 Pantoprazole 40 Mg Tablet PO DAILY@0800 [facility] Potassium Chloride 20 meq 01/22/23 08:00 Potassium Chloride Er 20 Meq Tab.Er PO DAILY@0800 [facility] Trazodone HCl 50 mg 01/21/23 21:00 Trazodone Hcl 50 Mg Tab PO HS [facility] Intake and Output 01/21/23 01/21/23 01/21/23 06:59 14:59 22:59 Other: Weight 80.739 kg Patient Weight 01/22/23 06:59 Weight 80.739 kg 01/21/23 08:22 01/21/23 09:00
[2023-01-21] MEDS: LORazepam 1 MG TAB PO SCH ×2 (16:55→20:37)
[2023-01-21] MEDS: AMIODARONE 200 MG TAB PO SCH ×2 (17:21→20:43)
[2023-01-21] MEDS ORDERED: OLANZapine 10 MG VIAL IM PRN (17:47)
[2023-01-21] MEDS ORDERED: OLANZapine 5 MG TAB PO PRN (17:49)
[2023-01-21 20:30] LABS: Glucose,Whole Blood 133 mg/dL (70-110)
[2023-01-21] MEDS: ATORVASTATIN 10 MG TAB PO SCH (20:37)
[2023-01-21] MEDS: MULTIVITAMINS, THERA 1 EACH TAB PO SCH (20:37)
[2023-01-21] MEDS: lamoTRIgine 100 MG TAB PO SCH (20:37)
[2023-01-21] MEDS: METOPROLOL TARTRATE 25 MG TAB PO SCH (20:37)
[2023-01-21] MEDS: MELATONIN 5 MG TABLET PO SCH (20:37)
[2023-01-21] MEDS: LATANOPROST 0.005% OPHTH DROPS 2.5 ML BTL BOTH EYES SCH (20:37)
[2023-01-21] MEDS: APIXABAN 5 MG TAB PO SCH (20:38)
[2023-01-21] MEDS ORDERED: NON FORMULARY DRUG (Vit C/E/Zn/Coppr/Lutein/Zeaxan [Preservision Areds 2 Softgel] 1 EACH C PO SCH (21:00)
[2023-01-21] MEDS ORDERED: ARIPiprazole 15 MG TAB PO SCH (21:00)
[2023-01-21] MEDS ORDERED: traZODone HCL 50 MG TAB PO SCH (21:00)
[2023-01-22] MEDS: DILTIAZEM 125 MG in SODIUM CHLORIDE 0.9% 100 ML IV SCH (02:25)
[2023-01-22 06:15] LABS: Glucose,Whole Blood 103 mg/dL (70-110)
[2023-01-22] MEDS ORDERED: FENOFIBRATE 160 MG TAB PO SCH (08:00)
[2023-01-22] MEDS ORDERED: NON FORMULARY DRUG (Lactose-Reduced Food [Boost] 237 ML Ml) PO SCH (08:00)
[2023-01-22] MEDS: NON FORMULARY DRUG (Linaclotide [Linzess] 145 MCG Capsule) PO SCH (08:31)
[2023-01-22 09:21] LABS: African American GFR (CKD) >90 (>60 ml/min/1.73 sqM); Anion Gap 8 mmol/L; Blood Urea Nitrogen 6 mg/dL (9-20); Calcium 10.1 mg/dL (8.4-10.2); Carbon Dioxide 21 mmol/L (22-30); Chloride 114 mmol/L (98-107); Glucose 128 mg/dL (74-99); Non-African American GFR(CKD) 88 (>60 ml/min/1.73 sqM); Potassium 3.9 mmol/L (3.5-5.1); Sodium 143 mmol/L (137-145)
[2023-01-22] MEDS: APIXABAN 5 MG TAB PO SCH ×2 (09:40→20:43)
[2023-01-22] MEDS: PANTOPRAZOLE 40 MG TABLET PO SCH (09:41)
[2023-01-22] MEDS: METOPROLOL TARTRATE 25 MG TAB PO SCH ×3 (09:41→20:43)
[2023-01-22] MEDS: POTASSIUM CHLORIDE ER 20 MEQ TAB.ER PO SCH (09:41)
[2023-01-22] MEDS: MEGESTROL 40 MG TAB PO SCH (09:41)
[2023-01-22] MEDS: AMIODARONE 200 MG TAB PO SCH ×2 (09:41→20:43)
[2023-01-22] MEDS: CYANOCOBALAMIN 500 MCG TAB PO SCH (09:41)
[2023-01-22 09:53] LABS: Basophils % (A) 0 %; Eosinophils % (A) 1 %; HCT 39.3 % (39.0-53.0); HGB 13.3 gm/dL (13.0-17.5); Lymphocytes % (A) 18 %; MCH 31.6 pg (25.0-35.0); MCHC 33.8 g/dL (31.0-37.0); MCV 93.4 fL (80.0-100.0); Mean Platelet Volume 9.8; Monocytes # (A) 0.3 k/uL (0-1.0); Monocytes % (A) 4 %; Neutrophils # (A) 4.2 k/uL (1.3-7.7); Neutrophils % (A) 75 %; Platelet Count 136 k/uL (150-450); RBC 4.21 m/uL (4.30-5.90); RDW 13.4 % (11.5-15.5); WBC 5.6 k/uL (3.8-10.6)
[2023-01-22 11:13] LABS: T4, Free (Free Thyroxine) 2.23 ng/dL (0.78-2.19)
--- NOTE | 2023-01-22 11:51 | PN ---
PROGRESS NOTE SUBJECTIVE: Mr. Flores is in and out of sinus rhythm. He has what seems to be an atrial flutter or atrial tachycardia. Yesterday when I was examining him, he was in atrial fibrillation. In any case, he has significant mental health issues and appears to be somewhat agitated today. Heart rate has been variable. Vitals are stable. He has no chest pain or shortness of breath. I will increase the beta dannielle to 3 times a day and continue his IV Cardizem and also amiodarone. OBJECTIVE: VITALS: Stable. GENERAL: The patient is a bit agitated. HEART: S1-S2 with some tachycardia noted. LUNGS: Decent air entry. ABDOMEN: Unchanged. LOWER EXTREMITIES: Unchanged. PLAN: To continue anticoagulation amiodarone and when he is stable and more mentally receptive, we can consider EP evaluation or ablation at that point. Prognosis remains guarded. MMODL / IJN: [id number] /
[2023-01-22 11:55] LABS: Glucose,Whole Blood 115 mg/dL (70-110)
--- NOTE | 2023-01-22 12:12 | P.PN ---
Progress Note - Text Progress Note Date: 01/22/23 Chief Complaint: Increased heart rate This is a 67-year-old patient of visiting physicians Dr. Matson. Chronic stable medical conditions include COPD, hypertension, hyperlipidemia, constipation, cyanosis. Paroxysmal atrial fibrillation. I basis chronic constipation. GERD. Patient has a public guardian. [facility]. diagnoses of schizophrenia and schizoaffective disorder Patient at his skilled nursing was found to be tachycardic. In the ER patient was reluctant about taking and now seen. Concerned about the medications. Initially put on Cardizem drip by the ER. Denies any chest pain and palpitations. No dizziness no lightheadedness. Difficult to get a history from the patient as his thought processes and jumping from here to there. He wants to be discharged as he he says he has house in [place] and he was to move there with his buddies. No shortness of breath. No edema. 01/22/2023: 6 patient seen by cardiology. It's unclear patient got atrial tachycardia or atrial flutter. Remains on Cardizem drip. Lopressor is being i ncreased. Patient put out his IV earlier. Given Zyprexa by psychiatry. Urinated in his clothes and refuses to take off his clothes. Has a sitter. Patient seems to have hyper thyroid from over replacement. Stop Synthroid. Patient started on amiodarone per cardiology Active Medications Amiodarone HCl (Amiodarone 200 Mg Tab) 200 mg PO BID [facility] Last Admin: 01/22/23 09:41 Dose: 200 mg Apixaban (Apixaban 5 Mg Tab) 5 mg PO BID@0800,2100 [facility]; Protocol Last Admin: 01/22/23 09:40 Dose: 5 mg Aripiprazole (Aripiprazole 15 Mg Tab) 15 mg PO HS [facility] Last Admin: 01/21/23 20:38 Dose: 15 mg Atorvastatin Calcium (Atorvastatin 10 Mg Tab) 10 mg PO HS@2100 [facility] Last Admin: 01/21/23 20:37 Dose: 10 mg Cyanocobalamin (Cyanocobalamin 500 Mcg Tab) 500 mcg PO DAILY@0800 [facility] Last Admin: 01/22/23 09:41 Dose: 500 mcg Dicyclomine HCl (Dicyclomine 20 Mg Tab) 20 mg PO Q8H PRN PRN Reason: Pain Fenofibrate (Fenofibrate 160 Mg Tab) 160 mg PO DAILY@0800 [facility] Last Admin: 01/22/23 09:41 Dose: 160 mg Diltiazem HCl 125 mg/ Sodium (Chloride) 125 mls @ 0 mls/hr IV .Q0M [facility]; Protocol Last Admin: 01/22/23 02:25 Dose: 5 mls/hr, 5 mls/hr Lamotrigine (Lamotrigine 100 Mg Tab) 200 mg PO HS [facility] Last Admin: 01/21/23 20:37 Dose: 200 mg Latanoprost (Latanoprost 0.005% Ophth Drops 2.5 Ml Btl) 1 drops BOTH EYES HS@2100 [facility] Last Admin: 01/21/23 20:37 Dose: 1 drops Lorazepam (Lorazepam 1 Mg Tab) 1 mg PO BID@1700,2100 [facility] Last Admin: 01/21/23 20:37 Dose: 1 mg Megestrol Acetate (Megestrol 40 Mg Tab) 40 mg PO DAILY@0800 [facility] Last Admin: 01/22/23 09:41 Dose: 40 mg Melatonin (Melatonin 5 Mg Tablet) 10 mg PO HS@2100 [facility] Last Admin: 01/21/23 20:37 Dose: 10 mg Metoprolol Tartrate (Metoprolol Tartrate 25 Mg Tab) 25 mg PO TID [facility] Multivitamins (Multivitamins, Thera 1 Each Tab) 1 each PO HS@2100 [facility] Last Admin: 01/21/23 20:37 Dose: 1 each Naloxone HCl (Naloxone 0.4 Mg/Ml 1 Ml Vial) 0.2 mg IV Q2M PRN PRN Reason: Opioid Reversal Non-Formulary Medication (Linaclotide [Linzess]) 145 mcg PO DAILY@0700 [facility] Last Admin: 01/22/23 08:31 Dose: Not Given Olanzapine (Olanzapine 10 Mg Vial) 5 mg IM Q6HR PRN PRN Reason: Severe Agitation Last Admin: 01/22/23 10:17 Dose: 5 mg Olanzapine (Olanzapine 5 Mg Tab) 5 mg PO Q4H PRN PRN Reason: Agitation Pantoprazole Sodium (Pantoprazole 40 Mg Tablet) 40 mg PO DAILY@0800 [facility] Last Admin: 01/22/23 09:41 Dose: 40 mg Potassium Chloride (Potassium Chloride Er 20 Meq Tab.Er) 20 meq PO DAILY@0800 [facility] Last Admin: 01/22/23 09:41 Dose: 20 meq Trazodone HCl (Trazodone Hcl 50 Mg Tab) 50 mg PO HS [facility] Last Admin: 01/21/23 20:37 Dose: 50 mg Past medical history to include: Asthma, hypertension, hyperlipidemia, schizophrenia, schizoaffective disorder, constipation. Left leg DVT in April 2021, cirrhosis, atrial fibrillation Social history: Has a public guardian. Smokes variable amount. No alcohol intake. Lives at a [facility] home. Previously used street drugs Physical examination: VITAL SIGNS: Afebrile, 94, 16, 1 49 x 70, 95% room air GENERAL: laying in bed, stent of urine. EYES: Pupils equal. Conjunctiva normal. HEENT: External appearance of nose and ears normal, oral cavity grossly normal. NECK: JVD not raised; masses not palpable. HEART: Irregular; no edema. LUNGS: Respiratory rate increased; decreased breath sounds, ABDOMEN: Soft, nontender, liver spleen not palpable, no masses palpable. PSYCH: Able to answer questions. Anxious. Erratic answers. INVESTIGATIONS, reviewed in the clinical context: 01/22/2023: White count 5.6 hemoglobin 13.3. His 136 potassium 3.9 BUN 6 creatinine 0.89 free T4 2 0.23 TSH 0.3 EKG tracing personally reviewed by me-. Weight 164. Atrial flutter/tachycardia. Right bundle branch block pattern. Chest x-ray film personally reviewed by me-some elevation of right hemidiaphragm. Hyperinflation. White count 4.3 hemoglobin 14 platelets 139 potassium 3.6 BUN 13 creatinine 1.01 Troponin I less than 0.012, 0.029 Influenza type A, diabetes, RSV, COVID-19: Not detected Assessment and plan: -Atrial flutter/atrial tachycardia with a rate around 140-60. Received Lopressor 2.5 mg IV 1 followed by 5 mg and then 2.5 mg in the ER. IV adenosine 6 mg IVP 1. Then placed on Cardizem drip 5 mg an hour. Telemetry. Cardiology following Lopressor increased to 25 mg 3 times a day -Hyperlipidemia Zocor -Essential hypertension Lopressor -COPD, in a current smoker Albuterol when necessary -Hyperthyroid from over replacement. Stop Synthroid -Chronic nicotine dependent cigarette smoker Nicotine patch -Schizophrenia Consult psychiatry -Chronic constipation Continue with Metamucil -Full code -Patient has a public guardian Synthroid not to be renewed. Lopressor increased to 25 mg 3 times a day. Await input from psychiatry. Has a sitter.
[2023-01-22] MEDS ORDERED: chlorproMAZINE 25 MG TAB PO PRN (12:43)
[2023-01-22] MEDS ORDERED: chlorproMAZINE 25 MG/ML 2 ML AMP IM PRN (12:43)
[2023-01-22] MEDS ORDERED: fluPHENAZine DECANOATE 25 MG/ML 5ML MDV IM ONE (13:00)
--- NOTE | 2023-01-22 13:34 | P.CN ---
Psychiatric Consult - . Consult date: 01/22/23 Consult:: 01/22/23 13:33 IDENTIFYING DATA: This patient is a single, unemployed, 67-year-old male who has a legal guardian and his resident of [facility] who presented to our emergency department for concerns of tachycardia. HISTORY OF PRESENT ILLNESS: The patient presented to the hospital on 01/21/2023 with concerns for tachycardia. Patient was placed on a Cardizem drip in the ER. He was evaluated by cardiology started on amiodarone, and EKG was performed revealing RBBB and QTc 369 ms. Beta blockers continued. Patient placed on thromboembolic protection. Psychiatry has been consulted for evaluation and management of psychosis. Patient is currently responding to internal stimuli. He is actively psychotic and appears to see people or "friends" on the floor in front of him. He is grossly disorganized and has urinated on the floor of his room. He is endorsing auditory and visual hallucinations. This provider contacted his [facility] home and spoke with the urgent care technician who reports that the patient was transferred to their facility this past September. He is reported as not doing well since his transfer and has been violent with staff and peers. He also has a delusional belief that he is to the urgent care technician. The patient recently had his abilify increased to 15 mg the day prior to this admission. He last received Prolixin decanoate 50 mg IM on 01/15/2023 and is due for his next dose today. The patient has a history of major neurocognitive disorder, however was able to recall that this provider was the psychiatrist who has seen him last year on 12/03/2021. PAST PSYCHIATRIC HISTORY: Patient has a previous history of major neurocognitive disorder and schizoaffective disorder. Patient has had multiple inpatient psychiatric admissions with the last time being in November of 2021. He is currently open with [facility]. He denies any prior suicide attempts. PAST MEDICAL HISTORY: Past Medical History: Asthma, Hyperlipidemia, Hypertension Additional Past Medical History / Comment(s): schizophrenia. constipation History of Any Multi-Drug Resistant Organisms: None Reported Past Surgical History: No Surgical Hx Reported Past Anesthesia/Blood Transfusion Reactions: No Reported Reaction Past Psychological History: Schizophrenia Smoking Status: Light tobacco smoker Past Alcohol Use History: None Reported Past Drug Use History: None Reported ALLERGIES: Allergies Allergy/AdvReac Type Severity Reaction Status Date / Time acetaminophen [From Tylenol] Allergy Unknown Verified 01/21/23 09:41 gabapentin [From Neurontin] Allergy Unknown Verified 01/21/23 09:41 Penicillins Allergy Unknown Verified 01/21/23 09:41 clozapine [From Clozaril] AdvReac Unknown Verified 01/21/23 09:41 divalproex sodium AdvReac Unknown Verified 01/21/23 09:41 [From Depakote] CHEMICAL DEPENDENCY HISTORY: The patient smokes tobacco daily. He denies any other substance use. Reports no alcohol, cannabis, or illicit drug use. FAMILY PSYCHIATRIC/SUBSTANCE USE HISTORY: Unable to obtain. SOCIAL HISTORY: As per previous admission: The patient's parents are . He graduated high school. He is unemployed and receives Social Security disability income. He has a public guardian due to his persistent and severe psychiatric illness. He is currently a resident at an [facility] home. MENTAL STATUS EXAM: General Appearance: Patient appears to be stated age is alert, however uncooperative. Patient appears to have disheveled hygiene and grooming wearing hospital gown with fair eye contact. Behavior: Patient is seated upright in bed with the TV remote. He keeps the volume loud. He is upset at this provider and gestures that this provider is "stepping on his friends near him." Speech: Patient's speech is loud. Pressured. Mood/Affect: Patient reports their mood is "Upset", affect is irritable and labile Suicidality/Homicidality: Patient denies having any suicidal or homicidal ideation intent or plan. Perceptions: Patient endorses auditory and visual hallucinations. Though content/process: Patient is currently disorganized and delusional. Memory and concentration: Grossly poor however is able to recall this provider from last year. Judgment and insight: Very poor IMPRESSIONS: Schizoaffective disorder, depressed type Major neurocognitive disorder Nicotine dependence PLAN: -At this time patient DOES NOT meet criteria for inpatient psychiatric admission. We will continue to assess need for admission. We will reassess tomorrow. If medically stable and grossly psychotic we will admit to our psychiatric unit. -Patient DOES NOT have decision making capacity at this time and is unable to reason through and communicate/appreciate the risks, benefits and alternatives to treatment. -Delirium precautions recommended with patient including - avoiding use of narcotics and [employer] sedatives, limit anticholinergic medications when possible, frequent re-orientation, minimize use of restraints, open window shades during the day and close them at night -Would recommend the following medication changes/additions: Order Prolixin Decanoate 50 mg IM today (next due on 01/29/2023). Discontinue abilify due to concern for tachycardia with increase. We will start risperdal 0.5 mg BID for psychosis. Discontinue Trazodone Start [place] 450 mg BID for mood stability Continue Lamictal 200 mg at bedtime for mood stability. -Continue 1:1 sitter for safety -Cannot leave AMA at this time. Patient will need a petition and certification if attempting to leave AMA. -Will continue to follow along 01/22/23 13:33
[2023-01-22] MEDS: DILTIAZEM ORAL 60 MG TAB PO SCH ×2 (17:28→20:46)
[2023-01-22] MEDS: LORazepam 1 MG TAB PO SCH ×2 (17:28→20:42)
[2023-01-22 20:17] LABS: Glucose,Whole Blood 113 mg/dL (70-110)
[2023-01-22] MEDS: MELATONIN 5 MG TABLET PO SCH (20:42)
[2023-01-22] MEDS: lamoTRIgine 100 MG TAB PO SCH (20:42)
[2023-01-22] MEDS: risperiDONE 0.5 MG TAB PO SCH (20:43)
[2023-01-22] MEDS: ATORVASTATIN 10 MG TAB PO SCH (20:43)
[2023-01-22] MEDS: MULTIVITAMINS, THERA 1 EACH TAB PO SCH (20:43)
[2023-01-22] MEDS: LITHIUM CARBONATE ER 450 MG TABLET.ER PO SCH (20:44)
[2023-01-22] MEDS: LATANOPROST 0.005% OPHTH DROPS 2.5 ML BTL BOTH EYES SCH (20:45)
[2023-01-23 06:08] LABS: Glucose,Whole Blood 102 mg/dL (70-110)
[2023-01-23] MEDS: NON FORMULARY DRUG (Linaclotide [Linzess] 145 MCG Capsule) PO SCH (06:21)
[2023-01-23] MEDS: APIXABAN 5 MG TAB PO SCH (09:37)
[2023-01-23] MEDS: POTASSIUM CHLORIDE ER 20 MEQ TAB.ER PO SCH (09:37)
[2023-01-23] MEDS: MEGESTROL 40 MG TAB PO SCH (09:37)
[2023-01-23] MEDS: CYANOCOBALAMIN 500 MCG TAB PO SCH (09:37)
[2023-01-23] MEDS: LITHIUM CARBONATE ER 450 MG TABLET.ER PO SCH (09:38)
[2023-01-23] MEDS: PANTOPRAZOLE 40 MG TABLET PO SCH (09:38)
[2023-01-23] MEDS: METOPROLOL TARTRATE 25 MG TAB PO SCH ×2 (09:38→17:03)
[2023-01-23] MEDS: DILTIAZEM ORAL 60 MG TAB PO SCH ×2 (09:38→17:03)
[2023-01-23] MEDS: risperiDONE 0.5 MG TAB PO SCH (09:38)
[2023-01-23] MEDS: AMIODARONE 200 MG TAB PO SCH (09:47)
[2023-01-23 11:22] VITALS: TEMP 98.4
[2023-01-23 11:55] LABS: Glucose,Whole Blood 155 mg/dL (70-110)
--- NOTE | 2023-01-23 12:42 | P.PN ---
Subjective HISTORY OF PRESENTING ILLNESS This is a pleasant 67-year-old male past medical history significant for paroxysmal atrial fibrillation, hypertension, dyslipidemia, asthma and schizophrenia. He follows in the office with Dr. Benavides. We have been asked to see in consultation for fibrillation. He lives in a [facility] and was brought in secondary to tachycardia. He does not give any meaningful information. Everything is obtained from the medical record. According to him he has no symptoms of chest pain, shortness of breath, dizziness or palpitations. EKG on arrival revealed atrial tachycardia heart rate was around 165. He was given IV adenosine in the emergency room. Currently he is going back and forth between sinus rhythm in atrial fibrillation with rates in the 80s to 100s. He's on IV Cardizem. He is on aliquots and has been compliant. Chest x-ray is negative for an acute cardiopulmonary process. Laboratory data reviewed, WBC 4.3, hemoglobin 14, platelets 139, sodium 140, potassium 3.6, creatinine 1.01, troponin negative 2 and magnesium 1.8. Crit daily cardiac medications include aliquots 5 mg twice a day, fenofibrate 145 mg daily, metoprolol 25 mg twice a day, simvastatin 20 mg daily at bedtime. Most recent echocardiogram obtained October 2022 revealed preserved LV systolic function with ejection fraction 55%. 01/23 Patient seen and examined. Patient mumbling incoherently at times. States " theres nothing wrong with my heart". Denies any chest pain or pressure. Denies any shortness breath. He is off telemetry however appears in sinus rhythm on exam. PHYSICAL EXAMINATION vitals reviewed CONSTITUTIONAL: No apparent distress. HEENT: Head is normocephalic. Pupils are equal, round. Sclerae anicteric. Mucous membranes of the mouth are moist. No JVD. No carotid bruit. CHEST EXAMINATION: Lungs are clear to auscultation. No chest wall tenderness is noted on palpation or with deep breathing. HEART EXAMINATION: Irregular rate and rhythm. S1, S2 heard. No murmurs, gallops or rub. ABDOMEN: Soft, nontender. EXTREMITIES: 2+ peripheral pulses, no lower extremity edema and no calf tenderness. NEUROLOGIC EXAMINATION: Patient is awake, alert and oriented x3, poor eye contact. ASSESSMENT Paroxysmal atrial fibrillation currently appears sinus on exam Hypertension Dyslipidemia Schizophrenia PLAN Continue current regimen with Amio and Cardizem. Decrease amio to 200mg daily 01/28. No further recs from a cardiology standpoint. Objective - Vital Signs Vital signs: Vital Signs Temp 98.4 F 01/23/23 08:00 Pulse 59 L 01/23/23 11:59 Resp 18 01/23/23 11:59 BP 93/57 01/23/23 11:59 Pulse Ox 97 01/23/23 11:59 FiO2 Intake & Output 01/22/23 01/23/23 01/23/23 18:59 06:59 18:59 Intake Total 540 Balance 540 Intake: Oral 540 Other: Voiding Method Urinal Urinal Urinal Incontinent Incontinent Incontinent # Voids 2 1 - Labs CBC & Chem 7: 01/22/23 08:22 01/22/23 08:22 Labs: Abnormal Lab Results - Last 24 Hours (Table) 01/22/23 01/23/23 Range/Units 20:15 11:43 POC Glucose (mg/dL) 113 H 155 H (70-110) mg/dL
--- NOTE | 2023-01-23 13:06 | P.DS ---
Providers Date of admission: 01/21/23 11:03 Expected date of discharge: 01/23/23 Attending physician: Coleman Gordon Consults: 01/21/23 11:01 Consult Physician Routine Consulting Provider: [facility] Consult Reason/Comments: tachyarrhythmia, svt Do you want consulting provider notified?: Yes 01/21/23 13:54 Consult Physician Routine Consulting Provider: Doyle Edge Consult Reason/Comments: Schizophrenia, refusing some medications Do you want consulting provider notified?: Yes Primary care physician: Conrad Matson MD Hospital Course: Chief Complaint: Increased heart rate This is a 67-year-old patient of visiting physicians Dr. Matson. Chronic stable medical conditions include COPD, hypertension, hyperlipidemia, constipation, cyanosis. Paroxysmal atrial fibrillation. I basis chronic constipation. GERD. Patient has a public guardian. [facility]. diagnoses of schizophrenia and schizoaffective disorder Patient at his [facility] was found to be tachycardic. In the ER patient was reluctant about taking and now seen. Concerned about the medications. Initially put on Cardizem drip by the ER. Denies any chest pain and palpitations. No dizziness no lightheadedness. Difficult to get a history from the patient as his thought processes and jumping from here to there. He wants to be discharged as he he says he has house in [place] and he was to move there with his buddies. No shortness of breath. No edema. 01/22/2023: 6 patient seen by cardiology. It's unclear patient got atrial t achycardia or atrial flutter. Remains on Cardizem drip. Lopressor is being increased. Patient put out his IV earlier. Given Zyprexa by psychiatry. Urinated in his clothes and refuses to take off his clothes. Has a sitter. Patient seems to have hyper thyroid from over replacement. Stop Synthroid. Patient started on amiodarone per cardiology 01/23/2023: Patient is back in sinus rhythm. Per cardiology to continue current medications. Spoke to the patient. Does not want to go down to the [facility]. Wants to leave hospital. Discussed with psychiatrist Dr. Edge. clinical certificate filled out. Sitter to continue. Discussion and discharge planning more than 35 minutes Past medical history to include: Asthma, hypertension, hyperlipidemia, schizophrenia, schizoaffective disorder, constipation. Left leg DVT in April 2021, cirrhosis, atrial fibrillation Social history: Has a public guardian. Smokes variable amount. No alcohol intake. Lives at a [facility] home. Previously used street drugs Physical examination: VITAL SIGNS: 98.4, 59, 18, 93/57, 97% room air GENERAL: laying in bed, anxious EYES: Pupils equal. Conjunctiva normal. HEENT: External appearance of nose and ears normal, oral cavity grossly normal. NECK: JVD not raised; masses not palpable. HEART: Irregular; no edema. LUNGS: Respiratory rate increased; decreased breath sounds, ABDOMEN: Soft, nontender, liver spleen not palpable, no masses palpable. PSYCH: Able to answer questions. Anxious. Agitated. INVESTIGATIONS, reviewed in the clinical context: 01/22/2023: White count 5.6 hemoglobin 13.3. His 136 potassium 3.9 BUN 6 creatinine 0.89 free T4 2 0.23 TSH 0.3 EKG tracing personally reviewed by me-. Weight 164. Atrial flutter/tachycardia. Right bundle branch block pattern. Chest x-ray film personally reviewed by me-some elevation of right hemidiaphragm. Hyperinflation. White count 4.3 hemoglobin 14 platelets 139 potassium 3.6 BUN 13 creatinine 1.01 Troponin I less than 0.012, 0.029 Influenza type A, diabetes, RSV, COVID-19: Not detected Assessment and plan: -Atrial flutter/atrial tachycardia with a rate around 140-60.: Currently in sinus rhythm. Lopressor 25 mg 3 times a day. Cardizem 60 mg by mouth 3 times a day. Amiodarone 200 mg twice a day. -Hyperlipidemia Zocor -Essential hypertension Lopressor -COPD, in a current smoker Albuterol when necessary -Hyperthyroid from over replacement. Stop Synthroid -Chronic nicotine dependent cigarette smoker Nicotine patch -Schizophrenia , uncontrolled Accepted to [facility]. -Chronic constipation Continue with Metamucil -Full code -Patient has a public guardian Disposition: [address] Doyle Edge. Plan - Discharge Summary New Discharge Prescriptions: New Diltiazem Oral [Cardizem*] 60 mg PO TID tab [place] Carbonate ER [Lithobid] 450 mg PO BID tab risperiDONE [RisperDAL] 0.5 mg PO BID tab OLANZapine [ZyPREXA] 5 mg PO Q4H PRN tab PRN Reason: Agitation Amiodarone [Cordarone] 200 mg PO BID tab chlorproMAZINE [Thorazine] 25 mg PO Q4HR PRN tab PRN Reason: Agitation Or Acute Psychosis Continue Omeprazole [PriLOSEC] 20 mg PO DAILY@0800 Latanoprost/Pf [Latanoprost 0.005% Eye Drop] 1 drop BOTH EYES HS@2100 Fenofibrate Nanocrystallized [Fenofibrate] 145 mg PO DAILY@0800 Cholecalciferol (Vitamin D3) [Vitamin D3 (5000 Iu)] 125 mcg PO DIRECTED Certavite 1 tab PO HS@2100 Dicyclomine [Bentyl] 20 mg PO Q8H PRN PRN Reason: Pain Apixaban [Eliquis] 5 mg PO BID@0800,2100 Vit C/E/Zn/Coppr/Lutein/Zeaxan [Preservision Areds 2 Softgel] 1 cap PO BID@0800,2100 Simvastatin [Zocor] 20 mg PO HS@2100 LORazepam [Ativan] 1 mg PO BID@1700,2100 Linaclotide [Linzess] 145 mcg PO DAILY@0700 Cyanocobalamin [Vitamin B-12] 500 mcg PO DAILY@0800 Lactose-Reduced Food [Boost] 1 can PO DAILY PRN PRN Reason: MEAL SUBSTITUTION Melatonin 10 mg PO HS@2100 Megestrol Acetate 40 mg PO DAILY@0800 lamoTRIgine [LaMICtal] 200 mg PO HS Changed Metoprolol Tartrate [Lopressor] 25 mg PO TID #0 Discontinued ARIPiprazole [Abilify] 15 mg PO HS Levothyroxine Sodium [Synthroid] 25 mcg PO DIRECTED Potassium Chloride ER [K-Dur 20] 20 meq PO DAILY@0800 traZODone HCL [Desyrel] 50 mg PO HS No Action Lactose-Reduced Food [Boost] 1 can PO DAILY@0800 Discharge Medication List Cholecalciferol (Vitamin D3) [Vitamin D3 (5000 Iu)] 125 mcg PO DIRECTED 06/07/20 [History] Fenofibrate Nanocrystallized [Fenofibrate] 145 mg PO DAILY@0800 06/07/20 [History] Latanoprost/Pf [Latanoprost 0.005% Eye Drop] 1 drop BOTH EYES HS@2100 06/07/20 [History] Omeprazole [PriLOSEC] 20 mg PO DAILY@0806/07/20 [History] Certavite 1 tab PO HS@209904/12/21 [History] Cyanocobalamin [Vitamin B-12] 500 mcg PO DAILY@0804/12/21 [History] Dicyclomine [Bentyl] 20 mg PO Q8H PRN 04/12/21 [History] Apixaban [Eliquis] 5 mg PO BID@08,209907/12/21 [History] Lactose-Reduced Food [Boost] 1 can PO DAILY@0811/03/21 [History] Vit C/E/Zn/Coppr/Lutein/Zeaxan [Preservision Areds 2 Softgel] 1 cap PO BID@0800,209911/03/21 [History] LORazepam [Ativan] 1 mg PO BID@1700,209910/30/22 [History] Lactose-Reduced Food [Boost] 1 can PO DAILY PRN 10/30/22 [History] Megestrol Acetate 40 mg PO DAILY@79910/30/22 [History] Melatonin 10 mg PO HS@209910/30/22 [History] Simvastatin [Zocor] 20 mg PO HS@209910/30/22 [History] Linaclotide [Linzess] 145 mcg PO DAILY@0701/21/23 [History] lamoTRIgine [LaMICtal] 200 mg PO HS 01/21/23 [History] Amiodarone [Cordarone] 200 mg PO BID tab 01/22/23 [Rx] Diltiazem Oral [Cardizem*] 60 mg PO TID tab 01/22/23 [Rx] [place] Carbonate ER [Lithobid] 450 mg PO BID tab 01/22/23 [Rx] Metoprolol Tartrate [Lopressor] 25 mg PO TID #0 01/22/23 [Rx] OLANZapine [ZyPREXA] 5 mg PO Q4H PRN tab 01/22/23 [Rx] chlorproMAZINE [Thorazine] 25 mg PO Q4HR PRN tab 01/22/23 [Rx] risperiDONE [RisperDAL] 0.5 mg PO BID tab 01/22/23 [Rx] Follow up Appointment(s)/Referral(s): Conrad Matson MD [Primary Care Provider] - 1-2 days Activity/Diet/Wound Care/Special Instructions: [facility] will transport patient back at d/c. Call Discharge Disposition: TRANSFER TO PSYCH HOSP/UNIT
--- NOTE | 2023-01-23 13:48 | P.PN ---
Progress Note - Text Progress Note Date: 01/23/23 Interval History: Patient was seen sitting in bed with his one-to-one sitter present. Currently, the patient is alert and oriented in all spheres. He is able to recall that this provider is from [facility]. He is currently not endorsing any suicidal or homicidal ideation, intention, and/or plan. He however continues to endorse auditory hallucinations of "various family members." He is unable to answer whether these auditory hallucinations command him or tell him to do things because his only responses provider is "I love my family and I don't want that to go away." He is not endorsing any overt delusional thought content to this provider at this time. However according to the patient's ACT team as well as the [facility] day care attendant, the patient has a delusional belief that he is in a relationship with the [facility] day care attendant. The patient does report that he was able to sleep last night. He reports that those the first time he slept in weeks. Mental Status Exam: General Appearance: Patient appears to be stated age is alert, difficult to direct however attempts to cooperate. Behavior: Patient is seated upright in his bed. Psychomotor agitation is evident. Speech: Patient's speech is fluent however pressured and rapid. Mood/Affect: Mood is "feeling much better." Affect is expansive and intense. Suicidality/Homicidality: Patient denies having any suicidal or homicidal ideation intent or plan. Perceptions: Patient denies any visual hallucinations however patient endorses auditory hallucinations. Though content/process: Delusional belief that he is and has a child with the [facility] day care attendant. Memory and concentration: AOX3, grossly intact for the purposes of this session Judgment and insight: Improving mildly Assessment Schizoaffective disorder, depressed type Major neurocognitive disorder Nicotine dependence Plan: -At this time patient DOES meet criteria for inpatient psychiatric admission. Patient is currently grossly manic/psychotic and will require stabilization in the psychiatric unit. -Would recommend the following medication changes/additions: Prolixin Decanoate 50 mg IM administered yesterday. Next dose due on 01/29/2023. Increase Risperdal to 1 mg twice daily for mood stabilization/psychosis. Continue [place] 450 mg BID for mood stability Continue Lamictal 200 mg at bedtime for mood stability. -Continue 1:1 sitter for safety -Cannot leave AMA at this time. Patient will need a petition and certification if attempting to leave AMA. -When medically stable, and transfer to our psychiatric unit. Contact EPS. -Will continue to follow along
[2023-01-23 16:46] LABS: Glucose,Whole Blood 128 mg/dL (70-110)
[2023-01-23] MEDS: LORazepam 1 MG TAB PO SCH (17:03)
[2023-01-23 17:06] VITALS: BP 127/60; PULSE 64; RESP 16
[2023-01-23] MEDS ORDERED: risperiDONE 1 MG TAB PO SCH (21:00)
--- NOTE | 2023-01-24 12:10 | CDI ---
Documentation Clarification Form Date: 01/24/23 From: Rosa Petersen Admit Date: 01/21/2023 11:03:00 AM Patient Name: David Flores Visit Number: [id number] Discharge Date: 01/23/2023 6:32:00 PM ATTENTION: The Clinical Documentation Specialists (CDI) and [facility] Coding Staff appreciate your assistance in clarifying documentation. Please respond to the clarification below the line at the bottom and electronically sign. The CDI & [facility] Coding staff will review the response and follow-up if needed. Please note: Queries are made part of the Legal Health Record. If you have any questions, please contact the author of this message via ITS. Dr. Tae Davidson, Atrial Flutter is documented in the ED Note, H&P, PNs and DS. Additional clarification regarding the type of Atrial Flutter is requested. History/Risk factors: Paroxysmal atrial fibrillation, schizoaffective disorder- depressive, dementia w psychotic disturbance, mood disturbance and anxiety, cirrhosis, hyperthyroid, COPD, HLD & HTN Clinical Indicators: Patient is a 67-year-old male who presents emergency Department with no acute complaints but was incidentally found to be having atachycardiathat his [facility] home. Does have a history ofatrial fibrillationon blood thinners. EKG/telemetry: On arrival revealed atrial tachycardia heart rate was around 165. Treatment: Received Lopressor 2.5 mg IV 1 followed by 5 mg and then 2.5 mg in the ER. IV Adenosine 6 mgIVP1.Thenplacedon Cardizem drip 5 mg an hour. Telemetry. Please clarify the type of Atrial Flutter, if known: [X ] Typical/Type I [ ] Atypical/Type II [ ] Other, please specify [ ] Unable to determine MTDD
== END 2023-01-23 18:32 | DRG 309 ==
LOC: EC 08:11 → 3SCARD 11:03
PROVIDERS: ADMIT Hospitalist; ATTEND Hospitalist
DX: I48.3 Typical atrial flutter (principal); F30.2 Manic episode, severe with psychotic symptoms; F03.90 Unspecified dementia, unspecified severity, without behavioral disturbance, psychotic disturbance, mood disturbance, and anxiety; K74.60 Unspecified cirrhosis of liver; I47.1 Supraventricular tachycardia; I48.0 Paroxysmal atrial fibrillation; E05.90 Thyrotoxicosis, unspecified without thyrotoxic crisis or storm; J44.9 Chronic obstructive pulmonary disease, unspecified; Z20.822 Contact with and (suspected) exposure to COVID-19; I45.10 Unspecified right bundle-branch block; E78.5 Hyperlipidemia, unspecified; I10 Essential (primary) hypertension; K21.9 Gastro-esophageal reflux disease without esophagitis; K59.09 Other constipation; R32 Unspecified urinary incontinence; F17.210 Nicotine dependence, cigarettes, uncomplicated; Z79.01 Long term (current) use of anticoagulants; Z79.890 Hormone replacement therapy; Z79.818 Long term (current) use of other agents affecting estrogen receptors and estrogen levels; Z79.899 Other long term (current) drug therapy; Z86.718 Personal history of other venous thrombosis and embolism; Z56.0 Unemployment, unspecified
CPT/HCPCS: 36415; 71045; 71046; 80048; 80053; 81003; 83735; 84439; 84443; 84484; 85025; 85610; 85730; 87636; 93005; 94760; 96361; 96365; 96366; 96375; 99291

== ENCOUNTER 2023-01-23 17:20 | Inpatient (IN) | payer MEDICARE, MEDICAID ==
[2023-01-23] MEDS ORDERED: MAG HYDROX/AL HYDROX/SIMETH 30 ML CUP PO PRN (17:36)
[2023-01-23] MEDS ORDERED: MAGNESIUM HYDROXIDE 2,400 MG/10 ML CUP PO PRN (17:36)
[2023-01-23] MEDS ORDERED: chlorproMAZINE 25 MG TAB PO PRN (17:38)
[2023-01-23] MEDS ORDERED: DICYCLOMINE 20 MG TAB PO PRN (17:38)
[2023-01-23] MEDS ORDERED: NON FORMULARY DRUG (Lactose-Reduced Food [Boost] 237 ML Ml) PO PRN (17:38)
[2023-01-23] MEDS ORDERED: chlorproMAZINE 25 MG/ML 2 ML AMP IM PRN (17:51)
[2023-01-23] MEDS: MELATONIN 5 MG TABLET PO SCH (19:59)
[2023-01-23] MEDS: MULTIVITAMINS, THERA 1 EACH TAB PO SCH (19:59)
[2023-01-23] MEDS: risperiDONE 1 MG TAB PO SCH (20:00)
[2023-01-23] MEDS: lamoTRIgine 100 MG TAB PO SCH (20:00)
[2023-01-23] MEDS: LORazepam 1 MG TAB PO SCH (20:00)
[2023-01-23] MEDS: LITHIUM CARBONATE ER 450 MG TABLET.ER PO SCH (20:00)
[2023-01-23] MEDS: APIXABAN 5 MG TAB PO SCH (20:01)
[2023-01-23] MEDS: METOPROLOL TARTRATE 25 MG TAB PO SCH (20:01)
[2023-01-23] MEDS: VIT A,C & E-LUTEIN-MINERALS 1 EACH TAB PO SCH (20:02)
[2023-01-23] MEDS: ATORVASTATIN 10 MG TAB PO SCH (20:04)
[2023-01-23] MEDS: DILTIAZEM ORAL 60 MG TAB PO SCH (21:48)
[2023-01-23] MEDS: AMIODARONE 200 MG TAB PO SCH (21:48)
[2023-01-23] MEDS: LATANOPROST 0.005% OPHTH DROPS 2.5 ML BTL BOTH EYES SCH (21:54)
[2023-01-24] MEDS ORDERED: NICOTINE 14MG/24HR PATCH TRANSDERM SCH (09:00)
[2023-01-24] MEDS: NON FORMULARY DRUG (Linaclotide [Linzess] 145 MCG Capsule) PO SCH (09:09)
--- NOTE | 2023-01-24 11:45 | P.HP ---
Psychiatric H&P - . H&P Date: 01/24/23 History & Physical: Allergies Allergy/AdvReac Type Severity Reaction Status Date / Time acetaminophen [From Tylenol] Allergy Unknown Verified 01/21/23 09:41 gabapentin [From Neurontin] Allergy Unknown Verified 01/21/23 09:41 Penicillins Allergy Unknown Verified 01/21/23 09:41 clozapine [From Clozaril] AdvReac Unknown Verified 01/21/23 09:41 divalproex sodium AdvReac Unknown Verified 01/21/23 09:41 [From Depakote] Vital Signs Temp 98.2 F 01/23/23 19:49 Pulse 55 L 01/23/23 21:49 Resp 16 01/23/23 21:49 BP 97/56 01/23/23 21:49 Pulse Ox 97 01/23/23 21:49 FiO2 Intake & Output 01/23/23 01/24/23 01/24/23 18:59 06:59 18:59 Weight 80.739 kg 01/24/23 11:44 IDENTIFYING DATA: This patient is a single, unemployed, 67-year-old male who has a legal guardian and his resident of [facility] who presented to our emergency department for concerns of tachycardia, however was noted to be very agitated and endorsing acute psychotic symptoms. HPI: Patient presented to the hospital on 01/21/2023 with concerns. Tachycardia. He was evaluated by cardiology and medicine and subsequently treated. Psychiatry was consulted due to his acute psychosis and behavioral disturbances. When evaluated on the medical floor on 01/22/2023, the patient was overtly psychotic, responding to internal stimuli, grossly disorganized, and was endorsing both auditory and visual hallucinations. The patient was subsequently admitted to our psychiatric unit under petition and certification. Upon evaluation by this provider, the patient continues to be overtly psychotic delusional. Collateral information was obtained by the patient's [facility] home. As per congregational care pastor at the [facility] home, the patient has been living at this home since this past September. Reportedly, he has been increasingly violent to staff and peers. He also has a delusional belief that he is to the congregational care pastor. She informed this provider that this belief has led to him directing anger toward staff members about infidelity. Furthermore, the patient reported that he has not been sleeping. He is mostly uncooperative during the interview due to irritability and anger. The patient does endorse auditory hallucinations of family members. This morning he states that it is his uncle speaking to him. He denies any command type hallucinations today. As the patient continues to display overt psychosis, he was subsequently petitioned and certified him a second clinic was difficult was filled out by this provider. PAST PSYCHIATRIC HISTORY: Patient has a previous history of major neurocognitive disorder and schizoaffective disorder. Patient has had multiple inpatient psychiatric admissions with the last time being in November of 2021. He is currently open with [facility]. He denies any prior suicide attempts. PMH: Past Medical History: Asthma, Hyperlipidemia, Hypertension Additional Past Medical History / Comment(s): schizophrenia. constipation History of Any Multi-Drug Resistant Organisms: None Reported Past Surgical History: No Surgical Hx Reported Past Anesthesia/Blood Transfusion Reactions: No Reported Reaction Past Psychological History: Schizophrenia Smoking Status: Light tobacco smoker Past Alcohol Use History: None Reported Past Drug Use History: None Reported ALLERGIES: Allergies Allergy/AdvReac Type Severity Reaction Status Date / Time acetaminophen [From Tylenol] Allergy Unknown Verified 01/21/23 09:41 gabapentin [From Neurontin] Allergy Unknown Verified 01/21/23 09:41 Penicillins Allergy Unknown Verified 01/21/23 09:41 clozapine [From Clozaril] AdvReac Unknown Verified 01/21/23 09:41 divalproex sodium AdvReac Unknown Verified 01/21/23 09:41 [From Depakote] CHEMICAL DEPENDENCY HISTORY: The patient smokes tobacco daily. He denies any other substance use. Reports no alcohol, cannabis, or illicit drug use. FAMILY PSYCHIATRIC/SUBSTANCE USE HISTORY: Unable to obtain SOCIAL HISTORY: As per previous admission: The patient's parents are . He graduated high school. He is unemployed and receives Social Security [employer] income. He has a public guardian due to his persistent and severe psychiatric illness. He is currently a resident at an [facility] home. MENTAL STATUS EXAM: General Appearance: Patient appears to be stated age is alert, however is difficult to direct and mostly uncooperative. Patient appears to have fair hygiene and grooming. Behavior: Patient is lying down in bed. Intense eye contact. Speech: Patient's speech is rapid and pressured. Thought and volume. Mood/Affect: Patient reports their mood is "pissed off," affect is congruent and angry. Suicidality/Homicidality: Patient denies any suicidal or homicidal ideation Perceptions: Patient denies any current visual hallucinations. He endorses auditory hallucinations. Though content/process: Flight of ideas, loose associations, erotomanic de lusions. Memory and concentration: Grossly poor at this time Judgment and insight: poor STRENGTHS/WEAKNESSES: Strengths that the patient appears to have stable housing and is well connected with outpatient services. Weakness is that the patient has severe mental illness, has cardiac problems, and advanced age. INTELLECT: average IMPRESSIONS: Schizoaffective disorder, bipolar type Major neurocognitive disorder Nicotine dependence PLAN: -Patient is admitted under involuntary status to [facility] for stabilization of psychiatric symptoms and safety. A second certification was completed and along with petition will be filed for court. -Medications: Prolixin Decanoate 50 mg IM was less administered on 01/22/2023. Next dose due on 01/29/2023 for psychosis. [place] 450 mg by mouth twice a day for mood stabilization Risperdal 1.5 mg by mouth twice a day for psychosis/mood stabilization Start Namenda 5 mg daily for major neurocognitive disorder -Ativan and Thorazine PRN for agitation/aggression -Patient was informed of the risks, benefits and side effects of the medication however is unable to participate in the informed consent conversation due to his agitation. -Internal Medicine consult to perform medical evaluation and physical. -NRT - nicotine patch -SW on board for discharge planning. Encourage patient to participate in groups to work on coping skills. 01/24/23 11:44
[2023-01-24] MEDS: DILTIAZEM ORAL 60 MG TAB PO SCH ×3 (12:59→20:01)
[2023-01-24] MEDS: METOPROLOL TARTRATE 25 MG TAB PO SCH ×3 (12:59→20:02)
[2023-01-24] MEDS: MEGESTROL 40 MG TAB PO SCH (15:26)
[2023-01-24] MEDS: risperiDONE 1 MG TAB PO SCH ×2 (15:26→20:01)
[2023-01-24] MEDS: CYANOCOBALAMIN 500 MCG TAB PO SCH (15:26)
[2023-01-24] MEDS: PANTOPRAZOLE 40 MG TABLET PO SCH (15:26)
[2023-01-24] MEDS: APIXABAN 5 MG TAB PO SCH ×2 (15:27→20:02)
[2023-01-24] MEDS: VIT A,C & E-LUTEIN-MINERALS 1 EACH TAB PO SCH ×2 (15:27→20:01)
[2023-01-24] MEDS: FENOFIBRATE 160 MG TAB PO SCH (15:27)
[2023-01-24] MEDS: LITHIUM CARBONATE ER 450 MG TABLET.ER PO SCH ×2 (15:28→20:02)
[2023-01-24] MEDS: AMIODARONE 200 MG TAB PO SCH ×2 (15:29→20:02)
--- NOTE | 2023-01-24 15:42 | P.CONS ---
History of Present Illness - Reason for Consult Consult date: 01/24/23 Medical management Requesting physician: Doyle Edge - Chief Complaint Agitation - History of Present Illness This is a 67-year-old patient of visiting physicians Dr. Matson. Chronic stable medical conditions include COPD, hypertension, hyperlipidemia, constipation, cyanosis. Paroxysmal atrial fibrillation. chronic constipation. GERD. Patient has a public guardian. [facility]. diagnoses of schizophrenia and schizoaffective disorder Was admitted to my service from January 21 through January 23. Was admitted. What was felt was atrial tachycardia versus atrial flutter uncontrolled. Received Cardizem drip. Was then placed on Lopressor and Cardizem oral. Went back into sinus rhythm. Patient had been other agitated. Urinating on himself. Does not want to change his clothes. Sometimes refusing medications. Took off his telemetry. Patient seen by Dr. Edge from psychiatry. He was accepted to [facility]. She was agitated right now. Wants to leave. Did eat some. Had a bowel movement. He did let me examine him. Review of systems: GEN.: None EYES: None HEENT: None NECK: None RESPIRATORY: None CARDIOVASCULAR: None GASTROINTESTINAL: None GENITOURINARY: None MUSCULOSKELETAL: None LYMPHATICS: None HEMATOLOGICAL: None PSYCHIATRY: Agitated NEUROLOGICAL: None Past medical history to include: Asthma, hypertension, hyperlipidemia, schizophrenia, schizoaffective disorder, constipation. Left leg DVT in April 2021, cirrhosis, atrial fibrillation/atrial tachycardia Social history: Has a public guardian. Smokes variable amount. No alcohol intake. Lives at a [facility] home. Previously used street drugs Physical examination: VITAL SIGNS: 98.2, 55, 16, 97 x 7 56, 97% room air GENERAL: laying in bed, agitated EYES: Pupils equal. Conjunctiva normal. HEENT: External appearance of nose and ears normal, oral cavity grossly normal. NECK: JVD not raised; masses not palpable. HEART: Irregular; no edema. LUNGS: Respiratory rate increased; decreased breath sounds, ABDOMEN: Soft, nontender, liver spleen not palpable, no masses palpable. PSYCH: Able to answer questions. Anxious. Agitated. NEUROLOGICAL: Cranial nerves grossly intact; no facial asymmetry, power and sensation grossly intact. INVESTIGATIONS, reviewed in the clinical context: Recent investigations 01/22/2023: White count 5.6 hemoglobin 13.3. His 136 potassium 3.9 BUN 6 creatinine 0.89 free T4 2 0.23 TSH 0.3 EKG tracing personally reviewed by me-. Weight 164. Atrial flutter/tachycardia. Right bundle branch block pattern. Chest x-ray film personally reviewed by me-some elevation of right hemidiaphragm. Hyperinflation. Assessment and plan: -Atrial flutter/atrial tachycardia with a rate around 140-60.: Currently in sinus rhythm. Lopressor 25 mg 3 times a day. Cardizem 60 mg by mouth 3 times a day. Amiodarone 200 mg twice a day. January 28 amiodarone to be decreased to 200 mg a day Follow outpatient with cardiology -Hyperlipidemia Zocor -Essential hypertension Lopressor. Cardizem -COPD, in a current smoker Albuterol when necessary -Hyperthyroid from over replacement. Synthroid was discontinued -Chronic nicotine dependent cigarette smoker Nicotine patch -Schizophrenia , uncontrolled Accepted to [facility]. -Chronic constipation Continue with Metamucil -Full code -Patient has a public guardian Thank you Dr. Edge Past Medical History Past Medical History: Asthma, Hyperlipidemia, Hypertension Additional Past Medical History / Comment(s): schizophrenia. constipation History of Any Multi-Drug Resistant Organisms: None Reported Past Surgical History: No Surgical Hx Reported Past Anesthesia/Blood Transfusion Reactions: No Reported Reaction Past Psychological History: Schizophrenia Smoking Status: Light tobacco smoker Past Alcohol Use History: None Reported Past Drug Use History: None Reported - Past Family History Father History Unknown: Yes Mother History Unknown: Yes Medications and Allergies Home Medications Medication Instructions Recorded Confirmed Type Cholecalciferol (Vitamin D3) 125 mcg PO DIRECTED 06/07/20 01/23/23 History [Vitamin D3 (5000 Iu)] Fenofibrate Nanocrystallized 145 mg PO DAILY@79906/07/20 01/23/23 History [Fenofibrate] Latanoprost/Pf [Latanoprost 0.005% 1 drop BOTH EYES HS@209906/07/20 01/23/23 History Eye Drop] Omeprazole [PriLOSEC] 20 mg PO DAILY@79906/07/20 01/23/23 History Certavite 1 tab PO HS@209904/12/21 01/23/23 History Cyanocobalamin [Vitamin B-12] 500 mcg PO DAILY@79904/12/21 01/23/23 History Dicyclomine [Bentyl] 20 mg PO Q8H PRN 04/12/21 01/23/23 History Apixaban [Eliquis] 5 mg PO BID@0800,2100 07/12/21 01/23/23 History Lactose-Reduced Food [Boost] 1 can PO DAILY@0800 11/03/21 01/23/23 History Vit C/E/Zn/Coppr/Lutein/Zeaxan 1 cap PO BID@0800,2100 11/03/21 01/23/23 History [Preservision Areds 2 Softgel] LORazepam [Ativan] 1 mg PO BID@1700,2100 10/30/22 01/23/23 History Lactose-Reduced Food [Boost] 1 can PO DAILY PRN 10/30/22 01/23/23 History Megestrol Acetate 40 mg PO DAILY@0800 10/30/22 01/23/23 History Melatonin 10 mg PO HS@2100 10/30/22 01/23/23 History Simvastatin [Zocor] 20 mg PO HS@2100 10/30/22 01/23/23 History Linaclotide [Linzess] 145 mcg PO DAILY@0700 01/21/23 01/23/23 History lamoTRIgine [LaMICtal] 200 mg PO HS 01/21/23 01/23/23 History Amiodarone [Cordarone] 200 mg PO BID tab 01/22/23 01/23/23 Rx Diltiazem Oral [Cardizem*] 60 mg PO TID tab 01/22/23 01/23/23 Rx [employer] Carbonate ER [Lithobid] 450 mg PO BID tab 01/22/23 01/23/23 Rx Metoprolol Tartrate [Lopressor] 25 mg PO TID #0 01/22/23 01/23/23 Rx OLANZapine [ZyPREXA] 5 mg PO Q4H PRN tab 01/22/23 01/23/23 Rx chlorproMAZINE [Thorazine] 25 mg PO Q4HR PRN tab 01/22/23 01/23/23 Rx risperiDONE [RisperDAL] 0.5 mg PO BID tab 01/22/23 01/23/23 Rx Allergies Allergy/AdvReac Type Severity Reaction Status Date / Time acetaminophen [From Tylenol] Allergy Unknown Verified 01/21/23 09:41 gabapentin [From Neurontin] Allergy Unknown Verified 01/21/23 09:41 Penicillins Allergy Unknown Verified 01/21/23 09:41 clozapine [From Clozaril] AdvReac Unknown Verified 01/21/23 09:41 divalproex sodium AdvReac Unknown Verified 01/21/23 09:41 [From Depakote] Physical Exam Vitals: Vital Signs Temp Pulse Resp BP BP Pulse Ox 01/23/23 21:49 55 L 16 97/56 97 01/23/23 21:48 45 L 16 88/55 95 01/23/23 20:13 61 16 111/57 98 01/23/23 19:49 98.2 F 71 18 118/72 99 Intake and Output 01/23/23 01/24/23 01/24/23 22:59 06:59 14:59 Other: Weight 80.739 kg
[2023-01-24] MEDS: LORazepam 1 MG TAB PO SCH ×2 (19:37→20:02)
[2023-01-24] MEDS: MELATONIN 5 MG TABLET PO SCH (20:01)
[2023-01-24] MEDS: MULTIVITAMINS, THERA 1 EACH TAB PO SCH (20:01)
[2023-01-24] MEDS: lamoTRIgine 100 MG TAB PO SCH (20:01)
[2023-01-24] MEDS: LATANOPROST 0.005% OPHTH DROPS 2.5 ML BTL BOTH EYES SCH (20:02)
[2023-01-24] MEDS: ATORVASTATIN 10 MG TAB PO SCH (20:02)
[2023-01-25] MEDS: VIT A,C & E-LUTEIN-MINERALS 1 EACH TAB PO SCH ×2 (08:18→20:58)
[2023-01-25] MEDS: APIXABAN 5 MG TAB PO SCH ×2 (08:19→20:58)
[2023-01-25] MEDS: AMIODARONE 200 MG TAB PO SCH ×2 (08:19→20:59)
[2023-01-25] MEDS: DILTIAZEM ORAL 60 MG TAB PO SCH ×3 (08:19→20:58)
[2023-01-25] MEDS: PANTOPRAZOLE 40 MG TABLET PO SCH (08:19)
[2023-01-25] MEDS: LITHIUM CARBONATE ER 450 MG TABLET.ER PO SCH (08:19)
[2023-01-25] MEDS: METOPROLOL TARTRATE 25 MG TAB PO SCH ×3 (08:19→20:58)
[2023-01-25] MEDS: risperiDONE 1 MG TAB PO SCH ×2 (08:20→20:56)
[2023-01-25] MEDS: MEGESTROL 40 MG TAB PO SCH (08:20)
[2023-01-25] MEDS: CYANOCOBALAMIN 500 MCG TAB PO SCH (08:20)
[2023-01-25] MEDS: MEMANTINE 5 MG TAB PO SCH (08:20)
[2023-01-25] MEDS: FENOFIBRATE 160 MG TAB PO SCH (08:20)
[2023-01-25] MEDS: NON FORMULARY DRUG (Linaclotide [Linzess] 145 MCG Capsule) PO SCH (08:47)
--- NOTE | 2023-01-25 14:31 | P.PN ---
Progress Note - Text Progress Note Date: 01/25/23 Interval History: Patient was seen wandering the hallways and was directable and agreeable to speak with assembly instructions writer in the office. Patient says he is doing "great ". He says his been trying to participate in groups. Patient is floridly psychotic with flight of ideas. Upon attempting a conversation, patient has pressured speech and discusses at length that he is Adeel Bergerd and worked for [employer]. Patient has various grandiose delusions and says he is a millionaire. When this provider attempted to do a meditation with the patient, patient continued to have flight of ideas. He was becoming irritable towards this provider, stating that he was not really understood. He was becoming loud. He interrupted the meditation within 15 seconds and said "you want read my mind" and became agitated. Endorses AH and trouble sleeping. Patient is unable to participate in further interview due to his uncooperativeness and agitation. Mental Status Exam: General Appearance: Patient appears to be stated age is alert, however is difficult to direct and mostly uncooperative. Patient appears to have fair hygiene and grooming. Behavior: Patient is lying down in bed. Intense eye contact. Speech: Patient's speech is rapid and pressured. Thought and volume. Mood/Affect: Patient reports their mood is "great" affect is incongruent and angry. Suicidality/Homicidality: Patient denies any suicidal or homicidal ideation Perceptions: Patient denies any current visual hallucinations. He endorses auditory hallucinations. Though content/process: Flight of ideas, loose associations, hx erotomanic delusions. Memory and concentration: Grossly poor at this time Judgment and insight: poor Assessment Schizoaffective disorder, bipolar type Major neurocognitive disorder Nicotine dependence PLAN: -Patient is admitted under involuntary status to [facility] for stabilization of psychiatric symptoms and safety. A second certification was completed and along with petition will be filed for court. -Medications: Prolixin Decanoate 50 mg IM was less administered on 01/22/2023. Next dose due on 01/29/2023 for psychosis. Increase [place] to 450mg qAM and 600 mg qHS for mood stabilization. QTc of 412 per 01/21/23 EKG Risperdal 1.5 mg by mouth twice a day for psychosis/mood stabilization Namenda 5 mg daily for major neurocognitive disorder Lamictal 200 mg qHS -Ativan and Thorazine PRN for agitation/aggression -Patient was informed of the risks, benefits and side effects of the medication however is unable to participate in the informed consent conversation due to his agitation. -Internal Medicine consult to perform medical evaluation and physical. -NRT - nicotine patch -SW on board for discharge planning. Encourage patient to participate in groups to work on coping skills.
[2023-01-25] MEDS: LORazepam 1 MG TAB PO SCH ×2 (16:40→20:58)
[2023-01-25] MEDS: LATANOPROST 0.005% OPHTH DROPS 2.5 ML BTL BOTH EYES SCH (20:56)
[2023-01-25] MEDS: MULTIVITAMINS, THERA 1 EACH TAB PO SCH (20:57)
[2023-01-25] MEDS: lamoTRIgine 100 MG TAB PO SCH (20:57)
[2023-01-25] MEDS: LITHIUM CARBONATE 300 MG CAP PO SCH (20:57)
[2023-01-25] MEDS: MELATONIN 5 MG TABLET PO SCH (20:57)
[2023-01-25] MEDS: ATORVASTATIN 10 MG TAB PO SCH (20:58)
[2023-01-26] MEDS: PANTOPRAZOLE 40 MG TABLET PO SCH (08:47)
[2023-01-26] MEDS: DILTIAZEM ORAL 60 MG TAB PO SCH ×3 (08:47→20:43)
[2023-01-26] MEDS: APIXABAN 5 MG TAB PO SCH ×2 (08:47→20:42)
[2023-01-26] MEDS: FENOFIBRATE 160 MG TAB PO SCH (08:47)
[2023-01-26] MEDS: MEGESTROL 40 MG TAB PO SCH (08:47)
[2023-01-26] MEDS: VIT A,C & E-LUTEIN-MINERALS 1 EACH TAB PO SCH ×2 (08:47→20:43)
[2023-01-26] MEDS: CYANOCOBALAMIN 500 MCG TAB PO SCH (08:47)
[2023-01-26] MEDS: AMIODARONE 200 MG TAB PO SCH ×2 (08:48→20:43)
[2023-01-26] MEDS: METOPROLOL TARTRATE 25 MG TAB PO SCH ×3 (08:48→20:43)
[2023-01-26] MEDS: LITHIUM CARBONATE 150 MG CAP PO SCH (08:48)
[2023-01-26] MEDS: MEMANTINE 5 MG TAB PO SCH (08:48)
[2023-01-26] MEDS: risperiDONE 1 MG TAB PO SCH ×2 (08:48→20:43)
[2023-01-26] MEDS: NON FORMULARY DRUG (Linaclotide [Linzess] 145 MCG Capsule) PO SCH (08:54)
[2023-01-26] MEDS ORDERED: LITHIUM CARBONATE ER 450 MG TABLET.ER PO SCH (09:00)
--- NOTE | 2023-01-26 12:33 | P.PN ---
Progress Note - Text Progress Note Date: 01/26/23 - Chief Complaint Agitation Hospital course: This is a 67-year-old patient of visiting physicians Dr. Matson. Chronic stable medical conditions include COPD, hypertension, hyperlipidemia, constipation, cyanosis. Paroxysmal atrial fibrillation. chronic constipation. GERD. Patient has a public guardian. Lives at [facility]. diagnoses of schizophrenia and schizoaffective disorder Was admitted to my service from January 21 through January 23. Was admitted. What was felt was atrial tachycardia versus atrial flutter uncontrolled. Received Cardizem drip. Was then placed on Lopressor and Cardizem oral. Went back into sinus rhythm. Patient had been other agitated. Urinating on himself. Does not want to change his clothes. Sometimes refusing medications. Took off his telemetry. Patient seen by Dr. Edge from psychiatry. He was accepted to [facility]. She was agitated right now. Wants to leave. Did eat some. Had a bowel movement. He did let me examine him. 01/26/2023: Slept only for 1 hour last night. Wants medication to sleep tonight. Did eat some. Less agitated. Active Medications Al Hydroxide/Mg Hydroxide (Mag Hydrox/Al Hydrox/Simeth 30 Ml Cup) 30 ml PO Q4HR PRN PRN Reason: GI Upset Amiodarone HCl (Amiodarone 200 Mg Tab) 200 mg PO BID [facility] Stop: 01/27/23 23:59 Last Admin: 01/26/23 08:48 Dose: 200 mg Amiodarone HCl (Amiodarone 200 Mg Tab) 200 mg PO DAILY [facility] Apixaban (Apixaban 5 Mg Tab) 5 mg PO BID@0800,2100 [facility]; Protocol Last Admin: 01/26/23 08:47 Dose: 5 mg Atorvastatin Calcium (Atorvastatin 10 Mg Tab) 10 mg PO HS@2100 [facility] Last Admin: 01/25/23 20:58 Dose: 10 mg Chlorpromazine HCl (Chlorpromazine 25 Mg Tab) 25 mg PO Q6H PRN PRN Reason: Agitation or Acute Psychosis Chlorpromazine HCl (Chlorpromazine 25 Mg/Ml 2 Ml Amp) 25 mg IM Q6HR PRN PRN Reason: Agitation or Acute Psychosis Last Admin: 01/24/23 06:56 Dose: 25 mg Cyanocobalamin (Cyanocobalamin 500 Mcg Tab) 500 mcg PO DAILY@0800 [facility] Last Admin: 01/26/23 08:47 Dose: 500 mcg Dicyclomine HCl (Dicyclomine 20 Mg Tab) 20 mg PO Q8H PRN PRN Reason: Pain Diltiazem HCl (Diltiazem Oral 60 Mg Tab) 60 mg PO TID [facility] Last Admin: 01/26/23 08:47 Dose: 60 mg Fenofibrate (Fenofibrate 160 Mg Tab) 160 mg PO DAILY@0800 [facility] Last Admin: 01/26/23 08:47 Dose: 160 mg Fluphenazine Decanoate (Fluphenazine Decanoate 25 Mg/Ml 5ml Mdv) 50 mg IM ONCE ONE Stop: 01/29/23 12:01 Lamotrigine (Lamotrigine 100 Mg Tab) 200 mg PO [facility] Last Admin: 01/25/23 20:57 Dose: 200 mg Latanoprost (Latanoprost 0.005% Ophth Drops 2.5 Ml Btl) 1 drops BOTH EYES HS@2100 [facility] Last Admin: 01/25/23 20:56 Dose: 1 drops [place] Carbonate ([place] Carbonate 300 Mg Cap) 600 mg PO [facility] Last Admin: 01/25/23 20:57 Dose: 600 mg [place] Carbonate ([place] Carbonate 150 Mg Cap) 450 mg PO DAILY [facility] Last Admin: 01/26/23 08:48 Dose: 450 mg Lorazepam (Lorazepam 1 Mg Tab) 1 mg PO BID@1700,2100 [facility] Last Admin: 01/25/23 20:58 Dose: 1 mg Magnesium Hydroxide (Magnesium Hydroxide 2,400 Mg/10 Ml Cup) 2,400 mg PO DAILY PRN PRN Reason: Constipation Megestrol Acetate (Megestrol 40 Mg Tab) 40 mg PO DAILY@0800 [facility] Last Admin: 01/26/23 08:47 Dose: 40 mg Melatonin (Melatonin 5 Mg Tablet) 10 mg PO HS@2100 [facility] Last Admin: 01/25/23 20:57 Dose: 10 mg Memantine (Memantine 5 Mg Tab) 5 mg PO DAILY [facility] Last Admin: 01/26/23 08:48 Dose: 5 mg Metoprolol Tartrate (Metoprolol Tartrate 25 Mg Tab) 25 mg PO TID [facility] Last Admin: 01/26/23 08:48 Dose: 25 mg Multivitamins (Multivitamins, Thera 1 Each Tab) 1 each PO HS@2099 [facility] Last Admin: 01/25/23 20:57 Dose: 1 each Multivitamins/Minerals (Vit A,C & I-Xihlwh-Sataymxg 1 Each Tab) 1 each PO BID@0800,2099 [facility] Last Admin: 01/26/23 08:47 Dose: 1 each Non-Formulary Medication (Linaclotide [Linzess]) 145 mcg PO DAILY@0700 [facility] Last Admin: 01/26/23 08:54 Dose: Not Given Pantoprazole Sodium (Pantoprazole 40 Mg Tablet) 40 mg PO DAILY@0800 [facility] Last Admin: 01/26/23 08:47 Dose: 40 mg Risperidone (Risperidone 1 Mg Tab) 1.5 mg PO BID [facility] Last Admin: 01/26/23 08:48 Dose: 1.5 mg Past medical history to include: Asthma, hypertension, hyperlipidemia, schizophrenia, schizoaffective disorder, constipation. Left leg DVT in April 2021, cirrhosis, atrial fibrillation/atrial tachycardia Social history: Has a public guardian. Smokes variable amount. No alcohol intake. Lives at a [facility] home. Previously used street drugs Physical examination: VITAL SIGNS: 97.8, 91, 18, 1 46 x 63, 97% room air GENERAL: Sitting on the edge of the bed, less agitated EYES: Pupils equal. Conjunctiva normal. HEENT: External appearance of nose and ears normal, oral cavity grossly normal. NECK: JVD not raised; masses not palpable. HEART: First second sounds normal; no edema. LUNGS: Respiratory rate increased; decreased breath sounds, ABDOMEN: Soft, nontender, liver spleen not palpable, no masses palpable. PSYCH: Able to answer questions. Anxious. Far less agitated NEUROLOGICAL: Cranial nerves grossly intact; no facial asymmetry, power and sensation grossly intact. INVESTIGATIONS, reviewed in the clinical context: Recent investigations 01/22/2023: White count 5.6 hemoglobin 13.3. His 136 potassium 3.9 BUN 6 creatinine 0.89 free T4 2 0.23 TSH 0.3 EKG tracing personally reviewed by me-. Weight 164. Atrial flutter/tachycardia. Right bundle branch block pattern. Chest x-ray film personally reviewed by me-some elevation of right hemidiaphragm. Hyperinflation. Assessment and plan: -Atrial flutter/atrial tachycardia with a rate around 140-60.: Currently in sinus rhythm. Lopressor 25 mg 3 times a day. Cardizem 60 mg by mouth 3 times a day. Amiodarone 200 mg twice a day. January 28 amiodarone to be decreased to 200 mg a day Follow outpatient with cardiology -Hyperlipidemia Zocor -Essential hypertension Lopressor. Cardizem -COPD, in a current smoker Albuterol when necessary -Hyperthyroid from over replacement. Synthroid was discontinued -Chronic nicotine dependent cigarette smoker Nicotine patch -Schizoaffective disorder, bipolar type Following with psychiatry -Neurocognitive disorder -Chronic constipation Continue with Metamucil -Full code -Patient has a public guardian Thank you Dr. Edge
--- NOTE | 2023-01-26 14:24 | P.PN ---
Progress Note - Text Progress Note Date: 01/26/23 Interval History: Patient was seen wandering the hallways and was directable and agreeable to sp sierra with fiction writer in the office. Patient is floridly psychotic with flight of ideas, talking about [place] assassination and saying he used to live in a house with 17 rooms. Patient has pressured speech and various grandiose delusions. He begins to cry about his being taken by the mafia. Endorses AH and trouble sleeping. He requests to be on Niquil for sleep. Patient is unable to participate in further interview due to his uncooperativeness and agitation. Mental Status Exam: General Appearance: Patient appears to be stated age is alert, however is difficult to direct and mostly uncooperative. Patient appears to have fair hygiene and grooming. Behavior: Patient is lying down in bed. Intense eye contact. Speech: Patient's speech is rapid and pressured. Thought and volume. Mood/Affect: Patient reports their mood is "upset", affect is labile Suicidality/Homicidality: Patient denies any suicidal or homicidal ideation Perceptions: Patient denies any current visual hallucinations. He endorses auditory hallucinations. Though content/process: Flight of ideas, loose associations, hx erotomanic delusions. Memory and concentration: Grossly poor at this time Judgment and insight: poor Assessment Schizoaffective disorder, bipolar type Major neurocognitive disorder Nicotine dependence PLAN: -Patient is admitted under involuntary status to [facility] for stabilization of psychiatric symptoms and safety. A second certification was completed and along with petition will be filed for court. -Medications: Prolixin Decanoate 50 mg IM was less administered on 01/22/2023. Next dose due on 01/29/2023 for psychosis. Continue [place] 450mg qAM and 600 mg qHS for mood stabilization. QTc of 412 per 01/21/23 EKG Change Risperdal to 3 mg by mouth qHS for psychosis/mood stabilization and for sleep Namenda 5 mg daily for major neurocognitive disorder Lamictal 200 mg qHS Melatonin 10 mg qHS for sleep -Ativan and Thorazine PRN for agitation/aggression -Patient was informed of the risks, benefits and side effects of the medication however is unable to participate in the informed consent conversation due to his agitation. -Internal Medicine consult to perform medical evaluation and physical. -NRT - nicotine patch -SW on board for discharge planning. Encourage patient to participate in groups to work on coping skills.
[2023-01-26] MEDS: LORazepam 1 MG TAB PO SCH ×2 (16:01→20:43)
[2023-01-26] MEDS: ATORVASTATIN 10 MG TAB PO SCH (20:42)
[2023-01-26] MEDS: LATANOPROST 0.005% OPHTH DROPS 2.5 ML BTL BOTH EYES SCH (20:42)
[2023-01-26] MEDS: MELATONIN 5 MG TABLET PO SCH (20:42)
[2023-01-26] MEDS: lamoTRIgine 100 MG TAB PO SCH (20:43)
[2023-01-26] MEDS: LITHIUM CARBONATE 300 MG CAP PO SCH (20:43)
[2023-01-26] MEDS: MULTIVITAMINS, THERA 1 EACH TAB PO SCH (20:43)
[2023-01-27] MEDS: NON FORMULARY DRUG (Linaclotide [Linzess] 145 MCG Capsule) PO SCH (09:34)
[2023-01-27] MEDS: CYANOCOBALAMIN 500 MCG TAB PO SCH (09:37)
[2023-01-27] MEDS: MEGESTROL 40 MG TAB PO SCH (09:37)
[2023-01-27] MEDS: APIXABAN 5 MG TAB PO SCH ×2 (09:37→20:59)
[2023-01-27] MEDS: FENOFIBRATE 160 MG TAB PO SCH (09:37)
[2023-01-27] MEDS: AMIODARONE 200 MG TAB PO SCH ×2 (09:38→20:59)
[2023-01-27] MEDS: DILTIAZEM ORAL 60 MG TAB PO SCH ×3 (09:38→21:01)
[2023-01-27] MEDS: LITHIUM CARBONATE 150 MG CAP PO SCH (09:38)
[2023-01-27] MEDS: PANTOPRAZOLE 40 MG TABLET PO SCH (09:38)
[2023-01-27] MEDS: VIT A,C & E-LUTEIN-MINERALS 1 EACH TAB PO SCH ×2 (09:38→21:01)
[2023-01-27] MEDS: METOPROLOL TARTRATE 25 MG TAB PO SCH ×3 (09:39→21:01)
[2023-01-27] MEDS: MEMANTINE 5 MG TAB PO SCH (09:39)
--- NOTE | 2023-01-27 11:51 | P.PN ---
Progress Note - Text Progress Note Date: 01/27/23 Interval History: Patient was seen sitting in bed and was directable and agreeable to speak with telegraphic typewriter repairer in his room. Currently, the patient reports that he feels like he is being held in senior living. He is requesting to be discharged. He continues to endorse auditory hallucinations and gross paranoia. He continues to report concerns that his is being taken away by the mafia or somebody else. He has been adherent with his medications. He is not endorsing any significant side effects at this time. He does report some constipation. He denies any issues regarding his appetite or sleep. As per discussion with [facility], the patient has a history of dementia. There is co ncern that the patient is reliving his previous experience of state hospitalization. Patient was provided support and redirection. Mental Status Exam: General Appearance: Patient appears to be stated age is alert, difficult to direct however his directable, and attempts to cooperate. Good hygiene and grooming. Behavior: Patient is seated upright in his bed. Intense eye contact. Speech: Patient's speech is rapid, pressured, high in volume. Mood/Affect: Mood is "I shouldn't be in here! I'm in senior living!" Affect is scared and labile. Suicidality/Homicidality: Patient reports no suicidal or homicidal ideation. Perceptions: Patient continues to endorse auditory hallucinations. Denies any visual hallucinations today. Though content/process: Flight of ideas, loose associations, erotomanic de lusions. Memory and concentration: Grossly poor at this time Judgment and insight: Improving mildly Vital Signs Temp 97.9 F 01/27/23 06:26 Pulse 87 01/27/23 09:42 Resp 18 01/27/23 06:26 BP 136/60 01/27/23 09:42 Pulse Ox 98 01/27/23 06:26 FiO2 Intake & Output 01/26/23 01/27/23 01/27/23 18:59 06:59 18:59 Weight 80.5 kg Laboratory Results Lamotrigine 6.2 ug/mL (2.0-15.0) 01/25/23 07:59 [place] 0.8 mmol/L 01/25/23 07:59 Assessment Schizoaffective disorder, bipolar type Major neurocognitive disorder Nicotine dependence Plan: -Patient continues to meet criteria for inpatient psychiatric admission for symptom stabilization and safety. Patient has signed adult voluntary form and medication consent and was placed in patient's chart. -Medications: Prolixin Decanoate 50 mg IM was less administered on 01/22/2023. Next dose due on 01/29/2023 for psychosis. Continue [place] 450mg qAM and 600 mg qHS for mood stabilization. QTc of 412 per 01/21/23 EKG Increase Risperdal to 1 mg in the morning, 3 mg by mouth qHS for psychosis/mood stabilization and for sleep Increased amended to 10 mg daily for major neurocognitive disorder Lamictal 200 mg qHS Melatonin 10 mg qHS for sleep -When necessary Ativan and Thorazine for agitation/aggression. -NRT - nicotine patch -SW on board for discharge planning. Encouraged the patient to participate in milieu.
[2023-01-27] MEDS: LORazepam 1 MG TAB PO SCH ×2 (16:40→21:00)
[2023-01-27] MEDS: ATORVASTATIN 10 MG TAB PO SCH (20:59)
[2023-01-27] MEDS: MELATONIN 5 MG TABLET PO SCH (21:00)
[2023-01-27] MEDS: lamoTRIgine 100 MG TAB PO SCH (21:00)
[2023-01-27] MEDS: LITHIUM CARBONATE 300 MG CAP PO SCH (21:00)
[2023-01-27] MEDS: LATANOPROST 0.005% OPHTH DROPS 2.5 ML BTL BOTH EYES SCH (21:00)
[2023-01-27] MEDS: MULTIVITAMINS, THERA 1 EACH TAB PO SCH (21:00)
[2023-01-27] MEDS: risperiDONE 1 MG TAB PO SCH (21:01)
[2023-01-28] MEDS: FENOFIBRATE 160 MG TAB PO SCH (08:14)
[2023-01-28] MEDS: APIXABAN 5 MG TAB PO SCH ×2 (08:14→20:49)
[2023-01-28] MEDS: NON FORMULARY DRUG (Linaclotide [Linzess] 145 MCG Capsule) PO SCH (08:14)
[2023-01-28] MEDS: CYANOCOBALAMIN 500 MCG TAB PO SCH (08:14)
[2023-01-28] MEDS: VIT A,C & E-LUTEIN-MINERALS 1 EACH TAB PO SCH ×2 (08:15→20:50)
[2023-01-28] MEDS: AMIODARONE 200 MG TAB PO SCH (08:15)
[2023-01-28] MEDS: MEGESTROL 40 MG TAB PO SCH (08:15)
[2023-01-28] MEDS: PANTOPRAZOLE 40 MG TABLET PO SCH (08:15)
[2023-01-28] MEDS: LITHIUM CARBONATE 150 MG CAP PO SCH (08:16)
[2023-01-28] MEDS: MEMANTINE 10 MG TAB PO SCH (08:16)
[2023-01-28] MEDS: METOPROLOL TARTRATE 25 MG TAB PO SCH ×3 (08:16→20:50)
[2023-01-28] MEDS: DILTIAZEM ORAL 60 MG TAB PO SCH ×3 (08:16→20:50)
[2023-01-28] MEDS: risperiDONE 1 MG TAB PO SCH ×2 (08:17→20:49)
--- NOTE | 2023-01-28 11:06 | P.PN ---
Progress Note - Text Progress Note Date: 01/28/23 Interval History: Patient was seen standing in the hallway however refused to engage in the psychiatric interview. The patient expressed a desire for discharge. He remains irritable and uncooperative. He states he is ready to leave here. He continues to verbalize delusional statements such as having "48 children" and how he needs to see his . He has been adherent with his medications. He was asked about any medical issues or concerns however the patient replied, "Why!? I'm not giving you anymore blood!" Mental Status Exam: General Appearance: Patient appears to be stated age is alert, difficult to direct and is mostly uncooperative. Fair hygiene and grooming. Behavior: Patient is ambulating steadily in the hallway. Intense eye contact. Speech: Patient's speech is rapid, pressured, high in volume. Mood/Affect: Mood is "I got to get out of here!" Affect is irritable and labile. Suicidality/Homicidality: Could not assess. Perceptions: Could not assess. Though content/process: Flight of ideas, loose associations, erotomanic delusions. Memory and concentration: Grossly poor at this time Judgment and insight: Poor Vital Signs Temp 97.9 F 01/27/23 06:26 Pulse 87 01/28/23 08:18 Resp 18 01/27/23 06:26 BP 134/65 01/28/23 08:18 Pulse Ox 98 01/27/23 06:26 FiO2 Laboratory Results Lamotrigine 6.2 ug/mL (2.0-15.0) 01/25/23 07:59 [place] 0.8 mmol/L 01/25/23 07:59 Assessment Schizoaffective disorder, bipolar type Major neurocognitive disorder Nicotine dependence Plan: -Patient continues to meet criteria for inpatient psychiatric admission for symptom stabilization and safety. Patient is petitioned and certified. Court scheduled for tomorrow. -Medications: Prolixin Decanoate 50 mg IM was less administered on 01/22/2023. Next dose due on 01/29/2023 for psychosis. Continue [place] 450mg qAM and 600 mg qHS for mood stabilization. QTc of 412 per 01/21/23 EKG Continue Risperdal 1 mg in the morning, 3 mg by mouth qHS for psychosis/mood stabilization and for sleep Continue Namenda 10 mg daily for major neurocognitive disorder Lamictal 200 mg qHS Melatonin 10 mg qHS for sleep -When necessary Ativan and Thorazine for agitation/aggression. -NRT - nicotine patch -SW on board for discharge planning. Encouraged the patient to participate in milieu.
[2023-01-28] MEDS: LORazepam 1 MG TAB PO SCH ×2 (17:10→20:50)
[2023-01-28] MEDS: lamoTRIgine 100 MG TAB PO SCH (20:49)
[2023-01-28] MEDS: MULTIVITAMINS, THERA 1 EACH TAB PO SCH (20:49)
[2023-01-28] MEDS: ATORVASTATIN 10 MG TAB PO SCH (20:49)
[2023-01-28] MEDS: LITHIUM CARBONATE 300 MG CAP PO SCH (20:49)
[2023-01-28] MEDS: LATANOPROST 0.005% OPHTH DROPS 2.5 ML BTL BOTH EYES SCH (20:50)
[2023-01-28] MEDS: MELATONIN 5 MG TABLET PO SCH (20:50)
[2023-01-29] MEDS: NON FORMULARY DRUG (Linaclotide [Linzess] 145 MCG Capsule) PO SCH (08:48)
[2023-01-29] MEDS: APIXABAN 5 MG TAB PO SCH ×2 (09:20→20:41)
[2023-01-29] MEDS: VIT A,C & E-LUTEIN-MINERALS 1 EACH TAB PO SCH ×2 (09:20→20:41)
[2023-01-29] MEDS: LITHIUM CARBONATE 150 MG CAP PO SCH (09:20)
[2023-01-29] MEDS: PANTOPRAZOLE 40 MG TABLET PO SCH (09:20)
[2023-01-29] MEDS: MEGESTROL 40 MG TAB PO SCH (09:20)
[2023-01-29] MEDS: DILTIAZEM ORAL 60 MG TAB PO SCH ×3 (09:20→20:41)
[2023-01-29] MEDS: risperiDONE 1 MG TAB PO SCH ×2 (09:21→20:40)
[2023-01-29] MEDS: METOPROLOL TARTRATE 25 MG TAB PO SCH ×3 (09:21→20:41)
[2023-01-29] MEDS: CYANOCOBALAMIN 500 MCG TAB PO SCH (09:21)
[2023-01-29] MEDS: FENOFIBRATE 160 MG TAB PO SCH (09:21)
[2023-01-29] MEDS: AMIODARONE 200 MG TAB PO SCH (09:22)
[2023-01-29] MEDS: MEMANTINE 10 MG TAB PO SCH (09:22)
--- NOTE | 2023-01-29 11:13 | P.PN ---
Progress Note - Text Progress Note Date: 01/29/23 Interval History: Patient was seen attending group and was agreeable to speak with the life underwriter. He states he has 150 million dollars and would like to be discharged to his home in [facility]. He also is reported by staff to often state how he has "48 children." He is otherwise adherent with his medications and was calm and cooperative on approach today. He attended court and continued to tell the lawn specialist that he has [address] was adjourned as Mr Flores is re questing an independent evaluation. He otherwise does not endorse any suicidal or homicidal ideation. He reports some auditory hallucinations. He occasionally is seen interacting with his auditory hallucinations. He reports no visual hallucinations. He reports no issues regarding his sleep or his appetite. He reports no medical issues or concerns at this time. He denies any chest pain, SOB, palpitations, or light- headedness. He does report fatigue. Mental Status Exam: General Appearance: Patient appears to be stated age is alert, difficult to direct but is cooperative today. Fair hygiene and grooming. Behavior: Patient is ambulating steadily in the hallway. Sitting calmly during the interview. Intense eye contact. Speech: Patient's speech is rapid, pressured, high in volume. Mood/Affect: Mood is "I need to get my 150 million and my houses." Affect is irritable. Suicidality/Homicidality: Denies any suicidal or homicidal ideation. Perceptions: Auditory hallucinations endorsed. Though content/process: Flight of ideas, loose associations, grandiose delusions, erotomanic delusions. Memory and concentration: Grossly poor at this time Judgment and insight: Poor Vital Signs Temp 98.4 F 01/29/23 06:22 Pulse 68 01/29/23 06:22 Resp 16 01/29/23 06:22 BP 131/60 01/29/23 06:22 Pulse Ox 98 01/27/23 06:26 FiO2 Laboratory Results Lamotrigine 6.2 ug/mL (2.0-15.0) 01/25/23 07:59 [place] 0.8 mmol/L 01/25/23 07:59 Assessment Schizoaffective disorder, bipolar type Major neurocognitive disorder Nicotine dependence Plan: -Patient continues to meet criteria for inpatient psychiatric admission for symptom stabilization and safety. Patient is petitioned and certified. Patient is requesting an independent evaluation. As per court, we will reconvene in 2 weeks. -Medications: Administer Prolixin Decanoate 50 mg IM today. Patient receives this medication weekly. Continue [place] 450mg qAM and 600 mg qHS for mood stabilization. QTc of 412 per 01/21/23 EKG Continue Risperdal 2 mg in the morning, 3 mg by mouth qHS for psychosis/mood stabilization and for sleep Continue Namenda 10 mg daily for major neurocognitive disorder Lamictal 200 mg qHS Melatonin 10 mg qHS for sleep -When necessary Ativan and Thorazine for agitation/aggression. -NRT - nicotine patch -SW on board for discharge planning. Encouraged the patient to participate in milieu.
[2023-01-29] MEDS ORDERED: fluPHENAZine DECANOATE 25 MG/ML 5ML MDV IM ONE (12:00)
[2023-01-29] MEDS: LORazepam 1 MG TAB PO SCH ×2 (16:44→20:41)
[2023-01-29] MEDS: lamoTRIgine 100 MG TAB PO SCH (20:40)
[2023-01-29] MEDS: LATANOPROST 0.005% OPHTH DROPS 2.5 ML BTL BOTH EYES SCH (20:40)
[2023-01-29] MEDS: MULTIVITAMINS, THERA 1 EACH TAB PO SCH (20:40)
[2023-01-29] MEDS: MELATONIN 5 MG TABLET PO SCH (20:41)
[2023-01-29] MEDS: LITHIUM CARBONATE 300 MG CAP PO SCH (20:41)
[2023-01-29] MEDS: ATORVASTATIN 10 MG TAB PO SCH (20:41)
[2023-01-29] MEDS: traZODone HCL 50 MG TAB PO SCH (20:41)
[2023-01-30] MEDS: NON FORMULARY DRUG (Linaclotide [Linzess] 145 MCG Capsule) PO SCH (08:31)
[2023-01-30] MEDS: FENOFIBRATE 160 MG TAB PO SCH (09:30)
[2023-01-30] MEDS: METOPROLOL TARTRATE 25 MG TAB PO SCH ×3 (09:31→20:46)
[2023-01-30] MEDS: APIXABAN 5 MG TAB PO SCH ×2 (09:31→20:45)
[2023-01-30] MEDS: MEMANTINE 10 MG TAB PO SCH (09:31)
[2023-01-30] MEDS: PANTOPRAZOLE 40 MG TABLET PO SCH (09:31)
[2023-01-30] MEDS: MEGESTROL 40 MG TAB PO SCH (09:31)
[2023-01-30] MEDS: risperiDONE 1 MG TAB PO SCH ×2 (09:32→20:46)
[2023-01-30] MEDS: DILTIAZEM ORAL 60 MG TAB PO SCH ×3 (09:32→20:46)
[2023-01-30] MEDS: LITHIUM CARBONATE 150 MG CAP PO SCH (09:32)
[2023-01-30] MEDS: AMIODARONE 200 MG TAB PO SCH (09:32)
[2023-01-30] MEDS: CYANOCOBALAMIN 500 MCG TAB PO SCH (09:32)
[2023-01-30] MEDS: VIT A,C & E-LUTEIN-MINERALS 1 EACH TAB PO SCH ×2 (09:32→20:46)
--- NOTE | 2023-01-30 11:39 | P.PN ---
Progress Note - Text Progress Note Date: 01/30/23 Interval History: Patient was seen attending group and was agreeable to speak with the documentation writer. The patient reports a desire to be discharged tomorrow to "a senior care in [facility]." He states "Dr Matson is going to pick me up and we will go there." He expresses no other issues to this provider aside from his desire to be discharged. He reports no suicidal or homicidal ideation, intention, and/or plan. He reports no auditory or visual hallucinations. He reports no paranoia or other delusions. He has been adherent with his medications and is not reporting any significant side effects. He reports no issues regarding sleep or any medical issues or concerns. He states he would like some sort of slippers or shoes due to the amount he walks around the unit. Mental Status Exam: General Appearance: Patient appears to be stated age is alert, directable and cooperative today. Fair hygiene and grooming. Behavior: Patient is ambulating steadily in the hallway. Sitting calmly during the interview. Intense eye contact. Speech: Patient's speech is normal in volume, spontaneous, with normal rate. Monotone. Mood/Affect: Mood is "I am ready to leave tomorrow." Affect is constricted. Suicidality/Homicidality: Denies any suicidal or homicidal ideation. Perceptions: No auditory or visual hallucinations endorsed at this time. Though content/process: Thought process is linear today in short conversation. Fixated on discharge. No overt delusional thought content endorsed. Memory and concentration: Poor Judgment and insight: Poor Vital Signs Temp 98.3 F 01/30/23 05:05 Pulse 82 01/30/23 05:05 Resp 16 01/30/23 05:05 BP 128/60 01/30/23 05:05 Pulse Ox 96 01/30/23 05:05 FiO2 Assessment Schizoaffective disorder, bipolar type Major neurocognitive disorder Nicotine dependence Plan: -Patient continues to meet criteria for inpatient psychiatric admission for symptom stabilization and safety. Patient is petitioned and certified. Patient is pending an independent evaluation. As per court, we will reconvene in 2 weeks. -Medications: Prolixin Decanoate 50 mg IM administered yesterday. Next due on 02/05/2023. Continue [place] 450mg qAM and 600 mg qHS for mood stabilization. QTc of 412 per 01/21/23 EKG Continue Risperdal 2 mg in the morning, 3 mg by mouth qHS for psychosis/mood stabilization and for sleep Continue Namenda 10 mg daily for major neurocognitive disorder Lamictal 200 mg qHS Melatonin 10 mg qHS for sleep -When necessary Ativan and Thorazine for agitation/aggression. -NRT - nicotine patch -SW on board for discharge planning. Encouraged the patient to participate in milieu.
--- NOTE | 2023-01-30 14:52 | P.PN ---
Progress Note - Text Progress Note Date: 01/30/23 - Chief Complaint Agitation Hospital course: This is a 67-year-old patient of visiting physicians Dr. Matson. Chronic stable medical conditions include COPD, hypertension, hyperlipidemia, constipation, cyanosis. Paroxysmal atrial fibrillation. chronic constipation. GERD. Patient has a public guardian. Lives at [facility]. diagnoses of schizophrenia and schizoaffective disorder Was admitted to my service from January 21 through January 23. Was admitted. What was felt was atrial tachycardia versus atrial flutter uncontrolled. Received Cardizem drip. Was then placed on Lopressor and Cardizem oral. Went back into sinus rhythm. Patient had been other agitated. Urinating on himself. Does not want to change his clothes. Sometimes refusing medications. Took off his telemetry. Patient seen by Dr. Edge from psychiatry. He was accepted to [facility]. She was agitated right now. Wants to leave. Did eat some. Had a bowel movement. He did let me examine him. 01/26/2023: Slept only for 1 hour last night. Wants medication to sleep tonight. Did eat some. Less agitated. 01/30/2023: Tolerating diet. Anxious. He was talking about going home. Spoke to the nursing staff. Not letting them washes his clothes as they are dirty. No chest pain and palpitation Active Medications Al Hydroxide/Mg Hydroxide (Mag Hydrox/Al Hydrox/Simeth 30 Ml Cup) 30 ml PO Q4HR PRN PRN Reason: GI Upset Amiodarone HCl (Amiodarone 200 Mg Tab) 200 mg PO DAILY [facility] Last Admin: 01/30/23 09:32 Dose: 200 mg Apixaban (Apixaban 5 Mg Tab) 5 mg PO BID@0800,2100 [facility]; Protocol Last Admin: 01/30/23 09:31 Dose: 5 mg Atorvastatin Calcium (Atorvastatin 10 Mg Tab) 10 mg PO HS@2100 [facility] Last Admin: 01/29/23 20:41 Dose: 10 mg Chlorpromazine HCl (Chlorpromazine 25 Mg Tab) 25 mg PO Q6H PRN PRN Reason: Agitation or Acute Psychosis Chlorpromazine HCl (Chlorpromazine 25 Mg/Ml 2 Ml Amp) 25 mg IM Q6HR PRN PRN Reason: Agitation or Acute Psychosis Last Admin: 01/24/23 06:56 Dose: 25 mg Cyanocobalamin (Cyanocobalamin 500 Mcg Tab) 500 mcg PO DAILY@0800 [facility] Last Admin: 01/30/23 09:32 Dose: 500 mcg Dicyclomine HCl (Dicyclomine 20 Mg Tab) 20 mg PO Q8H PRN PRN Reason: Pain Diltiazem HCl (Diltiazem Oral 60 Mg Tab) 60 mg PO TID [facility] Last Admin: 01/30/23 09:32 Dose: 60 mg Fenofibrate (Fenofibrate 160 Mg Tab) 160 mg PO DAILY@0800 [facility] Last Admin: 01/30/23 09:30 Dose: 160 mg Lamotrigine (Lamotrigine 100 Mg Tab) 200 mg PO [facility] Last Admin: 01/29/23 20:40 Dose: 200 mg Latanoprost (Latanoprost 0.005% Ophth Drops 2.5 Ml Btl) 1 drops BOTH EYES HS@2099 [facility] Last Admin: 01/29/23 20:40 Dose: 1 drops [place] Carbonate ([place] Carbonate 300 Mg Cap) 600 mg PO [facility] Last Admin: 01/29/23 20:41 Dose: 600 mg [place] Carbonate ([place] Carbonate 150 Mg Cap) 450 mg PO DAILY [facility] Last Admin: 01/30/23 09:32 Dose: 450 mg Lorazepam (Lorazepam 1 Mg Tab) 1 mg PO BID@1700,2099 [facility] Last Admin: 01/29/23 20:41 Dose: 1 mg Magnesium Hydroxide (Magnesium Hydroxide 2,400 Mg/10 Ml Cup) 2,400 mg PO DAILY PRN PRN Reason: Constipation Megestrol Acetate (Megestrol 40 Mg Tab) 40 mg PO DAILY@0800 [facility] Last Admin: 01/30/23 09:31 Dose: 40 mg Melatonin (Melatonin 5 Mg Tablet) 10 mg PO HS@2100 [facility] Last Admin: 01/29/23 20:41 Dose: 10 mg Memantine (Memantine 10 Mg Tab) 10 mg PO DAILY [facility] Last Admin: 01/30/23 09:31 Dose: 10 mg Metoprolol Tartrate (Metoprolol Tartrate 25 Mg Tab) 25 mg PO TID [facility] Last Admin: 01/30/23 09:31 Dose: 25 mg Multivitamins (Multivitamins, Thera 1 Each Tab) 1 each PO HS@2099 [facility] Last Admin: 01/29/23 20:40 Dose: 1 each Multivitamins/Minerals (Vit A,C & U-Vxsulh-Lnlmnsqn 1 Each Tab) 1 each PO BID@0800,2100 [facility] Last Admin: 01/30/23 09:32 Dose: 1 each Non-Formulary Medication (Linaclotide [Linzess]) 145 mcg PO DAILY@0700 [facility] Last Admin: 01/30/23 08:31 Dose: Not Given Pantoprazole Sodium (Pantoprazole 40 Mg Tablet) 40 mg PO DAILY@0800 [facility] Last Admin: 01/30/23 09:31 Dose: 40 mg Risperidone (Risperidone 1 Mg Tab) 3 mg PO [facility] Last Admin: 01/29/23 20:40 Dose: 3 mg Risperidone (Risperidone 1 Mg Tab) 2 mg PO DAILY [facility] Last Admin: 01/30/23 09:32 Dose: 2 mg Trazodone HCl (Trazodone Hcl 50 Mg Tab) 50 mg PO [facility] Last Admin: 01/29/23 20:41 Dose: 50 mg Past medical history to include: Asthma, hypertension, hyperlipidemia, schizophrenia, schizoaffective disorder, constipation. Left leg DVT in April 2021, cirrhosis, atrial fibrillation/atrial tachycardia Social history: Has a public guardian. Smokes variable amount. No alcohol intake. Lives at a [facility] home. Previously used street drugs Physical examination: VITAL SIGNS: 98.3, 82, 16, 120/60, 96% room air GENERAL: Anxious. Dirty shirt. EYES: Pupils equal. Conjunctiva normal. HEENT: External appearance of nose and ears normal, oral cavity grossly normal. NECK: JVD not raised; masses not palpable. HEART: First second sounds normal; no edema. LUNGS: Respiratory rate increased; decreased breath sounds, ABDOMEN: Soft, nontender, liver spleen not palpable, no masses palpable. PSYCH: Able to answer questions. Anxious. NEUROLOGICAL: Cranial nerves grossly intact; no facial asymmetry, power and sensation grossly intact. INVESTIGATIONS, reviewed in the clinical context: Recent investigations 01/22/2023: White count 5.6 hemoglobin 13.3. His 136 potassium 3.9 BUN 6 creatinine 0.89 free T4 2 0.23 TSH 0.3 EKG tracing personally reviewed by me-. Weight 164. Atrial flutter/tachycardia. Right bundle branch block pattern. Chest x-ray film personally reviewed by me-some elevation of right hemidiaphragm. Hyperinflation. Assessment and plan: -Atrial flutter/atrial tachycardia with a rate around 140-60.: Currently in sinus rhythm. Lopressor 25 mg 3 times a day. Cardizem 60 mg by mouth 3 times a day. Amiodarone 200 mg twice a day. Amiodarone 200 mg a day Follow outpatient with cardiology -Hyperlipidemia Zocor -Essential hypertension Lopressor. Cardizem -COPD, in a current smoker Albuterol when necessary -Hyperthyroid from over replacement. Synthroid was discontinued -Chronic nicotine dependent cigarette smoker Nicotine patch -Schizoaffective disorder, bipolar type Following with psychiatry -Neurocognitive disorder -Chronic constipation Continue with Metamucil -Full code -Patient has a public guardian Thank you Dr. Edge
[2023-01-30] MEDS: LORazepam 1 MG TAB PO SCH ×2 (16:36→20:45)
[2023-01-30] MEDS: ATORVASTATIN 10 MG TAB PO SCH (20:45)
[2023-01-30] MEDS: lamoTRIgine 100 MG TAB PO SCH (20:45)
[2023-01-30] MEDS: LITHIUM CARBONATE 300 MG CAP PO SCH (20:45)
[2023-01-30] MEDS: MELATONIN 5 MG TABLET PO SCH (20:45)
[2023-01-30] MEDS: traZODone HCL 50 MG TAB PO SCH (20:46)
[2023-01-30] MEDS: MULTIVITAMINS, THERA 1 EACH TAB PO SCH (20:46)
[2023-01-30] MEDS: LATANOPROST 0.005% OPHTH DROPS 2.5 ML BTL BOTH EYES SCH (20:49)
[2023-01-31] MEDS: MEGESTROL 40 MG TAB PO SCH (09:06)
[2023-01-31] MEDS: risperiDONE 1 MG TAB PO SCH ×2 (09:06→21:18)
[2023-01-31] MEDS: PANTOPRAZOLE 40 MG TABLET PO SCH (09:06)
[2023-01-31] MEDS: FENOFIBRATE 160 MG TAB PO SCH (09:06)
[2023-01-31] MEDS: DILTIAZEM ORAL 60 MG TAB PO SCH ×3 (09:06→21:18)
[2023-01-31] MEDS: LITHIUM CARBONATE 150 MG CAP PO SCH (09:06)
[2023-01-31] MEDS: METOPROLOL TARTRATE 25 MG TAB PO SCH ×3 (09:07→21:18)
[2023-01-31] MEDS: MEMANTINE 10 MG TAB PO SCH (09:07)
[2023-01-31] MEDS: CYANOCOBALAMIN 500 MCG TAB PO SCH (09:07)
[2023-01-31] MEDS: APIXABAN 5 MG TAB PO SCH ×2 (09:07→21:18)
[2023-01-31] MEDS: NON FORMULARY DRUG (Linaclotide [Linzess] 145 MCG Capsule) PO SCH (09:09)
[2023-01-31] MEDS: VIT A,C & E-LUTEIN-MINERALS 1 EACH TAB PO SCH ×2 (09:43→21:18)
[2023-01-31] MEDS: AMIODARONE 200 MG TAB PO SCH (09:43)
--- NOTE | 2023-01-31 11:34 | P.PN ---
Progress Note - Text Progress Note Date: 01/31/23 Interval History: Patient was seen attending group and was agreeable to speak with the speech writer. The patient states he is being discharged this afternoon and is being picked up by "Dr Matson." He states he knows this to be true because he overheard Dr Matson tell him. He was informed that this is not our treatment team's plan. He was informed we are currently looking at alternative housing. The patient expresses curiosity as to where he would be going and states he has 450 million dollars and would like to [place]. He is otherwise adherent with his medications. He reports no suicidal or homicidal ideation. He denies any paranoia. He reports no current auditory or visual hallucinations. He reports no medical issues or concerns. -Patient was informed he is not being discharged. However he is much more calm and directable when receiving this news. Mental Status Exam: General Appearance: Patient appears to be stated age is alert, directable and cooperative today. Fair hygiene and grooming. Behavior: Patient is ambulating steadily in the hallway. Sitting calmly during the interview. Intense eye contact. Speech: Patient's speech is normal in volume, spontaneous, with normal rate. Monotone. Mood/Affect: Mood is "I am leaving today." Affect is constricted. Suicidality/Homicidality: Denies any suicidal or homicidal ideation. Perceptions: No auditory or visual hallucinations endorsed at this time. Though content/process: Thought process is linear today in short conversation. Fixated on discharge. Memory and concentration: Poor Judgment and insight: Poor Vital Signs Temp 99 F 01/31/23 06:23 Pulse 67 01/31/23 06:23 Resp 16 01/31/23 06:23 BP 112/55 01/31/23 06:23 Pulse Ox 96 01/31/23 06:23 FiO2 Assessment Schizoaffective disorder, bipolar type Major neurocognitive disorder Nicotine dependence Plan: -Patient continues to meet criteria for inpatient psychiatric admission for symptom stabilization and safety. Patient is petitioned and certified. Patient is pending an independent evaluation. As per court, we will reconvene in 2 weeks. -Medications: Prolixin Decanoate 50 mg IM administered yesterday. Next due on 02/05/2023. Continue [place] 450mg qAM and 600 mg qHS for mood stabilization. QTc of 412 per 01/21/23 EKG Continue Risperdal 2 mg in the morning, 3 mg by mouth qHS for psychosis/mood stabilization and for sleep Continue Namenda 10 mg daily for major neurocognitive disorder Lamictal 200 mg qHS Melatonin 10 mg qHS for sleep -When necessary Ativan and Thorazine for agitation/aggression. -NRT - nicotine patch -SW on board for discharge planning. Encouraged the patient to participate in milieu.
[2023-01-31] MEDS: LORazepam 1 MG TAB PO SCH ×2 (18:10→21:18)
[2023-01-31] MEDS: LATANOPROST 0.005% OPHTH DROPS 2.5 ML BTL BOTH EYES SCH (21:17)
[2023-01-31] MEDS: MELATONIN 5 MG TABLET PO SCH (21:18)
[2023-01-31] MEDS: LITHIUM CARBONATE 300 MG CAP PO SCH (21:18)
[2023-01-31] MEDS: MULTIVITAMINS, THERA 1 EACH TAB PO SCH (21:18)
[2023-01-31] MEDS: traZODone HCL 50 MG TAB PO SCH (21:18)
[2023-01-31] MEDS: lamoTRIgine 100 MG TAB PO SCH (21:18)
[2023-01-31] MEDS: ATORVASTATIN 10 MG TAB PO SCH (21:18)
[2023-02-01] MEDS: NON FORMULARY DRUG (Linaclotide [Linzess] 145 MCG Capsule) PO SCH (05:59)
[2023-02-01] MEDS: PANTOPRAZOLE 40 MG TABLET PO SCH (09:15)
[2023-02-01] MEDS: LITHIUM CARBONATE 150 MG CAP PO SCH (09:15)
[2023-02-01] MEDS: risperiDONE 1 MG TAB PO SCH ×2 (09:15→20:07)
[2023-02-01] MEDS: VIT A,C & E-LUTEIN-MINERALS 1 EACH TAB PO SCH ×2 (09:15→20:07)
[2023-02-01] MEDS: MEMANTINE 10 MG TAB PO SCH (09:15)
[2023-02-01] MEDS: DILTIAZEM ORAL 60 MG TAB PO SCH ×3 (09:15→20:07)
[2023-02-01] MEDS: AMIODARONE 200 MG TAB PO SCH (09:15)
[2023-02-01] MEDS: FENOFIBRATE 160 MG TAB PO SCH (09:16)
[2023-02-01] MEDS: CYANOCOBALAMIN 500 MCG TAB PO SCH (09:16)
[2023-02-01] MEDS: MEGESTROL 40 MG TAB PO SCH (09:16)
[2023-02-01] MEDS: APIXABAN 5 MG TAB PO SCH ×2 (09:16→20:08)
[2023-02-01] MEDS: METOPROLOL TARTRATE 25 MG TAB PO SCH ×3 (09:16→20:08)
--- NOTE | 2023-02-01 11:18 | P.PN ---
Progress Note - Text Progress Note Date: 02/01/23 The patient was seen for follow-up Patient reports that he's been sent here from the group because he keeps falling and low He says that he likes this girl that she is currently staying at her apartment Patient then went off on a tangent and paid some comments that are not related to any questions asked He reports no suicidal or homicidal ideation. He denies any paranoia. He reports no current auditory or visual hallucinations. He reports no medical issues or concerns. Mental Status Exam: General Appearance: Patient appears to be stated age is alert, directable and cooperative today. Fair hygiene and grooming. Behavior: Patient is ambulating steadily in the hallway. Sitting calmly during the interview. Intense eye contact. Speech: Patient's speech is normal in volume, spontaneous, with normal rate. Monotone. Mood/Affect: Mood is slightly irritable " Affect is constricted. Suicidality/Homicidality: Denies any suicidal or homicidal ideation. Perceptions: No auditory or visual hallucinations endorsed at this time. Though content/process: Thought process is linear today in short conversation. Fixated on discharge. Memory and concentration: Poor Judgment and insight: Poor Assessment Schizoaffective disorder, bipolar type Major neurocognitive disorder Nicotine dependence Plan: -Patient continues to meet criteria for inpatient psychiatric admission for symptom stabilization and safety. Patient is petitioned and certified. Patient is pending an independent evaluation. As per court, we will reconvene in 2 weeks. -Medications: Prolixin Decanoate 50 mg IM administered yesterday. Next due on 02/05/2023. Continue [place] 450mg qAM and 600 mg qHS for mood stabilization. QTc of 412 per 01/21/23 EKG Continue Risperdal 2 mg in the morning, 3 mg by mouth qHS for psychosis/mood stabilization and for sleep Continue Namenda 10 mg daily for major neurocognitive disorder Lamictal 200 mg qHS Melatonin 10 mg qHS for sleep -When necessary Ativan and Thorazine for agitation/aggression. -NRT - nicotine patch -SW on board for discharge planning. Encouraged the patient to participate in milieu. Raymond Conrad M.D.
[2023-02-01] MEDS: LORazepam 1 MG TAB PO SCH ×2 (17:00→20:08)
[2023-02-01] MEDS: LATANOPROST 0.005% OPHTH DROPS 2.5 ML BTL BOTH EYES SCH (20:06)
[2023-02-01] MEDS: MULTIVITAMINS, THERA 1 EACH TAB PO SCH (20:07)
[2023-02-01] MEDS: MELATONIN 5 MG TABLET PO SCH (20:07)
[2023-02-01] MEDS: lamoTRIgine 100 MG TAB PO SCH (20:07)
[2023-02-01] MEDS: LITHIUM CARBONATE 300 MG CAP PO SCH (20:08)
[2023-02-01] MEDS: traZODone HCL 50 MG TAB PO SCH (20:08)
[2023-02-01] MEDS: ATORVASTATIN 10 MG TAB PO SCH (20:08)
[2023-02-02] MEDS: NON FORMULARY DRUG (Linaclotide [Linzess] 145 MCG Capsule) PO SCH (05:34)
[2023-02-02] MEDS: MEMANTINE 10 MG TAB PO SCH (07:50)
[2023-02-02] MEDS: METOPROLOL TARTRATE 25 MG TAB PO SCH ×3 (07:50→20:32)
[2023-02-02] MEDS: PANTOPRAZOLE 40 MG TABLET PO SCH (07:50)
[2023-02-02] MEDS: risperiDONE 1 MG TAB PO SCH ×2 (07:50→20:32)
[2023-02-02] MEDS: LITHIUM CARBONATE 150 MG CAP PO SCH (07:50)
[2023-02-02] MEDS: VIT A,C & E-LUTEIN-MINERALS 1 EACH TAB PO SCH ×2 (07:51→20:32)
[2023-02-02] MEDS: APIXABAN 5 MG TAB PO SCH ×2 (07:51→20:31)
[2023-02-02] MEDS: CYANOCOBALAMIN 500 MCG TAB PO SCH (07:51)
[2023-02-02] MEDS: FENOFIBRATE 160 MG TAB PO SCH (07:52)
[2023-02-02] MEDS: DILTIAZEM ORAL 60 MG TAB PO SCH ×3 (07:52→20:31)
[2023-02-02] MEDS: MEGESTROL 40 MG TAB PO SCH (07:52)
[2023-02-02] MEDS: AMIODARONE 200 MG TAB PO SCH (07:53)
--- NOTE | 2023-02-02 09:43 | P.PN ---
Progress Note - Text Progress Note Date: 02/02/23 Correction on the previous day's note patient admits that he was seen here because he keeps falling in love The patient was seen for follow-up Patient reports that he's been sent here from the group because he keeps falling in love He reports no suicidal or homicidal ideation. He denies any paranoia. He reports no current auditory or visual hallucinations. He reports no medical issues or concerns. Mental Status Exam: General Appearance: Patient appears to be stated age is alert, directable and cooperative today. Fair hygiene and grooming. Behavior: Patient is ambulating steadily in the hallway. Sitting calmly during the interview. Intense eye contact. Speech: Patient's speech is normal in volume, spontaneous, with normal rate. Monotone. Mood/Affect: Mood is slightly irritable " Affect is constricted. Suicidality/Homicidality: Denies any suicidal or homicidal ideation. Perceptions: No auditory or visual hallucinations endorsed at this time. Though content/process: Thought process is linear today in short conversation. Fixated on discharge. Memory and concentration: Poor Judgment and insight: Poor Assessment Schizoaffective disorder, bipolar type Major neurocognitive disorder Nicotine dependence Plan: -Patient continues to meet criteria for inpatient psychiatric admission for symptom stabilization and safety. Patient is petitioned and certified. Patient is pending an independent evaluation. As per court, we will reconvene in 2 weeks. -Medications: Prolixin Decanoate 50 mg IM administered yesterday. Next due on 02/05/2023. Continue [place] 450mg qAM and 600 mg qHS for mood stabilization. QTc of 412 per 01/21/23 EKG Continue Risperdal 2 mg in the morning, 3 mg by mouth qHS for psychosis/mood stabilization and for sleep Continue Namenda 10 mg daily for major neurocognitive disorder Lamictal 200 mg qHS Melatonin 10 mg qHS for sleep -When necessary Ativan and Thorazine for agitation/aggression. -NRT - nicotine patch -SW on board for discharge planning. Encouraged the patient to participate in milieu. Raymond Conrad M.D.
[2023-02-02] MEDS: LORazepam 1 MG TAB PO SCH ×2 (16:00→20:32)
[2023-02-02] MEDS: LATANOPROST 0.005% OPHTH DROPS 2.5 ML BTL BOTH EYES SCH (20:31)
[2023-02-02] MEDS: MULTIVITAMINS, THERA 1 EACH TAB PO SCH (20:31)
[2023-02-02] MEDS: ATORVASTATIN 10 MG TAB PO SCH (20:32)
[2023-02-02] MEDS: MELATONIN 5 MG TABLET PO SCH (20:32)
[2023-02-02] MEDS: traZODone HCL 50 MG TAB PO SCH (20:32)
[2023-02-02] MEDS: LITHIUM CARBONATE 300 MG CAP PO SCH (20:32)
[2023-02-02] MEDS: lamoTRIgine 100 MG TAB PO SCH (20:32)
[2023-02-03] MEDS: MEGESTROL 40 MG TAB PO SCH (08:46)
[2023-02-03] MEDS: AMIODARONE 200 MG TAB PO SCH (08:47)
[2023-02-03] MEDS: VIT A,C & E-LUTEIN-MINERALS 1 EACH TAB PO SCH ×2 (08:47→22:48)
[2023-02-03] MEDS: FENOFIBRATE 160 MG TAB PO SCH (08:47)
[2023-02-03] MEDS: DILTIAZEM ORAL 60 MG TAB PO SCH ×3 (08:47→21:23)
[2023-02-03] MEDS: METOPROLOL TARTRATE 25 MG TAB PO SCH ×3 (08:49→21:23)
[2023-02-03] MEDS: PANTOPRAZOLE 40 MG TABLET PO SCH (08:49)
[2023-02-03] MEDS: risperiDONE 1 MG TAB PO SCH ×2 (08:49→21:22)
[2023-02-03] MEDS: LITHIUM CARBONATE 150 MG CAP PO SCH (08:50)
[2023-02-03] MEDS: CYANOCOBALAMIN 500 MCG TAB PO SCH (08:51)
[2023-02-03] MEDS: NON FORMULARY DRUG (Linaclotide [Linzess] 145 MCG Capsule) PO SCH (08:51)
[2023-02-03] MEDS: MEMANTINE 10 MG TAB PO SCH (08:53)
[2023-02-03] MEDS: APIXABAN 5 MG TAB PO SCH ×2 (08:53→21:21)
--- NOTE | 2023-02-03 13:34 | P.PN ---
Progress Note - Text Progress Note Date: 02/03/23 Interval History: Patient was seen attending group and was agreeable to speak with the chief underwriter. The patient is currently not endorsing any suicidal or homicidal ideation, intention, and/or plan. He is not reporting any auditory or visual hallucinations. He is denying any paranoia or other delusions. He reports no medical issues or concerns to this provider. He denies any chest pain, shortness of breath, palpitations, or any other issues or concerns. The patient is currently alert and oriented 2. He is able to identify his name and where he is currently located. He remains fixated on discharge. He has been directable and calm. He reports no issues regarding sleep or his appetite. Mental Status Exam: General Appearance: Patient appears to be stated age is alert, directable and cooperative today. Fair hygiene and grooming. Behavior: Patient is ambulating steadily in the hallway. Sitting calmly during the interview. Intense eye contact. Speech: Patient's speech is normal in volume, spontaneous, with normal rate. Monotone. Mood/Affect: Mood is "can I leave today?" Affect is constricted. Suicidality/Homicidality: Denies any suicidal or homicidal ideation. Perceptions: No auditory or visual hallucinations endorsed at this time. Though content/process: Thought process is linear today in short conversation. Fixated on discharge. Memory and concentration: Poor Judgment and insight: Poor Vital Signs Temp 97.8 F 02/03/23 06:37 Pulse 70 02/03/23 06:37 Resp 16 02/03/23 06:37 BP 97/53 02/03/23 06:37 Pulse Ox 97 02/03/23 06:37 FiO2 Intake & Output 02/02/23 02/03/23 02/03/23 18:59 06:59 18:59 Weight 81.1 kg Assessment Schizoaffective disorder, bipolar type Major neurocognitive disorder Nicotine dependence Plan: -Patient continues to meet criteria for inpatient psychiatric admission for symptom stabilization and safety. Patient is petitioned and certified. Patient is pending an independent evaluation. As per court, it will reconvene in 2 weeks. -Medications: Prolixin Decanoate 50 mg IM administered yesterday. Next due on 02/05/2023. We will likely administer Prolixin decanoate tomorrow in preparation for discharge. Continue [place] 450mg qAM and 600 mg qHS for mood stabilization. QTc of 412 per 01/21/23 EKG Continue Risperdal 2 mg in the morning, 3 mg by mouth qHS for psychosis/mood stabilization and for sleep. (hold morning risperdal tomorrow as we administer prolixin decanoate prior to discharge). Continue Namenda 10 mg daily for major neurocognitive disorder Lamictal 200 mg qHS Melatonin 10 mg qHS for sleep -When necessary Ativan and Thorazine for agitation/aggression. -NRT - nicotine patch -SW on board for discharge planning. Encouraged the patient to participate in milieu.
[2023-02-03] MEDS: LORazepam 1 MG TAB PO SCH ×2 (16:20→21:22)
[2023-02-03] MEDS: ATORVASTATIN 10 MG TAB PO SCH (21:21)
[2023-02-03] MEDS: MULTIVITAMINS, THERA 1 EACH TAB PO SCH (21:22)
[2023-02-03] MEDS: MELATONIN 5 MG TABLET PO SCH (21:22)
[2023-02-03] MEDS: lamoTRIgine 100 MG TAB PO SCH (21:22)
[2023-02-03] MEDS: LITHIUM CARBONATE 300 MG CAP PO SCH (21:22)
[2023-02-03] MEDS: traZODone HCL 50 MG TAB PO SCH (21:22)
[2023-02-03] MEDS: LATANOPROST 0.005% OPHTH DROPS 2.5 ML BTL BOTH EYES SCH (22:48)
[2023-02-04] MEDS: NON FORMULARY DRUG (Linaclotide [Linzess] 145 MCG Capsule) PO SCH (07:51)
[2023-02-04] MEDS ORDERED: fluPHENAZine DECANOATE 25 MG/ML 5ML MDV IM ONE (08:00)
[2023-02-04] MEDS: MEGESTROL 40 MG TAB PO SCH (09:16)
[2023-02-04] MEDS: DILTIAZEM ORAL 60 MG TAB PO SCH ×3 (09:17→21:08)
[2023-02-04] MEDS: CYANOCOBALAMIN 500 MCG TAB PO SCH (09:17)
[2023-02-04] MEDS: PANTOPRAZOLE 40 MG TABLET PO SCH (09:17)
[2023-02-04] MEDS: VIT A,C & E-LUTEIN-MINERALS 1 EACH TAB PO SCH ×2 (09:17→21:08)
[2023-02-04] MEDS: METOPROLOL TARTRATE 25 MG TAB PO SCH ×3 (09:17→21:08)
[2023-02-04] MEDS: MEMANTINE 10 MG TAB PO SCH (09:17)
[2023-02-04] MEDS: AMIODARONE 200 MG TAB PO SCH (09:17)
[2023-02-04] MEDS: APIXABAN 5 MG TAB PO SCH ×2 (09:17→21:07)
[2023-02-04] MEDS: FENOFIBRATE 160 MG TAB PO SCH (09:17)
[2023-02-04] MEDS: LITHIUM CARBONATE 150 MG CAP PO SCH (09:18)
[2023-02-04 10:18] VITALS: BMI 24.2
--- NOTE | 2023-02-04 12:51 | P.PN ---
Progress Note - Text Progress Note Date: 02/04/23 Interval History: Patient was seen attending group and was agreeable to speak with the proposal writer. The patient is currently not endorsing any suicidal or homicidal ideation, intention, and/or plan. He is not reporting any auditory or visual hallucinations. He is denying any paranoia or other delusions. He reports no medical issues or concerns to this provider. He denies any chest pain, shortness of breath, palpitations, or any other issues or concerns. The patient is currently alert and oriented 2. He is able to identify his name and where he is currently located but not the date. He remains fixated on discharge. He occasionally makes grandiose statements but has not been agitated or endorsing any overt delusions about being . Mental Status Exam: General Appearance: Patient appears to be stated age is alert, directable and cooperative today. Fair hygiene and grooming. Behavior: Patient is ambulating steadily in the hallway. Sitting calmly during the interview. Intense eye contact. Speech: Patient's speech is normal in volume, spontaneous, with normal rate. Monotone. Mood/Affect: Mood is "when am I leaving" Affect is constricted. Suicidality/Homicidality: Denies any suicidal or homicidal ideation. Perceptions: No auditory or visual hallucinations endorsed at this time. Though content/process: Thought process is linear today in short conversation. Fixated on discharge. Memory and concentration: Poor Judgment and insight: Poor Vital Signs Temp 98.1 F 02/04/23 04:57 Pulse 71 02/04/23 04:57 Resp 17 02/04/23 04:57 BP 132/61 02/04/23 04:57 Pulse Ox 96 02/04/23 04:57 FiO2 Intake & Output 02/03/23 02/04/23 02/04/23 18:59 06:59 18:59 Weight 81.1 kg Assessment Schizoaffective disorder, bipolar type Major neurocognitive disorder Nicotine dependence Plan: -Patient continues to meet criteria for inpatient psychiatric admission for symptom stabilization and safety. Patient is petitioned and certified. Patient is pending an independent evaluation. Patient is scheduled for his independent evaluation tomorrow. Anticipate discharge tomorrow. -Medications: Prolixin Decanoate 50 mg IM due on 02/05/2023. We will administer the medication prior to discharge. Continue [place] 450mg qAM and 600 mg qHS for mood stabilization. QTc of 412 per 01/21/23 EKG Decrease Risperdal to 3 mg by mouth qHS for psychosis/mood stabilization and for sleep. Continue Namenda 10 mg daily for major neurocognitive disorder Lamictal 200 mg qHS Melatonin 10 mg qHS for sleep -When necessary Ativan and Thorazine for agitation/aggression. -NRT - nicotine patch -SW on board for discharge planning. Encouraged the patient to participate in milieu.
[2023-02-04] MEDS: LORazepam 1 MG TAB PO SCH ×2 (16:15→21:07)
[2023-02-04] MEDS: lamoTRIgine 100 MG TAB PO SCH (21:07)
[2023-02-04] MEDS: LITHIUM CARBONATE 300 MG CAP PO SCH (21:07)
[2023-02-04] MEDS: ATORVASTATIN 10 MG TAB PO SCH (21:07)
[2023-02-04] MEDS: LATANOPROST 0.005% OPHTH DROPS 2.5 ML BTL BOTH EYES SCH (21:07)
[2023-02-04] MEDS: traZODone HCL 50 MG TAB PO SCH (21:07)
[2023-02-04] MEDS: risperiDONE 1 MG TAB PO SCH (21:07)
[2023-02-04] MEDS: MULTIVITAMINS, THERA 1 EACH TAB PO SCH (21:08)
[2023-02-04] MEDS: MELATONIN 5 MG TABLET PO SCH (21:08)
[2023-02-05 07:26] VITALS: BP 132/62; PULSE 74; RESP 18; TEMP 97.7
[2023-02-05] MEDS: CYANOCOBALAMIN 500 MCG TAB PO SCH (12:01)
[2023-02-05] MEDS: APIXABAN 5 MG TAB PO SCH (12:01)
[2023-02-05] MEDS: NON FORMULARY DRUG (Linaclotide [Linzess] 145 MCG Capsule) PO SCH (12:01)
[2023-02-05] MEDS: FENOFIBRATE 160 MG TAB PO SCH (12:02)
[2023-02-05] MEDS: PANTOPRAZOLE 40 MG TABLET PO SCH (12:02)
[2023-02-05] MEDS: MEGESTROL 40 MG TAB PO SCH (12:02)
[2023-02-05] MEDS: VIT A,C & E-LUTEIN-MINERALS 1 EACH TAB PO SCH (12:18)
[2023-02-05] MEDS: DILTIAZEM ORAL 60 MG TAB PO SCH ×2 (12:18→15:16)
[2023-02-05] MEDS: AMIODARONE 200 MG TAB PO SCH (12:18)
[2023-02-05] MEDS: METOPROLOL TARTRATE 25 MG TAB PO SCH ×2 (12:19→15:16)
[2023-02-05] MEDS: LITHIUM CARBONATE 150 MG CAP PO SCH (12:19)
[2023-02-05] MEDS: MEMANTINE 10 MG TAB PO SCH (12:19)
--- NOTE | 2023-02-05 15:08 | P.DS ---
Providers Date of admission: 01/23/23 18:45 Expected date of discharge: 02/05/23 Attending physician: Doyle Edge MD Consults: 01/23/23 17:36 Consult Physician Routine Consulting Provider: Coleman Gordon Consult Reason/Comments: H&P Do you want consulting provider notified?: Yes Primary care physician: Conrad Matson MD - Discharge Diagnosis(es) (1) Schizoaffective disorder, bipolar type Current Visit: Yes Status: Acute Priority: High (2) Major neurocognitive disorder Current Visit: Yes Status: Suspected Priority: High (3) Nicotine dependence Current Visit: Yes Status: Chronic Priority: Low Hospital Course: Admission HPI: his patient is a single, unemployed, 67-year-old male who has a legal guardian and his resident of [facility] who presented to our emergency department for concerns of tachycardia, however was noted to be very agitated and endorsing acute psychotic symptoms. Patient presented to the hospital on 01/21/2023 with concerns. Tachycardia. He was evaluated by cardiology and medicine and subsequently treated. Psychiatry was consulted due to his acute psychosis and behavioral disturbances. When evaluated on the medical floor on 01/22/2023, the patient was overtly psychotic, responding to internal stimuli, grossly disorganized, and was endorsing both auditory and visual hallucinations. The patient was subsequently admitted to our psychiatric unit under petition and certification. Upon evaluation by this provider, the patient continues to be overtly psychotic delusional. Collateral information was obtained by the patient's [facility] home. As per healthcare interpreter at the [facility], the patient has been living at this home since this past September. Reportedly, he has been increasingly violent to staff and peers. He also has a delusional belief that he is to the healthcare interpreter. She informed this provider that this belief has led to him directing anger toward staff members about infidelity. Furthermore, the patient reported that he has not been sleeping. He is mostly uncooperative during the interview due to irritability and anger. The patient does endorse auditory hallucinations of family members. This morning he states that it is his uncle speaking to him. He denies any command type hallucinations today. As the patient continues to display overt psychosis, he was subsequently petitioned and certified him a second clinic was difficult was filled out by this provider. Patient has a previous history of major neurocognitive disorder and schizoaffective disorder. Patient has had multiple inpatient psychiatric admissions with the last time being in November of 2021. He is currently open with [facility]. He denies any prior suicide attempts. Hospital course: Upon admission to the unit patient was initially overtly psychotic and labile. Patient was however directable and agreeable to commence treatment. Patient got along well with other patients on the unit and followed unit protocol. Patient was compliant with the medications and denied any side effects throughout hospit al course. Patient was started on Namenda for neurocognitive disorder and was continued on lithium, Risperdal, and Prolixin Decanoate. Patient spoke of his stressors and engaged in therapy both group and individual. The patient would have intermittent episodes of irritability but was always directable. His medications were titrated and the patient displayed a significant improvement in regards to his target symptoms of psychosis and mood lability. Patient was also seen by medical team for history and physical exam. Throughout the course of the hospitalization patient gradually improved with regards to his irritability, delusions, and sleep. The patient was often fixated on being and which retirement he would be going to. The patient was scheduled for mental health court however it was recommended that he undergo an independent evaluation. Despite this, the patient was always adherent with his medications while on the unit and was agreeable to lab monitoring. On the day of discharge, the patient underwent an independent evaluation. He is currently not reporting any suicidal or homicidal ideation, intention, and/or plan. He reports chronic auditory hallucinations however states that they're currently not present. He is not reporting any visual hallucinations. The patient is not forthcoming with any overt delusional thought content to this provider. He remains fixated on being discharged to a retirement. He is directable and cooperative and polite. He does report some issues regarding balance and gait however is not endorsing any chest pain, shots of breath, palpitations, lightheadedness, or any other medical concerns. He reports no issues using the restroom. He denies any muscle tightness or weakness. The patient does not have any significant substance abuse history however was counseled on abstaining from all substances. The patient is chronically mentally ill with severe mental illness. He would be discharged to a retirement with close follow-up and monitoring. The patient will continue to be evaluated for concerns for major neurocognitive disorder as well. Mental status exam: General Appearance: Patient appears to be stated age is alert, pleasant, and cooperative. Patient is in no acute distress and has fair hygiene and grooming Behavior: Patient is calmly seated without any agitated behavior. Speech: Patient's speech is fluent and nonpressured. Mood/Affect: Patient reports their mood is "ready to go home and Dr. Edge", affect is congruent and blunted. Suicidality/Homicidality: Patient denies having any suicidal or homicidal ideation intent or plan. Perceptions: Patient denies any auditory or visual hallucinations. Though content/process: Thought process is linear in short conversation. No overt delusional thought content endorsed today. Memory and concentration: Alert and oriented to person and place only. Judgment and insight: Poor at baseline due to severe mental illness Impression: Schizoaffective disorder, bipolar type Major neurocognitive disorder Nicotine dependence Plan: -Continue with discharge today as patient has improved and stabilized psychiatrically and is not currently an imminent threat to himself and/or others. Patient will remain at chronically elevated risk due to the severity of his mental illness. -Patient will be discharged to a retirement. -OBRA filing initiated. -Continue medications: Patient received Prolixin decanoate 50 mg IM today. Next due in one week. Larchwood 450 mg by mouth every morning and 600 mg by mouth daily at bedtime for mood stabilization Risperdal 3 mg by mouth at bedtime for psychosis/mood stabilization Namenda 10 mg by mouth daily for major neurocognitive disorder Lamictal 200 mg by mouth at bedtime for mood stabilization Melatonin 10 mg daily at bedtime for insomnia -Patient was counseled on the need for medication compliance and appropriate follow-up at mental health and also primary care for medical issues. Patient verbalized understanding and agreed. -Social work to arrange for and conduct family meeting to ensure safety upon discharge and answer any questions/concerns. Social work also to arrange for patients follow up appointments with [facility] for psychiatric care along with follow up with primary care provider. -Patient was instructed to return to the hospital or seek immediate medical care if their psychiatric or medical symptoms do worsen or reoccur. -Psychoeducation and supportive therapy provided to patient. Risks and benefits of pharmacological treatment versus the risks and benefits of nontreatment weight and discussed. Informed consent discussion held. Common side effects of psychotropics discussed such as, but not limited to headache, GI disturbance, sexual dysfunction, movement disorders, sedation, and orthostatic hypotension. Life threatening and blackbox warnings of prescribed medications also discussed. Potential risks of operating a vehicle or heavy machinery discussed with patient at length. Advised on importance of compliance and a reliable and responsible manner. Patient advised to review FDA consumer labeling of all medications prior to taking. Patient verbalized understanding of potential risks, and agrees with current treatment plan. Patient advised to medically contact physician/emergency personnel if any acute changes in condition occur. Vital Signs Temp 97.7 F 02/05/23 07:25 Pulse 74 02/05/23 07:25 Resp 18 02/05/23 07:25 BP 132/62 02/05/23 07:25 Pulse Ox 96 02/04/23 04:57 FiO2 Intake & Output 02/04/23 02/05/23 02/05/23 18:59 06:59 18:59 Weight 81.1 kg Laboratory Results Lamotrigine 6.2 ug/mL (2.0-15.0) 01/25/23 07:59 Larchwood 0.8 mmol/L 01/25/23 07:59 Allergies Allergy/AdvReac Type Severity Reaction Status Date / Time acetaminophen [From Tylenol] Allergy Unknown Verified 01/21/23 09:41 gabapentin [From Neurontin] Allergy Unknown Verified 01/21/23 09:41 Penicillins Allergy Unknown Verified 01/21/23 09:41 clozapine [From Clozaril] AdvReac Unknown Verified 01/21/23 09:41 divalproex sodium AdvReac Unknown Verified 01/21/23 09:41 [From Depakote] Patient Condition at Discharge: Stable Plan - Discharge Summary New Discharge Prescriptions: New LORazepam [Ativan] 1 mg PO BID@1700,2100 30 Days #60 tab Larchwood Carbonate 450 mg PO DAILY 30 Days #90 cap Larchwood Carbonate 600 mg PO HS 30 Days #60 cap traZODone HCL [Desyrel] 50 mg PO HS 30 Days #30 tab lamoTRIgine [LaMICtal] 200 mg PO HS 30 Days #60 tab Memantine [Namenda] 10 mg PO DAILY 30 Days #30 tab risperiDONE [RisperDAL] 3 mg PO HS 30 Days #90 tab Continue Omeprazole [PriLOSEC] 20 mg PO DAILY@0800 Latanoprost/Pf [Latanoprost 0.005% Eye Drop] 1 drop BOTH EYES HS@2100 Fenofibrate Nanocrystallized [Fenofibrate] 145 mg PO DAILY@0800 Cholecalciferol (Vitamin D3) [Vitamin D3 (5000 Iu)] 125 mcg PO DIRECTED Certavite 1 tab PO HS@2100 Dicyclomine [Bentyl] 20 mg PO Q8H PRN PRN Reason: Pain Apixaban [Eliquis] 5 mg PO BID@0800,2100 Vit C/E/Zn/Coppr/Lutein/Zeaxan [Preservision Areds 2 Softgel] 1 cap PO BID@0800,2100 Simvastatin [Zocor] 20 mg PO HS@2100 Linaclotide [Linzess] 145 mcg PO DAILY@0700 Diltiazem Oral [Cardizem*] 60 mg PO TID tab Metoprolol Tartrate [Lopressor] 25 mg PO TID #0 Cyanocobalamin [Vitamin B-12] 500 mcg PO DAILY@0800 Lactose-Reduced Food [Boost] 1 can PO DAILY@0800 Lactose-Reduced Food [Boost] 1 can PO DAILY PRN PRN Reason: MEAL SUBSTITUTION Melatonin 10 mg PO HS@2100 Megestrol Acetate 40 mg PO DAILY@0800 Changed Amiodarone [Cordarone] 200 mg PO DAILY #0 tab Discontinued LORazepam [Ativan] 1 mg PO BID@1700,2100 Larchwood Carbonate ER [Lithobid] 450 mg PO BID tab risperiDONE [RisperDAL] 0.5 mg PO BID tab OLANZapine [ZyPREXA] 5 mg PO Q4H PRN tab PRN Reason: Agitation lamoTRIgine [LaMICtal] 200 mg PO HS chlorproMAZINE [Thorazine] 25 mg PO Q4HR PRN tab PRN Reason: Agitation Or Acute Psychosis Discharge Medication List Cholecalciferol (Vitamin D3) [Vitamin D3 (5000 Iu)] 125 mcg PO DIRECTED 06/07/20 [History] Fenofibrate Nanocrystallized [Fenofibrate] 145 mg PO DAILY@0800 06/07/20 [History] Latanoprost/Pf [Latanoprost 0.005% Eye Drop] 1 drop BOTH EYES HS@209906/07/20 [History] Omeprazole [PriLOSEC] 20 mg PO DAILY@0800 06/07/20 [History] Certavite 1 tab PO HS@209904/12/21 [History] Cyanocobalamin [Vitamin B-12] 500 mcg PO DAILY@0800 04/12/21 [History] Dicyclomine [Bentyl] 20 mg PO Q8H PRN 04/12/21 [History] Apixaban [Eliquis] 5 mg PO BID@0800,2100 07/12/21 [History] Lactose-Reduced Food [Boost] 1 can PO DAILY@0800 11/03/21 [History] Vit C/E/Zn/Coppr/Lutein/Zeaxan [Preservision Areds 2 Softgel] 1 cap PO BID@0800,209911/03/21 [History] Lactose-Reduced Food [Boost] 1 can PO DAILY PRN 10/30/22 [History] Megestrol Acetate 40 mg PO DAILY@0800 10/30/22 [History] Melatonin 10 mg PO HS@209910/30/22 [History] Simvastatin [Zocor] 20 mg PO HS@209910/30/22 [History] Linaclotide [Linzess] 145 mcg PO DAILY@0700 01/21/23 [History] Diltiazem Oral [Cardizem*] 60 mg PO TID tab 01/22/23 [Rx] Metoprolol Tartrate [Lopressor] 25 mg PO TID #0 01/22/23 [Rx] Amiodarone [Cordarone] 200 mg PO DAILY #0 tab 02/05/23 [Rx] LORazepam [Ativan] 1 mg PO BID@1700,2100 30 Days #60 tab 02/05/23 [Rx] Larchwood Carbonate 450 mg PO DAILY 30 Days #90 cap 02/05/23 [Rx] Larchwood Carbonate 600 mg PO HS 30 Days #60 cap 02/05/23 [Rx] Memantine [Namenda] 10 mg PO DAILY 30 Days #30 tab 02/05/23 [Rx] lamoTRIgine [LaMICtal] 200 mg PO HS 30 Days #60 tab 02/05/23 [Rx] risperiDONE [RisperDAL] 3 mg PO HS 30 Days #90 tab 02/05/23 [Rx] traZODone HCL [Desyrel] 50 mg PO HS 30 Days #30 tab 02/05/23 [Rx] Follow up Appointment(s)/Referral(s): [facility] [Outside] - 02/05/23 3:00 pm (02/11/2023 9:30AM - 10:00AM with Dr Capellan) Conrad Matson MD [Primary Care Provider] - 1-2 Days (Please notify when patient is discharged to coordinate follow up care visits.) Patient Instructions/Handouts: How to Stop Smoking (DC), Schizoaffective Disorder (DC) Activity/Diet/Wound Care/Special Instructions: Avoid the use of street drugs and alcohol. Take all medications as prescribed. When you are in need of refills on your medications, please contact your medical provider and/or outpatient psychiatrist to have this done. Please go to scheduled outpatient appointments for aftercare treatment. If symptoms return or become worse, call the crisis line at and/or go to the nearest emergency room for evaluation. Discharge Disposition: HOME SELF-CARE
[2023-02-05] MEDS: LORazepam 1 MG TAB PO SCH (15:16)
== END 2023-02-05 15:10 | disposition home or self-care (01) | DRG 885 ==
LOC: 3MHU 18:45
PROVIDERS: ADMIT Psychiatry & Neurology Psychiatry; ATTEND Psychiatry & Neurology Psychiatry
DX: F25.0 Schizoaffective disorder, bipolar type (principal); I47.1 Supraventricular tachycardia; I48.92 Unspecified atrial flutter; F17.210 Nicotine dependence, cigarettes, uncomplicated; E05.90 Thyrotoxicosis, unspecified without thyrotoxic crisis or storm; E78.5 Hyperlipidemia, unspecified; I10 Essential (primary) hypertension; I48.0 Paroxysmal atrial fibrillation; J44.9 Chronic obstructive pulmonary disease, unspecified; K21.9 Gastro-esophageal reflux disease without esophagitis; K59.09 Other constipation; F03.90 Unspecified dementia, unspecified severity, without behavioral disturbance, psychotic disturbance, mood disturbance, and anxiety; K74.60 Unspecified cirrhosis of liver; Z79.01 Long term (current) use of anticoagulants; Z79.899 Other long term (current) drug therapy; Z86.718 Personal history of other venous thrombosis and embolism; R45.1 Restlessness and agitation; Z56.0 Unemployment, unspecified; Z71.3 Dietary counseling and surveillance; Z88.6 Allergy status to analgesic agent; Z88.1 Allergy status to other antibiotic agents; Z88.0 Allergy status to penicillin
CPT/HCPCS: 80175; 80178

== ENCOUNTER 2023-03-27 07:13 | Inpatient (IN) | payer MEDICARE, OTHER ==
[2023-03-27] MEDS ORDERED: DILTIAZEM DRIP BOLUS FROM BAG 1 MG SOLN IV ONE ×2 (07:32→08:49)
--- NOTE | 2023-03-27 07:35 | ED ---
General Adult HPI - General Chief complaint: Arrhythmia/Palpitations Stated complaint: Tachycardia Time Seen by Provider: 03/27/23 07:24 Source: patient, RN/MD, EMS, RN notes reviewed Mode of arrival: EMS Limitations: altered mental status - History of Present Illness Initial comments: Patient is a pleasant 67-year-old male presenting to the emergency Department with reported tachycardia. Patient states he feels fine and has no complaints. Patient does have history of atrial fibrillation and is currently on FOR that. Patient denies chest pain. No palpitations. No dyspnea. - Related Data Home Medications Medication Instructions Recorded Confirmed Cholecalciferol (Vitamin D3) 125 mcg PO DIRECTED 06/07/20 01/23/23 [Vitamin D3 (5000 Iu)] Fenofibrate Nanocrystallized 145 mg PO DAILY@0800 06/07/20 01/23/23 [Fenofibrate] Latanoprost/Pf [Latanoprost 0.005% 1 drop BOTH EYES HS@209906/07/20 01/23/23 Eye Drop] Omeprazole [PriLOSEC] 20 mg PO DAILY@0806/07/20 01/23/23 Certavite 1 tab PO HS@209904/12/21 01/23/23 Cyanocobalamin [Vitamin B-12] 500 mcg PO DAILY@0800 04/12/21 01/23/23 Dicyclomine [Bentyl] 20 mg PO Q8H PRN 04/12/21 01/23/23 Apixaban [Eliquis] 5 mg PO BID@0800,209907/12/21 01/23/23 Lactose-Reduced Food [Boost] 1 can PO DAILY@0800 11/03/21 01/23/23 Vit C/E/Zn/Coppr/Lutein/Zeaxan 1 cap PO BID@0800,209911/03/21 01/23/23 [Preservision Areds 2 Softgel] Lactose-Reduced Food [Boost] 1 can PO DAILY PRN 10/30/22 01/23/23 Megestrol Acetate 40 mg PO DAILY@0800 10/30/22 01/23/23 Melatonin 10 mg PO HS@209910/30/22 01/23/23 Simvastatin [Zocor] 20 mg PO HS@209910/30/22 01/23/23 Linaclotide [Linzess] 145 mcg PO DAILY@0700 01/21/23 01/23/23 Previous Rx's Medication Instructions Recorded Diltiazem Oral [Cardizem*] 60 mg PO TID tab 01/22/23 Metoprolol Tartrate [Lopressor] 25 mg PO TID #0 01/22/23 Amiodarone [Cordarone] 200 mg PO DAILY #0 tab 02/05/23 LORazepam [Ativan] 1 mg PO BID@1700,2100 30 Days #60 02/05/23 tab [place] Carbonate 450 mg PO DAILY 30 Days #90 cap 02/05/23 [place] Carbonate 600 mg PO HS 30 Days #60 cap 02/05/23 Memantine [Namenda] 10 mg PO DAILY 30 Days #30 tab 02/05/23 lamoTRIgine [LaMICtal] 200 mg PO HS 30 Days #60 tab 02/05/23 risperiDONE [RisperDAL] 3 mg PO HS 30 Days #90 tab 02/05/23 traZODone HCL [Desyrel] 50 mg PO HS 30 Days #30 tab 02/05/23 Allergies Allergy/AdvReac Type Severity Reaction Status Date / Time acetaminophen [From Tylenol] Allergy Unknown Verified 03/27/23 07:22 gabapentin [From Neurontin] Allergy Unknown Verified 03/27/23 07:22 Penicillins Allergy Unknown Verified 03/27/23 07:22 clozapine [From Clozaril] AdvReac Unknown Verified 03/27/23 07:22 divalproex sodium AdvReac Unknown Verified 03/27/23 07:22 [From Depakote] Review of Systems ROS Statement: Those systems with pertinent positive or pertinent negative responses have been documented in the HPI. ROS Other: All systems not noted in ROS Statement are negative. Constitutional: Denies: fever Eyes: Denies: eye pain ENT: Denies: ear pain Respiratory: Denies: cough, dyspnea Cardiovascular: Denies: chest pain, palpitations Endocrine: Denies: fatigue Gastrointestinal: Denies: abdominal pain Past Medical History Past Medical History: Asthma, Hyperlipidemia, Hypertension Additional Past Medical History / Comment(s): schizophrenia. constipation History of Any Multi-Drug Resistant Organisms: None Reported Past Surgical History: No Surgical Hx Reported Past Anesthesia/Blood Transfusion Reactions: No Reported Reaction Past Psychological History: Schizophrenia Smoking Status: Light tobacco smoker Past Alcohol Use History: None Reported Past Drug Use History: None Reported - Past Family History Father History Unknown: Yes Mother History Unknown: Yes General Exam Limitations: altered mental status General appearance: alert, in no apparent distress Head exam: Present: atraumatic Eye exam: Present: normal appearance Neck exam: Present: normal inspection Respiratory exam: Present: normal lung sounds bilaterally Cardiovascular Exam: Present: tachycardia Expanded Peripheral pulses: 2+: Radial (R), Radial (L), Posterior Tibialis (R), Posterior Tibialis (L) GI/Abdominal exam: Present: soft. Absent: tenderness Extremities exam: Present: normal inspection. Absent: pedal edema, calf tenderness Neurological exam: Present: alert Psychiatric exam: Present: normal affect, normal mood Skin exam: Present: normal color Course Vital Signs 03/27/23 03/27/23 03/27/23 07:15 07:30 08:02 Temperature 98.7 F Pulse Rate 165 H 163 H Pulse Rate [ 163 H Pulse Oximetery ] Respiratory 24 20 Rate Blood Pressure 103/73 103/73 O2 Sat by Pulse 92 L 94 L Oximetry EKG Findings - EKG Results: EKG: interpreted by ERMD (Right bundle branch block. Right axis. Regular rhyt hm tachycardia. Nonspecific ST-T) EKG shows: tachycardia Medical Decision Making - Medical Decision Making Was pt. sent in by a medical professional or institution ([facility]reia, [employer], urgent care, hospital, or intermediate...) When possible be specific @ -Patient was sent in from an [facility] home Did you speak to anyone other than the patient for history (EMS, parent, family, police, friend...)? What history was obtained from this source @ -No Did you review nursing and triage notes (agree or disagree)? Why? @ -I reviewed and agree with nursing and triage notes Were old charts reviewed (outside hosp., previous admission, EMS record, old EKG, old radiological studies, urgent care reports/EKG's, intermediate records)? Report findings @ -I did review medical records from [facility] Differential Diagnosis (chest pain, altered mental status, abdominal pain women, abdominal pain men, vaginal bleeding, weakness, fever, dyspnea, syncope, headache, dizziness, GI bleed, back pain, seizure, CVA, palpatations, mental health)? @ -Differential Chest Pain: Stable Angina, Unstable Angina, STEMI, NSTEMI Aortic Dissection, Pneumothorax, M usculoskeletal, Esophageal Spasm GERD, Cholecystitis, Pancreatitis, Zoster, this is not meant to be an all-inclusive list. EKG interpreted by me (3pts min.). @ -As above X-rays interpreted by me (1pt min.). @ -Chest x-ray does not reveal acute abnormality CT interpreted by me (1pt min.). @ -None done U/S interpreted by me (1pt. min.). @ -None done What testing was considered but not performed or refused? (CT, X-rays, U/S, labs)? Why? @ -None What meds were considered but not given or refused? Why? @ -None Did you discuss the management of the patient with other professionals (professionals i.e. , PA, PIE FILLING MIXER, lab, RT, psych nurse, director social service, unclaimed property manager, teacher, financial services officer, assistant case manager)? Give summary @ -Case was discussed with Dr. Gordon, who will admit covering Dr. Canales Was smoking cessation discussed for >3mins.? @ -No Was critical care preformed (if so, how long)? @ -31 minutes critical care time Were there social determinants of health that impacted care today? How? (Homelessness, low income, unemployed, alcoholism, drug addiction, transportation, low edu. Level, literacy, decrease access to med. care, residential, rehab)? @ -No Was there de-escalation of care discussed even if they declined (Discuss DNR or withdrawal of care, Hospice)? DNR status @ -No What co-morbidities impacted this encounter? (DM, HTN, Smoking, COPD, CAD, Cancer, CVA, ARF, Chemo, Hep., AIDS, mental health diagnosis, sleep apnea, morbid obesity)? @ -None Was patient admitted / discharged? Hospital course, mention meds given and route, prescriptions, significant lab abnormalities, going to OR and other pertinent info. @ -Patient reevaluated heart rate at 156. Patient is on monitor. Patient was placed on monitor secondary to arrhythmia and 2 watch for tachycardia. Patient will be admitted and continue Cardizem drip with cardiology consult. Undiagnosed new problem with uncertain prognosis? @ -No Drug Therapy requiring intensive monitoring for toxicity (Heparin, Nitro, Insulin, Cardizem)? @ -Patient will need to be monitored with Cardizem drip. Patient already is on anticoagulation Were any procedures done? @ -No Diagnosis/symptom? @ -A. fib with RVR Acute, or Chronic, or Acute on Chronic? @ -Acute Uncomplicated (without systemic symptoms) or Complicated (systemic symptoms)? @ -H a fibrillation is acute with tachycardia Side effects of treatment? @ -No Exacerbation, Progression, or Severe Exacerbation? @ -No Poses a threat to life or bodily function? How? (Chest pain, [place], [place], pneumonia, PE, COPD, DKA, ARF, appy, cholecystitis, CVA, Diverticulitis, Homicidal, Suicidal, threat to staff... and all critical care pts) @ -No - Lab Data Result diagrams: 03/27/23 07:37 03/27/23 07:37 Lab Results 03/27/23 03/27/23 03/27/23 Range/Units 07:37 07:37 07:37 WBC 8.4 (3.8-10.6) k/uL RBC 4.46 (4.30-5.90) m/uL Hgb 13.7 (13.0-17.5) gm/dL Hct 42.2 (39.0-53.0) % MCV 94.8 (80.0-100.0) fL MCH 30.8 (25.0-35.0) pg MCHC 32.5 (31.0-37.0) g/dL RDW 12.8 (11.5-15.5) % Plt Count 177 (150-450) k/uL MPV 8.6 Neutrophils % 78 % Lymphocytes % 14 % Monocytes % 5 % Eosinophils % 1 % Basophils % 0 % Neutrophils # 6.5 (1.3-7.7) k/uL Lymphocytes # 1.2 (1.0-4.8) k/uL Monocytes # 0.4 (0-1.0) k/uL Eosinophils # 0.1 (0-0.7) k/uL Basophils # 0.0 (0-0.2) k/uL PT 11.1 (9.0-12.0) sec INR 1.1 (<1.2) APTT 23.6 (22.0-30.0) sec Sodium 139 (137-145) mmol/L Potassium 4.3 (3.5-5.1) mmol/L Chloride 106 (98-107) mmol/L Carbon Dioxide 23 (22-30) mmol/L Anion Gap 10 mmol/L BUN 19 (9-20) mg/dL Creatinine 1.27 H (0.66-1.25) mg/dL Est GFR (CKD-EPI)AfAm 66 (>60 ml/min/1.73 sqM) Est GFR (CKD-EPI)NonAf 57 (>60 ml/min/1.73 sqM) Glucose 128 H (74-99) mg/dL Calcium 10.6 H (8.4-10.2) mg/dL Magnesium 2.2 (1.6-2.3) mg/dL Total Bilirubin 0.7 (0.2-1.3) mg/dL AST 35 (17-59) U/L ALT 32 (4-49) U/L Alkaline Phosphatase 53 (38-126) U/L Troponin I (0.000-0.034) ng/mL Total Protein 6.4 (6.3-8.2) g/dL Albumin 4.0 (3.5-5.0) g/dL Free T4 1.73 (0.78-2.19) ng/dL Free T3 pg/mL 3.2 (2.8-5.3) pg/ml 03/27/23 Range/Units 07:37 WBC (3.8-10.6) k/uL RBC (4.30-5.90) m/uL Hgb (13.0-17.5) gm/dL Hct (39.0-53.0) % MCV (80.0-100.0) fL MCH (25.0-35.0) pg MCHC (31.0-37.0) g/dL RDW (11.5-15.5) % Plt Count (150-450) k/uL MPV Neutrophils % % Lymphocytes % % Monocytes % % Eosinophils % % Basophils % % Neutrophils # (1.3-7.7) k/uL Lymphocytes # (1.0-4.8) k/uL Monocytes # (0-1.0) k/uL Eosinophils # (0-0.7) k/uL Basophils # (0-0.2) k/uL PT (9.0-12.0) sec INR (<1.2) APTT (22.0-30.0) sec Sodium (137-145) mmol/L Potassium (3.5-5.1) mmol/L Chloride (98-107) mmol/L Carbon Dioxide (22-30) mmol/L Anion Gap mmol/L BUN (9-20) mg/dL Creatinine (0.66-1.25) mg/dL Est GFR (CKD-EPI)AfAm (>60 ml/min/1.73 sqM) Est GFR (CKD-EPI)NonAf (>60 ml/min/1.73 sqM) Glucose (74-99) mg/dL Calcium (8.4-10.2) mg/dL Magnesium (1.6-2.3) mg/dL Total Bilirubin (0.2-1.3) mg/dL AST (17-59) U/L ALT (4-49) U/L Alkaline Phosphatase (38-126) U/L Troponin I 0.017 (0.000-0.034) ng/mL Total Protein (6.3-8.2) g/dL Albumin (3.5-5.0) g/dL Free T4 (0.78-2.19) ng/dL Free T3 pg/mL (2.8-5.3) pg/ml Critical Care Time Critical Care Time: Yes Total Critical Care Time: 31 Disposition Clinical Impression: Atrial fibrillation, Tachycardia Disposition: ADMITTED IP TO THIS HOSP Is patient prescribed a controlled substance at d/c from ED?: No Referrals: Conrad Matson MD [Primary Care Provider] - 1-2 days Time of Disposition: 08:38
[2023-03-27] MEDS ORDERED: DILTIAZEM 125 MG in SODIUM CHLORIDE 0.9% 100 ML IV SCH (07:45)
[2023-03-27 07:56] LABS: Basophils % (A) 0 %; Eosinophils # (A) 0.1 k/uL (0-0.7); Eosinophils % (A) 1 %; HCT 42.2 % (39.0-53.0); HGB 13.7 gm/dL (13.0-17.5); Lymphocytes # (A) 1.2 k/uL (1.0-4.8); Lymphocytes % (A) 14 %; MCH 30.8 pg (25.0-35.0); MCHC 32.5 g/dL (31.0-37.0); MCV 94.8 fL (80.0-100.0); Mean Platelet Volume 8.6; Monocytes # (A) 0.4 k/uL (0-1.0); Monocytes % (A) 5 %; Neutrophils # (A) 6.5 k/uL (1.3-7.7); Neutrophils % (A) 78 %; Platelet Count 177 k/uL (150-450); RBC 4.46 m/uL (4.30-5.90); RDW 12.8 % (11.5-15.5); WBC 8.4 k/uL (3.8-10.6)
[2023-03-27 08:00] LABS: INR 1.1 (<1.2); Partial Thromboplastin Time 23.6 sec (22.0-30.0); Prothrombin Time 11.1 sec (9.0-12.0)
[2023-03-27 08:11] LABS: Calcium 10.6 mg/dL (8.4-10.2); Magnesium 2.2 mg/dL (1.6-2.3); Potassium 4.3 mmol/L (3.5-5.1); Total Bilirubin 0.7 mg/dL (0.2-1.3); Total Protein 6.4 g/dL (6.3-8.2)
--- NOTE | 2023-03-27 08:16 | XR ---
EXAMINATION TYPE: XR chest 2V DATE OF EXAM: 03/27/2023 COMPARISON: 01/21/2023 HISTORY: 67-year-old male fever, dysrhythmia TECHNIQUE: AP and lateral views FINDINGS: Heart normal size. Aorta and pulmonary vasculature within normal limits. Some strandy atelectasis in the lower lungs. Mild hyperinflation. [facility] mid and lower thoracic spine. IMPRESSION: COPD. No definite acute process.
[2023-03-27 08:28] LABS: T4, Free (Free Thyroxine) 1.73 ng/dL (0.78-2.19)
[2023-03-27] MEDS ORDERED: METOPROLOL TARTRATE 5 MG/5 ML VIAL IVP STA (08:45)
[2023-03-27 08:51] VITALS: RESP 18
[2023-03-27] MEDS ORDERED: LORazepam 1 MG TAB PO SCH (17:00)
[2023-03-27] MEDS ORDERED: LORazepam 1 MG TAB PO STA (17:04)
[2023-03-27 18:36] VITALS: BP 143/71; PULSE 94; TEMP 98.5
--- NOTE | 2023-03-27 19:38 | CONS ---
CONSULTATION CHIEF COMPLAINT: Tachycardia. HISTORY OF PRESENT ILLNESS: David is a 67-year-old gentleman, who is in a shelter, was brought to the hospital with elevated heart rate. The patient has a history of atrial fibrillation and had been diagnosed with atrial fibrillation with rapid ventricular rate. At the time of my evaluation, the patient is lying in the bed, seems alert, and asking appropriate questions. He denies chest pain or difficulty in breathing. There is no history of leg edema. An EKG shows supraventricular tachyarrhythmia with a heart rate in the 160 beats per minute, probably related to atrial fibrillation with rapid ventricular rate. He has a right bundle-branch block. The patient is currently on 5 mg of Cardizem. I gave him Lopressor 5 mg with heart rate slowing down into the 140s. Blood pressure is around 110 mmHg systolic. I will give him a bolus of 10 mg of Cardizem and increase the dose of Cardizem to 10 mg, and hopefully, this will control the heart rate better. TSH is normal. Troponin is negative. Hemoglobin is normal at 13.7. Potassium is 4.3. The patient was recently admitted to hospital and had an echocardiogram in October that revealed normal LV systolic function. He was in the hospital in January of 2023, with very similar problems. He was brought in at that time for tachycardia also. The patient was treated with amiodarone and was discharged home. The patient is currently on Eliquis 5 b.i.d., along with metoprolol and amiodarone. ALLERGIES: He has multiple drug allergies includin. Penicillin,. 2. Neurontin. 3. Depakote. FAMILY HISTORY: Not able to obtain from the patient. REVIEW OF SYSTEMS: A 14 out of 14 review of systems has been performed. Pertinents are as documented. MEDICATIONS AT HOME: Included: 1. Ativan. 2. Eliquis 5 b.i.d. 3. Risperdal. 4. Lamictal. 5. Zocor. 6. Prilosec. 7. Lopressor. 8. Namenda. 9. [place]. 10.Cardizem. 11.Amiodarone. PHYSICAL EXAMINATION: GENERAL: He is comfortable at rest. VITAL SIGNS: Heart rate is 140 beats per minute, blood pressure is 113/76, O2 saturation is 97% on room air. NECK: There is no jugular venous distention. Carotid upstroke is normal. There is no bruit. CHEST: Reveals good air entry bilaterally. HEART: Reveals first and second heart sounds. Irregular rhythm and systolic murmur at the left lower sternal border. ABDOMEN: Soft. EXTREMITIES: Did not reveal any edema. Peripheral pulses are felt. ASSESSMENT: Persistent atrial fibrillation with rapid ventricular rate. PLAN: I will control the heart rate with Cardizem. Resume the Eliquis. Obtain a 2D echo. We will resume his beta-blockers and the amiodarone that he was on at home, and we will increase the dose of amiodarone. MMODL / IJN: [id number] /
[2023-03-27] MEDS ORDERED: APIXABAN 5 MG TAB PO SCH (21:00)
--- NOTE | 2023-03-28 08:57 | CA ---
Transthoracic Echo Report Name: David Flores Age: 67 Gender: M : 1955 Exam Date: 03/27/2023 11:05 Exam Location: [facility] Ht (in): 71 Wt (lb): 185 Ordering Physician: Shantanu Benavides MD ([id number]) Attending/Referring Phys: Kennedy RAMSEY Employment Training Specialist Skyla Oliveira RDCS Procedure CPT: Indications: afib Cardiac Hx: Technical Quality: Fair Contrast 1: Total Dose (mL): Contrast 2: Total Dose (mL): MEASUREMENTS (Male / Female) Normal Values 2D ECHO LV Diastolic Diameter PLAX 4.0 cm 4.2 - 5.9 / 3.9 - 5.3 cm LV Systolic Diameter PLAX 3.1 cm IVS Diastolic Thickness 1.3 cm 0.6 - 1.0 / 0.6 - 0.9 cm LVPW Diastolic Thickness 1.0 cm 0.6 - 1.0 / 0.6 - 0.9 cm LV Relative Wall Thickness 0.6 RV Internal Dim ED PLAX 4.4 cm LA Volume 35.2 cm??? 18 - 58 / 22 - 52 cm??? M-MODE Aortic Root Diameter MM 3.3 cm LA Systolic Diameter MM 3.9 cm LA Ao Ratio MM 1.2 AV Cusp Separation MM 2.2 cm DOPPLER AV Peak Velocity 145.7 cm/s AV Peak Gradient 8.5 mmHg AV Mean Velocity 96.4 cm/s AV Mean Gradient 4.4 mmHg AV Velocity Time Integral 23.8 cm LVOT Peak Velocity 130.7 cm/s LVOT Peak Gradient 6.8 mmHg LVOT Velocity Time Integral 23.9 cm MV Area PHT 3.9 cm??? Mitral E Point Velocity 53.6 cm/s Mitral A Point Velocity 65.9 cm/s Mitral E to A Ratio 0.8 MV Deceleration Time 193.7 ms TR Peak Velocity 223.1 cm/s TR Peak Gradient 19.9 mmHg Right Ventricular Systolic Press 23.8 mmHg FINDINGS Left Ventricle Left ventricular cavity size normal. Mildly increased left ventricular wall thickness. Normal left ventricular systolic function with no obvious regional wall motion abnormalities. Left ventricular ejection fraction is estimated at 55 %. Right Ventricle Normal right ventricular size and function. Right ventricular systolic pressure within normal limits. Right Atrium Normal right atrial size. Left Atrium Normal left atrial size. Mitral Valve Structurally normal mitral valve. Mild mitral regurgitation. Aortic Valve Trileaflet aortic valve. No aortic valve stenosis or regurgitation. Tricuspid Valve Structurally normal tricuspid valve. Mild tricuspid regurgitation. Pulmonic Valve Trace pulmonic regurgitation. Pericardium No pericardial effusion. Aorta Normal size aortic root and proximal ascending aorta. CONCLUSIONS Normal LV size and systolic function. Mild mitral and tricuspid regurgitation. No significant pulmonary hypertension no pericardial effusion Previewed by: Dr. Daysi Hall MD (Electronically Signed) Final Date: 28 Mar 2023 08:56
--- NOTE | 2023-03-28 20:13 | P.HPIM ---
History of Present Illness H&P Date: 03/27/23 Chief Complaint: Heart racing This is a 67-year-old patient of visiting physicians Dr. Matson. Chronic stable medical conditions include COPD, hypertension, hyperlipidemia, constipation, cyanosis. Paroxysmal atrial fibrillation. , chronic constipation. GERD. Patient has a public guardian. [facility]. diagnoses of schizophrenia and schizoaffective disorder Has a diagnosis of atrial flutter/atrial tachycardia. Last admission about 2 months ago patient's Synthroid was discontinued. [place] to be over replaced. Patient was brought in from his troponin to [facility] called EMS. Heart rate was up. EMS found to have patient with no symptoms. No chest pain or palpitation or shortness of breath. Patient was S his baseline sleepy. Brought into the ER. In the ER probably in a SVT. Rate of 160s. Possibly atrial fibrillation. He was put on IV Cardizem drip in the ER. In by Dr. Sophia Benavides. Review of systems: GEN.: Tired EYES: None HEENT: None NECK: None RESPIRATORY: None CARDIOVASCULAR: None GASTROINTESTINAL: None GENITOURINARY: None MUSCULOSKELETAL: None LYMPHATICS: None HEMATOLOGICAL: None PSYCHIATRY: Anxious NEUROLOGICAL: None Past medical history to include: Asthma, hypertension, hyperlipidemia, schizophrenia, schizoaffective disorder, constipation. Left leg DVT in April 2021, cirrhosis, atrial fibrillation, atrial flutter atrial tachycardia Social history: Has a public guardian. Smokes variable amount. No alcohol intake. Lives at a [facility] home. Previously used street drugs Physical examination: VITAL SIGNS: 38.7, 165, 24, 103 was 73, 92% room air GENERAL: BMI 25.8, laying in bed awake but anxious. EYES: Pupils equal. Conjunctiva normal. HEENT: External appearance of nose and ears normal, oral cavity grossly normal. NECK: JVD not raised; masses not palpable. HEART: First and second heart sounds are normal; no edema. LUNGS: Respiratory rate normal; clear to auscultation. ABDOMEN: Soft, nontender, liver spleen not palpable, no masses palpable. PSYCH: Ounces questions but anxiousl. MUSCULOSKELETAL:No Clubbing/cyanosis;muscles-grossly intact NEUROLOGICAL: Cranial nerves grossly intact; no facial asymmetry, power and sensation grossly intact. LYMPHATICS: No lymph nodes palpable in the axilla and neck INVESTIGATIONS, reviewed in the clinical context: White count 8.4 hemoglobin 13.7 platelets 177 potassium 4.3 creatinine 1.27 Troponin I 0.017 0.027 Free T4 1 0.73 [place] 0.9 lamotrigine 5.1 EKG tracing personally reviewed by me-possible atrial tachycardia Chest x-ray film personally reviewed by me-some hyperinflation Assessment and plan: -Atrial flutter/atrial tachycardia with a rate around 160. Possibly atrial fibrillation. IV Cardizem drip. Cardiology consulted. -Hyperlipidemia Zocor -Essential hypertension Lopressor -COPD, in a current smoker Albuterol when necessary -Hypothyroid Synthroid 25 g -Chronic nicotine dependent cigarette smoker Nicotine patch -Schizophrenia . -Chronic constipation Continue with Metamucil -Full code -Patient has a public guardian Telemetry. Consult cartilage E. Home medications. Past Medical History Past Medical History: Asthma, Hyperlipidemia, Hypertension Additional Past Medical History / Comment(s): schizophrenia. constipation History of Any Multi-Drug Resistant Organisms: None Reported Past Surgical History: No Surgical Hx Reported Past Anesthesia/Blood Transfusion Reactions: No Reported Reaction Past Psychological History: Schizophrenia Smoking Status: Light tobacco smoker Past Alcohol Use History: None Reported Past Drug Use History: None Reported - Past Family History Father History Unknown: Yes Mother History Unknown: Yes Medications and Allergies Home Medications Medication Instructions Recorded Confirmed Type Fenofibrate Nanocrystallized 145 mg PO DAILY@0800 06/07/20 03/27/23 History [Fenofibrate] Latanoprost/Pf [Latanoprost 0.005% 1 drop BOTH EYES HS 06/07/20 03/27/23 History Eye Drop] Omeprazole [PriLOSEC] 20 mg PO DAILY@0806/07/20 03/27/23 History Certavite 1 tab PO 04/12/21 03/27/23 History Cyanocobalamin [Vitamin B-12] 500 mcg PO DAILY@00 04/12/21 03/27/23 History Apixaban [Eliquis] 5 mg PO BID@0800,209907/12/21 03/27/23 History Lactose-Reduced Food [Boost] 1 can PO DAILY@0800 11/03/21 03/27/23 History Vit C/E/Zn/Coppr/Lutein/Zeaxan 1 cap PO BID@0800,209911/03/21 03/27/23 History [Preservision Areds 2 Softgel] Megestrol Acetate 40 mg PO DAILY@0800 10/30/22 03/27/23 History Melatonin 10 mg PO HS 10/30/22 03/27/23 History Simvastatin [Zocor] 20 mg PO HS 10/30/22 03/27/23 History Linaclotide [Linzess] 145 mcg PO DAILY@0700 01/21/23 03/27/23 History lamoTRIgine [LaMICtal] 200 mg PO HS 30 Days #60 tab 02/05/23 03/27/23 Rx Furosemide [Lasix] 40 mg PO Q2D@0800 03/27/23 03/27/23 History LORazepam [Ativan] 1 mg PO QID@08,12,17,21 03/27/23 03/27/23 History Levothyroxine Sodium [Synthroid] 25 mcg PO DAILY@0700 03/27/23 03/27/23 History [place] Carbonate 900 mg PO HS 03/27/23 03/27/23 History Memantine [Namenda] 10 mg PO HS 03/27/23 03/27/23 History Metoprolol Tartrate [Lopressor] 25 mg PO BID@0800,2100 03/27/23 03/27/23 History Potassium Chloride ER [K-Dur 20] 20 meq PO DAILY@0800 03/27/23 03/27/23 History Promethazine/Dextromethorphan 10 ml PO TID@0800,1700,2100 03/27/23 03/27/23 History [Phenergan Dm 6.25-15 mg/5Ml] fluPHENAZine decanoate [Prolixin 50 mg IM Q7D 03/27/23 03/27/23 History Decanoate] risperiDONE [RisperDAL] 3 mg PO HS 03/27/23 03/27/23 History traZODone HCL [Desyrel] 50 mg PO HS 03/27/23 03/27/23 History Allergies Allergy/AdvReac Type Severity Reaction Status Date / Time acetaminophen [From Tylenol] Allergy Unknown Verified 03/27/23 12:30 gabapentin [From Neurontin] Allergy Unknown Verified 03/27/23 12:30 Penicillins Allergy Unknown Verified 03/27/23 12:30 clozapine [From Clozaril] AdvReac Unknown Verified 03/27/23 12:30 divalproex sodium AdvReac Unknown Verified 03/27/23 12:30 [From [facility]] Physical Exam Vitals: Vital Signs Temp Pulse Pulse Resp BP Pulse Ox 03/27/23 10:10 85 18 118/60 96 03/27/23 08:51 126 H 18 113/76 97 03/27/23 08:02 163 H 20 103/73 94 L 03/27/23 07:30 163 H 03/27/23 07:15 98.7 F 165 H 24 103/73 92 L Intake and Output 03/27/23 03/27/23 03/27/23 06:59 14:59 22:59 Other: Weight 83.915 kg Results CBC & Chem 7: 03/27/23 07:37 03/27/23 07:37 Labs: Abnormal Lab Results - Last 24 Hours (Table) 03/27/23 Range/Units 07:37 Creatinine 1.27 H (0.66-1.25) mg/dL Glucose 128 H (74-99) mg/dL Calcium 10.6 H (8.4-10.2) mg/dL
--- NOTE | 2023-03-28 20:16 | P.DS ---
Providers Date of admission: 03/27/23 08:38 Expected date of discharge: 03/27/23 Attending physician: Coleman Gordon Consults: 03/27/23 08:38 Consult Physician Urgent Consulting Provider: Shantanu Benavides Consult Reason/Comments: a fib Do you want consulting provider notified?: Already Contacted Primary care physician: Conrad Matson MD Hospital Course: Chief Complaint: Heart racing This is a 67-year-old patient of visiting physicians Dr. Matson. Chronic stable medical conditions include COPD, hypertension, hyperlipidemia, constipation, cyanosis. Paroxysmal atrial fibrillation. , chronic constipation. GERD. Patient has a public guardian. [facility]. diagnoses of schizophrenia and schizoaffective disorder Has a diagnosis of atrial flutter/atrial tachycardia. Last admission about 2 months ago patient's Synthroid was discontinued. [place] to be over replaced. Patient was brought in from his troponin to [facility] called EMS. Heart rate was up. EMS found to have patient with no symptoms. No chest pain or palpitation or shortness of breath. Patient was S his baseline sleepy. Brought into the ER. In the ER probably in a SVT. Rate of 160s. Possibly atrial fibrillation. He was put on IV Cardizem drip in the ER. In by Dr. Sophia Benavides. Cardiology then increase the Cardizem drip to 10 mg an hour. Lopressor 5 mg IV 1 was given. Later patient went back into sinus rhythm. Cleared by cartilage E to be discharged. Past medical history to include: Asthma, hypertension, hyperlipidemia, schizophrenia, schizoaffective disorder, constipation. Left leg DVT in April 2021, cirrhosis, atrial fibrillation, atrial flutter atrial tachycardia Social history: Has a public guardian. Smokes variable amount. No alcohol intake. Lives at a [facility]. Previously used street drugs Physical examination: VITAL SIGNS: 98.5, 94, 18, 143/71, 96% room air GENERAL: BMI 25.8, laying in bed awake tired EYES: Pupils equal. Conjunctiva normal. HEENT: External appearance of nose and ears normal, oral cavity grossly normal. NECK: JVD not raised; masses not palpable. HEART: First and second heart sounds are normal; no edema. LUNGS: Respiratory rate normal; clear to auscultation. ABDOMEN: Soft, nontender, liver spleen not palpable, no masses palpable. PSYCH: Answering questions. Anxious INVESTIGATIONS, reviewed in the clinical context: White count 8.4 hemoglobin 13.7 platelets 177 potassium 4.3 creatinine 1.27 Troponin I 0.017 0.027 Free T4 1 0.73 [place] 0.9 lamotrigine 5.1 EKG tracing personally reviewed by me-possible atrial tachycardia Chest x-ray film personally reviewed by me-some hyperinflation Assessment and plan: -Atrial flutter/atrial tachycardia with a rate around 160. Possibly atrial fibrillation.: Now back in sinus rhythm Follow outpatient with cardiology -Hyperlipidemia Zocor -Essential hypertension Lopressor -COPD, in a current smoker Albuterol when necessary -Hypothyroid Synthroid 25 g -Chronic nicotine dependent cigarette smoker Nicotine patch -Schizophrenia . -Chronic constipation Continue with Metamucil -Full code -Patient has a public guardian Disposition: Home Plan - Discharge Summary New Discharge Prescriptions: Continue Omeprazole [PriLOSEC] 20 mg PO DAILY@0800 Latanoprost/Pf [Latanoprost 0.005% Eye Drop] 1 drop BOTH EYES HS Fenofibrate Nanocrystallized [Fenofibrate] 145 mg PO DAILY@0800 Certavite 1 tab PO HS Apixaban [Eliquis] 5 mg PO BID@0800,2100 Vit C/E/Zn/Coppr/Lutein/Zeaxan [Preservision Areds 2 Softgel] 1 cap PO BID@0800,2100 Simvastatin [Zocor] 20 mg PO HS Linaclotide [Linzess] 145 mcg PO DAILY@0700 traZODone HCL [Desyrel] 50 mg PO HS Promethazine/Dextromethorphan [Phenergan Dm 6.25-15 mg/5Ml] 10 ml PO TID@0800,1700,2100 LORazepam [Ativan] 1 mg PO QID@08,12,17,21 Potassium Chloride ER [K-Dur 20] 20 meq PO DAILY@0800 risperiDONE [RisperDAL] 3 mg PO HS Cyanocobalamin [Vitamin B-12] 500 mcg PO DAILY@0800 Lactose-Reduced Food [Boost] 1 can PO DAILY@0800 Melatonin 10 mg PO HS Megestrol Acetate 40 mg PO DAILY@0800 lamoTRIgine [LaMICtal] 200 mg PO HS 30 Days #60 tab Furosemide [Lasix] 40 mg PO Q2D@0800 Metoprolol Tartrate [Lopressor] 25 mg PO BID@0800,2100 Levothyroxine Sodium [Synthroid] 25 mcg PO DAILY@0700 [place] Carbonate 900 mg PO HS Memantine [Namenda] 10 mg PO HS fluPHENAZine decanoate [Prolixin Decanoate] 50 mg IM Q7D Discharge Medication List Fenofibrate Nanocrystallized [Fenofibrate] 145 mg PO DAILY@0800 06/07/20 [History] Latanoprost/Pf [Latanoprost 0.005% Eye Drop] 1 drop BOTH EYES HS 06/07/20 [History] Omeprazole [PriLOSEC] 20 mg PO DAILY@0800 06/07/20 [History] Certavite 1 tab PO HS 04/12/21 [History] Cyanocobalamin [Vitamin B-12] 500 mcg PO DAILY@0800 04/12/21 [History] Apixaban [Eliquis] 5 mg PO BID@0800,2100 07/12/21 [History] Lactose-Reduced Food [Boost] 1 can PO DAILY@0800 11/03/21 [History] Vit C/E/Zn/Coppr/Lutein/Zeaxan [Preservision Areds 2 Softgel] 1 cap PO BID@0800,2100 11/03/21 [History] Megestrol Acetate 40 mg PO DAILY@0800 10/30/22 [History] Melatonin 10 mg PO HS 10/30/22 [History] Simvastatin [Zocor] 20 mg PO HS 10/30/22 [History] Linaclotide [Linzess] 145 mcg PO DAILY@0700 01/21/23 [History] lamoTRIgine [LaMICtal] 200 mg PO HS 30 Days #60 tab 02/05/23 [Rx] Furosemide [Lasix] 40 mg PO Q2D@0800 03/27/23 [History] LORazepam [Ativan] 1 mg PO QID@08,12,,03/27/23 [History] Levothyroxine Sodium [Synthroid] 25 mcg PO DAILY@0700 03/27/23 [History] [place] Carbonate 900 mg PO HS 03/27/23 [History] Memantine [Namenda] 10 mg PO HS 03/27/23 [History] Metoprolol Tartrate [Lopressor] 25 mg PO BID@0800,2100 03/27/23 [History] Potassium Chloride ER [K-Dur 20] 20 meq PO DAILY@0800 03/27/23 [History] Promethazine/Dextromethorphan [Phenergan Dm 6.25-15 mg/5Ml] 10 ml PO TID@0800,1700,2100 03/27/23 [History] fluPHENAZine decanoate [Prolixin Decanoate] 50 mg IM Q7D 03/27/23 [History] risperiDONE [RisperDAL] 3 mg PO HS 03/27/23 [History] traZODone HCL [Desyrel] 50 mg PO HS 03/27/23 [History] Follow up Appointment(s)/Referral(s): Conrad Matson MD [Primary Care Provider] - 1-2 days Discharge Disposition: HOME SELF-CARE
== END 2023-03-27 18:55 | disposition home or self-care (01) | DRG 310 ==
LOC: EC 07:13 → 3SCARD 08:38
PROVIDERS: ADMIT Hospitalist; ATTEND Hospitalist
DX: I47.1 Supraventricular tachycardia (principal); I48.19 Other persistent atrial fibrillation; F25.9 Schizoaffective disorder, unspecified; I48.92 Unspecified atrial flutter; I10 Essential (primary) hypertension; J44.9 Chronic obstructive pulmonary disease, unspecified; E03.9 Hypothyroidism, unspecified; F17.210 Nicotine dependence, cigarettes, uncomplicated; I45.10 Unspecified right bundle-branch block; E78.5 Hyperlipidemia, unspecified; K59.09 Other constipation; K21.9 Gastro-esophageal reflux disease without esophagitis; F19.91 Other psychoactive substance use, unspecified, in remission; Z79.01 Long term (current) use of anticoagulants; Z88.0 Allergy status to penicillin; Z88.5 Allergy status to narcotic agent; Z88.6 Allergy status to analgesic agent; Z88.8 Allergy status to other drugs, medicaments and biological substances; Z79.899 Other long term (current) drug therapy; Z86.718 Personal history of other venous thrombosis and embolism; Z87.19 Personal history of other diseases of the digestive system; Z79.890 Hormone replacement therapy
CPT/HCPCS: 36415; 71046; 80053; 80175; 80178; 83735; 84439; 84443; 84481; 84484; 85025; 85610; 85730; 93005; 93306; 96365; 96366; 96375; 99291

== ENCOUNTER 2023-04-25 22:18 | Emergency (ER) | payer MEDICARE, OTHER ==
[2023-04-25 22:37] VITALS: TEMP 98.7
--- NOTE | 2023-04-25 23:13 | ED ---
General Adult HPI - General Chief complaint: Recheck/Abnormal Lab/Rx Stated complaint: CLAMMY SKIN Time Seen by Provider: 04/25/23 22:20 Source: EMS Mode of arrival: EMS Limitations: no limitations - History of Present Illness Initial comments: Dictation was produced using [employer] dictation software. please excuse any grammatical, word or spelling errors. Chief Complaint: 67-year-old male with past medical history of recently diagnos ed dementia presents to ER for episode of chest pain History of Present Illness: Patient is 67-year-old male is brought in by EMS. Patient is a member at one of the local [facility] homes. Allegedly he told someone that he was having chest pain that he was feeling like he was having a heart attack. This [facility] staff was not able to confirm this. Initially patient did not want to come to the ER. Patient denies any symptoms at this time. Denies any chest pain. He believes that he is here to get checked out. The ROS documented in this emergency department record has been reviewed and confirmed by me. Those systems with pertinent positive or negative responses have been documented in the HPI. All other systems are other negative and/or noncontributory. - Related Data Home Medications Medication Instructions Recorded Confirmed Fenofibrate Nanocrystallized 145 mg PO DAILY@0800 06/07/20 03/27/23 [Fenofibrate] Latanoprost/Pf [Latanoprost 0.005% 1 drop BOTH EYES HS 06/07/20 03/27/23 Eye Drop] Omeprazole [PriLOSEC] 20 mg PO DAILY@0800 06/07/20 03/27/23 Certavite 1 tab PO HS 04/12/21 03/27/23 Cyanocobalamin [Vitamin B-12] 500 mcg PO DAILY@0800 04/12/21 03/27/23 Apixaban [Eliquis] 5 mg PO BID@0800,209907/12/21 03/27/23 Lactose-Reduced Food [Boost] 1 can PO DAILY@0800 11/03/21 03/27/23 Vit C/E/Zn/Coppr/Lutein/Zeaxan 1 cap PO BID@0800,2100 11/03/21 03/27/23 [Preservision Areds 2 Softgel] Megestrol Acetate 40 mg PO DAILY@0800 10/30/22 03/27/23 Melatonin 10 mg PO HS 10/30/22 03/27/23 Simvastatin [Zocor] 20 mg PO HS 10/30/22 03/27/23 Linaclotide [Linzess] 145 mcg PO DAILY@0700 01/21/23 03/27/23 Furosemide [Lasix] 40 mg PO Q2D@0800 03/27/23 03/27/23 LORazepam [Ativan] 1 mg PO QID@08,12,,03/27/23 03/27/23 Levothyroxine Sodium [Synthroid] 25 mcg PO DAILY@0700 03/27/23 03/27/23 [place] Carbonate 900 mg PO HS 03/27/23 03/27/23 Memantine [Namenda] 10 mg PO HS 03/27/23 03/27/23 Metoprolol Tartrate [Lopressor] 25 mg PO BID@0800,2100 03/27/23 03/27/23 Potassium Chloride ER [K-Dur 20] 20 meq PO DAILY@0800 03/27/23 03/27/23 Promethazine/Dextromethorphan 10 ml PO TID@0800,1700,2100 03/27/23 03/27/23 [Phenergan Dm 6.25-15 mg/5Ml] fluPHENAZine decanoate [Prolixin 50 mg IM Q7D 03/27/23 03/27/23 Decanoate] risperiDONE [RisperDAL] 3 mg PO HS 03/27/23 03/27/23 traZODone HCL [Desyrel] 50 mg PO HS 03/27/23 03/27/23 Previous Rx's Medication Instructions Recorded lamoTRIgine [LaMICtal] 200 mg PO HS 30 Days #60 tab 02/05/23 Allergies Allergy/AdvReac Type Severity Reaction Status Date / Time acetaminophen [From Tylenol] Allergy Unknown Verified 03/27/23 12:30 gabapentin [From Neurontin] Allergy Unknown Verified 03/27/23 12:30 Penicillins Allergy Unknown Verified 03/27/23 12:30 clozapine [From Clozaril] AdvReac Unknown Verified 03/27/23 12:30 divalproex sodium AdvReac Unknown Verified 03/27/23 12:30 [From Depakote] Review of Systems ROS Statement: Those systems with pertinent positive or pertinent negative responses have been documented in the HPI. ROS Other: All systems not noted in ROS Statement are negative. Past Medical History Past Medical History: Asthma, Hyperlipidemia, Hypertension Additional Past Medical History / Comment(s): schizophrenia. constipation History of Any Multi-Drug Resistant Organisms: None Reported Past Surgical History: No Surgical Hx Reported Past Anesthesia/Blood Transfusion Reactions: No Reported Reaction Past Psychological History: Schizophrenia Smoking Status: Light tobacco smoker Past Alcohol Use History: None Reported Past Drug Use History: None Reported - Past Family History Father History Unknown: Yes Mother History Unknown: Yes General Exam - General Exam Comments Initial Comments: PHYSICAL EXAM: General Impression: Alert and oriented x3, not in acute distress HEENT: Normocephalic atraumatic, extra-ocular movements intact, pupils equal and reactive to light bilaterally, mucous membranes moist. Cardiovascular: Heart regular rate and rhythm Chest: Able to complete full sentences, no retractions, no tachypnea Abdomen: abdomen soft, non-tender, non-distended, no organomegaly Musculoskeletal: Pulses present and equal in all extremities, no peripheral edema Motor: no focal deficits noted Neurological: CN II-XII grossly intact, no focal motor or sensory deficits noted Skin: Intact with no visualized rashes Psych: Normal affect and mood Limitations: no limitations Course Vital Signs 04/25/23 22:20 Temperature 98.7 F Pulse Rate 85 Respiratory 17 Rate Blood Pressure 144/82 O2 Sat by Pulse 97 Oximetry EKG Findings - EKG Comments: EKG Findings:: My EKG interpretation: Ventricular rate 67, sinus rhythm,. 190, QRS 135, QTc 431, right bundle branch block. No MA prolongation, no QTC prolongation, no ST or T-wave changes noted. Overall, this EKG is unremarkable Medical Decision Making - Medical Decision Making Was pt. sent in by a medical professional or institution (, PA, GRAPHICS COORDINATOR, urgent care, hospital, or care home...) When possible be specific @ -No Did you speak to anyone other than the patient for history (EMS, parent, family, police, friend...)? What history was obtained from this source @ -No Did you review nursing and triage notes (agree or disagree)? Why? @ -I reviewed and agree with nursing and triage notes Were old charts reviewed (outside hosp., previous admission, EMS record, old EKG, old radiological studies, urgent care reports/EKG's, care home records)? Report findings @ -No old charts were reviewed Differential Diagnosis (chest pain, altered mental status, abdominal pain women, abdominal pain men, vaginal bleeding, musculoskeletal, weakness, fever, dyspnea, syncope, headache, dizziness, GI bleed, back pain, seizure, CVA, palpatations, mental health)? @ -FDifferential Chest Pain: Stable Angina, Unstable Angina, STEMI, NSTEMI Aortic Dissection, Pneumothorax, Musculoskeletal, Esophageal Spasm GERD, Cholecystitis, Pancreatitis, Zoster, this is not meant to be an all-inclusive list. EKG interpreted by me (3pts min.). @ -See above X-rays interpreted by me (1pt min.). @ -Chest x-ray is unremarkable CT interpreted by me (1pt min.). @ -None done U/S interpreted by me (1pt. min.). @ -None done What testing was considered but not performed or refused? (CT, X-rays, U/S, labs)? Why? @ -None What meds were considered but not given or refused? Why? @ -None Did you discuss the management of the patient with other professionals (pr ofessionals i.e. , PA, GRAPHICS COORDINATOR, lab, RT, psych nurse, social worker psychiatric, investment manager, teacher, sailing officer, behavioral health case manager)? Give summary @ -No Was smoking cessation discussed for >3mins.? @ -No Was critical care preformed (if so, how long)? @ -No Were there social determinants of health that impacted care today? How? (Homelessness, low income, unemployed, alcoholism, drug addiction, transport ation, low edu. Level, literacy, decrease access to med. care, retirement, rehab)? @ -No Was there de-escalation of care discussed even if they declined (Discuss DNR or withdrawal of care, Hospice)? DNR status @ -No What co-morbidities impacted this encounter? (DM, HTN, Smoking, COPD, CAD, Cancer, CVA, ARF, Chemo, Hep., AIDS, mental health diagnosis, sleep apnea, morbid obesity)? @ -History of mental debility Was patient admitted / discharged? Hospital course, mention meds given and rout e, prescriptions, significant lab abnormalities, going to OR and other pertinent info. @ -67-year-old male he is a poor historian allegedly had complained to [facility] home staff that he was having chest pain. Patient denied any sort symptoms to me. Vital signs stable. EKG is unremarkable. Labs unremarkable. Troponin is negative. Patient observed in emergency department for 2 hours and 45 minutes. Patient stable medical condition continues to be symptomatic. Patient disc harged Undiagnosed new problem with uncertain prognosis? @ -No Drug Therapy requiring intensive monitoring for toxicity (Heparin, Nitro, Insulin, Cardizem)? @ -No Were any procedures done? @ -No Diagnosis/symptom? Acute, or Chronic, or Acute on Chronic? Uncomplicated (without systemic symptoms) or Complicated (systemic symptoms)? @ -1. Chest pain Side effects of treatment? @ -No Exacerbation, Progression, or Severe Exacerbation? @ -No Poses a threat to life or bodily function? How? (Chest pain, [place], MD, pneumonia, PE, COPD, DKA, ARF, appy, cholecystitis, CVA, Diverticulitis, Homicidal, Suicidal, threat to staff... and all critical care pts) @ -No - Lab Data Result diagrams: 04/25/23 23:42 04/25/23 23:42 Lab Results 04/25/23 04/25/23 04/25/23 Range/Units 23:42 23:42 23:42 WBC 5.5 (3.8-10.6) k/uL RBC 4.28 L (4.30-5.90) m/uL Hgb 12.5 L (13.0-17.5) gm/dL Hct 40.5 (39.0-53.0) % MCV 94.5 (80.0-100.0) fL MCH 29.2 (25.0-35.0) pg MCHC 30.9 L (31.0-37.0) g/dL RDW 12.8 (11.5-15.5) % Plt Count 164 (150-450) k/uL MPV 9.0 Neutrophils % 61 % Lymphocytes % 28 % Monocytes % 7 % Eosinophils % 2 % Basophils % 0 % Neutrophils # 3.3 (1.3-7.7) k/uL Lymphocytes # 1.5 (1.0-4.8) k/uL Monocytes # 0.4 (0-1.0) k/uL Eosinophils # 0.1 (0-0.7) k/uL Basophils # 0.0 (0-0.2) k/uL Sodium 134 L (137-145) mmol/L Potassium 4.2 (3.5-5.1) mmol/L Chloride 101 (98-107) mmol/L Carbon Dioxide 27 (22-30) mmol/L Anion Gap 6 mmol/L BUN 21 H (9-20) mg/dL Creatinine 1.14 (0.66-1.25) mg/dL Est GFR (CKD-EPI)AfAm 76 (>60 ml/min/1.73 sqM) Est GFR (CKD-EPI)NonAf 66 (>60 ml/min/1.73 sqM) Glucose 105 H (74-99) mg/dL Calcium 9.9 (8.4-10.2) mg/dL Troponin I <0.012 (0.000-0.034) ng/mL Disposition Clinical Impression: Chest pain Disposition: HOME SELF-CARE Condition: Good Instructions (If sedation given, give patient instructions): Chest Pain (ED) Is patient prescribed a controlled substance at d/c from ED?: No Referrals: Conrad Matson MD [Primary Care Provider] - 1-2 days Time of Disposition: 01:03
[2023-04-26 00:07] LABS: Basophils % (A) 0 %; Eosinophils # (A) 0.1 k/uL (0-0.7); Eosinophils % (A) 2 %; HCT 40.5 % (39.0-53.0); HGB 12.5 gm/dL (13.0-17.5); Lymphocytes # (A) 1.5 k/uL (1.0-4.8); Lymphocytes % (A) 28 %; MCH 29.2 pg (25.0-35.0); MCHC 30.9 g/dL (31.0-37.0); MCV 94.5 fL (80.0-100.0); Monocytes # (A) 0.4 k/uL (0-1.0); Monocytes % (A) 7 %; Neutrophils # (A) 3.3 k/uL (1.3-7.7); Neutrophils % (A) 61 %; Platelet Count 164 k/uL (150-450); RBC 4.28 m/uL (4.30-5.90); RDW 12.8 % (11.5-15.5); WBC 5.5 k/uL (3.8-10.6)
[2023-04-26 00:23] LABS: African American GFR (CKD) 76 (>60 ml/min/1.73 sqM); Anion Gap 6 mmol/L; Blood Urea Nitrogen 21 mg/dL (9-20); Calcium 9.9 mg/dL (8.4-10.2); Carbon Dioxide 27 mmol/L (22-30); Chloride 101 mmol/L (98-107); Glucose 105 mg/dL (74-99); Non-African American GFR(CKD) 66 (>60 ml/min/1.73 sqM); Potassium 4.2 mmol/L (3.5-5.1); Sodium 134 mmol/L (137-145)
--- NOTE | 2023-04-26 00:50 | XR ---
EXAM: XR Chest, 2 Views CLINICAL HISTORY: ITS.REASON XR Reason: chest pain TECHNIQUE: Frontal and lateral views of the chest. COMPARISON: 03/27/2023. FINDINGS: Lungs: Minimal scarring/subsegmental atelectasis at the left lung base. Pleural space: Unremarkable. No pneumothorax. Heart: Heart is top normal in size. Mediastinum: Unremarkable. Bones/joints: Osteopenia. Moderate degenerative disc disease of the thoracic spine and dextro scoliosis. Vasculature: Atherosclerotic disease. Upper abdomen: There is elevation of the right hemidiaphragm. IMPRESSION: 1. Atherosclerotic disease. 2. Elevation of the right hemidiaphragm.
[2023-04-26 02:06] VITALS: BP 150/89; PULSE 82; RESP 18
== END 2023-04-26 02:06 | disposition home or self-care (01) ==
LOC: EC 22:18
DX: R07.89 Other chest pain (principal); J45.909 Unspecified asthma, uncomplicated; E78.5 Hyperlipidemia, unspecified; I10 Essential (primary) hypertension; F17.200 Nicotine dependence, unspecified, uncomplicated; Z79.899 Other long term (current) drug therapy; Z88.8 Allergy status to other drugs, medicaments and biological substances; Z88.6 Allergy status to analgesic agent; Z88.0 Allergy status to penicillin
CPT/HCPCS: 36415; 71046; 80048; 84484; 85025; 93005; 99284

== ENCOUNTER 2023-05-28 14:32 | Emergency (ER) | payer MEDICARE, OTHER ==
[2023-05-28 14:52] VITALS: BP 105/73; PULSE 154; RESP 18; TEMP 98.8
[2023-05-28] MEDS ORDERED: DILTIAZEM DRIP BOLUS FROM BAG 1 MG SOLN IV ONE (15:31)
[2023-05-28] MEDS ORDERED: DILTIAZEM 125 MG in SODIUM CHLORIDE 0.9% 100 ML IV SCH (15:45)
--- NOTE | 2023-05-28 15:47 | XR ---
EXAMINATION TYPE: XR chest 1V portable DATE OF EXAM: 05/28/2023 COMPARISON: 04/25/2023 HISTORY: Dysrhythmia TECHNIQUE: Single frontal view of the chest is obtained. FINDINGS: There is no focal air space opacity, pleural effusion, or pneumothorax seen. The cardiac silhouette size is within normal limits. The osseous structures are intact. Elevated right hemidiap hragm. Hyperinflation suggests COPD. Atherosclerotic change aorta. IMPRESSION: No acute process.
[2023-05-28 16:26] LABS: Basophils % (A) 0 %; Eosinophils # (A) 0.1 k/uL (0-0.7); Eosinophils % (A) 2 %; HCT 44.9 % (39.0-53.0); HGB 14.4 gm/dL (13.0-17.5); Lymphocytes # (A) 1.2 k/uL (1.0-4.8); Lymphocytes % (A) 23 %; MCH 29.5 pg (25.0-35.0); MCHC 32.1 g/dL (31.0-37.0); MCV 91.9 fL (80.0-100.0); Mean Platelet Volume 10.3; Monocytes # (A) 0.4 k/uL (0-1.0); Monocytes % (A) 7 %; Neutrophils # (A) 3.5 k/uL (1.3-7.7); Neutrophils % (A) 66 %; Platelet Count 139 k/uL (150-450); RBC 4.88 m/uL (4.30-5.90); RDW 12.6 % (11.5-15.5); WBC 5.3 k/uL (3.8-10.6)
[2023-05-28 16:31] LABS: ALT 23 U/L (4-49); AST 35 U/L (17-59); African American GFR (CKD) 61 (>60 ml/min/1.73 sqM); Albumin 4.5 g/dL (3.5-5.0); Alkaline Phosphatase 54 U/L (38-126); Anion Gap 10 mmol/L; Blood Urea Nitrogen 19 mg/dL (9-20); Calcium 10.2 mg/dL (8.4-10.2); Carbon Dioxide 27 mmol/L (22-30); Chloride 104 mmol/L (98-107); Glucose 119 mg/dL (74-99); Magnesium 2.2 mg/dL (1.6-2.3); Non-African American GFR(CKD) 52 (>60 ml/min/1.73 sqM); Sodium 141 mmol/L (137-145); Total Bilirubin 0.5 mg/dL (0.2-1.3); Total Protein 7.3 g/dL (6.3-8.2)
[2023-05-28 16:33] LABS: Potassium 4.3 mmol/L (3.5-5.1)
[2023-05-28 16:50] LABS: Prothrombin Time 10.9 sec (9.0-12.0)
--- NOTE | 2023-05-28 18:33 | ED ---
Arrhythmia/Palpitations HPI - General Chief Complaint: Arrhythmia/Palpitations Stated Complaint: Fast Heart Rate Time Seen by Provider: 05/28/23 15:11 Source: patient, family Mode of arrival: wheelchair Limitations: physical limitation (There is developmental delay) - History of Present Illness Initial Comments: This patient is a 67-year-old man who arrives to have evaluation of rapid heartbeat. He does have history of atrial fibrillation. He is currently taking metoprolol and takes eliquis as anticoagulant. The staff at the senior living noticed that the patient's pulse was rapid. The patient does not give much history, no distress was evident. As the patient has established cardiology they did go to the clinic to be seen, and they were advised to go to the emergency department to have further evaluation and treatment. The patient did not have apparent respiratory distress or cough. No vomiting or sweating. MD Complaint: rapid heart beat -: hour(s) Context: occurred during rest Arrhythmia History: atrial fibrillation - Related Data Home Medications Medication Instructions Recorded Confirmed Fenofibrate Nanocrystallized 145 mg PO DAILY@79906/07/20 05/28/23 [Fenofibrate] Latanoprost/Pf [Latanoprost 0.005% 1 drop BOTH EYES HS@209906/07/20 05/28/23 Eye Drop] Omeprazole [PriLOSEC] 20 mg PO DAILY@79906/07/20 05/28/23 Certavite 1 tab PO HS@209904/12/21 05/28/23 Cyanocobalamin [Vitamin B-12] 500 mcg PO DAILY@79904/12/21 05/28/23 Apixaban [Eliquis] 5 mg PO BID@799,209907/12/21 05/28/23 Vit C/E/Zn/Coppr/Lutein/Zeaxan 1 cap PO BID@0800,209911/03/21 05/28/23 [Preservision Areds 2 Softgel] Melatonin 10 mg PO HS@209910/30/22 05/28/23 Simvastatin [Zocor] 20 mg PO DIRECTED 10/30/22 05/28/23 Furosemide [Lasix] 40 mg PO Q2D@0800 03/27/23 05/28/23 LORazepam [Ativan] 1 mg PO QID@08,12,03/27/23 05/28/23 Levothyroxine Sodium [Synthroid] 25 mcg PO DAILY@0700 03/27/23 05/28/23 Metoprolol Tartrate [Lopressor] 25 mg PO BID@0800,209903/27/23 05/28/23 Potassium Chloride ER [K-Dur 20] 20 meq PO DAILY@0800 03/27/23 05/28/23 Cholecalciferol [Vitamin D3 (125 125 mcg PO DIRECTED 05/28/23 05/28/23 Mcg = 5000 Iu)] Dicyclomine HCl 20 mg PO Q8H PRN 05/28/23 05/28/23 Nystatin [Nystop] 1 applic TOPICAL BID@0800,209905/28/23 05/28/23 OLANZapine [ZyPREXA] 30 mg PO HS@209905/28/23 05/28/23 Sensi-Care Protective Barrier 1 applic TOPICAL BID PRN 05/28/23 05/28/23 15%-49% Topical Cream lamoTRIgine [LaMICtal] 200 mg PO HS@209905/28/23 05/28/23 Allergies Allergy/AdvReac Type Severity Reaction Status Date / Time acetaminophen [From Tylenol] Allergy Unknown Verified 05/28/23 16:56 gabapentin [From Neurontin] Allergy Unknown Verified 05/28/23 16:56 Penicillins Allergy Unknown Verified 05/28/23 16:56 clozapine [From Clozaril] AdvReac Unknown Verified 05/28/23 16:56 divalproex sodium AdvReac Unknown Verified 05/28/23 16:56 [From Depakote] Review of Systems ROS Statement: Those systems with pertinent positive or pertinent negative responses have been documented in the HPI. ROS Other: All systems not noted in ROS Statement are negative. Limitations: ROS unobtainable due to patients medical condition Constitutional: Denies: fever Respiratory: Denies: cough, dyspnea Cardiovascular: Reports: as per HPI, palpitations. Denies: syncope Gastrointestinal: Denies: vomiting, diarrhea, melena, hematochezia Genitourinary: Denies: dysuria Skin: Denies: rash Neurological: Denies: weakness Past Medical History Past Medical History: Asthma, Hyperlipidemia, Hypertension Additional Past Medical History / Comment(s): schizophrenia. constipation History of Any Multi-Drug Resistant Organisms: None Reported Past Surgical History: No Surgical Hx Reported Past Anesthesia/Blood Transfusion Reactions: No Reported Reaction Past Psychological History: Schizophrenia Smoking Status: Light tobacco smoker Past Alcohol Use History: None Reported Past Drug Use History: None Reported - Past Family History Father History Unknown: Yes Mother History Unknown: Yes General Exam Limitations: no limitations General appearance: alert, in no apparent distress Head exam: Present: atraumatic, normocephalic Eye exam: Present: normal appearance. Absent: scleral icterus, conjunctival injection Neck exam: Present: normal inspection, full ROM. Absent: meningismus Respiratory exam: Present: normal lung sounds bilaterally. Absent: respiratory distress, wheezes, rales, rhonchi, stridor Cardiovascular Exam: Present: tachycardia (Heart rate is approximately 144 at my exam), irregular rhythm, normal heart sounds. Absent: systolic murmur, diastolic murmur, rubs, gallop GI/Abdominal exam: Present: soft. Absent: distended, tenderness, guarding, rebound, rigid, mass Extremities exam: Present: normal inspection, normal capillary refill. Absent: pedal edema, calf tenderness Back exam: Present: normal inspection. Absent: CVA tenderness (R), CVA tenderness (L) Neurological exam: Present: alert Skin exam: Present: warm, dry, intact, normal color. Absent: rash Course Vital Signs 05/28/23 14:49 Temperature 98.8 F Pulse Rate 154 H Respiratory 18 Rate Blood Pressure 105/73 O2 Sat by Pulse 96 Oximetry EKG Findings - EKG Results: EKG: interpreted by ERMD EKG shows: atrial fibrillation (With rapid ventricular rate approximately 158 bpm) - Blocks, [place]edad, Hypertrophy, ST Abn: AV and intraventricular conduction: right bundle branch block (fixed/intermittent, complete/incomplete), left posterior fascicular block Medical Decision Making - Medical Decision Making Patient is 67-year-old man here from senior living for atrial fibrillation with rapid ventricular rate. The patient has cardiac workup and is also started on Cardizem by IV for rate control. The patient did convert to sinus rhythm after being on the Cardizem drip. The labs do show minimal elevation of troponin. When the studies are complete the case is discussed with the gas generator operator, and as the patient is now asymptomatic, does appear stable for discharge with [facility] outpatient care. They did want to double the patient's metoprolol dose to 50 mg twice per day from 25 mg twice per day. The patient had chest x-ray which I interpreted as being negative for acute infiltrate, pneumothorax, congestive heart failure Was pt. sent in by a medical professional or institution (REGINA Correia, CHAIRMAN CEO, urgent care, hospital, or group home...) When possible be specific @ -[As above, patient sent over from cardiology clinic. Did you speak to anyone other than the patient for history (EMS, parent, family, police, friend...)? What history was obtained from this source @ -[Family contributed history Did you review nursing and triage notes (agree or disagree)? Why? @ -[I reviewed and agree with nursing and triage notes] Were old charts reviewed (outside hosp., previous admission, EMS record, old EKG, old radiological studies, urgent care reports/EKG's, group home records)? Report findings @ -[No old charts were reviewed] Differential Diagnosis (chest pain, altered mental status, abdominal pain women, abdominal pain men, vaginal bleeding, weakness, fever, dyspnea, syncope, headache, dizziness, GI bleed, back pain, seizure, CVA, palpatations, mental health, musculoskeletal)? @ -[Differential Palpitations Ventricular arrhythmias, atrial arrhythmias, myocardial infarction, anemia, thyrotoxicosis, electrolyte imbalance, hypokalemia, pulmonary embolism, pulmonary disease, drugs, alcohol, anxiety, stress.... This is not meant to be an all-inclusive list. EKG interpreted by me (3pts min.). @ -[As above X-rays interpreted by me (1pt min.). @ -[As above CT interpreted by me (1pt min.). @ -[None done] U/S interpreted by me (1pt. min.). @ -[None done] What testing was considered but not performed or refused? (CT, X-rays, U/S, labs)? Why? @ -[None] What meds were considered but not given or refused? Why? @ -[None] Did you discuss the management of the patient with other professionals (professionals i.e. REGINA Correia, CHAIRMAN CEO, lab, RT, psych nurse, social media sr strategy manager, walking dragline operator, teacher, railroad police officer, therapeutic case manager)? Give summary @ -[The case discussed with cardiology, as referenced above, medication changes made and they will see the patient in follow-up Was smoking cessation discussed for >3mins.? @ -[No] Was critical care preformed (if so, how long)? @ -[No] Were there social determinants of health that impacted care today? How? (Homelessness, low income, unemployed, alcoholism, drug addiction, transportation, low edu. Level, literacy, decrease access to med. care, shelter, rehab)? @ -[No] Was there de-escalation of care discussed even if they declined (Discuss DNR or withdrawal of care, Hospice)? DNR status @ -[No] What co-morbidities impacted this encounter? (DM, HTN, Smoking, COPD, CAD, Cancer, CVA, ARF, Chemo, Hep., AIDS, mental health diagnosis, sleep apnea, morbid obesity)? @ -[None] Was patient admitted / discharged? Hospital course, mention meds given and route, prescriptions, significant lab abnormalities, going to OR and other pertinent info. @ -[Discharged after discussion of appropriate follow-up and return parameters Undiagnosed new problem with uncertain prognosis? @ -[No] Drug Therapy requiring intensive monitoring for toxicity (Heparin, Nitro, Insulin, Cardizem)? @ -[IV Cardizem was administered with patient regarding to sinus rhythm Were any procedures done? @ -[No] Diagnosis/symptom? @ -[Atrial fibrillation with rapid ventricular rate Acute, or Chronic, or Acute on Chronic? @ -[Acute on chronic Uncomplicated (without systemic symptoms) or Complicated (systemic symptoms)? @ -[default] Side effects of treatment? @ -[No] Exacerbation, Progression, or Severe Exacerbation? @ -[No] Poses a threat to life or bodily function? How? (Chest pain, [place], [place], pneumonia, PE, COPD, DKA, ARF, appy, cholecystitis, CVA, Diverticulitis, Homicidal, Suicidal, threat to staff... and all critical care pts) @ -[No] - Lab Data Result diagrams: 05/28/23 16:07 05/28/23 16:07 Lab Results 05/28/23 05/28/23 05/28/23 Range/Units 16:07 16:07 16:07 WBC 5.3 (3.8-10.6) k/uL RBC 4.88 (4.30-5.90) m/uL Hgb 14.4 (13.0-17.5) gm/dL Hct 44.9 (39.0-53.0) % MCV 91.9 (80.0-100.0) fL MCH 29.5 (25.0-35.0) pg MCHC 32.1 (31.0-37.0) g/dL RDW 12.6 (11.5-15.5) % Plt Count 139 L (150-450) k/uL MPV 10.3 Neutrophils % 66 % Lymphocytes % 23 % Monocytes % 7 % Eosinophils % 2 % Basophils % 0 % Neutrophils # 3.5 (1.3-7.7) k/uL Lymphocytes # 1.2 (1.0-4.8) k/uL Monocytes # 0.4 (0-1.0) k/uL Eosinophils # 0.1 (0-0.7) k/uL Basophils # 0.0 (0-0.2) k/uL PT 10.9 (9.0-12.0) sec INR 1.0 (<1.2) APTT 25.0 (22.0-30.0) sec Sodium 141 (137-145) mmol/L Potassium 4.3 (3.5-5.1) mmol/L Chloride 104 (98-107) mmol/L Carbon Dioxide 27 (22-30) mmol/L Anion Gap 10 mmol/L BUN 19 (9-20) mg/dL Creatinine 1.37 H (0.66-1.25) mg/dL Est GFR (CKD-EPI)AfAm 61 (>60 ml/min/1.73 sqM) Est GFR (CKD-EPI)NonAf 52 (>60 ml/min/1.73 sqM) Glucose 119 H (74-99) mg/dL Calcium 10.2 (8.4-10.2) mg/dL Magnesium 2.2 (1.6-2.3) mg/dL Total Bilirubin 0.5 (0.2-1.3) mg/dL AST 35 (17-59) U/L ALT 23 (4-49) U/L Alkaline Phosphatase 54 (38-126) U/L Troponin I (0.000-0.034) ng/mL Total Protein 7.3 (6.3-8.2) g/dL Albumin 4.5 (3.5-5.0) g/dL 07/19/23 Range/Units 16:07 WBC (3.8-10.6) k/uL RBC (4.30-5.90) m/uL Hgb (13.0-17.5) gm/dL Hct (39.0-53.0) % MCV (80.0-100.0) fL MCH (25.0-35.0) pg MCHC (31.0-37.0) g/dL RDW (11.5-15.5) % Plt Count (150-450) k/uL MPV Neutrophils % % Lymphocytes % % Monocytes % % Eosinophils % % Basophils % % Neutrophils # (1.3-7.7) k/uL Lymphocytes # (1.0-4.8) k/uL Monocytes # (0-1.0) k/uL Eosinophils # (0-0.7) k/uL Basophils # (0-0.2) k/uL PT (9.0-12.0) sec INR (<1.2) APTT (22.0-30.0) sec Sodium (137-145) mmol/L Potassium (3.5-5.1) mmol/L Chloride (98-107) mmol/L Carbon Dioxide (22-30) mmol/L Anion Gap mmol/L BUN (9-20) mg/dL Creatinine (0.66-1.25) mg/dL Est GFR (CKD-EPI)AfAm (>60 ml/min/1.73 sqM) Est GFR (CKD-EPI)NonAf (>60 ml/min/1.73 sqM) Glucose (74-99) mg/dL Calcium (8.4-10.2) mg/dL Magnesium (1.6-2.3) mg/dL Total Bilirubin (0.2-1.3) mg/dL AST (17-59) U/L ALT (4-49) U/L Alkaline Phosphatase (38-126) U/L Troponin I 0.051 H* (0.000-0.034) ng/mL Total Protein (6.3-8.2) g/dL Albumin (3.5-5.0) g/dL Critical Care Time Critical Care Time: Yes (30 minutes) Disposition Clinical Impression: Atrial fibrillation with RVR Disposition: HOME SELF-CARE Condition: Good Instructions (If sedation given, give patient instructions): A-fib (Atrial Fibrillation) (ED) Additional Instructions: Cardiology recommended increasing the metoprolol to 50 mg twice per day. Is patient prescribed a controlled substance at d/c from ED?: No Referrals: Conrad Matson MD [Primary Care Provider] - 1-2 days Shantanu Benavides MD [STAFF PHYSICIAN] - 1-2 days
== END 2023-05-28 20:36 | disposition home or self-care (01) ==
LOC: EC 14:32
DX: I48.91 Unspecified atrial fibrillation (principal); I10 Essential (primary) hypertension; J45.909 Unspecified asthma, uncomplicated; E78.5 Hyperlipidemia, unspecified; F20.9 Schizophrenia, unspecified; Z79.01 Long term (current) use of anticoagulants; F17.200 Nicotine dependence, unspecified, uncomplicated; Z79.899 Other long term (current) drug therapy; Z88.0 Allergy status to penicillin; Z88.6 Allergy status to analgesic agent; Z88.8 Allergy status to other drugs, medicaments and biological substances
CPT/HCPCS: 36415; 71045; 80053; 83735; 84484; 85025; 85610; 85730; 93005; 96365; 96366; 99285

== ENCOUNTER 2023-06-18 18:06 | Emergency (ER) | payer MEDICARE, OTHER ==
[2023-06-18] MEDS ORDERED: LABETALOL 5 MG/ML VIAL MDV IVP STA (18:44)
[2023-06-18] MEDS ORDERED: HYDROmorphone 1 MG/ML 1 ML SYRINGE IVP STA (18:44)
[2023-06-18] MEDS ORDERED: SODIUM CHLORIDE 0.9% 1,000 ML IV STA (18:44)
--- NOTE | 2023-06-18 18:46 | ED ---
Recheck HPI - General Chief Complaint: Recheck/Abnormal Lab/Rx Stated Complaint: Vomiting Time Seen by Provider: 06/18/23 18:25 Source: EMS, RN notes reviewed, old records reviewed Mode of arrival: EMS Limitations: altered mental status - History of Present Illness Initial Comments: This is a 67-year-old male to the emergency department for evaluation. Patient presents today for evaluation of nausea vomiting. Patient had episode of vomiting and coughing and concern for possible aspiration prior to arrival. Patient himself has no complaints. Patient likes to be discharged home Transfer paperwork is reviewed medical history is reviewed patient is a significantly poor story and back: Records obtained, patient's chart is evaluated, patient is also here for evaluation bradycardia although heart rate is currently normal MD Complaint: wound re-check -: days(s) Returns Today for: Called Because of Abnormal Lab/Test Symptoms Since Prior Visit: no new symptoms Context: planned re-check, called for abnormal lab result Associated Symptoms: none Treatments Prior to Arrival: Given Pain Meds on, other - Related Data Home Medications Medication Instructions Recorded Confirmed Fenofibrate Nanocrystallized 145 mg PO DAILY@79906/07/20 05/28/23 [Fenofibrate] Latanoprost/Pf [Latanoprost 0.005% 1 drop BOTH EYES HS@209906/07/20 05/28/23 Eye Drop] Omeprazole [PriLOSEC] 20 mg PO DAILY@79906/07/20 05/28/23 Certavite 1 tab PO HS@209904/12/21 05/28/23 Cyanocobalamin [Vitamin B-12] 500 mcg PO DAILY@79904/12/21 05/28/23 Apixaban [Eliquis] 5 mg PO BID@799,209907/12/21 05/28/23 Vit C/E/Zn/Coppr/Lutein/Zeaxan 1 cap PO BID@0800,209911/03/21 05/28/23 [Preservision Areds 2 Softgel] Melatonin 10 mg PO HS@209910/30/22 05/28/23 Simvastatin [Zocor] 20 mg PO DIRECTED 10/30/22 05/28/23 Furosemide [Lasix] 40 mg PO Q2D@0800 03/27/23 05/28/23 LORazepam [Ativan] 1 mg PO QID@08,,17,21 03/27/23 05/28/23 Levothyroxine Sodium [Synthroid] 25 mcg PO DAILY@0700 03/27/23 05/28/23 Metoprolol Tartrate [Lopressor] 25 mg PO BID@0800,209903/27/23 05/28/23 Potassium Chloride ER [K-Dur 20] 20 meq PO DAILY@0800 03/27/23 05/28/23 Cholecalciferol [Vitamin D3 (125 125 mcg PO DIRECTED 05/28/23 05/28/23 Mcg = 5000 Iu)] Dicyclomine HCl 20 mg PO Q8H PRN 05/28/23 05/28/23 Nystatin [Nystop] 1 applic TOPICAL BID@0800,209905/28/23 05/28/23 OLANZapine [ZyPREXA] 30 mg PO HS@209905/28/23 05/28/23 Sensi-Care Protective Barrier 1 applic TOPICAL BID PRN 05/28/23 05/28/23 15%-49% Topical Cream lamoTRIgine [LaMICtal] 200 mg PO HS@209905/28/23 05/28/23 Allergies Allergy/AdvReac Type Severity Reaction Status Date / Time acetaminophen [From Tylenol] Allergy Unknown Verified 05/28/23 16:56 gabapentin [From Neurontin] Allergy Unknown Verified 05/28/23 16:56 Penicillins Allergy Unknown Verified 05/28/23 16:56 clozapine [From Clozaril] AdvReac Unknown Verified 05/28/23 16:56 divalproex sodium AdvReac Unknown Verified 05/28/23 16:56 [From Depakote] Review of Systems ROS Statement: Those systems with pertinent positive or pertinent negative responses have been documented in the HPI. ROS Other: All systems not noted in ROS Statement are negative. Past Medical History Past Medical History: Asthma, Hyperlipidemia, Hypertension Additional Past Medical History / Comment(s): schizophrenia. constipation History of Any Multi-Drug Resistant Organisms: None Reported Past Surgical History: No Surgical Hx Reported Past Anesthesia/Blood Transfusion Reactions: No Reported Reaction Past Psychological History: Schizophrenia Smoking Status: Light tobacco smoker Past Alcohol Use History: None Reported Past Drug Use History: None Reported - Past Family History Father History Unknown: Yes Mother History Unknown: Yes General Exam Limitations: altered mental status General appearance: alert, in no apparent distress Head exam: Present: atraumatic, normocephalic, normal inspection Eye exam: Present: normal appearance, PERRL, EOMI. Absent: scleral icterus, conjunctival injection, periorbital swelling ENT exam: Present: normal exam, mucous membranes moist Neck exam: Present: normal inspection. Absent: tenderness, meningismus, lymphadenopathy Respiratory exam: Present: normal lung sounds bilaterally. Absent: respiratory distress, wheezes, rales, rhonchi, stridor Cardiovascular Exam: Present: regular rate, normal rhythm, normal heart sounds. Absent: systolic murmur, diastolic murmur, rubs, gallop, clicks GI/Abdominal exam: Present: soft, normal bowel sounds. Absent: distended, tenderness, guarding, rebound, rigid Extremities exam: Present: normal inspection, full ROM, normal capillary refill. Absent: tenderness, pedal edema, joint swelling, calf tenderness Back exam: Present: normal inspection Neurological exam: Present: alert, oriented X3, CN II-XII intact Psychiatric exam: Present: normal affect, normal mood Skin exam: Present: warm, dry, intact, normal color. Absent: rash Course Vital Signs 06/18/23 06/18/23 06/18/23 18:30 20:43 20:52 Temperature 98.5 F Pulse Rate 71 60 59 L Respiratory 18 Rate Blood Pressure 103/58 O2 Sat by Pulse 95 Oximetry 06/18/23 06/18/23 20:56 21:12 Temperature 98.2 F Pulse Rate 63 71 Respiratory 16 18 Rate Blood Pressure 117/67 118/66 O2 Sat by Pulse 96 94 L Oximetry - Reevaluation(s) Reevaluation #1: 06/18/23 22:55 Medical record is reviewed Reevaluation #2: 06/18/23 22:56 Patient still complains of no symptoms Reevaluation #3: 06/18/23 22:56 Patient informed results and questions answered Reevaluation #4: 06/18/23 22:56 Was pt. sent in by a medical professional or institution (, PA, SEISMOGRAPH CHIEF, urgent care, hospital, or long term...) When possible be specific @ -no Did you speak to anyone other than the patient for history (EMS, parent, family, police, friend...)? What history was obtained from this source @ -no Did you review nursing and triage notes (agree or disagree)? Why? @ -agree Are old charts reviewed (outside hosp., previous admission, EMS record, old EKG, old radiological studies, urgent care reports/EKG's, long term records)? Report findings @ -yes Differential Diagnosis (chest pain, altered mental status, abdominal pain women, abdominal pain men, vaginal bleeding, weakness, fever, dyspnea, syncope, headache, dizziness, GI bleed, back pain, seizure, CVA, palpatations, mental health, musculoskeletal)? @ -prior EKG interpreted by me (3pts min.). @ -no X-rays interpreted by me (1pt min.). @ -yes CT interpreted by me (1pt min.). @ -no U/S interpreted by me (1pt. min.). @ -no What testing was considered but not performed or refused? (CT, X-rays, U/S, labs)? Why? @ -none What meds were considered but not given or refused? Why? @ -none Did you discuss the management of the patient with other professionals (professionals i.e. , PA, SEISMOGRAPH CHIEF, lab, RT, psych nurse, social media job titles, blender/braze applicator, teacher, chief investment officer, casey saw operator)? Give summary @ -no Was smoking cessation discussed for >3mins.? @ -no Was critical care preformed (if so, how long)? @ -no Were there social determinants of health that impacted care today? How? (Homelessness, low income, unemployed, alcoholism, drug addiction, transportation, low edu. Level, literacy, decrease access to med. care, senior living, rehab)? @ -none Was there de-escalation of care discussed even if they declined (Discuss DNR or withdrawal of care, Hospice)? DNR status @ -no What co-morbidities impacted this encounter? (DM, HTN, Smoking, COPD, CAD, Cancer, CVA, ARF, Chemo, Hep., AIDS, mental health diagnosis, sleep apnea, morbid obesity)? @ -none Was patient admitted / discharged? Hospital course, mention meds given and route, prescriptions, significant lab abnormalities, going to OR and other pertinent info. @ - 67 male to the emergency department today for evaluation of possible aspiration. Patient is in no distress here in the ER with normal oxygenation and no shortness of breath no cough no complaints. Patient also concern for possible bradycardia although patient himself has no complaints and wants to be discharged X-ray normal patient can be discharged home Discharge Undiagnosed new problem with uncertain prognosis? @ -no Drug Therapy requiring intensive monitoring for toxicity (Heparin, Nitro, Insulin, Cardizem)? @ -no Were any procedures done? @ -no Diagnosis/symptom? @ -Bradycardia, possible aspiration Acute, or Chronic, or Acute on Chronic? @ -Acute Uncomplicated (without systemic symptoms) or Complicated (systemic symptoms)? @ -Complicated Side effects of treatment? @ -no Exacerbation, Progression, or Severe Exacerbation? @ -exacerbation Poses a threat to life or bodily function? How? (Chest pain, [place], [place], pneumonia, PE, COPD, DKA, ARF, appy, cholecystitis, CVA, Diverticulitis, Homicidal, Suicidal, threat to staff... and all critical care pts) @ -no Medical Decision Making - Medical Decision Making 67 male to the emergency department today for evaluation of possible aspiration. Patient is in no distress here in the ER with normal oxygenation and no shortness of breath no cough no complaints. Patient also concern for possible bradycardia although patient himself has no complaints and wants to be discharged X-ray normal patient can be discharged home - Radiology Data Radiology results: report reviewed (Chest x-rays negative for acute disease), image reviewed Disposition Clinical Impression: Nausea & vomiting, Bradycardia Narrative: Evaluation for possible aspiration Disposition: HOME SELF-CARE Condition: Good Instructions (If sedation given, give patient instructions): Acute Nausea and Vomiting (ED) Is patient prescribed a controlled substance at d/c from ED?: No Referrals: Conrad Matson MD [Primary Care Provider] - 1-2 days Time of Disposition: 20:30
[2023-06-18] MEDS ORDERED: IPRATROPIUM-ALBUTEROL 3 ML NEB INHALATION STA (18:47)
--- NOTE | 2023-06-18 19:47 | XR ---
EXAMINATION TYPE: XR chest 1V portable DATE OF EXAM: 06/18/2023 Comparison: 05/28/2023 Clinical History: 67-year-old male with cough Findings: Heart normal size. Aorta and pulmonary vasculature within normal limits. Mild interstitial prominence and mild hyperinflation suggesting underlying COPD. Similar colonic air below the right hemidiaphrag m. Impression: Correlate for underlying COPD. There are chronic appearing changes. No definite acute process.
[2023-06-18 21:13] VITALS: BP 118/66; PULSE 71; RESP 18; TEMP 98.2
== END 2023-06-18 21:12 | disposition home or self-care (01) ==
LOC: EC 18:06
DX: R11.2 Nausea with vomiting, unspecified (principal); R00.1 Bradycardia, unspecified; I10 Essential (primary) hypertension; J45.909 Unspecified asthma, uncomplicated; E78.5 Hyperlipidemia, unspecified; F17.200 Nicotine dependence, unspecified, uncomplicated; Z79.01 Long term (current) use of anticoagulants; Z79.899 Other long term (current) drug therapy; Z88.0 Allergy status to penicillin; Z88.6 Allergy status to analgesic agent; Z88.8 Allergy status to other drugs, medicaments and biological substances
CPT/HCPCS: 71045; 94640; 99284

== ENCOUNTER 2023-10-07 13:04 | Emergency (ER) | payer MEDICARE, OTHER ==
--- NOTE | 2023-10-07 13:25 | ED ---
General Adult HPI - General Chief complaint: Recheck/Abnormal Lab/Rx Stated complaint: choking episode Time Seen by Provider: 10/07/23 13:06 Source: patient Mode of arrival: ambulatory Limitations: no limitations - History of Present Illness Initial comments: Dictation was produced using [employer] dictation software. please excuse any grammatical, word or spelling errors. Chief Complaint:68-year-old male presents to the emergency department after having episode of choking during eating History of Present Illness: This is a 68-year-old male who lives at a intermediate. He was having lunch. Patient advised that he was having a row when he had a brief episode of choking. There was no history of regurgitation of food. Episode lasted for a few seconds and he resolved to baseline. Patient states he is asymptomatic. nursing home called EMS to bring patient for chest x-ray to rule out possible aspiration. Patient feels fine. Patient demanding to be sent back to the intermediate. The ROS documented in this emergency department record has been reviewed and confirmed by me. Those systems with pertinent positive or negative responses have been documented in the HPI. All other systems are other negative and/or noncontributory. - Related Data Home Medications Medication Instructions Recorded Confirmed Fenofibrate Nanocrystallized 145 mg PO DAILY@0806/07/20 05/28/23 [Fenofibrate] Latanoprost/Pf [Latanoprost 0.005% 1 drop BOTH EYES HS@209906/07/20 05/28/23 Eye Drop] Omeprazole [PriLOSEC] 20 mg PO DAILY@79906/07/20 05/28/23 Certavite 1 tab PO HS@209904/12/21 05/28/23 Cyanocobalamin [Vitamin B-12] 500 mcg PO DAILY@0800 04/12/21 05/28/23 Apixaban [Eliquis] 5 mg PO BID@08,209907/12/21 05/28/23 Vit C/E/Zn/Coppr/Lutein/Zeaxan 1 cap PO BID@0800,209911/03/21 05/28/23 [Preservision Areds 2 Softgel] Melatonin 10 mg PO HS@209910/30/22 05/28/23 Simvastatin [Zocor] 20 mg PO DIRECTED 10/30/22 05/28/23 Furosemide [Lasix] 40 mg PO Q2D@0800 03/27/23 05/28/23 LORazepam [Ativan] 1 mg PO QID@08,12,17,21 03/27/23 05/28/23 Levothyroxine Sodium [Synthroid] 25 mcg PO DAILY@0700 03/27/23 05/28/23 Metoprolol Tartrate [Lopressor] 25 mg PO BID@0800,209903/27/23 05/28/23 Potassium Chloride ER [K-Dur 20] 20 meq PO DAILY@0800 03/27/23 05/28/23 Cholecalciferol [Vitamin D3 (125 125 mcg PO DIRECTED 05/28/23 05/28/23 Mcg = 5000 Iu)] Dicyclomine HCl 20 mg PO Q8H PRN 05/28/23 05/28/23 Nystatin [Nystop] 1 applic TOPICAL BID@0800,209905/28/23 05/28/23 OLANZapine [ZyPREXA] 30 mg PO HS@209905/28/23 05/28/23 Sensi-Care Protective Barrier 1 applic TOPICAL BID PRN 05/28/23 05/28/23 15%-49% Topical Cream lamoTRIgine [LaMICtal] 200 mg PO HS@209905/28/23 05/28/23 Allergies Allergy/AdvReac Type Severity Reaction Status Date / Time acetaminophen [From Tylenol] Allergy Unknown Verified 10/07/23 13:17 gabapentin [From Neurontin] Allergy Unknown Verified 10/07/23 13:17 Penicillins Allergy Unknown Verified 10/07/23 13:17 clozapine [From Clozaril] AdvReac Unknown Verified 10/07/23 13:17 divalproex sodium AdvReac Unknown Verified 10/07/23 13:17 [From Depakote] Review of Systems ROS Statement: Those systems with pertinent positive or pertinent negative responses have been documented in the HPI. ROS Other: All systems not noted in ROS Statement are negative. Past Medical History Past Medical History: Asthma, Hyperlipidemia, Hypertension Additional Past Medical History / Comment(s): schizophrenia. constipation History of Any Multi-Drug Resistant Organisms: None Reported Past Surgical History: No Surgical Hx Reported Past Anesthesia/Blood Transfusion Reactions: No Reported Reaction Past Psychological History: Schizophrenia Smoking Status: Light tobacco smoker Past Alcohol Use History: None Reported Past Drug Use History: None Reported - Past Family History Father History Unknown: Yes Mother History Unknown: Yes General Exam - General Exam Comments Initial Comments: PHYSICAL EXAM: General Impression: Alert and oriented x3, not in acute distress HEENT: Normocephalic atraumatic, extra-ocular movements intact, pupils equal and reactive to light bilaterally, mucous membranes moist. Cardiovascular: Heart regular rate and rhythm Chest: Able to complete full sentences, no retractions, no tachypnea Abdomen: abdomen soft, non-tender, non-distended, no organomegaly Musculoskeletal: Pulses present and equal in all extremities, no peripheral edema Motor: no focal deficits noted Neurological: CN II-XII grossly intact, no focal motor or sensory deficits noted Skin: Intact with no visualized rashes Psych: Normal affect and mood Limitations: no limitations Course Vital Signs 10/07/23 10/07/23 13:06 13:28 Temperature 98.0 F Pulse Rate 80 Respiratory 18 18 Rate Blood Pressure 116/60 O2 Sat by Pulse 95 Oximetry Medical Decision Making - Medical Decision Making Was pt. sent in by a medical professional or institution (, PA, HARP REGULATOR, urgent care, hospital, or group home...) When possible be specific @ -No Did you speak to anyone other than the patient for history (EMS, parent, family, police, friend...)? What history was obtained from this source @ -No Did you review nursing and triage notes (agree or disagree)? Why? @ -I reviewed and agree with nursing and triage notes Were old charts reviewed (outside hosp., previous admission, EMS record, old EKG, old radiological studies, urgent care reports/EKG's, group home records)? Report findings @ -No old charts were reviewed Differential Diagnosis (chest pain, altered mental status, abdominal pain women, abdominal pain men, vaginal bleeding, musculoskeletal, weakness, fever, dyspnea, syncope, headache, dizziness, GI bleed, back pain, seizure, CVA, palpatations, mental health)? @ -not applicable EKG interpreted by me (3pts min.). @ -None done X-rays interpreted by me (1pt min.). @ -None done CT interpreted by me (1pt min.). @ -None done U/S interpreted by me (1pt. min.). @ -None done What testing was considered but not performed or refused? (CT, X-rays, U/S, labs)? Why? @ -None What meds were considered but not given or refused? Why? @ -None Did you discuss the management of the patient with other professionals (professionals i.e. , PA, HARP REGULATOR, lab, RT, psych nurse, case management social worker, project lead, teacher, media liaison officer, keycase assembler)? Give summary @ -No Was smoking cessation discussed for >3mins.? @ -No Was critical care preformed (if so, how long)? @ -No Were there social determinants of health that impacted care today? How? (Homelessness, low income, unemployed, alcoholism, drug addiction, transportation, low edu. Level, literacy, decrease access to med. care, alf, rehab)? @ -No Was there de-escalation of care discussed even if they declined (Discuss DNR or withdrawal of care, Hospice)? DNR status @ -No What co-morbidities impacted this encounter? (DM, HTN, Smoking, COPD, CAD, Cancer, CVA, ARF, Chemo, Hep., AIDS, mental health diagnosis, sleep apnea, morbid obesity)? @ -None Was patient admitted / discharged? Hospital course, mention meds given and route, prescriptions, significant lab abnormalities, going to OR and other pertinent info. @ -68 Year-old male with history of schizoaffective disorder presents from the intermediate for evaluation of possible aspiration episode after having a brief choking episode while eating. Vital signs stable. Patient is well-appearing at bedside. He endorses feeling at baseline and is demanding to be discharge back to the intermediate. Chest x-ray shows no acute processes. Patient observed in emergency department for one hour and 30 minutes. Reevaluated bedside 2:30 PM for basilar condition. Patient discharged advised follow-up with primary care doctor. Undiagnosed new problem with uncertain prognosis? @ -No Drug Therapy requiring intensive monitoring for toxicity (Heparin, Nitro, Insulin, Cardizem)? @ -No Were any procedures done? @ -No Diagnosis/symptom? Acute, or Chronic, or Acute on Chronic? Uncomplicated (without systemic symptoms) or Complicated (systemic symptoms)? @ -Choking episode Side effects of treatment? @ -No Exacerbation, Progression, or Severe Exacerbation? @ -No Poses a threat to life or bodily function? How? (Chest pain, [place], [place], pneumonia, PE, COPD, DKA, ARF, appy, cholecystitis, CVA, Diverticulitis, Homicidal, Suicidal, threat to staff... and all critical care pts) @ -No Disposition Clinical Impression: Choking episode Disposition: HOME SELF-CARE Condition: Good Instructions (If sedation given, give patient instructions): Performing the Heimlich Maneuver (ED) Is patient prescribed a controlled substance at d/c from ED?: No Referrals: Conrad Matson MD [Primary Care Provider] - 1-2 days Time of Disposition: 14:34
--- NOTE | 2023-10-07 13:35 | XR ---
EXAMINATION TYPE: XR chest 2V DATE OF EXAM: 10/07/2023 COMPARISON: 06/18/2023 HISTORY: Shortness of breath TECHNIQUE: Frontal and lateral views of the chest are obtained. FINDINGS: Scattered senescent parenchymal changes noted. Hyperinflation compatible with COPD. No evidence for infiltrate. No evidence for atelectasis. Heart size is stable. Mediastinal structures are stable and grossly unremarkable. No evidence for hilar prominence. Degenerative changes dorsal spine. IMPRESSION: 1. No evidence for acute pulmonary disease.
[2023-10-07 13:37] VITALS: RESP 18
[2023-10-07 15:10] VITALS: BP 112/62; PULSE 72; TEMP 98.1
== END 2023-10-07 15:30 | disposition home or self-care (01) ==
LOC: EC 13:04
DX: T17.920A Food in respiratory tract, part unspecified causing asphyxiation, initial encounter (principal); J45.909 Unspecified asthma, uncomplicated; E78.5 Hyperlipidemia, unspecified; I10 Essential (primary) hypertension; F17.200 Nicotine dependence, unspecified, uncomplicated; Z88.8 Allergy status to other drugs, medicaments and biological substances; Z88.0 Allergy status to penicillin; Z88.6 Allergy status to analgesic agent; Z79.01 Long term (current) use of anticoagulants; Z79.899 Other long term (current) drug therapy
CPT/HCPCS: 71046; 99284

== ENCOUNTER 2024-04-06 23:42 | Inpatient (IN) | payer MEDICARE, OTHER ==
[2024-04-06 23:49] LABS: Glucose,Whole Blood 136 mg/dL (70-110)
--- NOTE | 2024-04-06 23:52 | ED ---
General Adult HPI - General Chief complaint: Neuro Symptoms/Deficit Stated complaint: Possible stroke Time Seen by Provider: 04/06/24 23:47 Source: EMS Mode of arrival: EMS Limitations: altered mental status (Underlying dementia) - History of Present Illness Initial comments: This patient is 68-year-old man who is sent here from his long-term care [facility] to have evaluation for a suspected stroke. It was reported that between 9 and 9:30 PM the patient was noted to have slurring of the speech and his activity level seemed to be less than usual. They observe the patient and when he continued to have symptoms they called EMS. Patient transported here. He denies complaints other than wanting to use the bathroom. The patient denies pain. Denies dyspnea or cough. Denies vomiting. He does reportedly have underlying dementia and he is disoriented to place and time. Onset/Timin -: hour(s) Consistency: constant Improves with: none Worsens with: none Associated Symptoms: denies other symptoms Treatments Prior to Arrival: none - Related Data Home Medications Medication Instructions Recorded Confirmed Latanoprost/Pf [Latanoprost 0.005% 1 drop BOTH EYES HS@2100 06/07/20 04/07/24 Eye Drop] Omeprazole [PriLOSEC] 20 mg PO DAILY 06/07/20 04/07/24 Cyanocobalamin [Vitamin B-12] 1,000 mcg PO DAILY 04/12/21 04/07/24 Apixaban [Eliquis] 5 mg PO BID 07/12/21 04/07/24 Vit C/E/Zn/Coppr/Lutein/Zeaxan 1 cap PO BID 11/03/21 04/07/24 [Preservision Areds 2 Softgel] Melatonin 10 mg PO HS 10/30/22 04/07/24 Simvastatin [Zocor] 20 mg PO HS 10/30/22 04/07/24 LORazepam [Ativan] 1 mg PO Q8H 03/27/23 04/07/24 Metoprolol Tartrate [Lopressor] 25 mg PO BID 03/27/23 04/07/24 Cholecalciferol [Vitamin D3 (125 125 mcg PO DAILY 05/28/23 04/07/24 Mcg = 5000 Iu)] Dicyclomine HCl 20 mg PO Q8H PRN 05/28/23 04/07/24 lamoTRIgine [LaMICtal] 200 mg PO DAILY 05/28/23 04/07/24 Albuterol Sulfate [Albuterol 2 puff PO RT-Q6H PRN 04/07/24 04/07/24 Sulfate Hfa] Aspirin 81 mg PO DAILY 04/07/24 04/07/24 Clobetasol Propionate [Temovate 1 applic TOPICAL BID 04/07/24 04/07/24 0.05% Cream] Fenofibrate,Micronized 200 mg PO DAILY 04/07/24 04/07/24 [Fenofibrate] Lactulose 20 gm PO HS 04/07/24 04/07/24 Linaclotide [Linzess] 145 mcg PO DAILY 04/07/24 04/07/24 OLANZapine [ZyPREXA] 30 mg PO HS 04/07/24 04/07/24 Previous Rx's Medication Instructions Recorded Psyllium Husk (with Sugar) 0 gm PO DAILY #575 gm 04/09/24 [Metamucil Powder] cefUROXime axetiL [Ceftin] 500 mg PO BID #4 tab 04/09/24 guaiFENesin [Mucinex] 1,200 mg PO BID #14 tab 04/09/24 Allergies Allergy/AdvReac Type Severity Reaction Status Date / Time acetaminophen [From Tylenol] Allergy Unknown Verified 04/07/24 07:07 gabapentin [From Neurontin] Allergy Unknown Verified 04/07/24 07:07 Penicillins Allergy Unknown Verified 04/07/24 07:07 clozapine [From Clozaril] AdvReac Unknown Verified 04/07/24 07:07 divalproex sodium AdvReac Unknown Verified 04/07/24 07:07 [From Depakote] Review of Systems ROS Statement: Those systems with pertinent positive or pertinent negative responses have been documented in the HPI. ROS Other: All systems not noted in ROS Statement are negative. Limitations: ROS unobtainable due to patients medical condition Respiratory: Denies: dyspnea Cardiovascular: Denies: chest pain Gastrointestinal: Denies: abdominal pain, vomiting Musculoskeletal: Denies: back pain Neurological: Reports: other (Dysarthria). Denies: headache, weakness Past Medical History Past Medical History: Asthma, Hyperlipidemia, Hypertension Additional Past Medical History / Comment(s): schizophrenia. constipation History of Any Multi-Drug Resistant Organisms: None Reported Past Surgical History: No Surgical Hx Reported Past Anesthesia/Blood Transfusion Reactions: No Reported Reaction Past Psychological History: Schizophrenia Smoking Status: Light tobacco smoker Past Alcohol Use History: None Reported Past Drug Use History: None Reported - Past Family History Father History Unknown: Yes Mother History Unknown: Yes General Exam Limitations: altered mental status General appearance: alert, in no apparent distress Head exam: Present: atraumatic, normocephalic Eye exam: Present: normal appearance, PERRL, EOMI. Absent: scleral icterus, conjunctival injection ENT exam: Present: mucous membranes dry Neck exam: Present: normal inspection, full ROM. Absent: tenderness, meningismus Respiratory exam: Present: normal lung sounds bilaterally. Absent: respiratory distress, wheezes, rales, rhonchi, stridor Cardiovascular Exam: Present: tachycardia, normal heart sounds. Absent: systolic murmur, diastolic murmur, rubs, gallop GI/Abdominal exam: Present: soft. Absent: distended, tenderness, guarding, rebound, rigid, mass Extremities exam: Present: normal inspection, normal capillary refill. Absent: pedal edema, calf tenderness Back exam: Present: normal inspection Neurological exam: Present: alert, CN II-XII intact. Absent: oriented X3 (Oriented only to person), motor sensory deficit Expanded Neurological exam: Present: protecting the airway, other (There is mild dysarthria). Absent: receptive aphasia, expressive aphasia Patient oriented to: Present: person Cranial nerves: EOM's Intact: Normal, Tongue Deviation: Normal Sensory exam: Upper Extremity Light Touch: Normal Motor strength exam: RUE: 5, LUE: 5, RLE: 5, LLE: 5 Eye Response: (4) open spontaneously Motor Response: (6) obeys commands Verbal Response: (5) oriented Skin exam: Present: warm, dry, intact, normal color. Absent: rash Course Vital Signs 04/06/24 04/06/24 04/07/24 23:44 23:53 00:40 Temperature 99.5 F Pulse Rate 112 H 101 H Pulse Rate [ Left Supine] Pulse Rate [ Pulse Oximetery ] Respiratory 18 16 Rate Blood Pressure 142/75 129/69 Blood Pressure [Right Arm Supine] O2 Sat by Pulse 86 L 95 96 Oximetry 04/07/24 04/07/24 04/07/24 04:44 08:25 08:51 Temperature 98.9 F 97.8 F Pulse Rate 92 92 Pulse Rate [ Left Supine] Pulse Rate [ Pulse Oximetery ] Respiratory 16 16 Rate Blood Pressure 108/67 105/67 Blood Pressure [Right Arm Supine] O2 Sat by Pulse 98 100 Oximetry 04/07/24 04/07/24 04/07/24 09:26 12:00 14:00 Temperature 98.2 F 97.9 F Pulse Rate 105 H Pulse Rate [ 88 88 Left Supine] Pulse Rate [ Pulse Oximetery ] Respiratory 20 16 18 Rate Blood Pressure 147/66 Blood Pressure 128/62 [Right Arm Supine] O2 Sat by Pulse 93 L 92 L Oximetry 04/07/24 04/07/24 16:00 19:13 Temperature 97.7 F 98.2 F Pulse Rate Pulse Rate [ 96 Left Supine] Pulse Rate [ 89 Pulse Oximetery ] Respiratory 16 18 Rate Blood Pressure Blood Pressure 133/68 150/56 [Right Arm Supine] O2 Sat by Pulse 94 L 98 Oximetry EKG Findings - EKG Results: EKG: interpreted by ERMD, sinus rhythm EKG shows: tachycardia (Rate 112 bpm) - Blocks, Sibley, Hypertrophy, ST Abn: AV and intraventricular conduction: right bundle branch block (fixed/intermittent, complete/incomplete), left anterior fascicular block Medical Decision Making - Medical Decision Making The patient had CT of the brain that I interpreted as negative for acute intracranial hemorrhage or bony trauma. The patient had chest x-ray that I interpreted to show right hemidiaphragm elevation no pneumothorax or congestive heart failure. Was pt. sent in by a medical professional or institution (, PA, MACHINE FEEDER [employer], urgent care, hospital, or longterm...) When possible be specific @ - the patient is sent from [facility] Did you speak to anyone other than the patient for history (EMS, parent, family, police, friend...)? What history was obtained from this source @ -[No] Did you review nursing and triage notes (agree or disagree)? Why? @ -[I reviewed and agree with nursing and triage notes] Were old charts reviewed (outside hosp., previous admission, EMS record, old EKG, old radiological studies, urgent care reports/EKG's, longterm records)? Report findings @ -[No old charts were reviewed] Differential Diagnosis (chest pain, altered mental status, abdominal pain women, abdominal pain men, vaginal bleeding, weakness, fever, dyspnea, syncope, headache, dizziness, GI bleed, back pain, seizure, CVA, palpatations, mental health, musculoskeletal)? @ -Differential Altered Mental Status: Hypoglycemia, DKA, hypercapnia, ETOH, overdose, CO poisoning, trauma, myxedema coma, HTN encephalopathy, infection, encephalitis, psychosis, intercranial hemorrhage, hepatic encephalopathy, meningitis, CVA, this is not meant to be an all-inclusive list EKG interpreted by me (3pts min.). @ -[I interpreted as above] X-rays interpreted by me (1pt min.). @ -[I interpreted as above CT interpreted by me (1pt min.). @ -[I interpreted as above U/S interpreted by me (1pt. min.). @ -[None done] What testing was considered but not performed or refused? (CT, X-rays, U/S, labs)? Why? @ -[None] What meds were considered but not given or refused? Why? @ -[None] Did you discuss the management of the patient with other professionals (professionals i.e. , PA, MACHINE [employer], lab, RT, psych nurse, manager social services, senior account representative, teacher, crime prevention police officer, director of casework services)? Give summary @ -Case discussed with admitting physician and treatment recommendations incorporated Was smoking cessation discussed for >3mins.? @ -[No] Was critical care preformed (if so, how long)? @ -[No] Were there social determinants of health that impacted care today? How? (Homelessness, low income, unemployed, alcoholism, drug addiction, transportation, low edu. Level, literacy, decrease access to med. care, detention, rehab)? @ -[No] Was there de-escalation of care discussed even if they declined (Discuss DNR or withdrawal of care, Hospice)? DNR status @ -[No] What co-morbidities impacted this encounter? (DM, HTN, Smoking, COPD, CAD, Cancer, CVA, ARF, Chemo, Hep., AIDS, mental health diagnosis, sleep apnea, morbid obesity)? @ -[None] Was patient admitted / discharged? Hospital course, mention meds given and route, prescriptions, significant lab abnormalities, going to OR and other pertinent info. @ -[Patient is 68-year-old man here to have evaluation for slurred speech a ltered mental status. The patient will be admitted to have further neurology evaluation. Undiagnosed new problem with uncertain prognosis? @ -[No] Drug Therapy requiring intensive monitoring for toxicity (Heparin, Nitro, Insulin, Cardizem)? @ -[No] Were any procedures done? @ -[No] Diagnosis/symptom? @ -[Acute dysarthria Altered mental status Acute, or Chronic, or Acute on Chronic? @ -[Acute Uncomplicated (without systemic symptoms) or Complicated (systemic symptoms)? @ -[default] Side effects of treatment? @ -[No] Exacerbation, Progression, or Severe Exacerbation? @ -[No] Poses a threat to life or bodily function? How? (Chest pain, [place], [place], pneumonia, PE, COPD, DKA, ARF, appy, cholecystitis, CVA, Diverticulitis, Homicidal, Suicidal, threat to staff... and all critical care pts) @ -[Requires further evaluation - Lab Data Result diagrams: 04/08/24 05:19 04/08/24 05:19 Lab Results 04/06/24 04/06/24 04/06/24 Range/Units 23:47 23:48 23:48 WBC 5.0 (3.8-10.6) k/uL RBC 3.99 L (4.30-5.90) m/uL Hgb 11.9 L (13.0-17.5) gm/dL Hct 36.7 L (39.0-53.0) % MCV 91.9 (80.0-100.0) fL MCH 29.7 (25.0-35.0) pg MCHC 32.3 (31.0-37.0) g/dL RDW 13.1 (11.5-15.5) % Plt Count 134 L (150-450) k/uL MPV 8.8 Neutrophils % 84 % Lymphocytes % 9 % Monocytes % 6 % Eosinophils % 0 % Basophils % 0 % Neutrophils # 4.2 (1.3-7.7) k/uL Lymphocytes # 0.5 L (1.0-4.8) k/uL Monocytes # 0.3 (0-1.0) k/uL Eosinophils # 0.0 (0-0.7) k/uL Basophils # 0.0 (0-0.2) k/uL PT 11.9 (10.0-12.5) sec INR 1.1 (<1.2) APTT 25.4 (22.0-30.0) sec Sodium (137-145) mmol/L Potassium (3.5-5.1) mmol/L Chloride (98-107) mmol/L Carbon Dioxide (22-30) mmol/L Anion Gap mmol/L BUN (9-20) mg/dL Creatinine (0.66-1.25) mg/dL Est GFR (CKD-EPI)AfAm (>60 ml/min/1.73 sqM) Est GFR (CKD-EPI)NonAf (>60 ml/min/1.73 sqM) Glucose (74-99) mg/dL POC Glucose (mg/dL) 136 H (70-110) mg/dL POC Glu Cad Application Support Specialist ID Bette Quinones Calcium (8.4-10.2) mg/dL Total Bilirubin (0.2-1.3) mg/dL AST (17-59) U/L ALT (4-49) U/L Alkaline Phosphatase (38-126) U/L Troponin I (0.000-0.034) ng/mL Total Protein (6.3-8.2) g/dL Albumin (3.5-5.0) g/dL Procalcitonin (0.02-0.09) ng/mL Urine Color Urine Appearance (Clear) Urine pH (5.0-8.0) Ur Specific [place] (1.001-1.035) Urine Protein (Negative) Urine Glucose (UA) (Negative) Urine Ketones (Negative) Urine Blood (Negative) Urine Nitrite (Negative) Urine Bilirubin (Negative) Urine Urobilinogen (<2.0) mg/dL Ur Leukocyte Esterase (Negative) Urine Opiates Screen (NotDetected) Ur Oxycodone Screen (NotDetected) Urine Methadone Screen (NotDetected) Ur Barbiturates Screen (NotDetected) U Tricyclic Antidepress (NotDetected) Ur Phencyclidine Scrn (NotDetected) Ur Amphetamines Screen (NotDetected) U Methamphetamines Scrn (NotDetected) U Benzodiazepines Scrn (NotDetected) Urine Cocaine Screen (NotDetected) U Marijuana (THC) Screen (NotDetected) 04/06/24 04/06/24 04/06/24 Range/Units 23:48 23:48 23:48 WBC (3.8-10.6) k/uL RBC (4.30-5.90) m/uL Hgb (13.0-17.5) gm/dL Hct (39.0-53.0) % MCV (80.0-100.0) fL MCH (25.0-35.0) pg MCHC (31.0-37.0) g/dL RDW (11.5-15.5) % Plt Count (150-450) k/uL MPV Neutrophils % % Lymphocytes % % Monocytes % % Eosinophils % % Basophils % % Neutrophils # (1.3-7.7) k/uL Lymphocytes # (1.0-4.8) k/uL Monocytes # (0-1.0) k/uL Eosinophils # (0-0.7) k/uL Basophils # (0-0.2) k/uL PT (10.0-12.5) sec INR (<1.2) APTT (22.0-30.0) sec Sodium 134 L (137-145) mmol/L Potassium 4.1 (3.5-5.1) mmol/L Chloride 104 (98-107) mmol/L Carbon Dioxide 24 (22-30) mmol/L Anion Gap 6 mmol/L BUN 15 (9-20) mg/dL Creatinine 1.07 (0.66-1.25) mg/dL Est GFR (CKD-EPI)AfAm 82 (>60 ml/min/1.73 sqM) Est GFR (CKD-EPI)NonAf 71 (>60 ml/min/1.73 sqM) Glucose 133 H (74-99) mg/dL POC Glucose (mg/dL) (70-110) mg/dL POC Glu Cad Application Support Specialist ID Calcium 10.0 (8.4-10.2) mg/dL Total Bilirubin 0.4 (0.2-1.3) mg/dL AST 27 (17-59) U/L ALT 17 (4-49) U/L Alkaline Phosphatase 46 (38-126) U/L Troponin I <0.012 (0.000-0.034) ng/mL Total Protein 6.4 (6.3-8.2) g/dL Albumin 4.2 (3.5-5.0) g/dL Procalcitonin 0.07 (0.02-0.09) ng/mL Urine Color Urine Appearance (Clear) Urine pH (5.0-8.0) Ur Specific [place] (1.001-1.035) Urine Protein (Negative) Urine Glucose (UA) (Negative) Urine Ketones (Negative) Urine Blood (Negative) Urine Nitrite (Negative) Urine Bilirubin (Negative) Urine Urobilinogen (<2.0) mg/dL Ur Leukocyte Esterase (Negative) Urine Opiates Screen (NotDetected) Ur Oxycodone Screen (NotDetected) Urine Methadone Screen (NotDetected) Ur Barbiturates Screen (NotDetected) U Tricyclic Antidepress (NotDetected) Ur Phencyclidine Scrn (NotDetected) Ur Amphetamines Screen (NotDetected) U Methamphetamines Scrn (NotDetected) U Benzodiazepines Scrn (NotDetected) Urine Cocaine Screen (NotDetected) U Marijuana (THC) Screen (NotDetected) 04/07/24 04/07/24 Range/Units 00:43 00:43 WBC (3.8-10.6) k/uL RBC (4.30-5.90) m/uL Hgb (13.0-17.5) gm/dL Hct (39.0-53.0) % MCV (80.0-100.0) fL MCH (25.0-35.0) pg MCHC (31.0-37.0) g/dL RDW (11.5-15.5) % Plt Count (150-450) k/uL MPV Neutrophils % % Lymphocytes % % Monocytes % % Eosinophils % % Basophils % % Neutrophils # (1.3-7.7) k/uL Lymphocytes # (1.0-4.8) k/uL Monocytes # (0-1.0) k/uL Eosinophils # (0-0.7) k/uL Basophils # (0-0.2) k/uL PT (10.0-12.5) sec INR (<1.2) APTT (22.0-30.0) sec Sodium (137-145) mmol/L Potassium (3.5-5.1) mmol/L Chloride (98-107) mmol/L Carbon Dioxide (22-30) mmol/L Anion Gap mmol/L BUN (9-20) mg/dL Creatinine (0.66-1.25) mg/dL Est GFR (CKD-EPI)AfAm (>60 ml/min/1.73 sqM) Est GFR (CKD-EPI)NonAf (>60 ml/min/1.73 sqM) Glucose (74-99) mg/dL POC Glucose (mg/dL) (70-110) mg/dL POC Glu Cad Application Support Specialist ID Calcium (8.4-10.2) mg/dL Total Bilirubin (0.2-1.3) mg/dL AST (17-59) U/L ALT (4-49) U/L Alkaline Phosphatase (38-126) U/L Troponin I (0.000-0.034) ng/mL Total Protein (6.3-8.2) g/dL Albumin (3.5-5.0) g/dL Procalcitonin (0.02-0.09) ng/mL Urine Color Colorless Urine Appearance Clear (Clear) Urine pH 7.0 (5.0-8.0) Ur Specific [place] 1.007 (1.001-1.035) Urine Protein Negative (Negative) Urine Glucose (UA) Negative (Negative) Urine Ketones Negative (Negative) Urine Blood Negative (Negative) Urine Nitrite Negative (Negative) Urine Bilirubin Negative (Negative) Urine Urobilinogen <2.0 (<2.0) mg/dL Ur Leukocyte Esterase Negative (Negative) Urine Opiates Screen Not Detected (NotDetected) Ur Oxycodone Screen Not Detected (NotDetected) Urine Methadone Screen Not Detected (NotDetected) Ur Barbiturates Screen Not Detected (NotDetected) U Tricyclic Antidepress Not Detected (NotDetected) Ur Phencyclidine Scrn Not Detected (NotDetected) Ur Amphetamines Screen Not Detected (NotDetected) U Methamphetamines Scrn Not Detected (NotDetected) U Benzodiazepines Scrn Detected H (NotDetected) Urine Cocaine Screen Not Detected (NotDetected) U Marijuana (THC) Screen Not Detected (NotDetected) Disposition Clinical Impression: Altered mental status, Dysarthria Disposition: ADMITTED IP TO THIS HOSP Condition: Fair Is patient prescribed a controlled substance at d/c from ED?: No
[2024-04-07 00:17] LABS: Basophils % (A) 0 %; Eosinophils % (A) 0 %; HCT 36.7 % (39.0-53.0); HGB 11.9 gm/dL (13.0-17.5); Lymphocytes # (A) 0.5 k/uL (1.0-4.8); Lymphocytes % (A) 9 %; MCH 29.7 pg (25.0-35.0); MCHC 32.3 g/dL (31.0-37.0); MCV 91.9 fL (80.0-100.0); Mean Platelet Volume 8.8; Monocytes # (A) 0.3 k/uL (0-1.0); Monocytes % (A) 6 %; Neutrophils # (A) 4.2 k/uL (1.3-7.7); Neutrophils % (A) 84 %; Platelet Count 134 k/uL (150-450); RBC 3.99 m/uL (4.30-5.90); RDW 13.1 % (11.5-15.5)
[2024-04-07 00:22] LABS: INR 1.1 (<1.2); Partial Thromboplastin Time 25.4 sec (22.0-30.0); Prothrombin Time 11.9 sec (10.0-12.5)
[2024-04-07 00:27] LABS: ALT 17 U/L (4-49); AST 27 U/L (17-59); African American GFR (CKD) 82 (>60 ml/min/1.73 sqM); Albumin 4.2 g/dL (3.5-5.0); Alkaline Phosphatase 46 U/L (38-126); Anion Gap 6 mmol/L; Blood Urea Nitrogen 15 mg/dL (9-20); Carbon Dioxide 24 mmol/L (22-30); Chloride 104 mmol/L (98-107); Glucose 133 mg/dL (74-99); Non-African American GFR(CKD) 71 (>60 ml/min/1.73 sqM); Potassium 4.1 mmol/L (3.5-5.1); Sodium 134 mmol/L (137-145); Total Bilirubin 0.4 mg/dL (0.2-1.3); Total Protein 6.4 g/dL (6.3-8.2)
--- NOTE | 2024-04-07 00:56 | XR ---
EXAM: XR Chest, 1 View CLINICAL HISTORY: XR Reason: altered mental status TECHNIQUE: Frontal view of the chest. COMPARISON: No relevant prior studies available. FINDINGS: Lungs: Somewhat underinflated lungs with 5 cm elevation right diaphragm. There is central bronchovascular crowding. Mild pulmonary edema cannot be excluded. Pleural space: Unremarkable. No pneumothorax is seen. Heart: The cardiac silhouette is borderline enlarged. Mediastinum: Unremarkable. Normal mediastinal contour. Bones/joints: Unremarkable. No acute fracture. Upper abdomen: Unremarkable as visualized. No pneumoperitoneum under the diaphragm. IMPRESSION: Somewhat underinflated lungs with 5 cm elevation right diaphragm. There is central bronchovascular crowding. Mild pulmonary edema cannot be excluded. EXAM: CT Head Without Intravenous Contrast CLINICAL HISTORY: XR Reason: altered mental status TECHNIQUE: Axial computed tomography images of the head/brain without intravenous contrast. CTDI is 49.1 mGy and DLP is 1227.4 mGy-cm. This CT exam was performed using one or more of the following dose reduction techniques: automated exposure control, adjustment of the mA and/or kV according to patient size, and/or use of iterative reconstruction technique. COMPARISON: No relevant prior studies available. FINDINGS: Brain: Trace amount of periventricular white matter low density consistent with chronic small vessel disease and/or senescent changes. The brain is otherwise unremarkable. No acute large vessel infarct or intracranial hemorrhage is seen. Ventricles: Unremarkable. No ventriculomegaly. Bones/joints: Unremarkable. No acute fracture. Soft tissues: Unremarkable. Sinuses: Unremarkable as visualized. No acute sinusitis. Mastoid air cells: Unremarkable as visualized. No mastoid effusion. IMPRESSION: Trace amount of periventricular white matter low density consistent with chronic small vessel disease and/or senescent changes. The brain is otherwise unremarkable. No acute large vessel infarct or intracranial hemorrhage is seen.
[2024-04-07 01:09] LABS: Appearance,Urine Clear (Clear); Bilirubin,Urine Negative (Negative); Blood,Urine Negative (Negative); Color,Urine Colorless; Glucose,Urine (UA) Negative (Negative); Ketones,Urine Negative (Negative); Leukocyte Esterase,Urine Negative (Negative); Nitrite,Urine Negative (Negative); Protein,Urine Negative (Negative); Specific Gravity,Urine 1.007 (1.001-1.035); Urobilinogen,Urine <2.0 mg/dL (<2.0)
[2024-04-07 01:31] LABS: Amphetamine Screen,Urine Not Detected (NotDetected); Barbiturate Screen,Urine Not Detected (NotDetected); Benzodiazepines Screen,Urine Detected (NotDetected); Cocaine Screen,Urine Not Detected (NotDetected); Methadone Screen, Urine Not Detected (NotDetected); Opiate Screen,Urine Not Detected (NotDetected); Oxycodone Screen, Urine Not Detected (NotDetected); Phencyclidine Screen,Urine Not Detected (NotDetected); Tricyclic Antidepressant,Urine Not Detected (NotDetected); Urn Cannabinoid Scrn Not Detected (NotDetected)
[2024-04-07] MEDS ORDERED: MAG HYDROX/AL HYDROX/SIMETH 30 ML CUP PO PRN (03:21)
[2024-04-07] MEDS ORDERED: NALOXONE 0.4 MG/ML 1 ML VIAL IV PRN (03:21)
[2024-04-07] MEDS ORDERED: DICYCLOMINE 20 MG TAB PO PRN (03:24)
[2024-04-07] MEDS ORDERED: NON FORMULARY DRUG (Simvastatin 20 MG Tab) PO SCH (03:30)
[2024-04-07] MEDS ORDERED: CHOLECALCIFEROL 125 MCG (5000 IU) TABLET PO SCH (03:30)
[2024-04-07] MEDS: SODIUM CHLORIDE 0.9% 1,000 ML IV SCH (04:35)
[2024-04-07] MEDS ORDERED: POTASSIUM CHLORIDE ER 20 MEQ TAB.ER PO SCH (08:00)
[2024-04-07] MEDS: METOPROLOL TARTRATE 25 MG TAB PO SCH (08:49)
[2024-04-07] MEDS: PANTOPRAZOLE 40 MG TABLET PO SCH (08:49)
[2024-04-07] MEDS: APIXABAN 5 MG TAB PO SCH (08:49)
[2024-04-07] MEDS: LORazepam 1 MG TAB PO SCH (08:49)
[2024-04-07] MEDS ORDERED: ALBUTEROL NEBULIZED 2.5 MG/3 ML INHALATION PRN (09:29)
[2024-04-07] MEDS: CYANOCOBALAMIN 500 MCG TAB PO SCH (11:37)
[2024-04-07] MEDS: lamoTRIgine 100 MG TAB PO SCH (11:37)
[2024-04-07] MEDS: NON FORMULARY DRUG (Linaclotide [Linzess] 145 MCG Capsule) PO SCH (11:38)
[2024-04-07] MEDS: FENOFIBRATE 160 MG TAB PO SCH (11:38)
[2024-04-07] MEDS: LACTATED RINGERS 1,000 ML IV SCH (12:49)
--- NOTE | 2024-04-07 14:23 | P.HPIM ---
History of Present Illness H&P Date: 04/07/24 Chief Complaint: Fever This is a 68-year-old patient of visiting physicians Dr. Matson. Chronic stable medical conditions include COPD, hypertension, hyperlipidemia, constipation, Paroxysmal atrial fibrillation/atrial flutter tachycardia.. , chronic constipation. GERD. has a public guardian. Lives at [facility]. diagnoses of schizophrenia and schizoaffective disorder Per the ER physician patient was sent in for a suspected stroke. Patient was noted around 9 9:30 PM to have slurring of the speech and his activity less than usual. As of cognitive impairment patient does not have a good historian. Per the EMS run sheet patient was reported to have a fever of 105. Patient does have a congested cough. Tired. Some decreased appetite. Patient has a sitter in the ER. Patient ate his breakfast very fast and then vomited. Normally able to swallow his food well. At baseline does have unsteady gait. [Vital signs taken by EMS showed temperature 100.4, pulse ox 90, heart rate 116 blood pressure 152/74] Review of systems: GEN.: Fever, tired EYES: None HEENT: None NECK: None RESPIRATORY: As above CARDIOVASCULAR: None GASTROINTESTINAL: None GENITOURINARY: None MUSCULOSKELETAL: None LYMPHATICS: None HEMATOLOGICAL: None PSYCHIATRY: Cognitive impairment NEUROLOGICAL: Baseline unsteady gait. Rest as above Past medical history to include: Asthma, hypertension, hyperlipidemia, schizophrenia, schizoaffective disorder, constipation. Left leg DVT in April 2021, cirrhosis, atrial fibrillation, atrial flutter atrial tachycardia Social history: Has a public guardian. Smokes variable amount. No alcohol intake. Lives at- [facility] home. Previously used street drugs Physical examination: VITAL SIGNS: Fever of 105 reported at [facility], 112, 18, 142 x 75, 86% on 2 L upon presentation GENERAL: BMI 20.2, laying in bed tired EYES: Pupils equal. Conjunctiva normal. HEENT: External appearance of nose and ears normal, oral cavity-increased secretions NECK: JVD not raised; masses not palpable. HEART: First and second heart sounds are normal; no edema. LUNGS: Respiratory rate increased, coarse breath sounds ABDOMEN: Soft, nontender, liver spleen not palpable, no masses palpable. PSYCH: Answering simple questions, slowly MUSCULOSKELETAL:No Clubbing/cyanosis;muscles-grossly intact NEUROLOGICAL: Cranial nerves grossly intact; no facial asymmetry, power and sensation grossly intact. LYMPHATICS: No lymph nodes palpable in the axilla and neck INVESTIGATIONS, reviewed in the clinical context: April 06, 2024: White count 5 hemoglobin 11.9 platelets 134 sodium 134 potassium 4.1 BUN 15 creatinine 1.07 Troponin I less than 0.012 UA: Negative Urine drug screen positive for benzodiazepine EKG tracing personally reviewed by me-sinus tachycardia. Rate 112. Right bundle fredrick block Chest x-ray film personally reviewed by me-right diaphragm elevated. Infiltrates Assessment and plan: -Right lower lobe pneumonia suspect gram-negative organism causing sepsis Patient reported to have a fever of 105 at the [facility] and had a heart rate of 112 IV ceftriaxone. -Likely acute delirium metabolic encephalopathy from sepsis. Highly doubt stroke/TIA. Neurology consulted -Sepsis from pneumonia IV antibiotics. IV fluids -Paroxysmal atrial flutter/atrial tachycardia atrial fibrillation.: Currently sinus rhythm Lopressor 25 twice daily. Eliquis -Hyperlipidemia Zocor 20 mg nightly -Essential hypertension Lopressor -COPD, in a current smoker Albuterol when necessary -Schizophrenia . Zyprexa. Linzess. Lamictal. -Chronic constipation Laxative -Full code - public guardian Past Medical History Past Medical History: Asthma, Hyperlipidemia, Hypertension Additional Past Medical History / Comment(s): schizophrenia. constipation History of Any Multi-Drug Resistant Organisms: None Reported Past Surgical History: No Surgical Hx Reported Past Anesthesia/Blood Transfusion Reactions: No Reported Reaction Past Psychological History: Schizophrenia Smoking Status: Light tobacco smoker Past Alcohol Use History: None Reported Past Drug Use History: None Reported - Past Family History Father History Unknown: Yes Mother History Unknown: Yes Medications and Allergies Home Medications Medication Instructions Recorded Confirmed Type Latanoprost/Pf [Latanoprost 0.005% 1 drop BOTH EYES HS@2100 06/07/20 04/07/24 History Eye Drop] Omeprazole [PriLOSEC] 20 mg PO DAILY 06/07/20 04/07/24 History Cyanocobalamin [Vitamin B-12] 1,000 mcg PO DAILY 04/12/21 04/07/24 History Apixaban [Eliquis] 5 mg PO BID 07/12/21 04/07/24 History Vit C/E/Zn/Coppr/Lutein/Zeaxan 1 cap PO BID 11/03/21 04/07/24 History [Preservision Areds 2 Softgel] Melatonin 10 mg PO HS 10/30/22 04/07/24 History Simvastatin [Zocor] 20 mg PO HS 10/30/22 04/07/24 History LORazepam [Ativan] 1 mg PO Q8H 03/27/23 04/07/24 History Metoprolol Tartrate [Lopressor] 25 mg PO BID 03/27/23 04/07/24 History Cholecalciferol [Vitamin D3 (125 125 mcg PO DAILY 05/28/23 04/07/24 History Mcg = 5000 Iu)] Dicyclomine HCl 20 mg PO Q8H PRN 05/28/23 04/07/24 History lamoTRIgine [LaMICtal] 200 mg PO DAILY 05/28/23 04/07/24 History Albuterol Sulfate [Albuterol 2 puff PO RT-Q6H PRN 04/07/24 04/07/24 History Sulfate Hfa] Aspirin 81 mg PO DAILY 04/07/24 04/07/24 History Clobetasol Propionate [Temovate 1 applic TOPICAL BID 04/07/24 04/07/24 History 0.05% Cream] Docusate [Colace] 100 mg PO BID 04/07/24 04/07/24 History Fenofibrate,Micronized 200 mg PO DAILY 04/07/24 04/07/24 History [Fenofibrate] Lactulose 20 gm PO HS 04/07/24 04/07/24 History Linaclotide [Linzess] 145 mcg PO DAILY 04/07/24 04/07/24 History OLANZapine [ZyPREXA] 30 mg PO HS 04/07/24 04/07/24 History Allergies Allergy/AdvReac Type Severity Reaction Status Date / Time acetaminophen [From Tylenol] Allergy Unknown Verified 04/07/24 07:07 gabapentin [From Neurontin] Allergy Unknown Verified 04/07/24 07:07 Penicillins Allergy Unknown Verified 04/07/24 07:07 clozapine [From Clozaril] AdvReac Unknown Verified 04/07/24 07:07 divalproex sodium AdvReac Unknown Verified 04/07/24 07:07 [From Depakote] Physical Exam Vitals: Vital Signs Temp Pulse Resp BP Pulse Ox 04/07/24 09:26 98.2 F 105 H 20 147/66 93 L 04/07/24 08:51 97.8 F 04/07/24 08:25 92 16 105/67 100 04/07/24 04:44 98.9 F 92 16 108/67 98 04/07/24 00:40 101 H 16 129/69 96 04/06/24 23:53 95 04/06/24 23:44 99.5 F 112 H 18 142/75 86 L Intake and Output 04/06/24 04/07/24 04/07/24 22:59 06:59 14:59 Output Total 700 Balance -700 Output: Urine 700 Other: Weight 79.379 kg Results CBC & Chem 7: 04/06/24 23:48 04/06/24 23:48 Labs: Abnormal Lab Results - Last 24 Hours (Table) 04/06/24 04/06/24 04/06/24 Range/Units 23:47 23:48 23:48 RBC 3.99 L (4.30-5.90) m/uL Hgb 11.9 L (13.0-17.5) gm/dL Hct 36.7 L (39.0-53.0) % Plt Count 134 L (150-450) k/uL Lymphocytes # 0.5 L (1.0-4.8) k/uL Sodium 134 L (137-145) mmol/L Glucose 133 H (74-99) mg/dL POC Glucose (mg/dL) 136 H (70-110) mg/dL U Benzodiazepines Scrn (NotDetected) 04/07/24 Range/Units 00:43 RBC (4.30-5.90) m/uL Hgb (13.0-17.5) gm/dL Hct (39.0-53.0) % Plt Count (150-450) k/uL Lymphocytes # (1.0-4.8) k/uL Sodium (137-145) mmol/L Glucose (74-99) mg/dL POC Glucose (mg/dL) (70-110) mg/dL U Benzodiazepines Scrn Detected H (NotDetected)
[2024-04-07] MEDS ORDERED: OLANZAPINE 15 MG PO SCH (21:00)
[2024-04-07] MEDS: LACTULOSE 20 GM/30 ML CUP PO SCH (21:24)
[2024-04-07] MEDS: OLANZapine 10 MG TAB PO SCH (21:25)
[2024-04-07] MEDS: LATANOPROST 0.005% OPHTH DROPS 2.5 ML BTL BOTH EYES SCH (21:25)
[2024-04-07] MEDS: MELATONIN 5 MG TABLET PO SCH (21:25)
[2024-04-07] MEDS: LEVOTHYROXINE 25 MCG TAB PO SCH (21:55)
[2024-04-08 05:45] LABS: Glucose,Whole Blood 80 mg/dL (70-110)
[2024-04-08 06:11] LABS: Basophils % (A) 0 %; Eosinophils # (A) 0.1 k/uL (0-0.7); Eosinophils % (A) 1 %; HCT 36.6 % (39.0-53.0); HGB 11.5 gm/dL (13.0-17.5); Hypochromasia Slight; Lymphocytes # (A) 1.3 k/uL (1.0-4.8); Lymphocytes % (A) 25 %; MCH 29.5 pg (25.0-35.0); MCHC 31.4 g/dL (31.0-37.0); MCV 94.1 fL (80.0-100.0); Mean Platelet Volume 9.4; Monocytes # (A) 0.2 k/uL (0-1.0); Monocytes % (A) 5 %; Neutrophils # (A) 3.5 k/uL (1.3-7.7); Neutrophils % (A) 68 %; Platelet Count 137 k/uL (150-450); RBC 3.89 m/uL (4.30-5.90); RDW 13.5 % (11.5-15.5); WBC 5.2 k/uL (3.8-10.6)
[2024-04-08 06:26] LABS: African American GFR (CKD) >90 (>60 ml/min/1.73 sqM); Anion Gap 7 mmol/L; Blood Urea Nitrogen 11 mg/dL (9-20); Calcium 9.8 mg/dL (8.4-10.2); Carbon Dioxide 22 mmol/L (22-30); Chloride 113 mmol/L (98-107); Glucose 83 mg/dL (74-99); Non-African American GFR(CKD) 79 (>60 ml/min/1.73 sqM); Potassium 3.9 mmol/L (3.5-5.1); Sodium 142 mmol/L (137-145)
--- NOTE | 2024-04-08 09:41 | P.CNNES ---
History of Present Illness Consult date: 04/07/24 Requesting physician: Zohaib Wright Reason for Consult: Altered mental status History of Present Illness: Patient is a 68-year-old male with history of dementia, who resides in [facility], was brought to the hospital by ambulance yesterday at 11:42 PM. As [facility]. Patient was alert and oriented x 1 to person only with GCS of 14. Staff men tioned that they checked the temperature was 105 F tympanic. They were concerned about sepsis. residential staff mentioned that patient was confused more than usual. Patient was noted to be agitated and somewhat uncooperative. Patient was noted to have repetitive questioning. Fast ED revealed a score of 2 due to speech changes and receptive aphasia. Patient struggled to follow commands when he was cooperative. He was noted to have saturation of 90% on room air. 2 L per nasal cannula was started. Saturation improved to 97%. Blood glucose was 143 mg/dL, temperature 100.4 orally. Blood pressure 152/74 and pulse rate 116. Patient has been afebrile in the hospital. Blood pressure was 142/75 on arrival. Blood test shows normal WBC hemoglobin 11.9, platelets 134. PT PTT normal, sodium 134 potassium is normal renal functions, hepatic panel is normal. Troponin negative. UA negative, urine drug screen positive for benzodiazepine. EKG shows sinus tachycardia. CT head revealed trace amount of periventricular white matter low-density consistent with chronic small vessel disease. The brain otherwise is unremarkable. I personally reviewed CT head, agree with the findings. Chest x-ray revealed somewhat underinflated lungs. There is central bronchovascular crowding. Mild pulmonary edema cannot be excluded. Review of Systems Constitutional: Reports fever, Denies chills Eyes: denies blurred vision, denies discharge, denies pain, denies loss of vision Ears: deny: decreased hearing, ear discharge Ears, nose, mouth and throat: Denies headache, Denies sore throat, Denies vertigo Cardiovascular: Denies chest pain, Denies shortness of breath Respiratory: Reports cough, Denies excessive sputum Gastrointestinal: Denies abdominal pain, Denies diarrhea, Denies nausea, Denies vomiting Musculoskeletal: Denies low back pain, Denies neck pain Integumentary: Denies pruritus, Denies rash Psychiatric: Reports depression, Denies anxiety Hematologic/Lymphatic: Denies easy bleeding, Denies easy bruising Past Medical History Past Medical History: Asthma, Hyperlipidemia, Hypertension Additional Past Medical History / Comment(s): schizophrenia. constipation History of Any Multi-Drug Resistant Organisms: None Reported Past Surgical History: No Surgical Hx Reported Past Anesthesia/Blood Transfusion Reactions: No Reported Reaction Past Psychological History: Schizophrenia Smoking Status: Unknown if ever smoked Past Alcohol Use History: None Reported Additional Past Alcohol Use History / Comment(s): smokes 10 cig/day Past Drug Use History: None Reported - Past Family History Father History Unknown: Yes Mother History Unknown: Yes Medications and Allergies Home Medications Medication Instructions Recorded Confirmed Type Latanoprost/Pf [Latanoprost 0.005% 1 drop BOTH EYES HS@2100 06/07/20 04/07/24 History Eye Drop] Omeprazole [PriLOSEC] 20 mg PO DAILY 06/07/20 04/07/24 History Cyanocobalamin [Vitamin B-12] 1,000 mcg PO DAILY 04/12/21 04/07/24 History Apixaban [Eliquis] 5 mg PO BID 07/12/21 04/07/24 History Vit C/E/Zn/Coppr/Lutein/Zeaxan 1 cap PO BID 11/03/21 04/07/24 History [Preservision Areds 2 Softgel] Melatonin 10 mg PO HS 10/30/22 04/07/24 History Simvastatin [Zocor] 20 mg PO HS 10/30/22 04/07/24 History LORazepam [Ativan] 1 mg PO Q8H 03/27/23 04/07/24 History Metoprolol Tartrate [Lopressor] 25 mg PO BID 03/27/23 04/07/24 History Cholecalciferol [Vitamin D3 (125 125 mcg PO DAILY 05/28/23 04/07/24 History Mcg = 5000 Iu)] Dicyclomine HCl 20 mg PO Q8H PRN 05/28/23 04/07/24 History lamoTRIgine [LaMICtal] 200 mg PO DAILY 05/28/23 04/07/24 History Albuterol Sulfate [Albuterol 2 puff PO RT-Q6H PRN 04/07/24 04/07/24 History Sulfate Hfa] Aspirin 81 mg PO DAILY 04/07/24 04/07/24 History Clobetasol Propionate [Temovate 1 applic TOPICAL BID 04/07/24 04/07/24 History 0.05% Cream] Docusate [Colace] 100 mg PO BID 04/07/24 04/07/24 History Fenofibrate,Micronized 200 mg PO DAILY 04/07/24 04/07/24 History [Fenofibrate] Lactulose 20 gm PO HS 04/07/24 04/07/24 History Linaclotide [Linzess] 145 mcg PO DAILY 04/07/24 04/07/24 History OLANZapine [ZyPREXA] 30 mg PO HS 04/07/24 04/07/24 History Allergies Allergy/AdvReac Type Severity Reaction Status Date / Time acetaminophen [From Tylenol] Allergy Unknown Verified 04/07/24 07:07 gabapentin [From Neurontin] Allergy Unknown Verified 04/07/24 07:07 Penicillins Allergy Unknown Verified 04/07/24 07:07 clozapine [From Clozaril] AdvReac Unknown Verified 04/07/24 07:07 divalproex sodium AdvReac Unknown Verified 04/07/24 07:07 [From Depakote] Physical Examination - Vital Signs Vital Signs: Vital Signs Temp Pulse Pulse Pulse Resp BP BP 04/07/24 19:13 98.2 F 89 18 150/56 04/07/24 16:00 97.7 F 96 16 133/68 04/07/24 14:00 88 18 04/07/24 12:00 97.9 F 88 16 128/62 04/07/24 09:26 98.2 F 105 H 20 147/66 04/07/24 08:51 97.8 F 04/07/24 08:25 92 16 105/67 04/07/24 04:44 98.9 F 92 16 108/67 04/07/24 00:40 101 H 16 129/69 04/06/24 23:53 04/06/24 23:44 99.5 F 112 H 18 142/75 Pulse Ox 04/07/24 19:13 98 04/07/24 16:00 94 L 04/07/24 14:00 04/07/24 12:00 92 L 04/07/24 09:26 93 L 04/07/24 08:51 04/07/24 08:25 100 04/07/24 04:44 98 04/07/24 00:40 96 05/28/24 23:53 95 04/06/24 23:44 86 L Intake and Output 04/07/24 04/07/24 04/07/24 06:59 14:59 22:59 Intake Total 1050 Output Total 700 200 Balance -700 850 Intake: Intake, IV Titration 650 Amount Lactated Ringers 1,000 ml 600 @ 100 mls/hr IV .Q10H [facility] Rx#:[id number] cefTRIAXone 1 gm In 50 Sodium Chloride 0.9% 50 ml @ 100 mls/hr IVPB Q12HR [facility] Rx#:[id number] Oral 400 Output: Urine 700 200 Other: Voiding Method Bedpan Weight 79.379 kg 79.379 kg Patient is an elderly male, very pleasant, in no acute distress. Patient is alert awake. He knows his full name, date of 1955, but states he is 70 years old. He knows that he is in [facility] but not the name of the building he is in. States is the month of April and the year is . He knows name of the current president Mr. Bullock. Patient states he has "150" children. Speech is mildly dysarthric and language functions are normal. Patient can name all objects presented and repeat very well. Attention, concentration is intact and fund of knowledge is limited. Patient has positive visual spatial apraxia, and positive palmomental reflex bilaterally. On cranial nerve examination, pupils are equal, round and reacting to light, visual bourgeois are full on confrontation, with no neglect on double simultaneous stimulation. Extraocular muscles are intact with no nystagmus. Face is symmetric, tongue protrudes to the midline. Palatal elevation and sensation normal, hearing and shoulder shrug normal, facial sensation normal. On muscle strength testing, there is no pronator drift and the strength is normal in arms and legs distally and proximally. Deep tendon reflexes are symmetric and plantars downgoing. Sensory to touch is equal with no neglect on double simultaneous stimulation. Cerebellar function showed no ataxia for [id number] testing. No ataxia for [id number] testing on either side. Tone and bulk of muscles normal. Gait deferred.. On general examination, there is no carotid bruit or murmur, S1-S2 audible. Chest is clear on consultation. Abdomen is soft nontender. No organomegaly, bowel sounds present. Peripheral pulses are present. No peripheral edema. Results - Laboratory Findings CBC and BMP: 04/08/24 05:19 04/08/24 05:19 Abnormal Lab Findings: Abnormal Labs 04/06/24 04/06/24 04/06/24 23:47 23:48 23:48 RBC 3.99 L Hgb 11.9 L Hct 36.7 L Plt Count 134 L Lymphocytes # 0.5 L Sodium 134 L Glucose 133 H POC Glucose (mg/dL) 136 H U Benzodiazepines Scrn 04/07/24 00:43 RBC Hgb Hct Plt Count Lymphocytes # Sodium Glucose POC Glucose (mg/dL) U Benzodiazepines Scrn Detected H Assessment and Plan Assessment: * Dementia, moderate degree. Worsening mental status probably due to delirium from underlying infection. * Possible right lower lobe pneumonia * Paroxysmal atrial fibrillation, on Eliquis * Hyperthyroidism * Hypertension * Hyperlipidemia * Schizoaffective disorder, bipolar type Plan: * Patient is being treated for right lower lobe pneumonia with ceftriaxone. * Continue Eliquis for paroxysmal atrial fibrillation. * Hemoglobin A1c 5.7 * B12 756, folate > 24.0. * TSH is 0.014 (0.35-5.5). Free T4 is elevated 2.10/1.8. Patient has hyperthyroidism, will defer to IM. * Neurologically, no other workup indicated. * Thank you for the consult.
[2024-04-08 11:19] LABS: Glucose,Whole Blood 83 mg/dL (70-110)
[2024-04-08 16:14] LABS: Glucose,Whole Blood 115 mg/dL (70-110)
--- NOTE | 2024-04-08 16:23 | P.PN ---
Progress Note - Text Progress Note Date: 04/08/24 Chief Complaint: Fever This is a 68-year-old patient of visiting physicians Dr. Matson. Chronic stable medical conditions include COPD, hypertension, hyperlipidemia, constipation, Paroxysmal atrial fibrillation/atrial flutter tachycardia.. , chronic constipation. GERD. has a public guardian. [facility]. diagnoses of schizophrenia and schizoaffective disorder Per the ER physician patient was sent in for a suspected stroke. Patient was n oted around 9 9:30 PM to have slurring of the speech and his activity less than usual. As of cognitive impairment patient does not have a good historian. Per the EMS run sheet patient was reported to have a fever of 105. Patient does have a congested cough. Tired. Some decreased appetite. Patient has a sitter in the ER. Patient ate his breakfast very fast and then vomited. Normally able to swallow his food well. At baseline does have unsteady gait. [Vital signs taken by EMS showed temperature 100.4, pulse ox 90, heart rate 116 blood pressure 152/74] March 30: Resting in bed. Improved respiratory symptoms. Did give the water and ice cream. Able to tolerate the same. Has a sitter. On IV ceftriaxone. No more fever. Active Medications Al Hydroxide/Mg Hydroxide (Mag Hydrox/Al Hydrox/Simeth 30 Ml Cup) 15 ml PO Q6HR PRN PRN Reason: Indigestion Albuterol Sulfate (Albuterol Nebulized 2.5 Mg/3 Ml) 2.5 mg INHALATION RT-Q6H PRN PRN Reason: Wheezing Apixaban (Apixaban 5 Mg Tab) 5 mg PO BID@0800,2100 [facility]; Protocol Last Admin: 04/08/24 07:54 Dose: 5 mg Cyanocobalamin (Cyanocobalamin 500 Mcg Tab) 1,000 mcg PO DAILY [facility] Last Admin: 04/08/24 07:54 Dose: 1,000 mcg Dicyclomine HCl (Dicyclomine 20 Mg Tab) 20 mg PO Q8H PRN PRN Reason: GI Upset Fenofibrate (Fenofibrate 160 Mg Tab) 160 mg PO DAILY [facility] Last Admin: 04/08/24 07:54 Dose: 160 mg Ceftriaxone Sodium 1 gm/ (Sodium Chloride) 50 mls @ 100 mls/hr IVPB Q12HR [facility]; Protocol Last Admin: 04/08/24 07:55 Dose: 100 mls/hr Lactated Ringer's (Lactated Ringers) 1,000 mls @ 100 mls/hr IV .Q10H [facility] Last Admin: 04/08/24 12:06 Dose: 100 mls/hr Lactulose (Lactulose 20 Gm/30 Ml Cup) 20 gm PO HS [facility] Last Admin: 04/07/24 21:24 Dose: 20 gm Lamotrigine (Lamotrigine 100 Mg Tab) 200 mg PO DAILY [facility] Last Admin: 04/08/24 07:54 Dose: 200 mg Latanoprost (Latanoprost 0.005% Ophth Drops 2.5 Ml Btl) 1 drops BOTH EYES HS@2100 [facility] Last Admin: 04/07/24 21:25 Dose: 1 drops Lorazepam (Lorazepam 1 Mg Tab) 1 mg PO TID [facility] Last Admin: 04/08/24 16:14 Dose: 1 mg Melatonin (Melatonin 5 Mg Tablet) 10 mg PO HS@2100 [facility] Last Admin: 04/07/24 21:25 Dose: 10 mg Metoprolol Tartrate (Metoprolol Tartrate 12.5 Mg Tab) 12.5 mg PO BID@0800,2100 [facility] Naloxone HCl (Naloxone 0.4 Mg/Ml 1 Ml Vial) 0.2 mg IV Q2M PRN PRN Reason: Opioid Reversal Non-Formulary Medication (Linaclotide [Linzess]) 145 mcg PO DAILY [facility] Last Admin: 04/08/24 08:51 Dose: Not Given Olanzapine (Olanzapine 10 Mg Tab) 30 mg PO HS@2100 [facility] Last Admin: 04/07/24 21:25 Dose: 30 mg Pantoprazole Sodium (Pantoprazole 40 Mg Tablet) 40 mg PO AC-BRKFST [facility] Last Admin: 04/08/24 06:05 Dose: 40 mg Past medical history to include: Asthma, hypertension, hyperlipidemia, schizophrenia, schizoaffective disorder, constipation. Left leg DVT in April 2021, cirrhosis, atrial fibrillation, atrial flutter atrial tachycardia Social history: Has a public guardian. Smokes variable amount. No alcohol intake. Lives at- [facility] home. Previously used street drugs Physical examination: VITAL SIGNS: 98, 74, 18, 103/54, 91% room air GENERAL: Reclining in bed EYES: Pupils equal. Conjunctiva normal. HEENT: External appearance of nose and ears normal, oral cavity-increased secretions NECK: JVD not raised; masses not palpable. HEART: First and second heart sounds are normal; no edema. LUNGS: Respiratory rate increased, decreased breath sounds s ABDOMEN: Soft, nontender, liver spleen not palpable, no masses palpable. PSYCH: Answering simple questions, slowly MUSCULOSKELETAL:No Clubbing/cyanosis;muscles-grossly intact INVESTIGATIONS, reviewed in the clinical context: April 08: White count 5.2 hemoglobin 9.5 potassium 3.9 creatinine 0.98. Procalcitonin 0.07 April 06, 2024: White count 5 hemoglobin 11.9 platelets 134 sodium 134 potassium 4.1 BUN 15 creatinine 1.07 Troponin I less than 0.012 UA: Negative Urine drug screen positive for benzodiazepine EKG tracing personally reviewed by me-sinus tachycardia. Rate 112. Right bundle fredrick block Chest x-ray film personally reviewed by me-right diaphragm elevated. Infiltrates Assessment and plan: -Right lower lobe pneumonia suspect gram-negative organism causing sepsis: Improving Patient reported to have a fever of 105 at the [facility] and had a heart rate of 112 IV ceftriaxone. -Likely acute delirium metabolic encephalopathy from sepsis. Highly doubt stroke/TIA. Neurology following -Sepsis from pneumonia: Better IV antibiotics. IV fluids -Paroxysmal atrial flutter/atrial tachycardia atrial fibrillation.: Currently sinus rhythm Lopressor 25 twice daily. Eliquis -Hyperlipidemia Zocor 20 mg nightly -Essential hypertension Lopressor -COPD, in a current smoker Albuterol when necessary -Schizophrenia . Zyprexa. Linzess. Lamictal. -Chronic constipation Laxative -Full code - public guardian Doing better. Tolerating diet. Had 100% of his lunch. Increase activity. Past Medical History Past Medical History: Asthma, Hyperlipidemia, Hypertension Additional Past Medical History / Comment(s): schizophrenia. constipation History of Any Multi-Drug Resistant Organisms: None Reported Past Surgical History: No Surgical Hx Reported Past Anesthesia/Blood Transfusion Reactions: No Reported Reaction Past Psychological History: Schizophrenia Smoking Status: Light tobacco smoker Past Alcohol Use History: None Reported Past Drug Use History: None Reported
[2024-04-08] MEDS: METOPROLOL TARTRATE 12.5 MG TAB PO SCH (20:30)
[2024-04-08 20:33] LABS: Glucose,Whole Blood 121 mg/dL (70-110)
[2024-04-09 05:34] LABS: Glucose,Whole Blood 89 mg/dL (70-110)
[2024-04-09] MEDS: guaiFENesin 600 MG TABLET.ER PO SCH (11:26)
[2024-04-09 14:14] VITALS: BP 144/74; PULSE 85; RESP 20; TEMP 98.2
--- NOTE | 2024-04-09 15:36 | P.DS ---
Providers Date of admission: 04/07/24 03:24 Expected date of discharge: 04/09/24 Attending physician: Coleman Gordon Consults: 04/07/24 03:21 Consult Physician Routine Consulting Provider: Loraine Neri Consult Reason/Comments: Altered mental status Do you want consulting provider notified?: Yes Primary care physician: [facility] Course: Chief Complaint: Fever This is a 68-year-old patient of visiting physicians Dr. Matson. Chronic stable medical conditions include COPD, hypertension, hyperlipidemia, constipation, Paroxysmal atrial fibrillation/atrial flutter tachycardia.. , chronic constipation. GERD. has a public guardian. Lives at [facility]. diagnoses of schizophrenia and schizoaffective disorder Per the ER physician patient was sent in for a suspected stroke. Patient was noted around 9 9:30 PM to have slurring of the speech and his activity less than usual. As of cognitive impairment patient does not have a good historian. Per the EMS run sheet patient was reported to have a fever of 105. Patient does have a congested cough. Tired. Some decreased appetite. Patient has a sitter in the ER. Patient ate his breakfast very fast and then vomited. Normally able to swallow his food well. At baseline does have unsteady gait. [Vital signs taken by EMS showed temperature 100.4, pulse ox 90, heart rate 116 blood pressure 152/74] April 08: Resting in bed. Improved respiratory symptoms. Did give the water and ice cream. Able to tolerate the same. Has a sitter. On IV ceftriaxone. No more fever. April 09: Some respiratory congestion. Otherwise doing well. Eating well. Will complete 2 more days of Ceftin antibiotic. 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 Left leg DVT in April 2021, cirrhosis, atrial fibrillation, atrial flutter atrial tachycardia Social history: Has a public guardian. Smokes variable amount. No alcohol intake. Lives at- [facility] home. Previously used street drugs Physical examination: VITAL SIGNS: 8.2, 85, 20, 144/74, 99% room air GENERAL: In bed, comfortable EYES: Pupils equal. Conjunctiva normal. HEENT: External appearance of nose and ears normal, oral cavity-increased secretions NECK: JVD not raised; masses not palpable. HEART: First and second heart sounds are normal; no edema. LUNGS: Respiratory rate normal, decreased breath sounds s ABDOMEN: Soft, nontender, liver spleen not palpable, no masses palpable. PSYCH: Answering simple questions, slowly MUSCULOSKELETAL:No Clubbing/cyanosis;muscles-grossly intact INVESTIGATIONS, reviewed in the clinical context: April 08: White count 5.2 hemoglobin 9.5 potassium 3.9 creatinine 0.98. Procalcitonin 0.07 April 06, 2024: White count 5 hemoglobin 11.9 platelets 134 sodium 134 potassium 4.1 BUN 15 creatinine 1.07 Troponin I less than 0.012 UA: Negative Urine drug screen positive for benzodiazepine EKG tracing personally reviewed by me-sinus tachycardia. Rate 112. Right bundle fredrick block Chest x-ray film personally reviewed by me-right diaphragm elevated. Infiltrates Assessment and plan: -Right lower lobe pneumonia suspect gram-negative organism causing sepsis: Improved Patient reported to have a fever of 105 at the halfway and had a heart rate of 112 IV ceftriaxone. Discharged on Ceftin 5 mg twice daily for 2 days Mucinex -Likely acute delirium metabolic encephalopathy from sepsis. Highly doubt stroke/TIA.: Improved Neurology following -Sepsis from pneumonia: Better IV antibiotics. IV fluids -Paroxysmal atrial flutter/atrial tachycardia atrial fibrillation.: Currently sinus rhythm Lopressor 25 twice daily. Eliquis -Hyperlipidemia Zocor 20 mg nightly -Essential hypertension Lopressor -COPD, in a current smoker Albuterol when necessary -Schizophrenia . Zyprexa. Linzess. Lamictal. -Chronic constipation Laxative -Full code - public guardian [facility] Past Medical History Past Medical History: Asthma, Hyperlipidemia, Hypertension Additional Past Medical History / Comment(s): schizophrenia. constipation History of Any Multi-Drug Resistant Organisms: None Reported Past Surgical History: No Surgical Hx Reported Past Anesthesia/Blood Transfusion Reactions: No Reported Reaction Past Psychological History: Schizophrenia Smoking Status: Light tobacco smoker Past Alcohol Use History: None Reported Past Drug Use History: None Reported Plan - Discharge Summary Discharge Rx Participant: Yes New Discharge Prescriptions: New Psyllium Husk (with Sugar) [Metamucil Powder] 0 gm PO DAILY #575 gm guaiFENesin [Mucinex] 1,200 mg PO BID #14 tab cefUROXime axetiL [Ceftin] 500 mg PO BID #4 tab Continue Omeprazole [PriLOSEC] 20 mg PO DAILY Latanoprost/Pf [Latanoprost 0.005% Eye Drop] 1 drop BOTH EYES HS@2100 Apixaban [Eliquis] 5 mg PO BID Vit C/E/Zn/Coppr/Lutein/Zeaxan [Preservision Areds 2 Softgel] 1 cap PO BID Simvastatin [Zocor] 20 mg PO HS LORazepam [Ativan] 1 mg PO Q8H Dicyclomine HCl 20 mg PO Q8H PRN PRN Reason: Abdominal Pain lamoTRIgine [LaMICtal] 200 mg PO DAILY Linaclotide [Linzess] 145 mcg PO DAILY Lactulose 20 gm PO HS Clobetasol Propionate [Temovate 0.05% Cream] 1 applic TOPICAL BID Aspirin 81 mg PO DAILY Albuterol Sulfate [Albuterol Sulfate Hfa] 2 puff PO RT-Q6H PRN PRN Reason: Wheezing Cyanocobalamin [Vitamin B-12] 1,000 mcg PO DAILY Melatonin 10 mg PO HS Metoprolol Tartrate [Lopressor] 25 mg PO BID Cholecalciferol [Vitamin D3 (125 Mcg = 5000 Iu)] 125 mcg PO DAILY Fenofibrate,Micronized [Fenofibrate] 200 mg PO DAILY OLANZapine [ZyPREXA] 30 mg PO HS Discontinued Docusate [Colace] 100 mg PO BID Discharge Medication List Latanoprost/Pf [Latanoprost 0.005% Eye Drop] 1 drop BOTH EYES HS@2100 06/07/20 [History] Omeprazole [PriLOSEC] 20 mg PO DAILY 06/07/20 [History] Cyanocobalamin [Vitamin B-12] 1,000 mcg PO DAILY 04/12/21 [History] Apixaban [Eliquis] 5 mg PO BID 07/12/21 [History] Vit C/E/Zn/Coppr/Lutein/Zeaxan [Preservision Areds 2 Softgel] 1 cap PO BID 11/03/21 [History] Melatonin 10 mg PO HS 10/30/22 [History] Simvastatin [Zocor] 20 mg PO HS 10/30/22 [History] LORazepam [Ativan] 1 mg PO Q8H 03/27/23 [History] Metoprolol Tartrate [Lopressor] 25 mg PO BID 03/27/23 [History] Cholecalciferol [Vitamin D3 (125 Mcg = 5000 Iu)] 125 mcg PO DAILY 05/28/23 [History] Dicyclomine HCl 20 mg PO Q8H PRN 05/28/23 [History] lamoTRIgine [LaMICtal] 200 mg PO DAILY 05/28/23 [History] Albuterol Sulfate [Albuterol Sulfate Hfa] 2 puff PO RT-Q6H PRN 04/07/24 [History] Aspirin 81 mg PO DAILY 04/07/24 [History] Clobetasol Propionate [Temovate 0.05% Cream] 1 applic TOPICAL BID 04/07/24 [History] Fenofibrate,Micronized [Fenofibrate] 200 mg PO DAILY 04/07/24 [History] Lactulose 20 gm PO HS 04/07/24 [History] Linaclotide [Linzess] 145 mcg PO DAILY 04/07/24 [History] OLANZapine [ZyPREXA] 30 mg PO HS 04/07/24 [History] Psyllium Husk (with Sugar) [Metamucil Powder] 0 gm PO DAILY #575 gm 04/09/24 [Rx] cefUROXime axetiL [Ceftin] 500 mg PO BID #4 tab 04/09/24 [Rx] guaiFENesin [Mucinex] 1,200 mg PO BID #14 tab 04/09/24 [Rx] Follow up Appointment(s)/Referral(s): Conrad Matson MD [REFERRING] - 1-2 days
== END 2024-04-09 16:17 | DRG 871 ==
LOC: EC 23:42 → 3SCARD 04-07 03:23 → OBSVTOIN 04-07 03:24 → 3SCARD 04-07 12:05 → 4SSUR 04-07 13:25
PROVIDERS: ADMIT Hospitalist; ATTEND Hospitalist
DX: A41.50 Gram-negative sepsis, unspecified (principal); G93.41 Metabolic encephalopathy; J18.9 Pneumonia, unspecified organism; F03.92 Unspecified dementia, unspecified severity, with psychotic disturbance; I47.19 Other supraventricular tachycardia; I48.92 Unspecified atrial flutter; J44.0 Chronic obstructive pulmonary disease with (acute) lower respiratory infection; R47.01 Aphasia; F25.0 Schizoaffective disorder, bipolar type; I48.0 Paroxysmal atrial fibrillation; E05.90 Thyrotoxicosis, unspecified without thyrotoxic crisis or storm; I10 Essential (primary) hypertension; E78.5 Hyperlipidemia, unspecified; F17.210 Nicotine dependence, cigarettes, uncomplicated; K59.09 Other constipation; R26.81 Unsteadiness on feet; R13.10 Dysphagia, unspecified; R47.1 Dysarthria and anarthria; R48.2 Apraxia; Z79.01 Long term (current) use of anticoagulants; Z79.82 Long term (current) use of aspirin; Z79.890 Hormone replacement therapy; Z86.718 Personal history of other venous thrombosis and embolism; Z79.899 Other long term (current) drug therapy; Z88.0 Allergy status to penicillin; Z88.5 Allergy status to narcotic agent; Z88.6 Allergy status to analgesic agent; Z88.8 Allergy status to other drugs, medicaments and biological substances
CPT/HCPCS: 36415; 70450; 71045; 80048; 80053; 80306; 81003; 84145; 84484; 85025; 85610; 85730; 87040; 93005; 96365; 96366; 99285